=== PATIENT | female | born 1985 ===

== ENCOUNTER 2020-08-30 18:41 | Emergency (ER) | payer OTHER, SELFPAY ==
--- NOTE | 2020-08-30 | XR_ITS ---
EXAMINATION: XR SACRUM AND COCCYX CLINICAL INFORMATION: Pain COMPARISON: None TECHNIQUE: 2 views of the sacrum and 1views of the coccyx were obtained. FINDINGS: Large amount of gas and stool overlies the sacrum obscuring detail. Allowing for this, no bone, joint or soft tissue abnormality is demonstrated. The coccyx appears unremarkable. Phleboliths noted in the left hemipelvis. IMPRESSION: No gross abnormalities seen involving the sacrum or coccyx.
[2020-08-30 19:12] VITALS: BP 116/68; PULSE 110; RESP 18; TEMP 36.7; O2SAT 98; BMI 53.3
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
[2020-08-30] MEDS: Acetaminophen 325 MG TABLET 650 MG PO (19:55)
[2020-08-30] MEDS: Ibuprofen 800 MG TABLET PO (19:56)
== END 2020-08-30 21:05 | disposition home or self-care (01) ==
PROVIDERS: Emergency Provider Emergency Medicine
DX: S30.0XXA Contusion of lower back and pelvis, initial encounter (principal); V86.99XA Unspecified occupant of other special all-terrain or other off-road motor vehicle injured in nontraffic accident, initial encounter; Y93.89 Activity, other specified; Y92.414 Local residential or business street as the place of occurrence of the external cause; Y99.8 Other external cause status
CPT/HCPCS: 72220; 99283; 99284

== ENCOUNTER 2021-03-24 09:13 | Emergency (ER) | payer OTHER, SELFPAY ==
[2021-03-24 09:17] VITALS: BP 129/78; PULSE 82; RESP 16; TEMP 36.6; O2SAT 99; BMI 24.3
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
== END 2021-03-24 10:08 | disposition home or self-care (01) ==
PROVIDERS: Emergency Provider Emergency Medicine
DX: M54.5 Low back pain (principal)
CPT/HCPCS: 99283

== ENCOUNTER 2021-04-22 09:33 | Outpatient (REF) | payer OTHER, SELFPAY ==
[2021-04-22 13:26] LABS: CT PCR NOT DETECTED (Not Detect.); NG PCR NOT DETECTED (Not Detect.)
[2021-04-22 13:50] LABS: BV Int Neg Control Negative (Negative); BV Int Pos Control Positive (Positive)
== END 2021-04-22 09:34 | disposition home or self-care (01) ==
LOC: HO.LAB 09:33
PROVIDERS: Visit Provider Nurse Practitioner Family
DX: Z11.3 Encounter for screening for infections with a predominantly sexual mode of transmission (principal); R35.0 Frequency of micturition; N89.8 Other specified noninflammatory disorders of vagina; Z71.1 Person with feared health complaint in whom no diagnosis is made
CPT/HCPCS: 87086; 87088; 87186; 87480; 87491; 87510; 87591; 87660

== ENCOUNTER 2021-05-12 09:06 | Emergency (ER) | payer OTHER, SELFPAY ==
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
[2021-05-12 09:22] VITALS: BP 118/80; PULSE 78; RESP 16; TEMP 37; O2SAT 100; BMI 23.8
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
== END 2021-05-12 10:50 | disposition home or self-care (01) ==
PROVIDERS: Emergency Provider Emergency Medicine; PCP Internal Medicine
DX: S20.219A Contusion of unspecified front wall of thorax, initial encounter (principal); V90.8 Drowning and submersion due to other accident to watercraft; Y93.I9 Activity, other involving external motion; Y92.89 Other specified places as the place of occurrence of the external cause; Y99.9 Unspecified external cause status
CPT/HCPCS: 71046; 71100; 99283

== ENCOUNTER 2021-07-01 07:50 | Outpatient (REF) | payer OTHER, SELFPAY ==
[2021-07-01 08:54] LABS: MANUAL DIFF FLAG NO
[2021-07-01 09:09] LABS: Basophils Percent Auto 0.6 % (0-2); Eosinophils Absolute Auto 0.4 X10*3/uL (0.0-0.4); Eosinophils Percent Auto 8.1 % (0-4); Hematocrit 41.1 % (37-47); Hemoglobin 12.5 g/dl (12.0-16.0); Lymphocytes Absolute Auto 1.7 X10*3/uL (1.2-4.9); Lymphocytes Percent Auto 33.4 % (20-40); Mean Corpuscular HGB Conc 30.4 g/dl (31.0-35.0); Mean Corpuscular Hemoglobin 20.7 pg (27.0-33.0); Mean Corpuscular Volume 67.9 fL (80-98); Monocytes Absolute Auto 0.5 X10*3/uL (0.1-1.2); Monocytes Percent Auto 9.2 % (2-11); Neutrophils Absolute Auto 2.5 X10*3/uL (2.0-8.3); Neutrophils Percent Auto 48.7 % (45-73); Platelet Count 204 X10*3/uL (160-400); Red Blood Count 6.05 X10*6/uL (4.20-5.50); Red Cell Distribution Width 15.5 % (11.0-16.0); White Blood Count 5.2 X10*3/uL (4.8-10.8)
[2021-07-01 09:35] LABS: Alanine Aminotransferase 17 U/L (0-31); Albumin Level 4.3 g/dL (3.5-5.0); Alkaline Phosphatase 48 U/L (39-117); Anion Gap 11 (12-20); Aspartate Amino Transferase 21 U/L (5-31); Bilirubin Total 0.8 mg/dL (0.0-1.0); Blood Urea Nitrogen 17 mg/dL (9-16); Calcium 9.4 mg/dL (8.4-10.2); Carbon Dioxide 29 mmol/L (22-29); Chloride 104 mmol/L (96-108); Cholesterol 190 mg/dL; Estimated Glomerular Filt Rate > 60; Glucose Fasting 85 mg/dL (60-99); HDL Cholesterol 61 mg/dL; LDL Cholesterol Calculated 117 mg/dl; Potassium 4.6 mmol/L (3.3-5.1); Sodium 139 mmol/L (135-145); Total Protein 7.7 g/dL (6.5-8.0); Triglycerides 64 mg/dL
[2021-07-06 13:15] LABS: Vitamin D 25-OH, D2 <4 ng/mL; Vitamin D 25-OH, D3 31 ng/mL; Vitamin D 25-OH, Total 31 ng/mL (30-100)
== END 2021-07-01 07:51 | disposition home or self-care (01) ==
LOC: HO.LAB 07:50
PROVIDERS: PCP Internal Medicine; Visit Provider Internal Medicine
DX: D64.9 Anemia, unspecified (principal); D17.9 Benign lipomatous neoplasm, unspecified; E55.9 Vitamin D deficiency, unspecified; Z82.49 Family history of ischemic heart disease and other diseases of the circulatory system
CPT/HCPCS: 36415; 80053; 80061; 82306; 85025

== ENCOUNTER → 2021-07-29 10:21 | Outpatient (BNVA) | payer OTHER, SELFPAY | PROVIDERS: PCP Internal Medicine; Visit Provider Surgery | DX: R22.2 Localized swelling, mass and lump, trunk (principal) | CPT/HCPCS: 99202 ==

== ENCOUNTER 2021-08-11 09:57 | Outpatient (REF) | payer OTHER, SELFPAY ==
--- NOTE | ~2021-08-11 | US_ITS ---
EXAMINATION: ULTRASOUND EXTREMITY NONVASCULAR CLINICAL INFORMATION: Localized swelling, mass or lump, trunk COMPARISON: None TECHNIQUE: Grayscale and color imaging of the left buttock using a linear transducer FINDINGS: No solid or cystic mass is seen. No fluid collection is seen. US/US extremity nonvascular IMPRESSION: No abnormality seen by ultrasound.
== END 2021-08-11 09:58 | disposition home or self-care (01) ==
LOC: HO.HMGCX 09:57
PROVIDERS: PCP Internal Medicine; Visit Provider Surgery
DX: R22.2 Localized swelling, mass and lump, trunk (principal)
CPT/HCPCS: 76882

== ENCOUNTER → 2021-08-17 13:27 | Outpatient (BNVA) | payer OTHER, SELFPAY | PROVIDERS: PCP Internal Medicine; Visit Provider Surgery | DX: D17.79 Benign lipomatous neoplasm of other sites (principal) | CPT/HCPCS: 99212 ==

== ENCOUNTER 2021-11-30 07:47 | Emergency (ER) | payer OTHER, SELFPAY ==
--- NOTE | ~2021-11-30 | XR_ITS ---
EXAMINATION: XR LUMBOSACRAL SPINE CLINICAL INFORMATION: Low back pain COMPARISON: None TECHNIQUE: Three views of the lumbosacral spine. FINDINGS: The vertebral bodies and posterior elements are normal. The disc spaces are preserved and the vertebral alignment is normal. The paraspinal soft tissues are normal. XR/XR lumbar spine 2-3V IMPRESSION: Unremarkable lumbar spine examination.
[2021-11-30 08:11] VITALS: BP 134/98; PULSE 81; RESP 16; O2SAT 97; BMI 25.3
[2021-11-30 08:34] LABS: Appearance Urine HAZY; Color Urine YELLOW; Glucose Urine UA NEG (NEG); Leukocyte Esterase Urine 1+ (NEG); Nitrite Urine NEG (NEG); UACC Culture Trigger YES; Urine Blood TRACE (NEG); Urine Ketones NEG (NEG); Urine Protein NEG (NEG-TRACE)
[2021-11-30 08:36] LABS: UPreg QC Valid YES; Urine Pregnancy NEGATIVE (NEGATIVE)
[2021-11-30 08:45] LABS: Bacteria Urine TRACE /LPF; Squamous Epithelial Cell Urine 4+ /LPF
--- NOTE | 2021-11-30 09:03 | ED_ITS ---
HPI - Back Pain/Injury General Chief Complaint: Back Pain/Injury Stated Complaint: left sided pain Time Seen by Provider: 11/30/21 08:49 Source: patient Mode of arrival: ambulatory Limitations: no limitations History of Present Illness HPI Narrative: 35-year-old female came in for evaluation of low back pain. Low back pain started 2 weeks ago, with no history of injury however patient regularly go to gym and she lift weights but do not think she injured herself addition, pain is described as severe dull aching pain localized to the lower back and radiate up to the left side of the back but not the lower extremities, patient declined any stool or urinary incontinence. No weakness or numbness in her lower extremities. Patient declined any fever or chills, no history of IV drug abuse. Patient mainly started to notice frequency urination and bad odor urine. Related Data Home Medications Medication Instructions Recorded Confirmed cholecalciferol (vitamin D3) 50 50 mcg PO DAILY 06/30/21 07/29/21 mcg (2,000 unit) tablet (Vitamin D3) omeprazole 40 mg capsule,delayed 40 mg PO DAILY 06/30/21 07/29/21 release polyethylene glycol 3350 17 gram 17 g PO BID PRN 06/30/21 07/29/21 oral powder packet valacyclovir 500 mg tablet 500 mg PO DAILY 06/30/21 07/29/21 Previous Rx's Medication Instructions Recorded acetaminophen 500 mg tablet 500 mg PO Q6H PRN #14 tab 03/24/21 ibuprofen 600 mg tablet 600 mg PO Q8H PRN #10 tab 05/12/21 cyclobenzaprine 10 mg tablet 10 mg PO TID PRN #10 tab 11/30/21 nitrofurantoin 100 mg PO BID #14 cap 11/30/21 monohydrate/macrocrystals 100 mg capsule (Macrobid) oxycodone 5 mg tablet 5 mg PO Q8H PRN #10 tab 11/30/21 Allergies Allergy/AdvReac Type Severity Reaction Status Date / Time sertraline Allergy Severe tongue Verified 08/17/21 13:34 itchiness divalproex sodium Allergy Intermediate URTICARIA Verified 08/17/21 13:34 [From DEPAKOTE] topiramate [From TOPAMAX] Allergy Intermediate FACIAL AND Verified 08/17/21 13:34 LIP NUMBNESS hydromorphone [From DILAUDID] Allergy Mild URTICARIA Verified 08/17/21 13:34 Review of Systems Review of Systems: All other systems are reviewed and are negative Constitutional: Reports as per HPI and Reports no additional constitutional complaints Eyes: Reports as per HPI and Reports no additional eye complaints Reports system reviewed and no additional complaints, except as documented Cardiovascular: Reports as per HPI and Reports no additional cardiovascular complaints Respiratory: Reports as per HPI and Reports no additional respiratory complaints Gastrointestinal: Reports as per HPI and Reports no additional gastrointestinal complaints Genitourinary: Reports no additional female genitourinary complaints Musculoskeletal: Reports no additional musculoskeletal complaints Skin/Breast: Reports system reviewed and no additional complaints, except as docu Psychiatric: Reports no additional psychiatric complaints Endocrine: Reports no additional endocrine complaints Hematologic/Lymphatic: Reports no additional hematologic/lymphatic complaints Allergic/Immunologic: Reports no additional allergic/immunologic complaints Reports system reviewed and no additional complaints, except as documented and Reports Abnormal speech present FOR[facility] Past Medical History Medical History Abnormal bruising Asthma Buttocks nodule Constipation by delayed colonic transit Family history of hypertension GERD (gastroesophageal reflux disease) HSV (herpes simplex virus) infection Hypovitaminosis D Lip[place] Surgical History History of hysterectomy History of kidney stones History of umbilical hernia repair Family History Family History Mother Hypertension Social History Social History Housing: House Alcohol intake: current Alcohol intake frequency: holidays/special occasions only Alcohol type: hard liquor Patient Tobacco Use Status: Never used Tobacco e-Cigarette/Vaping Use: Never Used Second Hand Smoke Exposure: No Advance Directives: No Advance Directives Information Provided: No Patient : No service: No Current occupational status: unemployed Physical Exam Vital Signs: Vital Signs: Last Vital Signs Pulse 81 11/30/21 08:11 Resp 16 11/30/21 08:11 BP 134/98 H 11/30/21 08:11 Pulse Ox 97 11/30/21 08:11 BMI result Body Mass Index 25.3 Vital signs have been reviewed as appeared to be correct. Blood pressure normal. Heart rate normal. Respiration rate normal. Temperature normal. Oxygen saturation normal. Appearance: Alert. Oriented X3. No acute distress. Head: Normal external exam. Normocephalic. Atraumatic. No [place] signs noted. No raccoon eyes noted Eyes: PERRLA. EOMI. Conjunctiva and sclera normal. Eyelids normal. ENT: TM's Normal. Pharynx normal. Uvula midline. Moist mucous membranes. No trismus noted. No drooling noted. No muffled voice noted. Neck: Normal inspection. Neck supple. FROM. No adenopathy. Thyroid Normal. No meningeal signs. No neck mass noted. CVS: Normal heart rate and rhythm. Heart sound normal. No murmurs noted. Pulses normal throughout. Respiratory: No respiratory distress. Painless inspiration. Breath sounds normal. No wheezes/rales/rhonchi noted. Chest nontender. No accessory muscle usage noted or decreased air movement noted. Abdomen: Soft and nontender. Bowel sounds normal in all 4 quadrants. No distention noted. No organomegaly noted. No visible injury noted. Back: No CVA tenderness. Tenderness over the lower mid back but no step-off, no deformity. Skin: Skin warm and dry. Normal skin color. Normal skin turgor. No rashes/lesions/lacerations noted. Extremities: No lower extremity edema. Extremities exhibit normal range of motion. Extremities nontender. Neuro: Oriented X 3. Cranial nerve exam: II-XII are grossly intact, perianal sensation is intact, able to ambulate on both heels and toes. No motor deficit. No sensory deficit. Reflexes normal. Course Course Course Narrative: Assessment and plan. 35-year-old female came in for low back pain, patient has unremarkable x-ray, physical and clinical presentation is not consistent with spinal cord or neural canal occupying lesion causing symptoms. Patient also found to have a UTI will start the patient on Macrobid, and oxycodone seemed to control patient's pain in the ED, and few days of rest with heating pad with follow-up with her PCP. MDM - Back Pain/Injury Lab Data Attestation: I reviewed the patient's lab results. Labs: Lab Results 11/30/21 11/30/21 Range/Units 08:24 08:24 Urine Color YELLOW Urine Appearance HAZY Urine pH 6.0 (5.0-8.0) Ur Specific [place] 1.010 (1.005-1.025) Urine Protein NEG (NEG-TRACE) MG/DL Urine Glucose (UA) NEG (NEG) MG/DL Urine Ketones NEG (NEG) MG/DL Urine Blood TRACE (NEG) Urine Nitrite NEG (NEG) Ur Leukocyte Esterase 1+ H (NEG) Urine RBC 1-4 (0) /HPF Urine WBC 10-14 H (0-4) /HPF Ur Squamous Epith Cells 4+ /LPF Urine Bacteria TRACE /LPF Urine Test NEGATIVE (NEGATIVE) Imaging Data Lumbar spine x-ray: Attestation: I personally reviewed and interpreted this imaging study as follows: Radiologist's impression: Unremarkable lumbar spine examination. Discharge Plan Discharge Clinical Impression: Urinary tract infection, Back pain Patient Disposition: Home, Self-Care Instructions: Urinary Tract Infection in Women (ED), Acute Low Back Pain (ED) Prescriptions: New nitrofurantoin monohyd/m-cryst [Macrobid] 100 mg capsule 100 mg PO BID Qty: 14 RF: 0 oxycodone 5 mg tablet 5 mg PO Q8H PRN (Reason: pain) Qty: 10 RF: 0 cyclobenzaprine 10 mg tablet 10 mg PO TID PRN (Reason: muscle spasm) Qty: 10 RF: 0 No Action ibuprofen 600 mg tablet 600 mg PO Q8H PRN (Reason: pain) Qty: 10 RF: 0 acetaminophen 500 mg tablet 500 mg PO Q6H PRN (Reason: pain) Qty: 14 RF: 0 valacyclovir 500 mg tablet 500 mg PO DAILY RF: 0 omeprazole 40 mg capsule,delayed release(DR/EC) 40 mg PO DAILY RF: 0 polyethylene glycol 3350 17 gram powder in packet 17 g PO BID PRN (Reason: constipation) RF: 0 cholecalciferol (vitamin D3) [Vitamin D3] 50 mcg (2,000 unit) tablet 50 mcg PO DAILY RF: 0 Referrals: Mer Dunn MD [Primary Care Provider] - 2 days
[2021-11-30] MEDS: oxyCODONE HCl Immed Release 5 MG TABLET PO (09:09)
[2021-11-30] MEDS: Nitrofurantoin Monohyd/M-Cryst 100 MG CAPSULE PO (09:10)
[2021-11-30] MEDS: Ibuprofen 800 MG TABLET PO (09:10)
[2021-11-30] MEDS: Fluconazole 150 MG TABLET PO (10:05)
== END 2021-11-30 10:11 | disposition home or self-care (01) ==
PROVIDERS: Emergency Provider Emergency Medicine; PCP Internal Medicine
DX: N39.0 Urinary tract infection, site not specified (principal); M54.50 Low back pain, unspecified
CPT/HCPCS: 72100; 81001; 81025; 87086; 87088; 87186; 99283; 99284

== ENCOUNTER 2022-01-05 19:37 | Emergency (ER) | payer OTHER, SELFPAY ==
[2022-01-05 19:52] VITALS: BP 145/92; PULSE 88; RESP 20; TEMP 36.8; O2SAT 100; BMI 25.4
[2022-01-05] MEDS: methylPREDNISolone Sod Succ 125 MG/2 ML VIAL IVPUSH (20:07)
[2022-01-05] MEDS: diphenhydrAMINE HCL 50 MG/ML VIAL IVPUSH (20:09)
[2022-01-05] MEDS: Famotidine/PF 20 MG/2 ML VIAL IVPUSH (20:09)
[2022-01-05] MEDS: 0.9 % Sodium Chloride 1,000 ML 999 ML IV (20:09)
--- NOTE | 2022-01-05 20:28 | ED.ALLEREA ---
HPI - Allergic Reaction General Chief complaint: Allergic Reaction Stated complaint: allergic reaction Time Seen by Provider: 01/05/22 20:00 Source: patient History of Present Illness HPI narrative: Patient got her 2nd dose of Moderna COVID vaccine today. Shortly thereafter she developed an allergic reaction. Symptoms are hives diffusely. Tightness in her chest Swelling sensation in her throat. She has a history of allergic reactions 1 non is bad as this. She does have an EpiPen at home but has never used it. No other new changes to her health status. No new medications. No new food. Related Data Home Medications Medication Instructions Recorded Confirmed cholecalciferol (vitamin D3) 50 50 mcg PO DAILY 06/30/21 07/29/21 mcg (2,000 unit) tablet (Vitamin D3) omeprazole 40 mg capsule,delayed 40 mg PO DAILY 06/30/21 07/29/21 release polyethylene glycol 3350 17 gram 17 g PO BID PRN 06/30/21 07/29/21 oral powder packet valacyclovir 500 mg tablet 500 mg PO DAILY 06/30/21 07/29/21 Previous Rx's Medication Instructions Recorded acetaminophen 500 mg tablet 500 mg PO Q6H PRN #14 tab 03/24/21 ibuprofen 600 mg tablet 600 mg PO Q8H PRN #10 tab 05/12/21 cyclobenzaprine 10 mg tablet 10 mg PO TID PRN #10 tab 11/30/21 nitrofurantoin 100 mg PO BID #14 cap 11/30/21 monohydrate/macrocrystals 100 mg capsule (Macrobid) oxycodone 5 mg tablet 5 mg PO Q8H PRN #10 tab 11/30/21 diphenhydramine HCl 25 mg tablet 25 mg PO QID PRN #20 tab 01/05/22 (Allergy Relief (diphenhydramine)) prednisone 20 mg tablet 40 mg PO DAILY #10 tab 01/05/22 Allergies Allergy/AdvReac Type Severity Reaction Status Date / Time sertraline Allergy Severe tongue Verified 01/05/22 19:52 itchiness divalproex sodium Allergy Intermediate URTICARIA Verified 01/05/22 19:52 [From DEPAKOTE] topiramate [From TOPAMAX] Allergy Intermediate FACIAL AND Verified 01/05/22 19:52 LIP NUMBNESS hydromorphone [From DILAUDID] Allergy Mild URTICARIA Verified 01/05/22 19:52 Review of Systems Constitutional: Comments: No fevers chills ENT: Comments: Throat swelling sensation Cardiovascular: Comments: Chest tightness Respiratory: Comments: Dyspnea Gastrointestinal: Comments: No nausea vomiting or diarrhea Integumentary/Breasts: Comments: Diffuse hives Allergic/Immunologic: Comments: Diffuse hives PMFSH Past Medical History Medical History Abnormal bruising Asthma Buttocks nodule Constipation by delayed colonic transit Family history of hypertension GERD (gastroesophageal reflux disease) HSV (herpes simplex virus) infection Hypovitaminosis D Lipoma Surgical History History of hysterectomy History of kidney stones History of umbilical hernia repair Family History Family History Mother Hypertension Social History Social History Housing: House Alcohol intake: current Alcohol intake frequency: holidays/special occasions only Alcohol type: hard liquor Patient Tobacco Use Status: Never used Tobacco e-Cigarette/Vaping Use: Never Used Second Hand Smoke Exposure: No Advance Directives: No Advance Directives Information Provided: Yes Patient : No service: No Current occupational status: unemployed Physical Exam Vital Signs: Vital Signs: Last Vital Signs Temp 98.3 F 01/05/22 19:52 Pulse 83 01/05/22 20:36 Resp 20 01/05/22 20:36 BP 143/91 H 01/05/22 20:36 Pulse Ox 100 01/05/22 20:36 BMI result Body Mass Index 25.4 Const: Other: Awake alert. Appears anxious. HENMT: Other: Mild uvula edema. No other or pharyngeal edema. No stridor. No drooling. Resp: Other: Clear and equal bilaterally. No wheezes rales or rhonchi. Good air entry Cardio: Other: Regular rate and rhythm Course Course Course Narrative: Allergic reaction No evidence of anaphylaxis Treated with IV Solu-Medrol and IV diphenhydramine 21:18. Upon re-evaluation, hives have dissipated. Patient states she still feels itchy. No longer with swelling sensation in her throat and reexamine shows uvula swelling has improved. Will treat with another dose of IV Benadryl and monitor. Anticipate discharge home 21:53. Patient is feeling better after 2nd dose of diphenhydramine. Stable for discharge home Discharge Plan Discharge Clinical Impression: Adverse reaction to drug, Allergic reaction Patient Disposition: Home, Self-Care Instructions: General Allergic Reaction (ED) Additional Instructions: New had an allergic reaction to the Moderna vaccine. Consult your provider regarding other vaccine options in the future. Take prednisone for the next 5 days. Use Benadryl if the itching or hives return Prescriptions: New diphenhydramine HCl [Allergy Relief(diphenhydramin)] 25 mg tablet 25 mg PO QID PRN (Reason: allergic reaction) Qty: 20 0RF prednisone 20 mg tablet 40 mg PO DAILY Qty: 10 0RF No Action ibuprofen 600 mg tablet 600 mg PO Q8H PRN (Reason: pain) Qty: 10 0RF acetaminophen 500 mg tablet 500 mg PO Q6H PRN (Reason: pain) Qty: 14 0RF nitrofurantoin monohyd/m-cryst [Macrobid] 100 mg capsule 100 mg PO BID Qty: 14 0RF Rx Instructions: must administer with a meal/food oxycodone 5 mg tablet 5 mg PO Q8H PRN (Reason: pain) Qty: 10 0RF cyclobenzaprine 10 mg tablet 10 mg PO TID PRN (Reason: muscle spasm) Qty: 10 0RF valacyclovir 500 mg tablet 500 mg PO DAILY 0RF omeprazole 40 mg capsule,delayed release(DR/EC) 40 mg PO DAILY 0RF polyethylene glycol 3350 17 gram powder in packet 17 g PO BID PRN (Reason: constipation) 0RF cholecalciferol (vitamin D3) [Vitamin D3] 50 mcg (2,000 unit) tablet 50 mcg PO DAILY 0RF
--- NOTE | 2022-01-05 20:32 | PC.NURSE ---
PT received IV meds. PT currently satting at 100% on RA, breathing is less labored, and PT reports less itchyiness around the neck and throat area. PT stated that she still have some itchiness around the neck, chest, and abdomen. PT is in no apparent distress at this time.
[2022-01-05 20:36] VITALS: BP 143/91; PULSE 83; RESP 20; O2SAT 100
[2022-01-05] MEDS: diphenhydrAMINE HCL 50 MG/ML VIAL 25 MG IVPUSH (21:24)
== END 2022-01-05 22:28 | disposition home or self-care (01) ==
PROVIDERS: Emergency Provider Emergency Medicine; PCP Internal Medicine
DX: L50.9 Urticaria, unspecified (principal); T50.B95A Adverse effect of other viral vaccines, initial encounter; Y92.9 Unspecified place or not applicable; R07.89 Other chest pain; Z79.899 Other long term (current) drug therapy
CPT/HCPCS: 96361; 96374; 96375; 96376; 99284; J1200; J2930

== ENCOUNTER 2022-03-21 11:00 | Emergency (ER) | payer OTHER, SELFPAY ==
--- NOTE | ~2022-03-21 | CT_ITS ---
EXAMINATION: CT ABDOMEN AND PELVIS WITHOUT CONTRAST. CT FACIAL BONES WITHOUT CONTRAST. CLINICAL INFORMATION: Epigastric pain. Right sinus pain. COMPARISON: None TECHNIQUE: 5 mm thin axial and reformatted 3 mm thin sagittal and coronal images of abdomen and pelvis were obtained. Axial 3 mm thin and reformatted 1.5 mm thin sagittal and coronal images of facial bones were obtained. DLP [id number] FINDINGS: Abdomen and pelvis: The lung bases are clear. Heart size is normal. The liver is normal size, shape and density. No focal lesion or intrahepatic ductal dilatation seen. There is no radiopaque gallstones or wall thickening. Visualized spleen, pancreas and bilateral adrenal glands unremarkable. Both kidneys are normal size, shape and position. There are no enhancing right renal cyst. No radiopaque renal calculi or hydronephrosis seen. There are bilateral extrarenal kidney pelvises most on the right. The abdominal aorta is normal caliber. No retroperitoneal lymph nodes or mass seen. Abdominal wall appears unremarkable. There is scattered stool stool and gas seen in the colon without distention. The small bowel loops are normal caliber. Imaging to the pelvis reveals nonvisualization of uterus likely surgically removed or atrophic. There is a phleboliths in the left pelvis. There a few hypodense lesions in bilateral hilar adnexa likely ovarian cysts no free fluid seen. No abnormal pelvic or inguinal lymph nodes. Bone windows reveal no lytic or sclerotic process seen. Facial bones: There is mild mucoperiosteal thickening bilateral maxillary and right middle ethmoid sinuses. Rest of the paranasal sinuses are well-aerated. Bilateral ostiomeatal complex and frontoethmoidal recess are widely patent. The bony sinus morales are intact. Bilateral bony orbits, optic globe and optic nerve are symmetric and normal. There is no preseptal or post septal soft tissue thickening. There is no soft tissue swelling involving maxillofacial bones. Bilateral TM joints and visualized mandible appears unremarkable. The nasopharyngeal and laryngeal airway is widely patent. The prevertebral and paravertebral soft tissues are normal. Visualized intracranial brain parenchyma is unremarkable. CT/CT abdomen pelvis w con IMPRESSION: No acute intra-abdominal process seen. Multiple right renal cysts. Mild constipation without obstruction. Mild chronic inflammatory changes in bilateral maxillary and right minimal ethmoid sinus. Likely atrophic or surgically absent uterus. Bilateral ovarian cysts.
[2022-03-21 11:12] VITALS: BP 142/91; PULSE 100; RESP 19; TEMP 36.6; O2SAT 98; BMI 26.0
--- NOTE | 2022-03-21 11:34 | ED_ITS ---
HPI - Nausea/Vomiting/Diarrhea General Chief complaint: Nausea/Vomiting/Diarrhea Stated complaint: Vomiting/Nose bleed Time Seen by Provider: 03/21/22 11:32 Source: patient Mode of arrival: ambulatory Limitations: no limitations History of Present Illness HPI Narrative: 36-year-old female presents for feeling shaky, vomiting this morning, a nosebleed from her right nose, and right-sided facial pain that started this morning. Patient drank last night, she had more than 10 drinks last night. This morning she vomited 3 times, and after that had a nosebleed from her right nare. The nose bleed resolved, but now she has right-sided facial pain. Associated nausea: Yes Related Data Home Medications Medication Instructions Recorded Confirmed omeprazole 40 mg capsule,delayed 40 mg PO DAILY 06/30/21 02/08/22 release polyethylene glycol 3350 17 gram 17 g PO BID PRN 06/30/21 02/08/22 oral powder packet valacyclovir 500 mg tablet 500 mg PO DAILY 06/30/21 02/08/22 Previous Rx's Medication Instructions Recorded acetaminophen 500 mg tablet 500 mg PO Q6H PRN #14 tab 03/24/21 ibuprofen 600 mg tablet 600 mg PO Q8H PRN #10 tab 05/12/21 cyclobenzaprine 10 mg tablet 10 mg PO TID PRN #10 tab 11/30/21 diphenhydramine HCl 25 mg tablet 25 mg PO QID PRN #20 tab 01/05/22 (Allergy Relief (diphenhydramine)) cetirizine 10 mg tablet (Zyrtec) 10 mg PO DAILY #10 tab 01/27/22 fluconazole 150 mg tablet 150 mg PO Q3D #2 tab 01/27/22 (Diflucan) cholecalciferol (vitamin D3) 50 50 mcg PO DAILY 90 Days #90 tab 02/08/22 mcg (2,000 unit) tablet (Vitamin D3) fluticasone propionate 50 1 spray INTRANASAL DAILY 30 Days 02/08/22 mcg/actuation nasal #16 g spray,suspension (Flonase Allergy Relief) amoxicillin 875 mg-potassium 1 tab PO BID 10 Days #20 tab 03/21/22 clavulanate 125 mg tablet Allergies Allergy/AdvReac Type Severity Reaction Status Date / Time sertraline Allergy Severe tongue Verified 02/08/22 15:30 itchiness divalproex sodium Allergy Intermediate URTICARIA Verified 02/08/22 15:30 [From DEPAKOTE] topiramate [From TOPAMAX] Allergy Intermediate FACIAL AND Verified 02/08/22 15:30 LIP NUMBNESS hydromorphone [From DILAUDID] Allergy Mild URTICARIA Verified 02/08/22 15:30 moderna covid vaccine Allergy Intermediate hives,swell Uncoded 02/08/22 15:32 ing Review of Systems Constitutional: Constitutional: Denies body ache(s), Denies chills, Denies fatigue, Denies fever(s), Denies headache(s), Denies malaise and Denies weakness Eyes: Eyes: Denies diplopia ENT: Denies vertigo, Denies dizziness, Denies otalgia, Reports facial pain, Denies headache(s), Reports epistaxis, Denies mouth pain, Denies post nasal drip, Denies sinus pain, Reports sinus pressure, Denies sore throat and Denies throat swelling Cardiovascular: Cardiovascular: Denies chest pain, Denies syncope, Denies leg edema, Denies lightheadedness, Denies Loss of Consciousness, Denies palpitations and Denies dyspnea Respiratory: Respiratory: Denies chest congestion, Denies cough and Denies dyspnea Gastrointestinal: Gastrointestinal: Reports abdominal pain, Denies hematochezia, Denies constipation, Denies diarrhea, Reports nausea and Reports vomiting Musculoskeletal: Musculoskeletal: Reports no additional musculoskeletal complaints Neurologic: Denies confusion, Denies vertigo, Denies dizziness, Denies syncope, Denies headache(s) and Denies weakness Psychiatric: Psychiatric: Denies anxiety, Denies confusion and Denies depression Endocrine: Endocrine: Denies fatigue and Denies palpitations Allergic/Immunologic: Allergic/Immunologic: Denies throat swelling PMFSH Past Medical History Medical History Abnormal bruising Asthma Buttocks nodule Constipation by delayed colonic transit Family history of hypertension GERD (gastroesophageal reflux disease) HSV (herpes simplex virus) infection Hypovitaminosis D Lipoma Surgical History History of hysterectomy History of kidney stones History of umbilical hernia repair Family History Family History Mother Hypertension Social History Social History Housing: House Alcohol intake: current Alcohol intake frequency: does not drink Alcohol type: hard liquor Patient Tobacco Use Status: Never used Tobacco e-Cigarette/Vaping Use: Never Used Second Hand Smoke Exposure: No Use of substances other than those prescribed or required for medical reasons: No Advance Directives: No Advance Directives Information Provided: No Patient : No service: No Current occupational status: unemployed Physical Exam Vital Signs: Vital Signs: Last Vital Signs Temp 99.1 F 03/21/22 12:35 Pulse 83 03/21/22 12:35 Resp 18 03/21/22 12:35 BP 123/76 03/21/22 12:35 Pulse Ox 95 03/21/22 12:35 BMI result Body Mass Index 26.0 Const: General: No confusion Nutritional Appearance: well nourished Orientation/consciousness: No confusion Limitations: no limitations HEENT: Head: Yes normal to inspection, Yes normocephalic and Yes atraumatic Ears: hearing grossly normal bilaterally, external ears normal, TM's normal bilaterally and EAC's normal General nose exam: Normal external nose present, Normal nares present, Normal septum present, No nasal discharge present and no epistaxis Face and sinus: Yes sinus tenderness (right maxillary) Mouth: Normal oral and palatal mucosa present and moist mucous membranes Throat: Yes posterior oropharynx normal Eyes: Conjunctivae: conjunctivae normal Pupils: Equal, round and reactive pupils present EOM: EOMs intact bilaterally Neck: Neck: Yes full ROM, Yes no lymphadenopathy and Yes supple Resp: Effort & Inspection: normal respiratory effort and able to speak in co mplete sentences Auscultation: clear to auscultation bilaterally, no crac kles, no rales, no rhonchi and no wheezes Cardio: Rate: regular rate Rhythm: regular rhythm Heart sounds: S1 normal heart sound present and S2 normal heart sound present GI: Inspection: Yes normal to inspection Palpation (GI): Soft to palpation, Tenderness to palpation present (GI) (diffusely), Guarding due to palpation present (GI) (RUQ, LLQ, epigastrium) and not rigid Percussion: Yes normal to percussion Auscultation: normal bowel sounds : General: Yes no CVA tenderness Back/Spine/Pelvis: Back: no CVA tenderness Skin: General skin exam: no rashes or lesions noted Neuro: General: No confusion Cranial nerves: Yes Equal, round and reactive pupils present Extrem: General: Yes normal to inspection and Yes full ROM Psych: Appearance: grossly normal Affect: normal affect Attitude: cooperative Thought process: Normal thought process present Course Course Course Narrative: 36-year-old female presents for vomiting, nose bleed, and right facial pain and abdominal pain after drinking more than 10 drinks last night On exam, patient has stable vitals, is tender and guarding in her epigastrium, right upper quadrant, left lower quadrant is tremulous, afebrile, right Awan is patent with no septal hematoma no epistaxis, right maxillary sinuses tender to palpate and mildly erythematous. Will get alcohol level, labs, CT abdomen and face, gave fluids, Zofran, Ativan Reevaluation(s) Reevaluation #1: Labs are remarkable only for an ethanol level of 48, negative lipase, no elevated LFTs. Patient has not produced a urine yet. She is not . Vane iting CT scan results. On reexamination, patient is not tremulous anymore, states she is feeling much better, but still has right facial pain Reevaluation #2: CT shows right renal cysts, mild constipation, and chronic bilateral maxillary sinusitis with ethmoid sinusitis. Will treat as a sinusitis, Augmentin, follow up with primary care provider. CT/CT abdomen pelvis w con IMPRESSION: No acute intra-abdominal process seen. ? Multiple right renal cysts. ? Mild constipation without obstruction. ? Mild chronic inflammatory changes in bilateral maxillary and right minimal ethmoid sinus. ? Likely atrophic or surgically absent uterus. Bilateral ovarian cysts.? MDM - Nausea/Vomiting/Diarrhea Lab Data Result diagrams: 03/21/22 12:42 03/21/22 12:42 Labs: Lab Results 03/21/22 03/21/22 03/21/22 Range/Units 12:42 12:42 12:42 WBC 8.6 (4.8-10.8) X10*3/uL RBC 5.97 H (4.20-5.50) X10*6/uL Hgb 12.3 (12.0-16.0) g/dl Hct 40.3 (37.0-47.0) % MCV 67.5 L (80.0-98.0) fL MCH 20.6 L (27.0-33.0) pg MCHC 30.5 L (31.0-35.0) g/dl RDW 14.9 (11.0-16.0) % Plt Count 195 (160-400) X10*3/uL MPV Not Reportable Immature Gran % (Auto) 0.2 (0.0-0.4) % Neut % (Auto) 78.9 H (45-73) % Lymph % (Auto) 12.6 L (20-40) % [place] % (Auto) 5.8 (2-11) % Eos % (Auto) 2.0 (0-4) % Baso % (Auto) 0.5 (0-2) % Lymph # (Auto) 1.1 L (1.2-4.9) X10*3/uL [place] # (Auto) 0.5 (0.1-1.2) X10*3/uL Eos # (Auto) 0.2 (0.0-0.4) X10*3/uL Baso # (Auto) 0.0 (0.0-0.2) X10*3/uL Abs Immat Gran (auto) 0.02 (0.00-0.03) X10*3/uL Absolute Neuts (auto) 6.8 (2.0-8.3) x10*3/uL Absolute Nucleated RBC 0.000 (0.0-0.012) X10*3/uL Nucleated RBC % (auto) 0.0 (0.0-0.2) /100WBC Sodium 142 (135-145) mmol/L Potassium 4.1 (3.3-5.1) mmol/L Chloride 108 (96-108) mmol/L Carbon Dioxide 26 (22-29) mmol/L Anion Gap 12 (12-20) BUN 10 (9-16) mg/dL Creatinine 0.74 (0.5-1.4) mg/dL Estim Creat Clear Calc 89.9 Estimated GFR > 60 Random Glucose 92 (60-115) mg/dL Calcium 8.9 (8.4-10.2) mg/dL Total Bilirubin 0.5 (0.0-1.0) mg/dL AST 17 (5-31) U/L ALT 12 (0-31) U/L Alkaline Phosphatase 54 (39-117) U/L Total Protein 7.8 (6.5-8.0) g/dL Albumin 4.4 (3.5-5.0) g/dL Lipase 18 (8-78) U/L Beta HCG, Quant < 2 mIU/mL Ethyl Alcohol 46 mg/dL Discharge Plan Discharge Clinical Impression: Sinusitis, acute ethmoidal Patient Disposition: Home, Self-Care Instructions: Sinusitis (ED), Warm Compress or Soak (ED) Additional Instructions: I have sent an antibiotic to her pharmacy, please take it as prescribed. You can also alternate Tylenol and ibuprofen as I have detailed below. You may also apply warm moist washcloth to right side of your face for 10 minutes at a time 5 per 6 times a day. Please return to emergency room for any new or concerning symptoms.Please alternate Tylenol and ibuprofen for pain. Take 1 or the other every 4 hours. For example, at midnight take 1000 mg of Tylenol, then at 4:00 a .m. take 800 mg ibuprofen, at 8:00 a.m. take 1000 mg of Tylenol, at noon take 800 mg of ibuprofen, at 4:00 p.m. take 1000 mg of Tylenol, at 8:00 p.m. take 800 mg of ibuprofen. Do not exceed 3000 mg of Tylenol in 24 hours. This method is proven to be as effective as an opioid for pain control. Prescriptions: New amoxicillin-pot clavulanate 875-125 mg tablet 1 tab PO BID 10 Days Qty: 20 0RF No Action ibuprofen 600 mg tablet 600 mg PO Q8H PRN (Reason: pain) Qty: 10 0RF acetaminophen 500 mg tablet 500 mg PO Q6H PRN (Reason: pain) Qty: 14 0RF cyclobenzaprine 10 mg tablet 10 mg PO TID PRN (Reason: muscle spasm) Qty: 10 0RF diphenhydramine HCl [Allergy Relief(diphenhydramin)] 25 mg tablet 25 mg PO QID PRN (Reason: allergic reaction) Qty: 20 0RF valacyclovir 500 mg tablet 500 mg PO DAILY 0RF omeprazole 40 mg capsule,delayed release(DR/EC) 40 mg PO DAILY 0RF polyethylene glycol 3350 17 gram powder in packet 17 g PO BID PRN (Reason: constipation) 0RF fluticasone propionate [Flonase Allergy Relief] 50 mcg/actuation spray,suspension 1 spray intranasal DAILY 30 Days Qty: 16 2RF Rx Instructions: administer into each nostril cholecalciferol (vitamin D3) [Vitamin D3] 50 mcg (2,000 unit) tablet 50 mcg PO DAILY 90 Days Qty: 90 1RF fluconazole [Diflucan] 150 mg tablet 150 mg PO Q3D Qty: 2 0RF cetirizine [Zyrtec] 10 mg tablet 10 mg PO DAILY Qty: 10 0RF Stand Alone Forms: Work/School Release
[2022-03-21 12:35] VITALS: BP 123/76; PULSE 83; RESP 18; TEMP 37.3; O2SAT 95
[2022-03-21 12:45] LABS: MANUAL DIFF FLAG NO
[2022-03-21] MEDS: 0.9 % Sodium Chloride 1,000 ML 999 ML IV (12:48)
[2022-03-21] MEDS: ondansetron HCL 4 MG/2 ML VIAL IVPUSH (12:48)
[2022-03-21] MEDS: LORazepam 2 MG/ML VIAL 1 MG IVPUSH (12:48)
[2022-03-21 12:50] LABS: Basophils Percent Auto 0.5 % (0-2); Eosinophils Absolute Auto 0.2 X10*3/uL (0.0-0.4); Hematocrit 40.3 % (37.0-47.0); Hemoglobin 12.3 g/dl (12.0-16.0); Imm Gran Abs Auto 0.02 X10*3/uL (0.00-0.03); Imm Gran Pct Auto 0.2 % (0.0-0.4); Lymphocytes Absolute Auto 1.1 X10*3/uL (1.2-4.9); Lymphocytes Percent Auto 12.6 % (20-40); Mean Corpuscular HGB Conc 30.5 g/dl (31.0-35.0); Mean Corpuscular Hemoglobin 20.6 pg (27.0-33.0); Mean Corpuscular Volume 67.5 fL (80.0-98.0); Monocytes Absolute Auto 0.5 X10*3/uL (0.1-1.2); Monocytes Percent Auto 5.8 % (2-11); Neutrophils Absolute Auto 6.8 x10*3/uL (2.0-8.3); Neutrophils Percent Auto 78.9 % (45-73); Platelet Count 195 X10*3/uL (160-400); Red Blood Count 5.97 X10*6/uL (4.20-5.50); Red Cell Distribution Width 14.9 % (11.0-16.0); White Blood Count 8.6 X10*3/uL (4.8-10.8)
[2022-03-21 13:02] LABS: Ethanol 46 mg/dL
[2022-03-21 13:06] LABS: Alanine Aminotransferase 12 U/L (0-31); Albumin Level 4.4 g/dL (3.5-5.0); Alkaline Phosphatase 54 U/L (39-117); Anion Gap 12 (12-20); Aspartate Amino Transferase 17 U/L (5-31); Bilirubin Total 0.5 mg/dL (0.0-1.0); Blood Urea Nitrogen 10 mg/dL (9-16); Calcium 8.9 mg/dL (8.4-10.2); Carbon Dioxide 26 mmol/L (22-29); Chloride 108 mmol/L (96-108); Creatinine Clr Calc Pharmacy 89.9; Estimated Glomerular Filt Rate > 60; Glucose Random 92 mg/dL (60-115); Lipase 18 U/L (8-78); Potassium 4.1 mmol/L (3.3-5.1); Sodium 142 mmol/L (135-145); Total Protein 7.8 g/dL (6.5-8.0)
[2022-03-21 13:12] LABS: HCG Quantitative < 2 mIU/mL
[2022-03-21] MEDS: iohexoL 350 MG/ML 100 ML INFUS..BTL IV (13:38)
[2022-03-21 14:42] VITALS: BP 117/82; PULSE 91; RESP 16; O2SAT 100
== END 2022-03-21 14:43 | disposition home or self-care (01) ==
PROVIDERS: Physician Assistant; Emergency Provider Emergency Medicine; PCP Internal Medicine
DX: J01.20 Acute ethmoidal sinusitis, unspecified (principal); R11.2 Nausea with vomiting, unspecified; R10.13 Epigastric pain; Z79.899 Other long term (current) drug therapy
CPT/HCPCS: 36415; 70486; 74177; 80053; 82077; 83690; 84702; 85025; 96361; 96374; 96375; 99284; J2060; J2405; Q9967

== ENCOUNTER 2022-06-23 17:14 | Outpatient (REF) | payer OTHER, SELFPAY | END 2022-06-23 17:15 | disposition home or self-care (01) | LOC: HO.LNP 17:14 | PROVIDERS: Visit Provider Internal Medicine | DX: Z00.00 Encounter for general adult medical examination without abnormal findings (principal); E78.5 Hyperlipidemia, unspecified; N83.209 Unspecified ovarian cyst, unspecified side; R30.0 Dysuria; Z11.3 Encounter for screening for infections with a predominantly sexual mode of transmission; Z11.4 Encounter for screening for human immunodeficiency virus [HIV] | CPT/HCPCS: 87086 ==

== ENCOUNTER → 2022-06-24 13:02 | Outpatient (BNVA) | payer OTHER, SELFPAY | PROVIDERS: PCP Internal Medicine; Visit Provider Surgery | DX: R22.2 Localized swelling, mass and lump, trunk (principal) | CPT/HCPCS: 99212 ==

== ENCOUNTER 2022-08-05 12:27 | Outpatient (REF) | payer OTHER, SELFPAY ==
--- NOTE | ~2022-08-05 | XR_ITS ---
EXAMINATION: XR CHEST CLINICAL INFORMATION: Cough COMPARISON: Chest x-ray 05/12/2021 TECHNIQUE: 2 views of the chest were obtained. FINDINGS: Cardiac silhouette is normal in size. The lungs are well aerated. There is no lobar consolidation. No pleural effusion or pneumothorax. XR/XR chest 2V IMPRESSION: No acute pulmonary pathology.
== END 2022-08-05 12:28 | disposition home or self-care (01) ==
LOC: HO.HMGCX 12:27
PROVIDERS: PCP Internal Medicine
DX: R05.9 Cough, unspecified (principal)
CPT/HCPCS: 71046

== ENCOUNTER 2022-08-10 05:58 | Day surgery (SDC) | payer OTHER, SELFPAY ==
[2022-08-04 15:10] VITALS: BMI 26.6
--- NOTE | 2022-08-09 10:42 | P.CONAN_ITS ---
Documented by User: Shandra Spears NP 08/09/22 10:43 HPI - Anesthesia Eval Consult details Narrative: 36yo F for EUA, Left Excision Buttocks Mass PMFSH Active Problems Active Problems: All Active Problems (Updated 08/04/22 @ 15:07 by Diane Chase RN) Concern about STD in female without diagnosis (Acute) Vaginal discharge (Acute) Urinary frequency (Acute) Burning with urination (Acute) Allergies (Acute) URI (upper respiratory infection) (Acute) Ethmoid sinusitis (Acute) Physical exam (Acute) Screen for STD (sexually transmitted disease) (Acute) Ovarian cyst (Acute) Buttocks nodule (Acute) Buttocks nodule (Acute) HSV (herpes simplex virus) infection (Acute) Constipation by delayed colonic transit (Acute) Hypovitaminosis D (Acute) GERD (gastroesophageal reflux disease) (Acute) Family history of hypertension (Acute) Abnormal bruising (Acute) Lipoma (Acute) Past Medical History Medical History Abnormal bruising Asthma Buttocks nodule Buttocks nodule Constipation by delayed colonic transit Family history of hypertension GERD (gastroesophageal reflux disease) History of COVID-19 HSV (herpes simplex virus) infection Hypovitaminosis D Lipoma Family History Family History Mother Hypertension Father No problems noted. Surgical History Surgical History History of hysterectomy History of kidney stones History of umbilical hernia repair Social History Social History Housing: House Alcohol intake: current Alcohol intake frequency: holidays/special occasions only Alcohol type: hard liquor Patient Tobacco Use Status: Never used Tobacco e-Cigarette/Vaping Use: Never Used Second Hand Smoke Exposure: No Use of substances other than those prescribed or required for medical reasons: Yes Substance Use Frequency: Occasionally Are you DNR?: No Advance Directives: No Advance Directives Information Provided: Yes service: No Current occupational status: employed Current occupational exposures/hazards: No Cognitive needs: No Hearing needs: No Vision needs: Yes Meds Allergies Allergy/AdvReac Type Severity Reaction Status Date / Time sertraline Allergy Severe tongue Verified 08/10/22 06:14 itchiness divalproex sodium Allergy Intermediate URTICARIA Verified 08/10/22 06:14 [From DEPAKOTE] topiramate [From TOPAMAX] Allergy Intermediate FACIAL AND Verified 08/10/22 06:14 LIP NUMBNESS hydromorphone [From DILAUDID] Allergy Mild URTICARIA Verified 08/10/22 06:14 moderna covid vaccine Allergy Intermediate hives,swell Uncoded 08/05/22 11:42 ing Home Medications Medication Instructions Recorded Confirmed Last Taken Type valacyclovir 500 mg tablet 500 mg PO BID 06/23/22 08/10/22 Unknown History Exam Exam Date and Time: August 09, 2022 1042 Height,Weight and Vital Signs: Height 5 ft 1 in Weight 63.957 kg Pertinent Lab Results Pertinent Lab Results: Laboratory Tests 03/21/22 03/21/22 12:42 12:42 WBC 8.6 Hgb 12.3 Hct 40.3 Plt Count 195 Sodium 142 Potassium 4.1 Chloride 108 Carbon Dioxide 26 BUN 10 Creatinine 0.74 Assessment and Plan Assessment Anesthesia Assessment: Chart Reviewed Documented by User: Greta Santiago MD 08/10/22 07:28 [facility] Past Medical History Medical History Abnormal bruising Asthma Buttocks nodule Buttocks nodule Constipation by delayed colonic transit Family history of hypertension GERD (gastroesophageal reflux disease) History of COVID-19 HSV (herpes simplex virus) infection Hypovitaminosis D Lipoma Family History Family History Mother Hypertension Father No problems noted. Surgical History Surgical History History of hysterectomy History of kidney stones History of umbilical hernia repair History of Problems with Anesthesia: No Social History Social History Housing: House Alcohol intake: current Alcohol intake frequency: holidays/special occasions only Alcohol type: hard liquor Patient Tobacco Use Status: Never used Tobacco e-Cigarette/Vaping Use: Never Used Second Hand Smoke Exposure: No Use of substances other than those prescribed or required for medical reasons: Yes Substance Use Frequency: Occasionally Are you DNR?: No Advance Directives: No Advance Directives Information Provided: Yes service: No Current occupational status: employed Current occupational exposures/hazards: No Cognitive needs: No Hearing needs: No Vision needs: Yes Meds Allergies Allergy/AdvReac Type Severity Reaction Status Date / Time sertraline Allergy Severe tongue Verified 08/10/22 06:14 itchiness divalproex sodium Allergy Intermediate URTICARIA Verified 08/10/22 06:14 [From DEPAKOTE] topiramate [From TOPAMAX] Allergy Intermediate FACIAL AND Verified 08/10/22 06:14 LIP NUMBNESS hydromorphone [From DILAUDID] Allergy Mild URTICARIA Verified 08/10/22 06:14 moderna covid vaccine Allergy Intermediate hives,swell Uncoded 08/05/22 11:42 ing Home Medications Medication Instructions Recorded Confirmed Last Taken Type valacyclovir 500 mg tablet 500 mg PO BID 06/23/22 08/10/22 Unknown History Exam Airway Mallampati Class: I TM Dist: >3cm Neck ROM: Full Loose/Missing/Broken Teeth: No Heart: RRR Lungs: CTA Assessment and Plan Final Anesthetic Review History of Problems with Anesthesia: No NPO: Yes ASA Class: II Final Preanesthetic Review: Meds/Allgs Chart Reviewed, Consent Obtained/Reviewed and Anes Risks/Benef Reviewed Patient Risk: Low Procedure Risk: Intermediate Anesthetic Plan Anesthetic Plan: GA Disposition: Standard PACU
[2022-08-10] VITALS (8 sets, daily range): BP systolic 116–131; BP diastolic 75–83; PULSE 71–104; RESP 15–16; TEMP 36.4–36.9; O2SAT 95–100
[2022-08-10] MEDS: Lactated Ringers 1,000 ML 100 ML IVCONT (06:33)
--- NOTE | 2022-08-10 07:20 | MHC.SHP ---
Pre-Procedural Eval Section A Date of Service: 08/10/22 Section B Chief Complaint: mass of buttocks Details of Present Illness: has left buttock mass, increasing in size, uncomfortable Relevant Family History (Specify if Yes): No Relevant Social History: None Present Medications: see Short Stay Collaborative assessment Medical History: Significant History (GERD) Allergies: Allergies Allergy/AdvReac Type Severity Reaction Status Date / Time sertraline Allergy Severe tongue Verified 08/10/22 06:14 itchiness divalproex sodium Allergy Intermediate URTICARIA Verified 08/10/22 06:14 [From DEPAKOTE] topiramate [From TOPAMAX] Allergy Intermediate FACIAL AND Verified 08/10/22 06:14 LIP NUMBNESS hydromorphone [From DILAUDID] Allergy Mild URTICARIA Verified 08/10/22 06:14 moderna covid vaccine Allergy Intermediate hives,swell Uncoded 08/05/22 11:42 ing Review of Systems Sugical H&P ROS: Negative: Constitution, Cardiovascular, Respiratory, Neurological, Psychiatric, Hem-Onc, Allergic/Immunologic, Gastrointestinal, Genitourinary, Musculoskeletal, Integumentary, Endocrine and Eyes/Ears/Nose/Throat Exam Surgical H&P Exam: Normal: HEENT, Normal: Heart, Normal: Lungs, Normal: Extremities, Normal: Abdomen, Normal: Skin and Normal: Neurological Exam Comment: left buttock - vague mass,more prominent when she is upright Plan Diagnosis/Plan: Unchanged I have reviewed the history and physical and performed a pertinent physical examination on my patient. No changes have occurred unless specified.
--- NOTE | 2022-08-10 08:02 | HO.ANESPROP2 ---
[facility] Active Problems Active Problems: All Active Problems (Updated 08/04/22 @ 15:07 by Diane Chase RN) Concern about STD in female without diagnosis (Acute) Vaginal discharge (Acute) Urinary frequency (Acute) Burning with urination (Acute) Allergies (Acute) URI (upper respiratory infection) (Acute) Ethmoid sinusitis (Acute) Physical exam (Acute) Screen for STD (sexually transmitted disease) (Acute) Ovarian cyst (Acute) Buttocks nodule (Acute) Buttocks nodule (Acute) HSV (herpes simplex virus) infection (Acute) Constipation by delayed colonic transit (Acute) Hypovitaminosis D (Acute) GERD (gastroesophageal reflux disease) (Acute) Family history of hypertension (Acute) Abnormal bruising (Acute) Lipoma (Acute) Past Medical History Medical History Abnormal bruising Asthma Buttocks nodule Buttocks nodule Constipation by delayed colonic transit Family history of hypertension GERD (gastroesophageal reflux disease) History of COVID-19 HSV (herpes simplex virus) infection Hypovitaminosis D Lipoma Family History Family History Mother Hypertension Father No problems noted. Surgical History Surgical History History of hysterectomy History of kidney stones History of umbilical hernia repair History of Problems with Anesthesia: No Social History Social History Housing: House Alcohol intake: current Alcohol intake frequency: holidays/special occasions only Alcohol type: hard liquor Patient Tobacco Use Status: Never used Tobacco e-Cigarette/Vaping Use: Never Used Second Hand Smoke Exposure: No Use of substances other than those prescribed or required for medical reasons: Yes Substance Use Frequency: Occasionally Are you DNR?: No Advance Directives: No Advance Directives Information Provided: Yes service: No Current occupational status: employed Current occupational exposures/hazards: No Cognitive needs: No Hearing needs: No Vision needs: Yes Meds Allergies Allergy/AdvReac Type Severity Reaction Status Date / Time sertraline Allergy Severe tongue Verified 08/10/22 06:14 itchiness divalproex sodium Allergy Intermediate URTICARIA Verified 08/10/22 06:14 [From DEPAKOTE] topiramate [From TOPAMAX] Allergy Intermediate FACIAL AND Verified 08/10/22 06:14 LIP NUMBNESS hydromorphone [From DILAUDID] Allergy Mild URTICARIA Verified 08/10/22 06:14 moderna covid vaccine Allergy Intermediate hives,swell Uncoded 08/05/22 11:42 ing Active Medications: Current Medications Acetaminophen (Acetaminophen 325 Mg Tablet) 650 mg PO ONCE PRN PRN Reason: Pain, Mild (Pain Scale 1-3) Albuterol Sulfate (Albuterol Sulfate (0.083%) 2.5 Mg/3 Ml Vial.Neb) 2.5 mg INHALE ONCE PRN PRN Reason: Shortness of Breath/Wheezing Albuterol Sulfate (Albuterol Sulfate (0.083%) 2.5 Mg/3 Ml Vial.Neb) 2.5 mg INHALE ONCE PRN PRN Reason: Wheezing Fentanyl (Fentanyl Citrate/Pf 100 Mcg/2 Ml Vial) 25 mcg IVPUSH Q5M PRN; Protocol PRN Reason: Pain, Moderate (Pain Scale 4-6 Lactated Ringer's (Lr) 1,000 mls @ 100 mls/hr IVCONT .Q10H BLANCA Last Admin: 08/10/22 06:33 Dose: 100 mls/hr Ondansetron HCl (Ondansetron Hcl 4 Mg/2 Ml Vial) 4 mg IVPUSH ONCE PRN PRN Reason: Nausea and Vomiting Oxycodone HCl (Oxycodone Hcl Immed Release 5 Mg Tablet) 5 mg PO ONCE PRN PRN Reason: Pain, Severe (Pain Scale 7-10) Home Medications Medication Instructions Recorded Confirmed Last Taken Type valacyclovir 500 mg tablet 500 mg PO BID 06/23/22 08/10/22 Unknown History Exam Exam Date and Time: August 10, 2022801 Height,Weight and Vital Signs: Height 5 ft 1 in Weight 63.957 kg Last Vital Signs Temp 98.4 F 08/10/22 06:23 Pulse 71 08/10/22 06:23 Resp 15 08/10/22 06:23 BP 127/83 08/10/22 06:23 Pulse Ox 98 08/10/22 06:23 O2 Del Method 08/10/22 06:23 Airway Mallampati Class: II TM Dist: >3cm Neck ROM: Full Loose/Missing/Broken Teeth: No Heart: RRR Lungs: CTA Assessment and Plan Assessment Anesthesia Assessment: Anesthesia Plan Discussed and Chart Reviewed Final Anesthetic Review History of Problems with Anesthesia: No NPO: Yes ASA Class: II Final Preanesthetic Review: Meds/Allgs Chart Reviewed, Consent Obtained/Reviewed and Anes Risks/Benef Reviewed Patient Risk: Low
--- NOTE | 2022-08-10 08:18 | P.OP_ITS ---
Operative Note Operative Note Date of Service: 08/10/22 Narrative: Preop diagnosis: Left buttock subcutaneous mass Postop diagnosis: Left buttock lipoma Procedure: Excision of left buttock lipoma under anesthesia Surgeon: Koko Yan MD respiratory care assistant: ELGIN Barros The patient is a 36-year-old female with left buttock mass consistent with lipoma. She wanted to proceed with excision. She understood technique of excision under anesthesia. She was aware of the risks, benefits, and alternatives. Was brought to the operating room placed in prone position under general anesthesia via endotracheal tube. The left buttock was prepped and draped in the usual sterile fashion. A surgical time-out was done. The patient received cefazolin 2 g IV preoperatively. I infiltrated the planned line of incision on left buttock using lidocaine 1%. I made the incision using a blade 15. This was carried down through the full- thickness of the skin subcutaneous fat with electrocautery until a lipomatous mass was visualized. I sharply dissected the lipoma off the rest of the subcutaneous layer using Metzenbaum scissors as well as electrocautery. The lipoma itself was not very well defined with him note of very fine adhesions to the surrounding subcutaneous fat so there were really no good planes. However, with careful dissection bluntly as well as with electrocautery as able to carefully separate the lipoma off of the rest of the subcutaneous fat as well as just above the gluteus. This was eventually delivered. The lipoma was about 4 cm by 3 cm. I irrigated. I observed for hemostasis. I cauterized oozing areas. Once hemostasis was ensured, I proceeded to copiously irrigate. I reapposed the thick subcutaneous layer with Dexon 3-0 interrupted sutures. Skin closure was achieved with Dexon 4-0 subcuticular running stitch. The area was infiltrated with Marcaine 0.5% for postop analgesia. Dressings were applied. The procedure was completed. The patient tolerated procedure well. There were no complications noted. Initial fine counts of sponges and instruments were correct. Estimated blood loss about 20 cc. The patient was extubated without difficulty and transferred to the recovery room with stable vital signs.
[2022-08-10] MEDS: oxyCODONE HCl Immed Release 5 MG TABLET PO (09:25)
[2022-08-10] MEDS: Acetaminophen 325 MG TABLET 650 MG PO (09:25)
== END 2022-08-10 10:21 | disposition home or self-care (01) ==
PROVIDERS: PCP Internal Medicine; Visit Provider Surgery
PROC: (CPT 27043; principal; 2022-08-10 07:30)
DX: D17.1 Benign lipomatous neoplasm of skin and subcutaneous tissue of trunk (principal); J45.909 Unspecified asthma, uncomplicated; K21.9 Gastro-esophageal reflux disease without esophagitis; E55.9 Vitamin D deficiency, unspecified; B00.9 Herpesviral infection, unspecified; Z79.51 Long term (current) use of inhaled steroids; Z79.899 Other long term (current) drug therapy; Z88.8 Allergy status to other drugs, medicaments and biological substances; Z88.7 Allergy status to serum and vaccine; Z86.16 Personal history of COVID-19
CPT/HCPCS: 27043; 88304; J0690; J1100; J1885; J2250; J2405; J2795; J3010

== ENCOUNTER 2022-08-13 09:53 | Emergency (ER) | payer OTHER, SELFPAY ==
[2022-08-13 10:04] VITALS: BP 137/98; PULSE 100; RESP 19; TEMP 36.6; O2SAT 98; BMI 25.9
--- NOTE | 2022-08-13 11:45 | ED.RECABL ---
HPI - Recheck/Abnormal Lab/Rx General Chief Complaint: General Medical Stated Complaint: wound bleeding after surgery Time Seen by Provider: 08/13/22 11:32 Source: patient Mode of arrival: ambulatory Limitations: no limitations History of Present Illness HPI narrative: 36-year-old female presenting to the ER with complaints of a wound check due to wound was bleeding and she is having worsening pain from the wound/surgical site. She reports that she was seen by Dr. Amador is on 08/10/2022 and had a left buttock subcutaneous lymphoma removed. She reports that she was having some minimal pain after the surgery and she has been applying ice although within the last 2-3 days it is worse the pain. She reports the pain is radiating up to her lower back. She reports she did have some bloody discharge yesterday. She denies any fevers, chills, nausea/vomiting, purulent drainage, surrounding erythema or any other symptoms complaints or concerns at this time. MD complaint: wound re-check Initial visit (ago): day(s) (3) Initial visit for: other (See above) Returns today for: wound recheck Symptoms since prior visit: worsening pain Associated symptoms: none Treatments prior to arrival: cold therapy Related Data Home Medications Medication Instructions Recorded Confirmed valacyclovir 500 mg tablet 500 mg PO BID 06/23/22 08/10/22 Previous Rx's Medication Instructions Recorded cholecalciferol (vitamin D3) 50 50 mcg PO DAILY 90 days #90 tabs 02/08/22 mcg (2,000 unit) tablet (Vitamin D3) cetirizine 10 mg tablet (Zyrtec) 10 mg PO DAILY allergy symptoms 03/30/22 #30 tabs fluticasone propionate 50 1 spray intranasal DAILY 30 days 03/30/22 mcg/actuation nasal #16 grams spray,suspension (Flonase Allergy Relief) omeprazole 40 mg capsule,delayed 40 mg PO DAILY 90 days #90 caps 07/27/22 release albuterol sulfate 90 mcg/actuation 2 puff inhalation Q6H PRN 07/28/22 aerosol inhaler shortness of breath or wheezing 30 days #6.7 grams ibuprofen 600 mg tablet 600 mg PO Q6H PRN pain #30 tabs 08/10/22 tramadol 50 mg tablet 50 mg PO Q6H PRN pain #30 tabs 08/10/22 acetaminophen 500 mg tablet 1,000 mg PO QID PRN fever or pain 08/13/22 (Tylenol Extra Strength) #14 tabs cyclobenzaprine 10 mg tablet 10 mg PO Q8H #14 tabs 08/13/22 oxycodone 5 mg tablet 5 mg PO Q6H PRN pain #14 tabs 08/13/22 Allergies Allergy/AdvReac Type Severity Reaction Status Date / Time sertraline Allergy Severe tongue Verified 08/10/22 06:14 itchiness divalproex sodium Allergy Intermediate URTICARIA Verified 08/10/22 06:14 [From DEPAKOTE] topiramate [From TOPAMAX] Allergy Intermediate FACIAL AND Verified 08/10/22 06:14 LIP NUMBNESS hydromorphone [From DILAUDID] Allergy Mild URTICARIA Verified 08/10/22 06:14 moderna covid vaccine Allergy Intermediate hives,swell Uncoded 08/05/22 11:42 ing Review of Systems Review of Systems: Constitutional : Denies history of same, Denies any other sites involved, Denies IV drug use, Denies history of MRSA, Denies swollen glands, Denies injury, Denies Fever, Denies Chills, No Sig Pain, Denies Systemic symptoms Cardiovascular : No Chest Pain, No SOB Respiratory : No Dyspnea Gastrointestinal : No abdominal pain Musculoskeletal : No Joint Swelling Skin : + wound, No abscess with surrounding erythema, No skin laceration, No Foreign bodies, No spreading rash, Denies bites, Denies discharge, Neuro : No Weakness, No Numbness/tingling Psych : No SI/HI/thoughts of self injury Yes all other systems are reviewed and are negative [facility] Past Medical History Attestation statement: The following information was validated with the patient. Source: old records reviewed and nursing notes reviewed Medical History Abnormal bruising Asthma Buttocks nodule Buttocks nodule Constipation by delayed colonic transit Family history of hypertension GERD (gastroesophageal reflux disease) History of COVID-19 HSV (herpes simplex virus) infection Hypovitaminosis D Lipoma Surgical History History of hysterectomy History of kidney stones History of umbilical hernia repair Family History Family History Mother Hypertension Father No problems noted. Social History Social History Housing: House Alcohol intake: current Alcohol intake frequency: holidays/special occasions only Alcohol type: hard liquor Patient Tobacco Use Status: Never used Tobacco e-Cigarette/Vaping Use: Never Used Second Hand Smoke Exposure: No Advance Directives: No Advance Directives Information Provided: No service: No Current occupational status: employed Current occupational exposures/hazards: No Cognitive needs: No Hearing needs: No Vision needs: Yes Physical Exam Vital Signs: Vital Signs: Last Vital Signs Temp 98 F 08/13/22 10:04 Pulse 100 08/13/22 10:04 Resp 19 08/13/22 10:04 BP 137/98 H 08/13/22 10:04 Pulse Ox 98 08/13/22 10:04 O2 Del Method 08/13/22 10:04 BMI result Body Mass Index 25.9 vital signs have been reviewed as normal and appeared to be correct. Blood pressure 137/98 Heart rate normal. Respiration rate normal. Temperature normal. Oxygen saturation normal. Appearance: Alert. Oriented X3. No acute distress. Head: Normal external exam. Normocephalic. Atraumatic. Eyes: PERRLA. EOMI. Conjunctiva and sclera normal. Eyelids normal. ENT: Pharynx normal. Uvula midline. Moist mucous membranes. Neck: Normal inspection. Neck supple. FROM. CVS: Normal heart rate and rhythm. Respiratory: No respiratory distress. Painless inspiration. Skin: Skin warm and dry. Normal skin color. Normal skin turgor. To the left buttocks patient has Steri-Strips in place with mild tenderness all patient ecchymosis noted. Although no surrounding erythema/purulent drainage or warm to touch does not appear infected at this time. No addition rashes/lesions/lacerations noted. Extremities: No lower extremity edema. Extremities exhibit normal range of motion. Extremities nontender. Neuro: Oriented X 3. No motor deficit. No sensory deficit. Reflexes normal. Normal steady gait. No focal neuro deficits noted. Vascular: + radial pulses/+ 2 distal pedal pulses/+2 dorsalis pedis b/l. Normal cap refill. No cyanosis noted to upper extremity nails and lower extremity toes nails. Course Course Course Narrative: 36-year-old female presenting to the ER with complaints of a wound check due to wound was bleeding and she is having worsening pain from the wound/surgical site. She reports that she was seen by Dr. Amador is on 08/10/2022 and had a left buttock subcutaneous lymphoma removed. She reports that she was having some minimal pain after the surgery and she has been applying ice although within the last 2-3 days it is worse the pain. She reports the pain is radiating up to her lower back. She reports she did have some bloody discharge yesterday. She denies any fevers, chills, nausea/vomiting, purulent drainage, surrounding erythema or any other symptoms complaints or concerns at this time. On exam there are no signs of infection. I discussed this case with Dr. Yan and sent him the picture that I placed in the chart he is agreeable patient can be discharged with symptomatic treatment instructions to follow-up in a week. Patient understands agrees with this plan. MDM - Recheck/Abnormal Lab/Rx Medical Records Attestation: I reviewed the patient's medical records. Discharge Plan Discharge Clinical Impression: Contusion of buttock, Visit for wound check Patient Disposition: Home, Self-Care Instructions: Contusion in Adults (ED) Prescriptions: New acetaminophen [Tylenol Extra Strength] 500 mg tablet 1,000 mg PO QID PRN (Reason: fever or pain) Qty: 14 0RF cyclobenzaprine 10 mg tablet 10 mg PO Q8H Qty: 14 0RF oxycodone 5 mg tablet 5 mg PO Q6H PRN (Reason: pain) Qty: 14 0RF Rx Instructions: Partial Fill upon patient request. No Action omeprazole 40 mg capsule,delayed release(DR/EC) 40 mg PO DAILY 90 Days Qty: 90 1RF albuterol sulfate 90 mcg/actuation HFA aerosol inhaler 2 puff inhalation Q6H PRN (Reason: shortness of breath or wheezing) 30 Days Qty: 6.7 1RF tramadol 50 mg tablet 50 mg PO Q6H PRN (Reason: pain) Qty: 30 0RF ibuprofen 600 mg tablet 600 mg PO Q6H PRN (Reason: pain) Qty: 30 0RF valacyclovir 500 mg tablet 500 mg PO BID cholecalciferol (vitamin D3) [Vitamin D3] 50 mcg (2,000 unit) tablet 50 mcg PO DAILY 90 Days Qty: 90 1RF cetirizine [Zyrtec] 10 mg tablet 10 mg PO DAILY Qty: 30 2RF fluticasone propionate [Flonase Allergy Relief] 50 mcg/actuation spray,suspension 1 spray intranasal DAILY 30 Days Qty: 16 2RF Rx Instructions: administer into each nostril Referrals: Koko Yan MD [Physician] - (Call to make a follow-up appointment within a week) Mer Dunn MD [Primary Care Provider] - 2 days
[2022-08-13] MEDS: oxyCODONE HCl Immed Release 5 MG TABLET PO (11:46)
== END 2022-08-13 11:53 | disposition home or self-care (01) ==
PROVIDERS: Emergency Provider Emergency Medicine Emergency Medical Services; PCP Internal Medicine
DX: Z48.01 Encounter for change or removal of surgical wound dressing (principal); S30.0XXD Contusion of lower back and pelvis, subsequent encounter; X58.XXXD Exposure to other specified factors, subsequent encounter; G89.18 Other acute postprocedural pain
CPT/HCPCS: 99283

== ENCOUNTER 2022-10-13 12:28 | Outpatient (REF) | payer OTHER, SELFPAY ==
--- NOTE | ~2022-10-13 | XR_ITS ---
EXAMINATION: XR CHEST CLINICAL INFORMATION: Preprocedural examination. COMPARISON: 08/05/2022 chest radiographs. TECHNIQUE: 2 views of the chest were obtained. FINDINGS: No significant abnormality is noted involving the heart, lungs, mediastinum, bony thorax or soft tissues. XR/XR chest 2V IMPRESSION: No acute cardiopulmonary process.
--- NOTE | 2022-10-13 12:33 | ECG_ITS ---
Test Reason : preop Blood Pressure : / mmHG Vent. Rate : 067 BPM Atrial Rate : 067 BPM P-R Int : 142 ms QRS Dur : 078 ms QT Int : 392 ms P-R-T Axes : 060 053 029 degrees QTc Int : 414 ms Normal sinus rhythm with sinus arrhythmia Normal ECG No significant changes seen Referred By: Jaye Valdez Electronically Signed By:EMMANUEL ELIZABETH MD
[2022-10-13 12:49] LABS: MANUAL DIFF FLAG NO
[2022-10-13 14:20] LABS: INTERNATIONAL NORM RATIO 1.1 (0.9-1.1); Prothrombin Time 13.2 SEC (10.0-13.1)
[2022-10-13 14:27] LABS: Basophils Percent Auto 0.5 % (0-2); Eosinophils Absolute Auto 0.3 X10*3/uL (0.0-0.4); Eosinophils Percent Auto 4.7 % (0-4); Hematocrit 40.5 % (37.0-47.0); Hemoglobin 12.1 g/dl (12.0-16.0); Imm Gran Abs Auto 0.02 X10*3/uL (0.00-0.03); Imm Gran Pct Auto 0.3 % (0.0-0.4); Lymphocytes Absolute Auto 1.7 X10*3/uL (1.2-4.9); Lymphocytes Percent Auto 27.3 % (20-40); Mean Corpuscular HGB Conc 29.9 g/dl (31.0-35.0); Mean Corpuscular Hemoglobin 20.3 pg (27.0-33.0); Monocytes Absolute Auto 0.6 X10*3/uL (0.1-1.2); Monocytes Percent Auto 9.2 % (2-11); Neutrophils Absolute Auto 3.6 x10*3/uL (2.0-8.3); Platelet Count 199 X10*3/uL (160-400); Red Blood Count 5.96 X10*6/uL (4.20-5.50); Red Cell Distribution Width 15.3 % (11.0-16.0); White Blood Count 6.2 X10*3/uL (4.8-10.8)
[2022-10-13 14:35] LABS: HCG Quantitative < 2 mIU/mL
[2022-10-13 14:55] LABS: Alanine Aminotransferase 12 U/L (0-31); Albumin Level 4.5 g/dL (3.5-5.0); Alkaline Phosphatase 64 U/L (39-117); Anion Gap 13 (12-20); Aspartate Amino Transferase 18 U/L (5-31); Bilirubin Total 0.4 mg/dL (0.0-1.0); Blood Urea Nitrogen 14 mg/dL (9-16); Calcium 9.5 mg/dL (8.4-10.2); Carbon Dioxide 28 mmol/L (22-29); Chloride 102 mmol/L (96-108); Estimated Glomerular Filt Rate > 60; Glucose Random 82 mg/dL (60-115); Potassium 4.5 mmol/L (3.3-5.1); Sodium 138 mmol/L (135-145); Total Protein 7.8 g/dL (6.5-8.0)
== END 2022-10-13 12:29 | disposition home or self-care (01) ==
LOC: HO.LAB 12:28
PROVIDERS: PCP Internal Medicine; Visit Provider Nurse Practitioner Family
DX: Z01.818 Encounter for other preprocedural examination (principal)
CPT/HCPCS: 36415; 71046; 80053; 84702; 85025; 85610; 93005

== ENCOUNTER 2022-12-19 21:02 | Emergency (ER) | payer OTHER, SELFPAY ==
--- NOTE | 2022-12-19 | ECG_ITS ---
Test Reason : NUMBNESS Blood Pressure : / mmHG Vent. Rate : 090 BPM Atrial Rate : 090 BPM P-R Int : 142 ms QRS Dur : 078 ms QT Int : 366 ms P-R-T Axes : 069 034 028 degrees QTc Int : 447 ms Normal sinus rhythm Normal ECG When compared with ECG of 13-OCT-2022 12:37, No significant change was found Referred By: Generic ED Physician Electronically Signed By:SUZE AMEZCUA
--- NOTE | ~2022-12-19 | CT_ITS ---
EXAMINATION: CT HEAD WITHOUT CONTRAST CLINICAL INFORMATION: Left-sided paresthesia. Question etiology. COMPARISON: 09/25/2017 TECHNIQUE: Contiguous axial imaging was performed from the skull base to vertex without intravenous contrast. This CT examination was performed using dose optimization techniques as appropriate, variously including the following: * Automated exposure control * Adjustment of mA and/or kV according to patient size (this includes techniques or standardized protocols for targeted exams where dose is matched to indication/reason for exam; i.e. extremities or head) Use of iterative reconstruction technique DLP: 696 mGy-cm. FINDINGS: There is no evidence of acute intracranial hemorrhage or territorial infarction. No abnormal mass effect or midline shift is seen. Iraheta to white matter differentiation is well preserved. No extra-axial fluid collections are identified. No hydrocephalus. No significant volume loss. There is no abnormal attenuation within the brain parenchyma. The osseous structures and soft tissues are normal. The mastoid air cells and visualized portions of the paranasal sinuses are well aerated. CT/CT head/brain wo IV con IMPRESSION: No acute intracranial pathology.
[2022-12-19 21:32] VITALS: BP 159/87; PULSE 110; RESP 16; TEMP 36.2; O2SAT 97; BMI 25.3
--- NOTE | 2022-12-19 21:48 | PC.NURSE ---
MD Fox notified of stroke like symptoms.
--- NOTE | 2022-12-19 21:49 | ED.GENADULT ---
HPI - General Adult General Chief complaint: General Medical Stated complaint: numbness in tongue, neck and left hand Time Seen by Provider: 12/19/22 21:49 Source: patient Mode of arrival: ambulatory Limitations: no limitations History of Present Illness HPI narrative: Patient otherwise healthy , noticed sudden onset of left face and left arm tingling sensation started at 20:30 feels vague no headache no weakness no history of migraines Patient denies any anxiety Related Data Previous Rx's Medication Instructions Recorded cholecalciferol (vitamin D3) 50 50 mcg PO DAILY 90 days #90 tabs 02/08/22 mcg (2,000 unit) tablet (Vitamin D3) fluticasone propionate 50 1 spray intranasal DAILY 30 days 03/30/22 mcg/actuation nasal #16 grams spray,suspension (Flonase Allergy Relief) omeprazole 40 mg capsule,delayed 40 mg PO DAILY 90 days #90 caps 07/27/22 release albuterol sulfate 90 mcg/actuation 2 puff inhalation Q6H PRN 07/28/22 aerosol inhaler shortness of breath or wheezing 30 days #6.7 grams ibuprofen 600 mg tablet 600 mg PO Q6H PRN pain #30 tabs 08/10/22 acetaminophen 500 mg tablet 1,000 mg PO QID PRN fever or pain 08/13/22 (Tylenol Extra Strength) #14 tabs cyclobenzaprine 10 mg tablet 10 mg PO Q8H #14 tabs 08/13/22 valacyclovir 500 mg tablet 500 mg PO BID 7 days #14 tabs 09/23/22 Allergies Allergy/AdvReac Type Severity Reaction Status Date / Time sertraline Allergy Severe tongue Verified 10/13/22 12:05 itchiness divalproex sodium Allergy Intermediate URTICARIA Verified 10/13/22 12:05 [From DEPAKOTE] topiramate [From TOPAMAX] Allergy Intermediate FACIAL AND Verified 10/13/22 12:05 LIP NUMBNESS hydromorphone [From DILAUDID] Allergy Mild URTICARIA Verified 10/13/22 12:05 moderna covid vaccine Allergy Intermediate hives,swell Uncoded 10/13/22 12:05 ing Review of Systems Review of Systems: Yes all other systems are reviewed and are negative PMFSH Past Medical History Medical History Abnormal bruising Asthma Buttocks nodule Buttocks nodule Constipation by delayed colonic transit Ethmoid sinusitis Family history of hypertension GERD (gastroesophageal reflux disease) History of COVID-19 HSV (herpes simplex virus) infection Hypovitaminosis D Lipoma URI (upper respiratory infection) Surgical History History of hysterectomy History of kidney stones History of umbilical hernia repair Status post excision of lipoma (~08/10/22) Family History Family History Mother Hypertension Father No problems noted. Social History Social History Housing: House Alcohol intake: current Alcohol intake frequency: holidays/special occasions only Alcohol type: hard liquor Patient Tobacco Use Status: Never used Tobacco e-Cigarette/Vaping Use: Never Used Second Hand Smoke Exposure: No Advance Directives: No Advance Directives Information Provided: No service: No Current occupational status: employed Current occupational exposures/hazards: No Cognitive needs: No Hearing needs: No Vision needs: Yes Physical Exam ED Vital Signs: Vital Signs - 24 hr 12/19/22 21:32 Temperature 97.2 F Pulse Rate 110 H Respiratory Rate 16 Blood Pressure 159/87 H Pulse Oximetry 97 Oxygen Delivery Method Room Air BMI result Body Mass Index 25.3 Appearance: Alert. Oriented X3. No acute distress. Eyes: PERRLA, No Nystagmus ENT: Pharynx normal. Oral Mucosa moist Neck: Normal inspection. Neck supple. CVS: Normal heart rate and rhythm. Pulses normal. Respiratory: No respiratory distress. Equal air entry bilateral, no wheezing/rales/rhonchi Abdomen: Soft and nontender. Bowel sounds are present, no mass palpable, no CVA tenderness Skin: Skin warm and dry. Normal skin color. Normal skin turgor. Extremities: No lower extremity edema. No calf tenderness Neuro: Oriented X 3. No motor deficit. No sensory deficit.No cerebellar signs , cranial nerves II-XII intact NIH Stroke Scale Internal: Initial- Upon Arrival Level of Consciousness: Alert Level of Consciousness Questions: Answers both questions correctly Level of Consciousness Commands: Performs both tasks correctly Best Gaze: Normal Visual: No visual loss Facial Palsy: Normal Motor Arm (Right): No drift Motor Arm (Left): No drift Motor Leg (Right): No drift Motor Leg (Left): No drift Limb Ataxia: Absent Sensory: Normal Best Language: No aphasia Dysarthia: Normal Extinction and Inattention: No abnormality Score: 0 Medical Decision Making Medical Decision Making [facility] Narrative: Patient with nonspecific paresthesia tingling sensation to the left face and left hand no motor weakness CT scan is negative patient seems slightly anxious no history of migraine possible she has migraine NO objective findings of cva noticed Lab Data 12/19/22 21:50 12/19/22 21:50 Labs: Lab Results 12/19/22 12/19/22 12/19/22 Range/Units 21:50 21:50 21:50 WBC 7.6 (4.8-10.8) X10*3/uL RBC 5.83 H (4.20-5.50) X10*6/uL Hgb 11.9 L (12.0-16.0) g/dl Hct 38.2 (37.0-47.0) % MCV 65.5 L (80.0-98.0) fL MCH 20.4 L (27.0-33.0) pg MCHC 31.2 (31.0-35.0) g/dl RDW 14.8 (11.0-16.0) % Plt Count 198 (160-400) X10*3/uL MPV Not Reportable Immature Gran % (Auto) 0.3 (0.0-0.4) % Neut % (Auto) 57.6 (45-73) % Lymph % (Auto) 31.1 (20-40) % [place] % (Auto) 8.5 (2-11) % Eos % (Auto) 2.0 (0-4) % Baso % (Auto) 0.5 (0-2) % Lymph # (Auto) 2.4 (1.2-4.9) X10*3/uL [place] # (Auto) 0.7 (0.1-1.2) X10*3/uL Eos # (Auto) 0.2 (0.0-0.4) X10*3/uL Baso # (Auto) 0.0 (0.0-0.2) X10*3/uL Abs Immat Gran (auto) 0.02 (0.00-0.03) X10*3/uL Absolute Neuts (auto) 4.4 (2.0-8.3) x10*3/uL Absolute Nucleated RBC 0.000 (0.0-0.012) X10*3/uL Nucleated RBC % (auto) 0.0 (0.0-0.2) /100WBC Sodium 137 (135-145) mmol/L Potassium 3.5 D (3.3-5.1) mmol/L Chloride 105 (96-108) mmol/L Carbon Dioxide 25 (22-29) mmol/L Anion Gap 11 L (12-20) BUN 14 (9-16) mg/dL Creatinine 0.78 (0.5-1.4) mg/dL Estim Creat Clear Calc 84.2 Estimated GFR > 60 Random Glucose 115 (60-115) mg/dL Calcium 9.5 (8.4-10.2) mg/dL Total Bilirubin 0.6 (0.0-1.0) mg/dL AST 16 (5-31) U/L ALT 11 (0-31) U/L Alkaline Phosphatase 69 (39-117) U/L Troponin I High Sens < 3.5 (<3.5-17.0) ng/L Total Protein 7.5 (6.5-8.0) g/dL Albumin 4.3 (3.5-5.0) g/dL Discharge Plan Discharge Clinical Impression: Paresthesia of arm Patient Disposition: Home, Self-Care Instructions: Paresthesia (ED) Additional Instructions: There is no finding of any stroke Follow up with PCP if any concerns Prescriptions: No Action omeprazole 40 mg capsule,delayed release(DR/EC) 40 mg PO DAILY 90 Days Qty: 90 1RF albuterol sulfate 90 mcg/actuation HFA aerosol inhaler 2 puff inhalation Q6H PRN (Reason: shortness of breath or wheezing) 30 Days Qty: 6.7 1RF valacyclovir 500 mg tablet 500 mg PO BID 7 Days Qty: 14 2RF acetaminophen [Tylenol Extra Strength] 500 mg tablet 1,000 mg PO QID PRN (Reason: fever or pain) Qty: 14 0RF cyclobenzaprine 10 mg tablet 10 mg PO Q8H Qty: 14 0RF ibuprofen 600 mg tablet 600 mg PO Q6H PRN (Reason: pain) Qty: 30 0RF cholecalciferol (vitamin D3) [Vitamin D3] 50 mcg (2,000 unit) tablet 50 mcg PO DAILY 90 Days Qty: 90 1RF fluticasone propionate [Flonase Allergy Relief] 50 mcg/actuation spray,suspension 1 spray intranasal DAILY 30 Days Qty: 16 2RF Rx Instructions: administer into each nostril Interventions: ED Discharge Assessment Last Done: 12/19/22 23:26 Discharge Date/Time: 12/19/22 23:40
[2022-12-19 21:54] LABS: MANUAL DIFF FLAG NO
[2022-12-19 22:10] LABS: Alanine Aminotransferase 11 U/L (0-31); Albumin Level 4.3 g/dL (3.5-5.0); Alkaline Phosphatase 69 U/L (39-117); Anion Gap 11 (12-20); Aspartate Amino Transferase 16 U/L (5-31); Bilirubin Total 0.6 mg/dL (0.0-1.0); Blood Urea Nitrogen 14 mg/dL (9-16); Calcium 9.5 mg/dL (8.4-10.2); Carbon Dioxide 25 mmol/L (22-29); Chloride 105 mmol/L (96-108); Creatinine Clr Calc Pharmacy 84.2; Estimated Glomerular Filt Rate > 60; Glucose Random 115 mg/dL (60-115); Potassium 3.5 mmol/L (3.3-5.1); Sodium 137 mmol/L (135-145); Total Protein 7.5 g/dL (6.5-8.0)
[2022-12-19 22:17] LABS: Basophils Percent Auto 0.5 % (0-2); Eosinophils Absolute Auto 0.2 X10*3/uL (0.0-0.4); Hematocrit 38.2 % (37.0-47.0); Hemoglobin 11.9 g/dl (12.0-16.0); Imm Gran Abs Auto 0.02 X10*3/uL (0.00-0.03); Imm Gran Pct Auto 0.3 % (0.0-0.4); Lymphocytes Absolute Auto 2.4 X10*3/uL (1.2-4.9); Lymphocytes Percent Auto 31.1 % (20-40); Mean Corpuscular HGB Conc 31.2 g/dl (31.0-35.0); Mean Corpuscular Hemoglobin 20.4 pg (27.0-33.0); Mean Corpuscular Volume 65.5 fL (80.0-98.0); Monocytes Absolute Auto 0.7 X10*3/uL (0.1-1.2); Monocytes Percent Auto 8.5 % (2-11); Neutrophils Absolute Auto 4.4 x10*3/uL (2.0-8.3); Neutrophils Percent Auto 57.6 % (45-73); Platelet Count 198 X10*3/uL (160-400); Red Blood Count 5.83 X10*6/uL (4.20-5.50); Red Cell Distribution Width 14.8 % (11.0-16.0); White Blood Count 7.6 X10*3/uL (4.8-10.8)
[2022-12-19 22:19] LABS: Troponin-I High Sensitivity < 3.5 ng/L (<3.5-17.0)
--- NOTE | 2022-12-19 23:27 | PC.NURSE ---
Pt. resting in room, pending results of CT scan. Pt. reports no pain at this time. No distress noted. Will continue to monitor.
== END 2022-12-19 23:40 | disposition home or self-care (01) ==
PROVIDERS: Emergency Provider Internal Medicine; PCP Internal Medicine
DX: R20.2 Paresthesia of skin (principal); Z79.899 Other long term (current) drug therapy
CPT/HCPCS: 36415; 70450; 80053; 84484; 85025; 93005; 99284

== ENCOUNTER 2023-01-01 02:43 | Emergency (ER) | payer OTHER, SELFPAY ==
--- NOTE | ~2023-01-01 | CT_ITS ---
EXAMINATION: NONCONTRAST HEAD CT NONCONTRAST CERVICAL SPINE CT INDICATION INFORMATION: Fall, intoxicated COMPARISON: 12/19/2022 TECHNIQUE: Separate noncontrast CT examinations of the head and cervical spine were performed. Coronal head CT images and coronal and sagittal cervical spine images were created at the technologist workstation. DLP: 1009 mGy-cm DOSE LOWERING TECHNIQUES: This CT examination was performed using dose optimization techniques as appropriate, variously including the following: - Automated exposure control - Adjustment of mA and/or kV according to patient size (this includes techniques or standardized protocols for targeted exams were dose is matched to indication/reason for exam; i.e. extremities or head) - Use of iterative reconstruction technique FINDINGS: Head: Significantly limited evaluation towards the skull base due to motion artifact. There is no no appreciable acute intracranial hemorrhage or territorial infarction. No abnormal mass-effect or midline shift is seen. [place] to white matter differentiation is well preserved. No extra-axial fluid collections are identified. The ventricles are normal in size. There is no abnormal attenuation within the brain parenchyma. The osseous structures and soft tissues are normal. The mastoid air cells and visualized portions of the paranasal sinuses are well-aerated. Cervical spine: There is anatomic alignment of the vertebral bodies and posterior elements. Vertebral body heights are maintained. There is disc space narrowing at C7-T1 with endplate osteophytosis. No evidence of acute fracture. No prevertebral soft tissue swelling. Visualized portions of the lung apices are unremarkable. The thyroid gland is unremarkable. CT/CT cervical spine wo IV con IMPRESSION: HEAD: Significantly limited evaluation towards the skull base due to motion artifact. No acute findings identified. CERVICAL SPINE: No acute findings identified.
[2023-01-01 02:47] VITALS: BP 125/87; PULSE 114; RESP 24; BMI 22.6
--- NOTE | 2023-01-01 02:52 | ED.ALCOHOL ---
HPI - Alcohol General Chief Complaint: ETOH/Substance Use Stated Complaint: Etoh/Fall Time Seen by Provider: 01/01/23 02:51 Source: patient and family (Son) Mode of arrival: ambulatory History of Present Illness HPI narrative: 37-year-old female brought in by her son for significant alcohol intoxication and sustaining a fall while at home. Patient arrives very agitated in not a great historian due to her level of intoxication. Related Data Previous Rx's Medication Instructions Recorded cholecalciferol (vitamin D3) 50 50 mcg PO DAILY 90 days #90 tabs 02/08/22 mcg (2,000 unit) tablet (Vitamin D3) fluticasone propionate 50 1 spray intranasal DAILY 30 days 03/30/22 mcg/actuation nasal #16 grams spray,suspension (Flonase Allergy Relief) omeprazole 40 mg capsule,delayed 40 mg PO DAILY 90 days #90 caps 07/27/22 release albuterol sulfate 90 mcg/actuation 2 puff inhalation Q6H PRN 07/28/22 aerosol inhaler shortness of breath or wheezing 30 days #6.7 grams ibuprofen 600 mg tablet 600 mg PO Q6H PRN pain #30 tabs 08/10/22 acetaminophen 500 mg tablet 1,000 mg PO QID PRN fever or pain 08/13/22 (Tylenol Extra Strength) #14 tabs cyclobenzaprine 10 mg tablet 10 mg PO Q8H #14 tabs 08/13/22 valacyclovir 500 mg tablet 500 mg PO BID 7 days #14 tabs 09/23/22 Allergies Allergy/AdvReac Type Severity Reaction Status Date / Time sertraline Allergy Severe tongue Verified 10/13/22 12:05 itchiness divalproex sodium Allergy Intermediate URTICARIA Verified 10/13/22 12:05 [From DEPAKOTE] topiramate [From TOPAMAX] Allergy Intermediate FACIAL AND Verified 10/13/22 12:05 LIP NUMBNESS hydromorphone [From DILAUDID] Allergy Mild URTICARIA Verified 10/13/22 12:05 moderna covid vaccine Allergy Intermediate hives,swell Uncoded 10/13/22 12:05 ing Review of Systems Review of Systems: Pertinent positives and negatives as stated in HPI PMFSH Past Medical History Source: nursing notes reviewed Medical History Abnormal bruising Asthma Buttocks nodule Buttocks nodule Constipation by delayed colonic transit Ethmoid sinusitis Family history of hypertension GERD (gastroesophageal reflux disease) History of COVID-19 HSV (herpes simplex virus) infection Hypovitaminosis D Lipoma URI (upper respiratory infection) Surgical History History of hysterectomy History of kidney stones History of umbilical hernia repair Status post excision of lipoma (~08/10/22) Family History Family History Mother Hypertension Father No problems noted. Social History Social History Housing: House Alcohol intake: current Alcohol intake frequency: holidays/special occasions only Alcohol type: hard liquor Patient Tobacco Use Status: Never used Tobacco e-Cigarette/Vaping Use: Never Used Second Hand Smoke Exposure: No Advance Directives: No Advance Directives Information Provided: Yes Patient : No service: No Current occupational status: employed Current occupational exposures/hazards: No Cognitive needs: No Hearing needs: No Vision needs: Yes Physical Exam ED Vital Signs: Vital Signs - 24 hr 01/01/23 02:47 01/01/23 06:00 Temperature 98.0 F Pulse Rate 114 H 82 Respiratory Rate 24 H 13 Blood Pressure 125/87 101/62 Pulse Oximetry 99 Oxygen Delivery Method Room Air BMI result Body Mass Index 22.6 VITAL SIGNS: Reviewed. GENERAL: Well developed, well nourished, agitated/intoxicated. HEAD: Normocephalic/subcentimeter laceration to the left frontal hairline, hemostatic overlying a contusion EYES: PERRLA, EOMI LUNGS: Normal breath sounds. CARDIOVASCULAR: Regular rate and rhythm without noted murmurs ABDOMEN: Soft, non-tender, non-distended with bowel sounds. NEUROLOGIC: Alert and oriented x 3. Medical Decision Making Medical Decision Making MDM Narrative: 37-year-old female presents with significant intoxication and agitation after a follow-up home. Her son remains at bedside. Laceration does not require sutures. Patient offered Zofran and subsequently 50 mg Benadryl, after she became calm we proceeded with the CT scan of head and neck. U tox/ obtained prior to this and negative. Patient placed in physician observation because the patient needed more time for metabolizing the alcohol. At the time observation was started the patient's vital signs were stable, patient is alert and oriented but slightly agitated, neuro: Nonfocal, CV RRR, lungs clear Differential Diagnosis Differential Diagnoses: The differential diagnosis associated with the presentation includes Please see the discussion above Lab Data Labs: Lab Results 01/01/23 01/01/23 Range/Units 03:46 03:46 Urine Test NEGATIVE (NEGATIVE) Urine Opiates Screen Not Detected (Not Detect) Urine Fentanyl Screen Not Detected (Not Detect) Ur Barbiturates Screen Not Detected (Not Detect) Ur Phencyclidine Scrn Not Detected (Not Detect) Ur Amphetamines Screen Not Detected (Not Detect) U Benzodiazepines Scrn Not Detected (Not Detect) Urine Cocaine Screen Not Detected (Not Detect) U Marijuana (THC) Screen Not Detected (Not Detect) Radiology Impression Radiologist Impression: My interpretation is in agreement with radiology's impression of the imaging studies External Record Review External record reviewed: Outpatient record and Prior outpatient labs Medications Administered Discontinued Medications Generic Name Dose Route Start Last Admin Trade Name Freq PRN Reason Stop Dose Admin Diphenhydramine HCl 50 mg 01/01/23 02:58 01/01/23 03:07 Diphenhydramine Hcl 25 Mg Capsule PO 01/01/23 02:59 50 mg ONCE ONE Administration Ondansetron HCl 4 mg 01/01/23 02:58 01/01/23 03:06 Ondansetron Odt 4 Mg Tab.Rapdis TRANSLINGU 01/01/23 02:59 4 mg ONCE ONE Administration Discharge Plan Discharge Clinical Impression: Contusion of scalp, Alcohol intoxication, Fall, Laceration of scalp Patient Disposition: Still a Patient Prescriptions: No Action omeprazole 40 mg capsule,delayed release(DR/EC) 40 mg PO DAILY 90 Days Qty: 90 1RF albuterol sulfate 90 mcg/actuation HFA aerosol inhaler 2 puff inhalation Q6H PRN (Reason: shortness of breath or wheezing) 30 Days Qty: 6.7 1RF valacyclovir 500 mg tablet 500 mg PO BID 7 Days Qty: 14 2RF acetaminophen [Tylenol Extra Strength] 500 mg tablet 1,000 mg PO QID PRN (Reason: fever or pain) Qty: 14 0RF cyclobenzaprine 10 mg tablet 10 mg PO Q8H Qty: 14 0RF ibuprofen 600 mg tablet 600 mg PO Q6H PRN (Reason: pain) Qty: 30 0RF cholecalciferol (vitamin D3) [Vitamin D3] 50 mcg (2,000 unit) tablet 50 mcg PO DAILY 90 Days Qty: 90 1RF fluticasone propionate [Flonase Allergy Relief] 50 mcg/actuation spray,suspension 1 spray intranasal DAILY 30 Days Qty: 16 2RF Rx Instructions: administer into each nostril Interventions: [place]-Suicide Risk Severity Scale Last Done: 01/01/23 02:51
[2023-01-01] MEDS: Ondansetron ODT 4 MG TAB.RAPDIS TRANSLINGU (03:06)
[2023-01-01] MEDS: diphenhydrAMINE HCL 25 MG CAPSULE 50 MG PO (03:07)
[2023-01-01 03:54] LABS: UPreg QC Valid YES; Urine Pregnancy NEGATIVE (NEGATIVE)
[2023-01-01 04:04] LABS: Amphetamine Screen Urine Not Detected (Not Detect); Barbiturates, Urine Not Detected (Not Detect); Benzodiazepines Screen Urine Not Detected (Not Detect); Cannabinoid Screen Urine Not Detected (Not Detect); Cocaine Screen Urine Not Detected (Not Detect); Fentanyl, urine Not Detected (Not Detect); Opiate Screen Urine Not Detected (Not Detect); Phencyclidine Screen Urine Not Detected (Not Detect)
[2023-01-01 06:00] VITALS: BP 101/62; PULSE 82; RESP 13; TEMP 36.7; O2SAT 99
[2023-01-01 06:55] LABS: Ethanol 266 mg/dL
[2023-01-01 08:00] VITALS: BP 101/64; PULSE 77; RESP 16; TEMP 36.6; O2SAT 97
[2023-01-01] MEDS: chlordiazePOXIDE HCl 25 MG CAPSULE 100 MG PO (08:02)
--- NOTE | 2023-01-01 08:08 | PC.NURSE ---
ON ASSESSMENT THIS MORNING, NOTED ABRASION TO LEFT TEMPORAL AREA, PT STATED SHE FELL LAST NIGHT. NOTIFIED PROVIDER
== END 2023-01-01 08:54 | disposition home or self-care (01) ==
PROVIDERS: Student in an Organized Health Care Education/Training Program; Emergency Provider Student in an Organized Health Care Education/Training Program; PCP Physician Assistant
DX: F10.920 Alcohol use, unspecified with intoxication, uncomplicated (principal); Y90.8 Blood alcohol level of 240 mg/100 ml or more; S00.03XA Contusion of scalp, initial encounter; S01.01XA Laceration without foreign body of scalp, initial encounter; W19.XXXA Unspecified fall, initial encounter; R45.1 Restlessness and agitation; Y93.9 Activity, unspecified; Y92.019 Unspecified place in single-family (private) house as the place of occurrence of the external cause; Y99.9 Unspecified external cause status; Z79.899 Other long term (current) drug therapy
CPT/HCPCS: 36415; 70450; 72125; 80307; 81025; 82077; 99284; 99285

== ENCOUNTER 2023-01-11 12:48 | Outpatient (REF) | payer OTHER, SELFPAY ==
[2023-01-11 15:43] LABS: Monotest Negative (Negative)
[2023-01-12 05:58] LABS: CT PCR NOT DETECTED (Not Detect.); NG PCR NOT DETECTED (Not Detect.)
[2023-01-12 09:07] LABS: BV Int Neg Control Negative (Negative); BV Int Pos Control Positive (Positive)
== END 2023-01-11 12:49 | disposition home or self-care (01) ==
LOC: HO.HMGCLDS 12:48
PROVIDERS: PCP Internal Medicine; Visit Provider Internal Medicine
DX: Z11.3 Encounter for screening for infections with a predominantly sexual mode of transmission (principal); N89.8 Other specified noninflammatory disorders of vagina
CPT/HCPCS: 0353U; 36415; 86308; 87480; 87510; 87660

== ENCOUNTER 2023-07-20 13:32 | Outpatient (AMB) | payer OTHER, SELFPAY ==
--- NOTE | 2023-07-20 13:34 | A.OFFPC_ITS ---
Vital Signs 07/20/23 13:38 Height 5 ft 1 in Weight 149 lb BMI 28.2 BP 126/80 Blood Pressure Location Lt brachial Position Sitting Intake Visit Reasons: Annual Exam Intake Note: Patient here for an annual physical exam, right toe pain and discoloration, ? 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: No Accompanied by: Self / Same As Patient Allergies sertraline Allergy (Severe, Verified 07/20/23 13:51) tongue itchiness divalproex sodium [From DEPAKOTE] Allergy (Intermediate, Verified 07/20/23 13:51) URTICARIA topiramate [From TOPAMAX] Allergy (Intermediate, Verified 07/20/23 13:51) FACIAL AND LIP NUMBNESS hydromorphone [From DILAUDID] Allergy (Mild, Verified 07/20/23 13:51) URTICARIA moderna covid vaccine Allergy (Intermediate, Uncoded 07/20/23 13:51) hives,swelling Medication List - Last Reconciled 07/20/23 by Mer Santos MD acetaminophen (Tylenol Extra Strength) 1,000 mg (2 x 500 mg) PO QID PRN albuterol sulfate 90 mcg/actuation 2 puffs inhalation Q6H PRN 30 days cholecalciferol (vitamin D3) (Vitamin D3) 50 mcg PO DAILY 90 days cyclobenzaprine 10 mg PO Q8H fluconazole (Diflucan) 150 mg PO Q3D 2 doses fluticasone propionate 50 mcg/actuation (Flonase Allergy Relief) 1 spray intranasal DAILY 30 days ibuprofen 600 mg PO Q6H PRN omeprazole 40 mg PO DAILY 90 days phenazopyridine (Pyridium) 200 mg PO TID 3 days polyethylene glycol 3350 (Miralax) 17 grams PO DAILY sulfamethoxazole-trimethoprim 800-160 mg (Bactrim DS) 1 tab PO BID 5 days valacyclovir 500 mg PO BID 7 days Tobacco use date assessed: 04/26/23 Dental Screening Dental Screen Date: 07/20/23 Did you have a dental visit in the last 12 months?: Yes Did you have a dental problem in the last 6 months where you did not have access to dental care?: No Was dental information given to patient?: Patient has dentist HPI HPI Comments History of Present Illness Details This is a 37-year-old female that comes for her physical exam. She has had about 4 urinary tract infections this year and will be refer to urology. She also has an ingrown toenail. No need for Pap smear due to hysterectomy for benign reasons. [facility] Medical History Abnormal bruising Asthma Buttocks nodule Buttocks nodule Constipation by delayed colonic transit Ethmoid sinusitis Family history of hypertension GERD (gastroesophageal reflux disease) History of COVID-19 HSV (herpes simplex virus) infection Hypovitaminosis D Lipoma URI (upper respiratory infection) Surgical History History of hysterectomy History of kidney stones History of umbilical hernia repair Status post excision of lipoma (~08/10/22) Family History Mother Hypertension Father No problems noted. Social History Housing: House Alcohol intake: current Alcohol intake frequency: holidays/special occasions only Alcohol type: hard liquor Patient Tobacco Use Status: Never used Tobacco e-Cigarette/Vaping Use: Never Used Second Hand Smoke Exposure: No service: No Current occupational status: employed Current occupational exposures/hazards: No Cognitive needs: No Hearing needs: No Vision needs: Yes Questionnaire PHQ-9 Over the last 2 weeks, how often have you been bothered by any of the following problems? 1. Little interest or pleasure in doing things: not at all 2. Feeling down, depressed, or hopeless: not at all 3. Trouble falling or staying asleep, or sleeping too much: not at all 4. Feeling tired or having little energy: not at all 5. Poor appetite or overeating: not at all 6. Feeling bad about yourself - or that you are a failure or have let yourself or your family down: not at all 7. Trouble concentrating on things, such as reading the newspaper or watching television: not at all 8. Moving or speaking so slowly that other people could have noticed. Or the opposite - being so fidgety or restless that you have been moving around a lot more than usual: not at all 9. Thoughts that you would be better off or of hurting yourself in some way: not at all Total score: 0 Depression Screening Interpretation: Negative 03849 - PHQ-9 Billing: Yes Source: Developed by Drs. Tang Horowitz, Vernon Hernández and colleagues, with an educational donald from [employer]. Thrive Questionnaire Date Thrive assessed: 04/26/23 MARCO-7 AMB Questionnaire MARCO-7 Date MARCO - 7 assessed: 07/20/23 Feeling nervous, anxious, or on edge: 0 = Not at all Not being able to stop or control worryin = Not at all Worrying too much about different things: 0 = Not at all Trouble relaxin = Not at all Being so restless that it is hard to sit still: 0 = Not at all Becoming easily annoyed or irritable: 0 = Not at all Feeling afraid as if something awful might happen: 0 = Not at all Total MARCO-7 score (0-4 normal; 5-9 mild; 10-14 moderate; 15-21 severe): 0 Source: Developed by Drs. Tang Horowitz, Vernon Hernández and colleagues, with an educational donald from [employer]. MARCO-7 Assessment Billing MARCO-7 Assessment Tool: MARCO-7 Assessment 05101 Review of Systems Const All systems reviewed & are unremarkable except as noted in HPI and below Eyes Reports no additional complaints, Denies change in vision and Denies other visual disturbances Card Denies chest pain at rest, Denies chest pain with activity, Denies edema, Denies irregular heart rhythm, Denies claudication, Denies dyspnea, Denies dyspnea on exertion, Denies orthopnea, Denies paroxysmal nocturnal dyspnea and Denies slow heart rate Resp Denies cough, Denies dyspnea and Denies dyspnea on exertion GI Denies abdominal pain, Denies change in bowel habits, Denies excessive flatus, Denies nausea and Denies vomiting Denies urinary incontinence, Denies urinary hesitancy and Denies urinary urgency Musc Denies abnormal gait, Denies atrophy, Denies deformity and Denies limited range of motion Skin/Breast Denies bleeding lesions, Denies changing lesions and Denies rash Neuro Denies abnormal gait, Denies confusion and Denies lack of coordination Psych Denies confusion Physical exam (Primary Care) Vital Signs: Last Vital Signs BP 126/80 07/20/23 13:38 BMI result Body Mass Index 28.2 Tobacco/Smoking Status: Tobacco use Status Tobacco use date assessed 04/26/23 07/20/23 13:34 Patient Tobacco Use Status Never used Tobacco 07/20/23 13:34 e-Cigarette/Vaping Use Never Used 07/20/23 13:34 PHQ-9: PHQ-9 Score PHQ-9: Total score 0 07/20/23 13:45 Depression Screening Interpretation: Negative Thrive Assessment: Date of Thrive Assessment Date Thrive assessed 04/26/23 07/20/23 13:34 Const General: No confusion Orientation/consciousness: patient oriented x3 and No confusion HENMT Head: Yes normal to inspection, Yes normocephalic and Yes atraumatic Ears: external ears normal Eyes General: appearance normal, both eyes and all related structures Eyelids: Yes eyelids normal Conjunctivae: conjunctivae normal Neck Neck: Yes normal visual inspection and Yes supple Resp Effort & Inspection: normal respiratory effort Auscultation: clear to auscultation bilaterally Cardio Jugular venous distension: no JVD Rate: regular rate Rhythm: regular rhythm Heart sounds: S1 normal heart sound present and S2 normal heart sound present GI Inspection: Yes normal to inspection Palpation (GI): Soft to palpation and nontender Auscultation: normal bowel sounds Skin General skin exam: no rashes or lesions noted Neuro General: patient oriented x3, no focal motor deficits and No confusion Extrem General: Yes full ROM Psych Appearance: grossly normal Results AMB Urinalysis, Automated UA Leukoctes 1 Karen/uL Last Edit by CAPO Ramon on 07/20/23 13:50 UA Nitrite Negative Last Edit by CAPO Ramon on 07/20/23 13:50 UA Urobilinogen 0.2 mg/dL Last Edit by Devante Wood [facility] on 07/20/23 13: 50 UA Protein 0 mg/dL Last Edit by CAPO Ramon on 07/20/23 13:50 UA pH 6.0 Last Edit by CAPO Ramon on 07/20/23 13:50 UA Blood 0 Peter/uL Last Edit by ACPO Ramon on 07/20/23 13:50 UA Specific [place] 1.020 Last Edit by CAPO Ramon on 07/20/23 13 :50 UA Ketone Negative Last Edit by Devante Wood, RMA on 07/20/23 13:50 UA Bilirubin 0 mg/dL Last Edit by Devante Wood, RMA on 07/20/23 13:50 UA Glucose 0 mg/dL Last Edit by Devante Wood, RMA on 07/20/23 13:50 Results Reviewed Results Reviewed: Laboratory Last Values Urine pH (Auto) 6.0 07/20/23 13:46 Specific [place] (Auto) 1.020 07/20/23 13:46 Urine Protein (Auto) 0 mg/dL 07/20/23 13:46 Glucose (UA)(Auto) 0 mg/dL 07/20/23 13:46 Urine Ketones (Auto) Negative 07/20/23 13:46 Urine Blood (Auto) 0 Peter/uL 07/20/23 13:46 Urine Nitrite (Auto) Negative 07/20/23 13:46 Urine Bilirubin (Auto) 0 mg/dL 07/20/23 13:46 Urine Urobilinogen (Auto) 0.2 mg/dL 07/20/23 13:46 Leukocyte Esterase (Auto) 1 Karen/uL 07/20/23 13:46 Assessment and Plan Assessment & Plan (1) Physical exam: Code(s): Z00.00 - Encounter for general adult medical examination without abnormal findings Plan: Repeat in a year Orders: Orders Lipid Panel Today Z00.00 - Encounter for general adult medical examination with out abnormal findings Comprehensive [place]. Panel Fast Today Z00.00 - Encounter for general adult medical examination without abnormal findings Syphilis Screen Today Z11.3 - Encounter for screening for infections with a predominantly sexual mode of transmission Vitamin D 25-OH Total Today E55.9 - Vitamin D deficiency, unspecified AMB Urinalysis Automated Today R30.0 - Dysuria CT NG by PCR Today Z11.3 - Encounter for screening for infections with a predominantly sexual mode of transmission Referrals Podiatry Referral L60.0 - Ingrowing nail Urology Referral N39.0 - Urinary tract infection, site not specified Medications: Refilled fluconazole (Diflucan) 150 mg PO Q3D 2 tabs 0RF B37.9 - Candidiasis, unspecified sulfamethoxazole-trimethoprim 800-160 mg (Bactrim DS) 1 tab PO BID 5 days 10 tabs 0RF Coding Level of Care Code Est Pt Prev Care 18-39y(55454) Diagnoses Physical exam Z00.00 Additional Codes MARCO-7 Assessment Billing - MARCO-7 Assessment Tool: MARCO-7 Assessment 30981 ([id number]) Time Spent (min) 32
[2023-07-20 13:38] VITALS: BP 126/80; BMI 28.2
== END 2023-07-20 14:30 | disposition home or self-care (01) ==
PROVIDERS: PCP Internal Medicine; Visit Provider Internal Medicine
DX: R30.0 Dysuria (principal); Z00.00 Encounter for general adult medical examination without abnormal findings
CPT/HCPCS: 81003; 99395

== ENCOUNTER 2023-08-11 07:59 | Outpatient (REF) | payer OTHER, SELFPAY ==
[2023-08-11 09:51] LABS: Alanine Aminotransferase 27 U/L (0-31); Albumin Level 4.3 g/dL (3.5-5.0); Alkaline Phosphatase 53 U/L (39-117); Anion Gap 11 (12-20); Aspartate Amino Transferase 63 U/L (5-31); Bilirubin Total 0.6 mg/dL (0.0-1.0); Blood Urea Nitrogen 8 mg/dL (9-16); Calcium 9.2 mg/dL (8.4-10.2); Carbon Dioxide 24 mmol/L (22-29); Chloride 107 mmol/L (96-108); Cholesterol 190 mg/dL (<200); Estimated Glomerular Filt Rate > 60; Glucose Fasting 89 mg/dL (60-99); HDL Cholesterol 68 mg/dL (>40); LDL Cholesterol Calculated 112 mg/dL (<100); Potassium 4.9 mmol/L (3.3-5.1); Sodium 137 mmol/L (135-145); Total Protein 7.9 g/dL (6.5-8.0); Triglycerides 53 mg/dL (<150)
[2023-08-11 10:13] LABS: Syphilis Screen Nonreactive (Nonreactive)
[2023-08-11 10:20] LABS: Vitamin D 25-OH Total 31.2 ng/mL (>30)
[2023-08-11 10:35] LABS: CT PCR NOT DETECTED (Not Detect.); NG PCR NOT DETECTED (Not Detect.)
== END 2023-08-11 08:00 | disposition home or self-care (01) ==
LOC: HO.LAB 07:59
PROVIDERS: PCP Internal Medicine; Visit Provider Internal Medicine
DX: Z00.00 Encounter for general adult medical examination without abnormal findings (principal); Z11.3 Encounter for screening for infections with a predominantly sexual mode of transmission; E55.9 Vitamin D deficiency, unspecified
CPT/HCPCS: 0353U; 80053; 80061; 82306; 86780

== ENCOUNTER 2023-08-17 08:11 | Outpatient (AMB) | payer OTHER, SELFPAY ==
--- NOTE | 2023-08-17 08:17 | AM.OFFWIN_ITS ---
Intake Vital Signs 08/17/23 08:21 Weight 148 lb BP 122/80 Blood Pressure Location Rt brachial Position Sitting Pulse 78 Pulse Source Pulse Oximeter Pulse Oximetry (%) 98 Oxygen Delivery Method Room Air Intake Visit Reasons: EST/UTI Intake Note: Patient here for pelvic pain, very bad odor in urine and lower back pain. She states she has been getting them very often for the past few months and was referred to urology but appt isnt until mid august. Patient Tobacco Use Status: Never used Tobacco Allergies sertraline Allergy (Severe, Verified 08/17/23 08:23) tongue itchiness divalproex sodium [From DEPAKOTE] Allergy (Intermediate, Verified 08/17/23 08:23) URTICARIA topiramate [From TOPAMAX] Allergy (Intermediate, Verified 08/17/23 08:23) FACIAL AND LIP NUMBNESS hydromorphone [From DILAUDID] Allergy (Mild, Verified 08/17/23 08:23) URTICARIA Sulfa (Sulfonamide Antibiotics) Adverse Reaction (Severe, Verified 08/17/23 08:23) Anaphylaxis moderna covid vaccine Allergy (Intermediate, Uncoded 08/17/23 08:23) hives,swelling HPI EST/UTI HPI Details Patient presents with several days of worsening fishy vaginal odor and discharge. She has some burning with urination and she is starting to have pain in her bladder area. Denies fever or chills. Recent STI testing from last week was negative. She has a history of frequent UTIs and antibiotic use. Has urology appointment coming 09/20. [facility] Medical History History of COVID-19 Buttocks nodule Ethmoid sinusitis URI (upper respiratory infection) Buttocks nodule HSV (herpes simplex virus) infection Constipation by delayed colonic transit Hypovitaminosis D GERD (gastroesophageal reflux disease) Family history of hypertension Abnormal bruising Lipoma Asthma Surgical History Status post excision of lipoma (~08/10/22) History of kidney stones History of hysterectomy History of umbilical hernia repair Family History Mother Hypertension Father No problems noted. Social History Housing: House Alcohol intake: current Alcohol intake frequency: holidays/special occasions only Alcohol type: hard liquor Patient Tobacco Use Status: Never used Tobacco e-Cigarette/Vaping Use: Never Used Second Hand Smoke Exposure: No service: No Current occupational status: employed Current occupational exposures/hazards: No Cognitive needs: No Hearing needs: No Vision needs: Yes Review of Systems Const All systems reviewed & are unremarkable except as noted in HPI and below Physical Exam Vital Signs: Last Vital Signs Pulse 78 08/17/23 08:21 BP 122/80 08/17/23 08:21 Pulse Ox 98 08/17/23 08:21 Oxygen Delivery Method Room Air 08/17/23 08:21 Const General: cooperative, healthy appearing and comfortable Neck Neck: Yes no lymphadenopathy Resp Effort & Inspection: normal respiratory effort GI Inspection: Yes normal to inspection Palpation (GI): Soft to palpation and No hepatosplenomegaly present General: Yes bladder normal to palpation and Yes no CVA tenderness Bimanual exam- vagina & uterus: bladder normal to palpation Back/Spine/Pelvis Back: no CVA tenderness Skin General skin exam: no rashes or lesions noted Extrem General: Yes capillary refill normal Psych Appearance: grossly normal Mental Status: mental status grossly normal Speech and movement: Normal speech and movement present Results AMB Urinalysis, Automated UA Leukoctes 0 Karen/uL Last Edit by ROSENDO Figueroa on 08/17/23 08:31 UA Nitrite Negative Last Edit by ROSENDO Figueroa on 08/17/23 08:31 UA Urobilinogen 0.2 mg/dL Last Edit by ROSENDO Figueroa on 08/17/23 08:31 UA Protein 0 mg/dL Last Edit by ROSENDO Figueroa on 08/17/23 08:31 UA pH 6.0 Last Edit by ROSENDO Figueroa on 08/17/23 08:31 UA Blood 0 Peter/uL Last Edit by ROSENDO Figueroa on 08/17/23 08:31 UA Specific [place] 1.015 Last Edit by ROSENDO Figueroa on 08/17/23 08:31 UA Ketone Negative Last Edit by ROSENDO Figueroa on 08/17/23 08:31 UA Bilirubin 0 mg/dL Last Edit by ROSENDO Figueroa on 08/17/23 08:31 UA Glucose 0 mg/dL Last Edit by ROSENDO Figueroa on 08/17/23 08:31 Results Reviewed Results Reviewed: Laboratory Last Values Urine pH (Auto) 6.0 08/17/23 08:29 Specific [place] (Auto) 1.015 08/17/23 08:29 Urine Protein (Auto) 0 mg/dL 08/17/23 08:29 Glucose (UA)(Auto) 0 mg/dL 08/17/23 08:29 Urine Ketones (Auto) Negative 08/17/23 08:29 Urine Blood (Auto) 0 Peter/uL 08/17/23 08:29 Urine Nitrite (Auto) Negative 08/17/23 08:29 Urine Bilirubin (Auto) 0 mg/dL 08/17/23 08:29 Urine Urobilinogen (Auto) 0.2 mg/dL 08/17/23 08:29 Leukocyte Esterase (Auto) 0 Karen/uL 08/17/23 08:29 Assessment & Plan Assessment & Plan (1) Vaginal discharge: Code(s): N89.8 - Other specified noninflammatory disorders of vagina Plan: Likely BV given symptoms and recent abx use for frequent UTIs. Urine dip in the office today was normal/negative. She has upcoming appt with urology 09/20. STI testing negative. BV swab obtained today and I will start her on Flagyl BID 7 days. Reviewed vaginal health habits and advised probiotic use. Will f/u with PCP or return to clinic as needed. She agrees to plan. Orders: Orders AMB Urinalysis Automated Today Z13.9 - Encounter for screening, unspecified Terrance Antoine MD Bacterial Vaginosis Panel Today N89.8 - Other specified noninflammatory disorders of vagina SOLA Lyle Medications: New metronidazole 500 mg PO BID 14 tabs 0RF 7 days N89.8 - Other specified noninflammatory disorders of vagina SOLA Lyle Coding Level of Care Code Est Pt Level 3 (98089) Diagnoses Vaginal discharge N89.8
[2023-08-17 08:21] VITALS: BP 122/80; PULSE 78; O2SAT 98
== END 2023-08-17 09:02 | disposition home or self-care (01) ==
PROVIDERS: PCP Internal Medicine; Visit Provider Nurse Practitioner Family
DX: N89.8 Other specified noninflammatory disorders of vagina (principal)
CPT/HCPCS: 81003; 99213

== ENCOUNTER 2023-08-17 11:27 | Outpatient (REF) | payer OTHER, SELFPAY ==
[2023-08-18 14:28] LABS: BV Int Neg Control Negative (Negative); BV Int Pos Control Positive (Positive)
== END 2023-08-17 11:28 | disposition home or self-care (01) ==
LOC: HO.LNP 11:27
PROVIDERS: Visit Provider Nurse Practitioner Family
DX: N89.8 Other specified noninflammatory disorders of vagina (principal)
CPT/HCPCS: 87480; 87510; 87660

== ENCOUNTER 2023-08-24 08:53 | Outpatient (REF) | payer OTHER, SELFPAY ==
--- NOTE | ~2023-08-24 | MR_ITS ---
EXAMINATION: MR BILATERAL BREAST WITHOUT CONTRAST CLINICAL INFORMATION: 3 weeks status post placement of silicone implant. Right breast pain. COMPARISON: None. TECHNIQUE: Utilizing a high-field scanner and dedicated breast coil noncontrast axial STIR and STIR with water saturation sequences were obtained. Additionally, sagittal nonfat suppressed T1 and T2-weighted sequences were obtained bilaterally. Bilateral T2 fat-suppressed with silicone suppression sequences were obtained in the sagittal plane FINDINGS: There are intact appearing bilateral retropectoral silicone implants present. The overlying fibroglandular tissue is extremely dense in composition. Contrast was not administered for evaluation of breast masses. The axillary lymph nodes are morphologically normal. No suspicious internal mammary lymph nodes are seen. The imaged portions of the chest and upper abdomen are grossly unremarkable. MR/MR breast BI wo con IMPRESSION: Intact appearing bilateral retropectoral silicone implants. Contrast was not administered, therefore evaluation of the extremely dense breast parenchyma is limited. RECOMMENDATIONS: Clinical follow-up for silicone breast implants. Bilateral mammogram at age 41 years.
== END 2023-08-24 08:54 | disposition home or self-care (01) ==
LOC: HO.MRI 08:53
PROVIDERS: PCP Internal Medicine; Visit Provider Internal Medicine
DX: N64.4 Mastodynia (principal)
CPT/HCPCS: 77047

== ENCOUNTER 2023-09-12 08:38 | Outpatient (REF) | payer OTHER, SELFPAY | END 2023-09-12 08:39 | disposition home or self-care (01) | LOC: HO.LAB 08:38 | PROVIDERS: Visit Provider Nurse Practitioner Family | DX: Z13.89 Encounter for screening for other disorder (principal) ==

== ENCOUNTER 2023-09-20 08:17 | Outpatient (AMB) | payer OTHER, SELFPAY ==
--- NOTE | 2023-09-20 08:20 | A.OFFVIS_ITS ---
Intake Intake Visit Reasons: Recurrent- Urinary tract infection Intake Note: New Patient presents for initial visit for recurrent uti Urology Medications: none Blood Thinner: none PVR: Sausage Wrapper Required: No Accompanied by: Self / Same As Patient Allergies sertraline Allergy (Severe, Verified 09/20/23 09:41) tongue itchiness divalproex sodium [From DEPAKOTE] Allergy (Intermediate, Verified 09/20/23 09:41) URTICARIA topiramate [From TOPAMAX] Allergy (Intermediate, Verified 09/20/23 09:41) FACIAL AND LIP NUMBNESS hydromorphone [From DILAUDID] Allergy (Mild, Verified 09/20/23 09:41) URTICARIA Sulfa (Sulfonamide Antibiotics) Adverse Reaction (Severe, Verified 09/20/23 09:41) Anaphylaxis moderna covid vaccine Allergy (Intermediate, Uncoded 09/20/23 09:41) hives,swelling Medication List - Last Reconciled 09/20/23 by SOLA Triplett-LUIS M albuterol sulfate 90 mcg/actuation 2 puffs inhalation Q6H PRN 30 days cholecalciferol (vitamin D3) (Vitamin D3) 50 mcg PO DAILY 90 days fluticasone propionate 50 mcg/actuation (Flonase Allergy Relief) 1 spray intranasal DAILY 30 days omeprazole 40 mg PO DAILY 90 days polyethylene glycol 3350 (Miralax) 17 grams PO DAILY valacyclovir 500 mg PO BID 7 days HPI HPI Comments History of Present Illness Details Genevieve is a very pleasant 37-year-old female patient of Dr. Brewer. She has a past medical history of upper respiratory infections, herpes simplex virus, constipation, GERD, and asthma. She presents to the office today as a new patient for recurrent urinary tract infections. In discussion with the patient today she reports to be doing and feeling well. She reports having approximately 5 urinary tract infections since the beginning of this year. When asked she does report longstanding history of constipation. She reports to be extremely active in the gym and participates in herbal Life drinks. She c urrently denies any UTI like symptoms. She reports typically after urinary tract infection treatment she then experiences yeast infections. In office urinalysis results reviewed with the patient today. Discussed at length potential causes for recurrent urinary tract infections. Discussed obtaining retroperitoneal ultrasound for further assessment evaluation. Will refer to gastroenterology for further assessment, evaluation, and management of chronic constipation. She currently denies urinary urgency, urinary frequency, incontinence, nocturia, hematuria, dysuria, foul smelling urine, changes to urinary stream, flank pain, fever, and or chills. She is happy with her current voiding parameters. PVR 26 mLs [facility] Medical History History of COVID-19 Buttocks nodule Ethmoid sinusitis URI (upper respiratory infection) Buttocks nodule HSV (herpes simplex virus) infection Constipation by delayed colonic transit Hypovitaminosis D GERD (gastroesophageal reflux disease) Family history of hypertension Abnormal bruising Lipoma Asthma Surgical History Status post excision of lipoma (~08/10/22) History of kidney stones History of hysterectomy History of umbilical hernia repair Family History Mother Hypertension Father No problems noted. Social History Housing: House Alcohol intake: current Alcohol intake frequency: holidays/special occasions only Alcohol type: hard liquor Patient Tobacco Use Status: Never used Tobacco e-Cigarette/Vaping Use: Never Used Second Hand Smoke Exposure: No service: No Current occupational status: employed Current occupational exposures/hazards: No Cognitive needs: No Hearing needs: No Vision needs: Yes Review of Systems Const Reports as per HPI Eyes Reports no additional complaints ENT Reports no additional complaints Card Reports no additional complaints Resp Reports no additional complaints GI Reports as per HPI Reports as per HPI Musc Reports no additional complaints Neuro Reports no additional complaints Psych Reports no additional complaints Endo Reports no additional complaints Oliver/Lymph Reports no additional complaints Aller/Immun Reports no additional complaints Physical Exam Const General: cooperative, healthy appearing, comfortable, no acute distress, well developed, alert and awake Orientation/consciousness: patient oriented x3 Limitations: no limitations HEENT Head: Yes normal to inspection, Yes normocephalic and Yes atraumatic Ears: hearing grossly normal bilaterally Eyes General: appearance normal, both eyes and all related structures Neck Neck: Yes normal visual inspection and Yes trachea midline Chest Chest palpation & inspection: normal inspection of the chest Resp Effort & Inspection: normal respiratory effort and able to speak in complete sentences Cardio Rate: regular rate GI Inspection: Yes normal to inspection General: Yes no CVA tenderness Back/Spine/Pelvis Back: no CVA tenderness Skin General skin exam: no rashes or lesions noted Neuro General: patient oriented x3 Extrem General: Yes normal to inspection Psych Appearance: grossly normal and well kempt Mental Status: mental status grossly normal Speech and movement: Normal speech and movement present and Clear speech present Affect: normal affect Attitude: cooperative Thought process: Normal thought process present Thought content: Normal thought content present Insight: Good insight present (Psych) Judgement: Good judgement present (Psych) Office Procedures Post Void Residual Post Residual Void Post Void Residual (PVR): 26 [id number] Void Residual by ultrasound Results AMB Urinalysis, Automated UA Leukoctes 0 Karen/uL Last Edit by ParentingInformer on 09/20/23 08:51 UA Nitrite Negative Last Edit by ParentingInformer on 09/20/23 08:51 UA Urobilinogen 0.2 mg/dL Last Edit by ParentingInformer on 09/20/23 08:51 UA Protein 0 mg/dL Last Edit by ParentingInformer on 09/20/23 08:51 UA pH 6.0 Last Edit by Reamaze on 09/20/23 08:51 UA Blood 0 Peter/uL Last Edit by ParentingInformer on 09/20/23 08:51 UA Specific [place] 1.010 Last Edit by Reamaze on 09/20/23 08:51 UA Ketone Negative Last Edit by Reamaze on 09/20/23 08:51 UA Bilirubin 0 mg/dL Last Edit by Reamaze on 09/20/23 08:51 UA Glucose 0 mg/dL Last Edit by Reamaze on 09/20/23 08:51 Results Reviewed Results Reviewed: Laboratory Last Values Urine pH (Auto) 6.0 09/20/23 08:48 Specific [place] (Auto) 1.010 09/20/23 08:48 Urine Protein (Auto) 0 mg/dL 09/20/23 08:48 Glucose (UA)(Auto) 0 mg/dL 09/20/23 08:48 Urine Ketones (Auto) Negative 09/20/23 08:48 Urine Blood (Auto) 0 Peter/uL 09/20/23 08:48 Urine Nitrite (Auto) Negative 09/20/23 08:48 Urine Bilirubin (Auto) 0 mg/dL 09/20/23 08:48 Urine Urobilinogen (Auto) 0.2 mg/dL 09/20/23 08:48 Leukocyte Esterase (Auto) 0 Karen/uL 09/20/23 08:48 Assessment & Plan Assessment & Plan (1) Frequent UTI: Code(s): N39.0 - Urinary tract infection, site not specified (2) Constipation: Code(s): K59.00 - Constipation, unspecified Plan In office urinalysis results reviewed with the patient today; as noted above. Discussed at length potential causes of recurrent urinary tract infections. Will obtain retroperitoneal ultrasound for further assessment evaluation. Will refer to gastroenterology for further assessment, evaluation, management of chronic constipation Discussed UTI prevention with D mannose supplement, vitamin-C, increasing fluid intake, behavioral therapy with timed voiding, perineal hygiene and postcoital voiding, and management of constipation with stool softeners and increased fiber intake. Follow-up in 1-2 months with imaging to be completed prior; or sooner with any issues, concerns, and or questions. Orders: Orders US retroperitoneal comp Today N39.0 - Urinary tract infection, site not specified AMB Urinalysis Automated Today Z13.9 - Encounter for screening, unspecified AMB Post Void Residual by ultrasound Today R35.0 - Frequency of micturition Referrals Gastroenterology Referral K59.00 - Constipation, unspecified Patient Instructions: The patient had an opportunity to ask questions regarding the treatment plan. All questions were answered. Physical exam, labs, and imaging were discussed and reviewed in detail. As well as risks, benefits, and discussion of treatment choices. No major barriers to understanding were identified. The patient expressed understanding and agreement with the above treatment plan. The patient was made aware they should contact our office by phone for worsening of their current condition, the appearance of new symptoms, or with any quest ions or concerns. Compliance is encouraged with any medications and follow up testing that is ordered. It is a privilege to be allowed the opportunity to participate in? your urological care.? Again, if you have any questions or concerns If you have any questions or concerns please do not hesitate to contact me. The office is [phone]. This note is constructed using voice recognition software. While every effort has been made to ensure accuracy security flex officer errors may have been included. Yours sincerely, SOLA Triplett-LUIS M Coding Level of Care Code New Pt Level 3 (39771) Diagnoses Frequent UTI N39.0 Constipation K59.00 CPT Codes Post Residual Void - PVR CPT Code: 06694-[id number] Void Residual by ultrasound ([id number])
== END 2023-09-20 09:32 | disposition home or self-care (01) ==
PROVIDERS: PCP Internal Medicine; Referring Provider Internal Medicine; Visit Provider Nurse Practitioner Family
DX: N39.0 Urinary tract infection, site not specified (principal); K59.00 Constipation, unspecified; Z13.9 Encounter for screening, unspecified
CPT/HCPCS: 99203

== ENCOUNTER → 2023-09-20 08:17 | Outpatient (BNVA) | payer OTHER, SELFPAY | PROVIDERS: PCP Internal Medicine; Referring Provider Internal Medicine; Visit Provider Nurse Practitioner Family | DX: N39.0 Urinary tract infection, site not specified (principal); K59.00 Constipation, unspecified | CPT/HCPCS: 51798; 81003 ==

== ENCOUNTER 2023-09-27 09:47 | Outpatient (REF) | payer OTHER, SELFPAY ==
--- NOTE | ~2023-09-27 | XR_ITS ---
EXAMINATION: XR KNEE, RIGHT CLINICAL INFORMATION: Pain in right knee COMPARISON: None available. TECHNIQUE: Three views of the right knee. FINDINGS: No significant joint effusion. Joint spaces are preserved. Alignment maintained. XR/XR knee RT 3V IMPRESSION: Unremarkable right knee.
== END 2023-09-27 09:48 | disposition home or self-care (01) ==
LOC: HO.XRAY 09:47
PROVIDERS: PCP Internal Medicine; Visit Provider Physician Assistant
DX: M25.561 Pain in right knee (principal)
CPT/HCPCS: 73562

== ENCOUNTER 2023-10-19 09:44 | Outpatient (REF) | payer OTHER, SELFPAY ==
--- NOTE | ~2023-10-19 | US_ITS ---
EXAMINATION: US RETROPERITONEAL COMPLETE (RENAL) CLINICAL INFORMATION: Urinary tract infection, site not specified. COMPARISON: CT abdomen and pelvis 03/21/2022. Renal ultrasound 06/27/2019. Ultrasound abdomen complete 01/05/2018. X-ray KUB 09/14/2017. TECHNIQUE: Real-time imaging of the kidneys and bladder. FINDINGS: RIGHT KIDNEY: 12.4 x 3.7 x 5.6 cm (SAG x AP x TRV). The kidney is normal in size, contour, and echogenicity. Renal cortical thickness is normal. No hydronephrosis. In the lower pole of the right kidney there is a small cystic area measuring 8 x 10 x 10 mm in size with an echogenic abutting focus measuring 5 mm. In the mid kidney there is another smaller cystic area with an abutting echogenic focus measuring 4 mm. On the prior CT scan cysts were present in these areas but no stones were seen. LEFT KIDNEY: 11.8 x 6.6 x 5.4 cm (SAG x AP x TRV). The kidney is normal in size, contour, and echogenicity. Renal cortical thickness is normal. No calculi or focal parenchymal lesions. No hydronephrosis. There is an extrarenal pelvis. BLADDER: Well distended and normal. Bilateral ureteral jets are demonstrated. Prevoid bladder volume is 763 mL. Postvoid bladder volume is 22 mL. US/US retroperitoneal comp IMPRESSION: Small right-sided renal cysts with abutting echogenic foci. These were not seen on the prior CT scan. As these are not fully characterized and cannot be said to be simple cysts, follow up is recommended and a CT urogram may be helpful.
== END 2023-10-19 09:45 | disposition home or self-care (01) ==
LOC: HO.US 09:44
PROVIDERS: PCP Internal Medicine; Visit Provider Nurse Practitioner Family
DX: N39.0 Urinary tract infection, site not specified (principal)
CPT/HCPCS: 76770

== ENCOUNTER 2023-11-04 08:15 | Outpatient (AMB) | payer OTHER, SELFPAY ==
--- NOTE | 2023-11-04 08:22 | MHC.OFFVIS ---
Intake Intake Visit Reasons: follow up/PVR/US(set) Intake Note: Patient presents for follow up visit for recurrent uti Urology Medications: currently treating with macrobid for current uti Blood Thinner: none PVR: 0ml's Master Sonar Technician Required: No Accompanied by: Self / Same As Patient Allergies mushroom Allergy (Severe, Verified 11/05/23 12:53) Anaphylaxis peanut Allergy (Severe, Verified 11/05/23 12:53) Anaphylaxis sertraline Allergy (Severe, Verified 11/05/23 12:53) tongue itchiness divalproex sodium [From DEPAKOTE] Allergy (Intermediate, Verified 11/05/23 12:53) URTICARIA topiramate [From TOPAMAX] Allergy (Intermediate, Verified 11/05/23 12:53) FACIAL AND LIP NUMBNESS hydromorphone [From DILAUDID] Allergy (Mild, Verified 11/05/23 12:53) URTICARIA Sulfa (Sulfonamide Antibiotics) Adverse Reaction (Severe, Verified 11/05/23 12:53) Anaphylaxis nuts Allergy (Severe, Uncoded 11/05/23 12:53) Anaphylaxis moderna covid vaccine Allergy (Intermediate, Uncoded 11/05/23 12:53) hives,swelling Medication List - Last Reconciled 11/04/23 by ERIC Triplett albuterol sulfate 90 mcg/actuation 2 puffs inhalation Q6H PRN 30 days cholecalciferol (vitamin D3) 50 mcg PO DAILY fluticasone propionate 50 mcg/actuation (Flonase Allergy Relief) 1 spray intranasal DAILY 30 days nitrofurantoin monohyd/m-cryst 100 mg 1 cap PO BID omeprazole 40 mg PO DAILY 90 days polyethylene glycol 3350 (Miralax) 17 grams PO DAILY valacyclovir 500 mg PO BID 7 days HPI HPI Comments History of Present Illness Details Genevieve is a very pleasant 37-year-old female patient of Dr. Brewer. She has a past medical history of upper respiratory infections, herpes simplex virus, constipation, GERD, and asthma. She presents to the office today for a follow up. Of note, patient was seen approximately 6 weeks ago as a new patient for recurrent urinary tract infections at which time a retroperitoneal ultrasound was ordered and a referral for GI was made. In discussion with the patient today she reports to be doing and feeling well. She reports having follow-up with her chili pepper grinder yesterday for her annual visit at which time she was noted to have leukocytes and microscopic hematuria. She reports currently on Macrobid for urinary tract infection with chili pepper grinder. Recent retroperitoneal ultrasound results reviewed with the patient today. Right kidney is normal in size contour and echogenicity. No hydronephrosis. In the lower pole of the right kidney there is a small cystic area measuring 8 x 10 x 10mm in size with an echogenic abutting focus measuring 5 mm. In the mid kidney there is another smaller cystic area with an abutting echogenic focus measuring 4mm. A prior CT scan cysts were present in these areas but no stones were seen. Left kidney with no calculi, lesions, and or hydronephrosis. There is an extrarenal pelvis. The bladder is well distended and normal. Bilateral ureteral jets are demonstrated. Pre void bladder volume is approximately 460 mL. Postvoid bladder volume is approximately 20 mL. She reports to be having upcoming gastroenterology appointment today for further assessment evaluation of longstanding history of constipation. She reports to be extremely active in the gym and participates in herbal Life drinks. She reports having approximately 6 urinary tract infections since the beginning of this year. Discussed obtaining CT urogram for further assessment evaluation. She otherwise currently denies urinary urgency, urinary frequency, incontinence, nocturia, hematuria, dysuria, foul smelling urine, changes to urinary stream, flank pain, fever, and or chills. She is happy with her current voiding parameters. In office urinalysis results reviewed with the patient today. PVR 0 mLs. Discussed at length potential causes of recurrent urinary tract infections. Discussed near future in office cystoscopy for further assessment evaluation. Also discussed obtaining microgen for further assessment evaluation once patient has completed antibiotic therapy that has been prescribed by her RAILROAD INSPECTOR. [facility] Medical History Constipation History of COVID-19 Buttocks nodule Ethmoid sinusitis URI (upper respiratory infection) Buttocks nodule HSV (herpes simplex virus) infection Hypovitaminosis D GERD (gastroesophageal reflux disease) Family history of hypertension Abnormal bruising Lipoma Asthma Surgical History Status post excision of lipoma (~08/10/22) History of kidney stones History of hysterectomy History of umbilical hernia repair Family History Mother Hypertension Cervical cancer Father No problems noted. Maternal Aunt Colon cancer Maternal Aunt Lung cancer Social History Housing: House Alcohol intake: current Alcohol intake frequency: holidays/special occasions only Alcohol type: hard liquor Patient Tobacco Use Status: Never used Tobacco e-Cigarette/Vaping Use: Never Used Second Hand Smoke Exposure: No service: No Current occupational status: employed Current occupational exposures/hazards: No Cognitive needs: No Hearing needs: No Vision needs: Yes Review of Systems Const Reports as per HPI Eyes Reports no additional complaints ENT Reports no additional complaints Card Reports no additional complaints Resp Reports no additional complaints GI Reports as per HPI Reports as per HPI Musc Reports no additional complaints Neuro Reports no additional complaints Psych Reports no additional complaints Endo Reports no additional complaints Oliver/Lymph Reports no additional complaints Aller/Immun Reports no additional complaints Physical Exam Const General: cooperative, healthy appearing, comfortable, no acute distress, well developed, alert and awake Orientation/consciousness: patient oriented x3 Limitations: no limitations HEENT Head: Yes normal to inspection, Yes normocephalic and Yes atraumatic Ears: hearing grossly normal bilaterally Eyes General: appearance normal, both eyes and all related structures Neck Neck: Yes normal visual inspection and Yes trachea midline Chest Chest palpation & inspection: normal inspection of the chest Resp Effort & Inspection: normal respiratory effort and able to speak in complete sentences Cardio Rate: regular rate GI Inspection: Yes normal to inspection General: Yes no CVA tenderness Back/Spine/Pelvis Back: no CVA tenderness Skin General skin exam: no rashes or lesions noted Neuro General: patient oriented x3 Extrem General: Yes normal to inspection Psych Appearance: grossly normal and well kempt Mental Status: mental status grossly normal Speech and movement: Normal speech and movement present and Clear speech present Affect: normal affect Attitude: cooperative Thought process: Normal thought process present Thought content: Normal thought content present Insight: Good insight present (Psych) Judgement: Good judgement present (Psych) Office Procedures Post Void Residual Post Residual Void Post Void Residual (PVR): 0 [id number] Void Residual by ultrasound Results AMB Urinalysis, Automated UA Leukoctes 0 Karen/uL Last Edit by Mayra Marcum on 11/04/23 08:51 UA Nitrite Negative Last Edit by Mayra Marcum on 11/04/23 08:51 UA Urobilinogen 0.2 mg/dL Last Edit by Mayra Marcum on 11/04/23 08:51 UA Protein 15 mg/dL Last Edit by Mayra Marcum on 11/04/23 08:51 UA pH 7.0 Last Edit by Mayra Marcum on 11/04/23 08:51 UA Blood 0 Peter/uL Last Edit by Mayra Marcum on 11/04/23 08:51 UA Specific [place] 1.015 Last Edit by Mayra Marcum on 11/04/23 08:51 UA Ketone Negative Last Edit by Mayra Marcum on 11/04/23 08:51 UA Bilirubin 0 mg/dL Last Edit by Mayra Marcum on 11/04/23 08:51 UA Glucose 0 mg/dL Last Edit by Mayra Marcum on 11/04/23 08:51 Results Reviewed Results Reviewed: Laboratory Last Values Urine pH (Auto) 7.0 11/04/23 08:39 Specific [place] (Auto) 1.015 11/04/23 08:39 Urine Protein (Auto) 15 mg/dL 11/04/23 08:39 Glucose (UA)(Auto) 0 mg/dL 11/04/23 08:39 Urine Ketones (Auto) Negative 11/04/23 08:39 Urine Blood (Auto) 0 Peter/uL 11/04/23 08:39 Urine Nitrite (Auto) Negative 11/04/23 08:39 Urine Bilirubin (Auto) 0 mg/dL 11/04/23 08:39 Urine Urobilinogen (Auto) 0.2 mg/dL 11/04/23 08:39 Leukocyte Esterase (Auto) 0 Karen/uL 11/04/23 08:39 Date of Service: 10/19/23 EXAMINATION: US RETROPERITONEAL COMPLETE (RENAL) FINDINGS: RIGHT KIDNEY: 12.4 x 3.7 x 5.6 cm (SAG x AP x TRV). The kidney is normal in size, contour, and echogenicity. Renal cortical thickness is normal. No hydronephrosis. In the lower pole of the right kidney there is a small cystic area measuring 8 x 10 x 10 mm in size with an echogenic abutting focus measuring 5 mm. In the mid kidney there is another smaller cystic area with an abutting echogenic focus measuring 4 mm. On the prior CT scan cysts were present in these areas but no stones were seen. LEFT KIDNEY: 11.8 x 6.6 x 5.4 cm (SAG x AP x TRV). The kidney is normal in size, contour, and echogenicity. Renal cortical thickness is normal. No calculi or focal parenchymal lesions. No hydronephrosis. There is an extrarenal pelvis. BLADDER: Well distended and normal. Bilateral ureteral jets are demonstrated. Prevoid bladder volume is 763 mL. Postvoid bladder volume is 22 mL. US/US retroperitoneal comp IMPRESSION: Small right-sided renal cysts with abutting echogenic foci. These were not seen on the prior CT scan. As these are not fully characterized and cannot be said to be simple cysts, follow up is recommended and a CT urogram may be helpful. Assessment & Plan Assessment & Plan (1) Renal cyst: Code(s): N28.1 - Cyst of kidney, acquired (2) Frequent UTI: Code(s): N39.0 - Urinary tract infection, site not specified Plan In office urinalysis results reviewed with the patient today; as noted above. PVR 0 mL. Recent retroperitoneal ultrasound results reviewed with the patient today; as noted above. Will obtain CT urogram for further assessment evaluation. BUN and creatinine ordered for imaging. Discussed at length potential causes of recurrent urinary tract infections. Keep scheduled follow-up with Gastroenterology for further assessment evaluation of longstanding history of constipation. Discussed near future in office cystoscopy Discussed further assessment with tiara Discussed UTI prevention with D mannose supplement, vitamin-C, increasing fluid intake, behavioral therapy with timed voiding, perineal hygiene and postcoital voiding, and management of constipation with stool softeners and increased fiber intake. Follow-up in 1 month with imaging to be completed prior; or sooner with any issues, concerns, and or questions. Orders: Orders AMB Post Void Residual by ultrasound 11/04/23 N39.0 - Urinary tract infection, site not specified AMB Urinalysis Automated 11/04/23 Z13.9 - Encounter for screening, unspecified CT urogram 11/04/23 N28.1 - Cyst of kidney, acquired, R31.0 - Gross hematuria Blood Urea Nitrogen 11/04/23 R39.15 - Urgency of urination Creatinine 11/04/23 R39.15 - Urgency of urination Patient Instructions: The patient had an opportunity to ask questions regarding the treatment plan. All questions were answered. Physical exam, labs, and imaging were discussed and reviewed in detail. As well as risks, benefits, and discussion of treatment choices. No major barriers to understanding were identified. The patient expressed understanding and agreement with the above treatment plan. The patient was made aware they should contact our office by phone for worsening of their current condition, the appearance of new symptoms, or with any questions or concerns. Compliance is encouraged with any medications and follow up testing that is ordered. It is a privilege to be allowed the opportunity to participate in? your urological care.? Again, if you have any questions or concerns If you have any questions or concerns please do not hesitate to contact me. The office is [phone]. This note is constructed using voice recognition software. While every effort has been made to ensure accuracy soft work cigar machine operator errors may have been included. Yours sincerely, SOLA Triplett-LUIS M Coding Level of Care Code Est Pt Level 3 (70446) Diagnoses Renal cyst N28.1 Frequent UTI N39.0 CPT Codes Post Residual Void - PVR CPT Code: 00028-[id number] Void Residual by ultrasound ([id number])
== END 2023-11-04 09:09 | disposition home or self-care (01) ==
PROVIDERS: PCP Internal Medicine; Visit Provider Nurse Practitioner Family
DX: N28.1 Cyst of kidney, acquired (principal); N39.0 Urinary tract infection, site not specified
CPT/HCPCS: 99213

== ENCOUNTER → 2023-11-04 08:15 | Outpatient (BNVA) | payer OTHER, SELFPAY | PROVIDERS: PCP Internal Medicine; Visit Provider Nurse Practitioner Family | DX: N28.1 Cyst of kidney, acquired (principal); N39.0 Urinary tract infection, site not specified | CPT/HCPCS: 51798; 81003; 99212 ==

== ENCOUNTER 2023-11-04 09:12 | Outpatient (REF) | payer OTHER, SELFPAY ==
[2023-11-04 11:00] LABS: Blood Urea Nitrogen 16 mg/dL (9-16); Estimated Glomerular Filt Rate > 60
== END 2023-11-04 09:13 | disposition home or self-care (01) ==
LOC: HO.10HDL 09:12
PROVIDERS: Visit Provider Nurse Practitioner Family
DX: R39.15 Urgency of urination (principal); K59.04 Chronic idiopathic constipation; K21.9 Gastro-esophageal reflux disease without esophagitis
CPT/HCPCS: 36415; 82565; 84520; 99202

== ENCOUNTER 2023-11-04 11:00 | Outpatient (AMB) | payer OTHER, SELFPAY ==
--- NOTE | 2023-11-04 11:20 | A.OFFVIS_ITS ---
Intake Vital Signs 3 11/04/23 11:21 Height 5 ft 1 in Weight 151 lb 10.848 oz BMI 28.7 BP 112/68 Blood Pressure Location Rt brachial Position Sitting Pulse 72 Intake Visit Reasons: Constipation Intake Note: Patient presents to in office visit today asa new patient for colonosocpy. CC: Patient reports she was referred here by urologist because she is getting a lot of yeast infections and UTIs. Since Pt suffers form constipation urologist wanted to know if there is any correlation with recurrent issues. She also states she gets hemorrhoids a lot and that she has GERD and takes Omeprazole for it but she feels is not helping with GERD. Allergies mushroom Allergy (Severe, Verified 11/04/23 11:26) Anaphylaxis peanut Allergy (Severe, Verified 11/04/23 11:26) Anaphylaxis sertraline Allergy (Severe, Verified 11/04/23 11:26) tongue itchiness divalproex sodium [From DEPAKOTE] Allergy (Intermediate, Verified 11/04/23 11:26) URTICARIA topiramate [From TOPAMAX] Allergy (Intermediate, Verified 11/04/23 11:26) FACIAL AND LIP NUMBNESS hydromorphone [From DILAUDID] Allergy (Mild, Verified 11/04/23 11:26) URTICARIA Sulfa (Sulfonamide Antibiotics) Adverse Reaction (Severe, Verified 11/04/23 11:26) Anaphylaxis nuts Allergy (Severe, Uncoded 11/04/23 11:26) Anaphylaxis moderna covid vaccine Allergy (Intermediate, Uncoded 11/04/23 08:57) hives,swelling HPI Constipation 2 HPI0 Details 37-year-old female here for initial eval uation of constipation. She is referred by Mer Dunn of [facility] primary care. PMX Asthma HSV History of COVID-19 infection Lipoma GERD Constipation Frequent UTI Right knee pain renal stones * SURGICAL HISTORY Lipoma excision Hysterectomy Umbilical hernia repair ? Lithotripsy * ALLERGIES Sertraline Depakote Topamax Dilaudid Sulfa Moderna COVID vaccine * [employer] LABS: Laboratory Tests 08/11/23 11/04/23 08:19 09:15 Estimated GFR > 60 Total Bilirubin 0.6 AST 63 H ALT 27 Alkaline Phosphata se 53 TODAY'S VISIT She says she has been seeing many specialists, she was seeing urology for frequent UTI's, mostly yeast, and she said she suffers CIC. She is starting to have abx resistant UTI's and she was told they are usually from the stooling happen with CIC, and sent her here. She also suffers GERD. She works out and drinks a lot of water. She will move her bowels once a week with very hard stools. She also has frequent incomplete evacuation. The stools are dark, and she gets a lot of hemorrhoids and uses OTC suppositories and wipes. All of her family suffers from CIC. Her maternal aunt of CRC in her older years. she only uses Miralax and has in the past used MOM, and she once ate a bunch of ex lax and ended up in the ER. She eat healthy and she takes an herbalife fiber supplement. Start Linzess 145 and titrate, her GERD is been stable on her current PPI. ROV 4-6 weeks. [facility] Medical History (Updated 11/04/23 @ 11:58 by OSCAR Oshea) Constipation History of COVID-19 Buttocks nodule Ethmoid sinusitis URI (upper respiratory infection) Buttocks nodule HSV (herpes simplex virus) infection Hypovitaminosis D GERD (gastroesophageal reflux disease) Family history of hypertension Abnormal bruising Lipoma Asthma Surgical History Status post excision of lipoma (~08/10/22) History of kidney stones History of hysterectomy History of umbilical hernia repair Family History Mother Hypertension Cervical cancer Father No problems noted. Maternal Aunt Colon cancer Maternal Aunt Lung cancer Social History Housing: House Alcohol intake: current Alcohol intake frequency: holidays/special occasions only Alcohol type: hard liquor Patient Tobacco Use Status: Never used Tobacco e-Cigarette/Vaping Use: Never Used Second Hand Smoke Exposure: No service: No Current occupational status: employed Current occupational exposures/hazards: No Cognitive needs: No Hearing needs: No Vision needs: Yes Review of Systems Const Denies fatigue, Denies fever(s), Denies night sweats, Denies poor appetite and Denies weight loss ENT Reports Normal hearing present, Denies dental pain, Denies dysphagia, Denies hearing loss, Denies mouth pain, Denies odynophagia, Denies throat swelling, Denies tongue swelling and Reports other (Dentition adequate) Card Reports no additional complaints Resp Reports no additional complaints GI Denies abdominal pain, Denies melena, Denies bloating, Denies hematochezia, Reports constipation, Denies GI cramping, Denies dysphagia, Denies excessive flatus, Denies early satiety, Reports heartburn, Denies diarrhea, Denies nausea, Denies odynophagia, Denies vomiting and Denies hematemesis Details: Frequent recurrent UTI Skin/Breast Denies pruritus, Denies lesions, Denies rash and Denies jaundice Neuro Reports Normal hearing present and Denies Abnormal speech present Psych Reports anxiety Endo Denies fatigue Aller/Immun Denies throat swelling and Denies tongue swelling Physical Exam Vital Signs: Last Vital Signs Pulse 72 11/04/23 11:21 BP 112/68 11/04/23 11:21 BMI result Body Mass Index 28.7 Const General: cooperative, no acute distress, well developed and well groomed Nutritional Appearance: average body habitus and well nourished Orientation/consciousness: oriented to person, oriented to place and oriented to time Limitations: No language barrier HEENT Head: Yes normocephalic and Yes atraumatic Eyes General: appearance normal, both eyes and all related structures Pupils: Equal, round and reactive pupils present Neck Neck: Yes normal visual inspection and Yes no lymphadenopathy Thyroid: Thyroid normal Resp Effort & Inspection: normal respiratory effort and able to speak in complete sentences Auscultation: clear to auscultation bilaterally Cardio Rate: regular rate Rhythm: regular rhythm Heart sounds: Normal, physiologic split S2 sound present Peripheral pulses: radial pulses present and posterior tibial pulses present GI Inspection: No distended and No Abdominal panniculus present Palpation (GI): Soft to palpation, nontender, no guarding, not rigid and No hepatosplenomegaly present Percussion: Yes normal to percussion Auscultation: normal bowel sounds Rectal Exam - Female: deferred Abdomen image: 2 1. surgical scar Skin General skin exam: no rashes or lesions noted, turgor normal, skin not dry, no jaundice, No spider nevi and no striae Rashes: no rashes Nails: normal Neuro General: oriented to person, oriented to place and oriented to time Cranial nerves: Yes Equal, round and reactive pupils present and Yes Normal hearing present Speech: No Abnormal speech present Extrem General: Yes normal to inspection, No clubbing, No cyanosis and No edema Psych Appearance: grossly normal and well kempt Mental Status: mental status grossly normal Speech and movement: Normal speech and movement present Affect: normal affect Attitude: cooperative Thought process: Normal thought process present and not confabulating Thought content: Normal thought content present Insight: Fair insight present (Psych) Judgement: Fair judgement present (Psych) Results AMB Urinalysis, Automated 2 UA Leukoctes 0 Karen/uL Last Edit by [employer] on 11/04/23 08:51 UA Nitrite Negative Last Edit by [employer] on 11/04/23 08:51 UA Urobilinogen 0.2 mg/dL Last Edit by [employer] on 11/04/23 08:51 UA Protein 15 mg/dL Last Edit by [employer] on 11/04/23 08:51 UA pH 7.0 Last Edit by [employer] on 11/04/23 08:51 UA Blood 0 Peter/uL Last Edit by [employer] on 11/04/23 08:51 UA Specific [place] 1.015 Last Edit by [employer] on 11/04/23 08:51 UA Ketone Negative Last Edit by [employer] on 11/04/23 08:51 UA Bilirubin 0 mg/dL Last Edit by [employer] on 11/04/23 08:51 UA Glucose 0 mg/dL Last Edit by [employer] on 11/04/23 08:51 Assessment & Plan Assessment & Plan (1) Chronic idiopathic constipation: Code(s): K59.04 - Chronic idiopathic constipation (2) GERD (gastroesophageal reflux disease): Code(s): K21.9 - Gastro-esophageal reflux disease without esophagitis Qualifiers: Esophagitis presence: esophagitis presence not specified Qualified Code(s): K21.9 - Gastro-esophageal reflux disease without esophagitis Plan She says she has been seeing many specialists, she was seeing urology for frequent UTI's, mostly yeast, and she said she suffers CIC. She is starting to have abx resistant UTI's and she was told they are usually from the stooling happen with CIC, and sent her here. She also suffers GERD. She works out and drinks a lot of water. She will move her bowels once a week with very hard stools. She also has frequent incomplete evacuation. The stools are dark, and she gets a lot of hemorrhoids and uses OTC suppositories and wipes. All of her family suffers from CIC. Her maternal aunt of CRC in her older years. she only uses Miralax and has in the past used MOM, and she once ate a bunch of ex lax and ended up in the ER. She eat healthy and she takes an herbalife fiber supplement. Start Linzess 145 and titrate, her GERD is been stable on her current PPI. ROV 4-6 weeks. Orders: Orders 2 TSH reflex Free T4 Today K21.9 - Gastro-esophageal reflux disease without esophagitis, K59.01 - Slow transit constipation Medications: New 2 linaclotide (Linzess) 145 mcg PO QAM 30 caps 6RF K59.04 - Chronic idiopathic constipation Coding Level of Care Code New Pt Level 3 (87301) Diagnoses Chronic idiopathic constipation K59.04 Gastroesophageal reflux disease, unspecified whether esophagitis present K21.9 Esophagitis presence: esophagitis presence not specified
[2023-11-04 11:21] VITALS: BP 112/68; PULSE 72; BMI 28.7
== END 2023-11-04 14:38 | disposition home or self-care (01) ==
PROVIDERS: PCP Internal Medicine; Visit Provider Nurse Practitioner
DX: K59.04 Chronic idiopathic constipation (principal); K21.9 Gastro-esophageal reflux disease without esophagitis
CPT/HCPCS: 99203

== ENCOUNTER 2024-01-24 08:05 | Outpatient (AMB) | payer OTHER, SELFPAY ==
[2024-01-24 08:17] VITALS: BP 128/72; PULSE 88; TEMP 36.8; O2SAT 98
--- NOTE | 2024-01-24 08:17 | MHC.OFFWIV ---
Intake Vital Signs 01/24/24 08:17 Height 5 ft 1 in Weight 15 lb BMI 2.8 BP 128/72 Blood Pressure Location Lt brachial Position Sitting Pulse 88 Pulse Source Pulse Oximeter Temp 98.3 F Temp Source Oral Pulse Oximetry (%) 98 Intake Visit Reasons: EP Swollen Tonsil, Ear, chest pain due to cough Intake Note: pt is here for c.o swollen tonsls, ear pain, upper back pain Patient Tobacco Use Status: Never used Tobacco Allergies mushroom Allergy (Severe, Verified 01/24/24 08:18) Anaphylaxis peanut Allergy (Severe, Verified 01/24/24 08:18) Anaphylaxis sertraline Allergy (Severe, Verified 01/24/24 08:18) tongue itchiness divalproex sodium [From DEPAKOTE] Allergy (Intermediate, Verified 01/24/24 08:18) URTICARIA topiramate [From TOPAMAX] Allergy (Intermediate, Verified 01/24/24 08:18) FACIAL AND LIP NUMBNESS hydromorphone [From DILAUDID] Allergy (Mild, Verified 01/24/24 08:18) URTICARIA Sulfa (Sulfonamide Antibiotics) Adverse Reaction (Severe, Verified 01/24/24 08:18) Anaphylaxis nuts Allergy (Severe, Uncoded 11/05/23 12:53) Anaphylaxis moderna covid vaccine Allergy (Intermediate, Uncoded 11/05/23 12:53) hives,swelling Medication List - Last Reconciled 01/24/24 by SOLA Sparks cholecalciferol (vitamin D3) 50 mcg PO DAILY fluticasone propionate 50 mcg/actuation (Flonase Allergy Relief) 1 spray intranasal DAILY 30 days linaclotide (Linzess) 145 mcg PO QAM omeprazole 40 mg PO DAILY 90 days polyethylene glycol 3350 (Miralax) 17 grams PO DAILY valacyclovir 500 mg PO BID 7 days Ventolin HFA 90 mcg/actuation (albuterol sulfate) 2 puffs inhalation Q6H PRN 30 days NS Do you need a note to return to daycare/school/sports/work: Yes HPI HPI Comments History of Present Illness Details Patient is a 38-year-old female here for sick visit. Has a history of ethmoid sinusitis. Patient states that for the past several days she has developed symptoms of fever, cough, sore throat, ear pain, chest tightness. Has use [id number] medicine with little relief. Denies shortness of breath, chest pain, numbness, dizziness, nausea, vomiting, diarrhea. [facility] Medical History Constipation History of COVID-19 Buttocks nodule Ethmoid sinusitis URI (upper respiratory infection) Buttocks nodule HSV (herpes simplex virus) infection Hypovitaminosis D GERD (gastroesophageal reflux disease) Family history of hypertension Abnormal bruising Lipoma Asthma Surgical History Status post excision of lipoma (~08/10/22) History of kidney stones History of hysterectomy History of umbilical hernia repair Family History Mother Hypertension Cervical cancer Father No problems noted. Maternal Aunt Colon cancer Maternal Aunt Lung cancer Social History Housing: House Alcohol intake: current Alcohol intake frequency: holidays/special occasions only Alcohol type: hard liquor Patient Tobacco Use Status: Never used Tobacco e-Cigarette/Vaping Use: Never Used Second Hand Smoke Exposure: No service: No Current occupational status: employed Current occupational exposures/hazards: No Cognitive needs: No Hearing needs: No Vision needs: Yes Review of Systems Const Details: Constitutional : No Weight loss, No Fever, No Chills, No Fatigue, No Malaise ENT/Mouth : Admits sore throat. Admits bilateral ear pain. Eyes: No Eye Pain, No Swelling, No Redness Cardiovascular : No Chest Pain, No SOB, No Dyspnea on Exertion, No Orthopnea, No Edema, No Palpitations Respiratory : Admits Cough, No Sputum, No Wheezing Gastrointestinal : No Nausea, No Vomiting, No Diarrhea, No Constipation, No abdominal Pain, No Hematochezia, No Melena Skin : No Skin Lesions, No rash Neuro : No Weakness, No Numbness, No Dizziness, No Headache Psych : No Anxiety/Panic, No Depression Heme/Lymph: No Bruising, No Bleeding,No Lymphadenopathy Endocrine : No Polyuria, No Polydipsia All other systems reviewed and are negative Physical Exam Const Other: Appearance: Alert.? Oriented X3.? No acute distress.? Head: Normocephalic, atraumatic. Eyes: Pupils equal, round and reactive to light.? ENT: Pharynx erythema. TM intact, effusion and erythema bilaterally. Neck: Normal inspection.? Neck supple.? CVS: Normal heart rate and rhythm.? Pulses normal.? Respiratory: No respiratory distress.? Slight wheeze upper lobes. Neuro: Oriented X 3.? No motor deficit.? No sensory deficit. CN 2-12 intact Results AMB Rapid Strep AMB Rapid Strep Negative Last Edit by Dipesh Paredes CMA on 01/24/24 08:39 Assessment & Plan Assessment & Plan (1) Bilateral otitis media: Comment: Patient has bilateral otitis media. Will give Augmentin to be taken as directed. Patient has been educated the side effects. Will also refill the patient's albuterol inhaler, prescribed prednisone, and give patient of fluconazole due to frequent recurring yeast infections after antibiotic use. Code(s): H66.93 - Otitis media, unspecified, bilateral Qualifiers: Otitis media type: unspecified Qualified Code(s): H66.93 - Otitis media, unspecified, bilateral Plan: Take your medications as prescribed. If you were prescribed antibiotics today, it is important that you take your medication to their entirety, do not skip any doses, do not finish them early. Follow-up with your primary care provider this week. Return to the emergency department with new or worsening symptoms. Such as fevers, chills, chest pain, shortness of breath, nausea, vomiting, dizziness, headache, vision changes, lethargy In case of emergency call 911 Plan Follow-up with PCP. Orders: Orders Complete Blood Count Auto Diff Today D72.829 - Elevated white blood cell count, unspecified AMB Rapid Strep Screen Today Z13.9 - Encounter for screening, unspecified SARS-CoV2/FLU/RSV Today J06.9 - Acute upper respiratory infection, unspecified Comprehensive Met. Panel Today Z91.89 - Other specified personal risk factors, not elsewhere classified Medications: New amoxicillin-pot clavulanate 875-125 mg 1 tab PO Q12H 20 tabs 0RF fluconazole 200 mg PO DAILY 2 tabs 0RF prednisone 20 mg PO BID 10 tabs 0RF Refilled Ventolin HFA 90 mcg/actuation (albuterol sulfate) 2 puffs inhalation Q6H 30 days PRN 8 grams 1RF for wheezing NS Coding Level of Care Code Est Pt Level 3 (42204) Diagnoses Bilateral otitis media, unspecified otitis media type H66.93 Otitis media type: unspecified Time Spent (min) 16
== END 2024-01-24 09:12 | disposition home or self-care (01) ==
PROVIDERS: PCP Internal Medicine; Visit Provider Nurse Practitioner Primary Care
DX: H66.93 Otitis media, unspecified, bilateral (principal)
CPT/HCPCS: 87880; 99213

== ENCOUNTER 2024-01-24 08:31 | Outpatient (REF) | payer OTHER, SELFPAY ==
[2024-01-24 10:17] LABS: MANUAL DIFF FLAG NO
[2024-01-24 10:40] LABS: Basophils Percent Auto 0.4 % (0-2); Eosinophils Absolute Auto 0.3 X10*3/uL (0.0-0.4); Eosinophils Percent Auto 3.7 % (0-4); Hematocrit 39.5 % (37.0-47.0); Hemoglobin 12.3 g/dl (12.0-16.0); Imm Gran Abs Auto 0.03 X10*3/uL (0.00-0.03); Imm Gran Pct Auto 0.4 % (0.0-0.4); Lymphocytes Absolute Auto 2.1 X10*3/uL (1.2-4.9); Lymphocytes Percent Auto 24.8 % (20-40); Mean Corpuscular HGB Conc 31.1 g/dl (31.0-35.0); Mean Corpuscular Hemoglobin 20.5 pg (27.0-33.0); Mean Corpuscular Volume 65.8 fL (80.0-98.0); Monocytes Absolute Auto 0.6 X10*3/uL (0.1-1.2); Monocytes Percent Auto 7.7 % (2-11); Neutrophils Absolute Auto 5.2 x10*3/uL (2.0-8.3); Platelet Count 193 X10*3/uL (160-400); White Blood Count 8.3 X10*3/uL (4.8-10.8)
[2024-01-24 10:45] LABS: Alanine Aminotransferase 9 U/L (0-31); Albumin Level 4.5 g/dL (3.5-5.0); Alkaline Phosphatase 56 U/L (39-117); Anion Gap 12 (12-20); Aspartate Amino Transferase 17 U/L (5-31); Bilirubin Total 0.6 mg/dL (0.0-1.0); Blood Urea Nitrogen 8 mg/dL (9-16); Calcium 9.6 mg/dL (8.4-10.2); Carbon Dioxide 27 mmol/L (22-29); Chloride 103 mmol/L (96-108); Estimated Glomerular Filt Rate > 60; Glucose Random 87 mg/dL (60-115); Potassium 3.7 mmol/L (3.3-5.1); Sodium 138 mmol/L (135-145); Total Protein 8.1 g/dL (6.5-8.0)
[2024-01-24 12:50] LABS: Influenza A PCR NEGATIVE (Negative); Influenza B PCR NEGATIVE (Negative); Resp Syncy Virus RNA Qual PCR NEGATIVE (Negative); SARS COV2 PCR INHOUSE NEGATIVE (Negative)
== END 2024-01-24 08:32 | disposition home or self-care (01) ==
LOC: HO.HMGCLDS 08:31
PROVIDERS: PCP Internal Medicine; Visit Provider Nurse Practitioner Primary Care
DX: J06.9 Acute upper respiratory infection, unspecified (principal); D72.829 Elevated white blood cell count, unspecified; Z91.89 Other specified personal risk factors, not elsewhere classified
CPT/HCPCS: 0241U; 36415; 80053; 85025

== ENCOUNTER 2024-01-30 08:18 | Outpatient (REF) | payer OTHER, SELFPAY ==
--- NOTE | ~2024-01-30 | CT_ITS ---
EXAMINATION: CT ABDOMEN AND PELVIS WITHOUT AND WITH CONTRAST CLINICAL INFORMATION: Gross hematuria. COMPARISON: CT scans dating between March 21, 2022 and April 27, 2012. TECHNIQUE: Noncontrast CT of the abdomen and pelvis is performed followed by split bolus contrast-enhanced images using 85 mL Omnipaque 350 contrast.? Postcontrast imaging is performed during the combined nephrogram and excretion phase. Sagittal and coronal reformatted images were obtained on the technologist's workstation for both the precontrast and postcontrast phases. This CT examination was performed using dose optimization techniques as appropriate, variously including the following: *Automated exposure control *Adjustment of mA and/or kV according to patient size (this includes techniques or standardized protocols for targeted exams where dose is matched to indication/reason for exam; i.e. extremities or head) *Use of iterative reconstruction technique DLP: 717 mGy-cm FINDINGS: LUNG BASES: The lung bases appear clear, with no evidence of inflammation or nodules. LIVER, GALLBLADDER, AND BILIARY TREE: The liver appears unremarkable in size, shape, and attenuation. No focal hepatic lesion or biliary ductal dilatation is appreciated. Unremarkable appearance of the gallbladder. PANCREAS: Unremarkable SPLEEN: Unremarkable ADRENAL GLANDS: Unremarkable KIDNEYS AND URETERS: Similar appearance of benign subcentimeter right simple renal cysts for which no further dedicated follow up imaging is indicated. The kidneys otherwise appear unremarkable in size, shape, and attenuation. 1-2 mm as well as 2 additional, punctate, nonobstructing right lower pole renal collecting system stone. No stone identified in left. No evidence of hydronephrosis or hydroureter on either side. BLADDER: Unremarkable GASTROINTESTINAL TRACT: The small and large bowel appear unremarkable. PERITONEAL CAVITY: Trace fluid in the cul-de-sac, nonspecific. ABDOMINAL WALL: No significant hernia is appreciated. LYMPH NODES: No evidence of adenopathy by size criteria. VASCULAR: Unremarkable PELVIC VISCERA: Uterus not visualized, suggesting prior surgical removal. OSSEOUS STRUCTURES: Unremarkable CT/CT urogram IMPRESSION: Punctate right renal collecting system stones. No stone identified in left. No evidence of hydronephrosis or hydroureter on either side. Otherwise essentially unremarkable study.
[2024-01-30] MEDS: iohexoL 350 MG/ML 100 ML INFUS..BTL 85 ML IV (08:52)
== END 2024-01-30 08:19 | disposition home or self-care (01) ==
LOC: HO.CT 08:18
PROVIDERS: PCP Internal Medicine; Visit Provider Nurse Practitioner Family
DX: R31.0 Gross hematuria (principal); N28.1 Cyst of kidney, acquired
CPT/HCPCS: 74178; Q9967

== ENCOUNTER 2024-02-06 08:09 | Emergency (ER) | payer OTHER, SELFPAY ==
--- NOTE | ~2024-02-06 | XR_ITS ---
EXAMINATION: XR CHEST CLINICAL INFORMATION: Cough. COMPARISON: 10/13/2022 TECHNIQUE: 2 views of the chest were obtained. FINDINGS: The lungs are well expanded. No focal consolidation. No pleural effusion. Cardiac silhouette is unchanged. XR/XR chest 2V IMPRESSION: No acute abnormality.
--- NOTE | 2024-02-06 08:11 | ECG_ITS ---
Test Reason : chest pain Blood Pressure : / mmHG Vent. Rate : 100 BPM Atrial Rate : 100 BPM P-R Int : 144 ms QRS Dur : 078 ms QT Int : 354 ms P-R-T Axes : 056 025 020 degrees QTc Int : 456 ms Normal sinus rhythm Normal ECG When compared with ECG of 19-DEC-2022 21:44, No significant change was found Referred By: Generic ED Physician Electronically Signed By:CHERIE SMITH MD
[2024-02-06 08:49] VITALS: BP 115/75; PULSE 97; RESP 16; TEMP 37.1; O2SAT 100; BMI 27.0
[2024-02-06 09:08] LABS: Influenza A PCR NEGATIVE (Negative); Influenza B PCR NEGATIVE (Negative); Resp Syncy Virus RNA Qual PCR NEGATIVE (Negative); SARS COV2 PCR INHOUSE NEGATIVE (Negative)
--- NOTE | 2024-02-06 09:12 | ED_ITS ---
HPI - General Adult General Chief complaint: Upper Respiratory Symptoms Stated complaint: chest pain cough Time Seen by Provider: 02/06/24 09:09 Source: patient Mode of arrival: ambulatory Limitations: no limitations History of Present Illness HPI narrative: Patient is a 38 year old assigned female at with a history of GERD and recent bronchitis infection presenting to the emergency department today with a persistent cough. Patient states that over 2 weeks ago she was diagnosed with a bilateral ear infection and bronchitis. Patient states that her cough is persisting and bothering her. Patient denies any dizziness, lightheadedness, abdominal pain, nausea, vomiting, fever, chills, blurry vision, double vision, loss of vision, chest pain, difficulty breathing, shortness of breath, back pain, night sweats, pain with urination, increased urinary frequency, increased urinary urgency, blood in her urine or stool, syncope or a near syncopal episode, recent trauma or falls, bowel incontinence, bladder incontinence, bowel retention, bladder retention, or any other complaints at this time. Onset (ago): week(s) (2) Severity: mild Severity scale (1-10): 3 Relieving factors: none Exacerbating factors: none Associated symptoms: cough Treatments prior to arrival: other (antibiotics, inhaler) Related Data Home Medications Medication Instructions Recorded Confirmed cholecalciferol (vitamin D3) 50 50 mcg PO DAILY 11/04/23 01/24/24 mcg (2,000 unit) capsule Previous Rx's Medication Instructions Recorded valacyclovir 500 mg tablet 500 mg PO BID 7 days #14 tabs 01/27/23 omeprazole 40 mg capsule,delayed 40 mg PO DAILY 90 days #90 caps 07/08/23 release fluticasone propionate 50 1 spray intranasal DAILY 30 days 08/12/23 mcg/actuation nasal #16 grams spray,suspension (Flonase Allergy Relief) polyethylene glycol 3350 17 17 g PO DAILY #119 grams 08/12/23 gram/dose oral powder (Miralax) linaclotide 145 mcg capsule 145 mcg PO QAM #30 caps 11/04/23 (Linzess) Ventolin HFA 90 mcg/actuation 2 puff inhalation Q6H PRN for 01/24/24 aerosol inhaler (albuterol sulfate) wheezing 30 days #8 grams amoxicillin 875 mg-potassium 1 tab PO Q12H #20 tabs 02/27/24 clavulanate 125 mg tablet fluconazole 200 mg tablet 200 mg PO DAILY #2 tabs 01/24/24 prednisone 20 mg tablet 20 mg PO BID #10 tabs 01/24/24 benzonatate 100 mg capsule 100 mg PO BID PRN cough 7 days #14 02/06/24 caps prednisone 20 mg tablet 20 mg PO DAILY 7 days #7 tabs 02/06/24 Allergies Allergy/AdvReac Type Severity Reaction Status Date / Time mushroom Allergy Severe Anaphylaxis Verified 01/24/24 08:18 peanut Allergy Severe Anaphylaxis Verified 01/24/24 08:18 sertraline Allergy Severe tongue Verified 01/24/24 08:18 itchiness divalproex sodium Allergy Intermediate URTICARIA Verified 01/24/24 08:18 [From DEPAKOTE] topiramate [From TOPAMAX] Allergy Intermediate FACIAL AND Verified 01/24/24 08:18 LIP NUMBNESS hydromorphone [From DILAUDID] Allergy Mild URTICARIA Verified 01/24/24 08:18 Sulfa (Sulfonamide AdvReac Severe Anaphylaxis Verified 01/24/24 08:18 Antibiotics) nuts Allergy Severe Anaphylaxis Uncoded 11/05/23 12:53 moderna covid vaccine Allergy Intermediate hives,swell Uncoded 11/05/23 12:53 ing Review of Systems Constitutional: Constitutional: Reports no additional constitutional complaints, Denies chills, Denies fever(s) and Denies night sweats Eyes: Eyes: Reports no additional eye complaints, Denies blurry vision, Denies change in vision, Denies diplopia, Denies eye discharge, Denies loss of vision and Denies eye pain ENT: Denies dizziness Cardiovascular: Cardiovascular: Reports no additional cardiovascular complaints, Denies chest pain, Denies lightheadedness, Denies Loss of Consciousness and Denies dyspnea Respiratory: Respiratory: Reports no additional respiratory complaints, Reports cough and Denies dyspnea Gastrointestinal: Gastrointestinal: Reports no additional gastrointestinal complaints, Denies abdominal pain, Denies melena, Denies hematochezia, Denies change in bowel habits and Denies change in stool character Genitourinary: Genitourinary: Denies hematuria, Denies urinary frequency, Denies dysuria, Denies urinary incontinence, Denies urinary hesitancy and Denies urinary urgency Musculoskeletal: Musculoskeletal: Reports no additional musculoskeletal complaints, Denies numbness and Denies tingling Neurologic: Denies dizziness, Denies loss of vision, Denies numbness and Denies tingling Psychiatric: Psychiatric: Reports no additional psychiatric complaints Endocrine: Endocrine: Reports no additional endocrine complaints Hematologic/Lymphatic: Hematologic/Lymphatic: Reports no additional hematologic/lymphatic complaints Allergic/Immunologic: Allergic/Immunologic: Reports no additional allergic/imm unologic complaints [facility] Past Medical History Attestation statement: The following information was validated with the patient. Source: old records reviewed and nursing notes reviewed Medical History Bilateral otitis media Right knee pain Frequent UTI Ingrown toenail Breast pain, right Yeast infection Skin tag Acute tonsillitis Encounter for breast augmentation Overweight (BMI 25.0-29.9) Preoperative clearance Buttocks nodule Screen for STD (sexually transmitted disease) Physical exam Burning with urination Buttocks nodule Abnormal bruising Lipoma Urinary frequency Vaginal discharge Concern about STD in female without diagnosis Constipation History of COVID-19 Ethmoid sinusitis URI (upper respiratory infection) HSV (herpes simplex virus) infection Hypovitaminosis D GERD (gastroesophageal reflux disease) Family history of hypertension Asthma Surgical History Status post excision of lipoma (~08/10/22) History of kidney stones History of hysterectomy History of umbilical hernia repair Family History Family History Mother Hypertension Cervical cancer Father No problems noted. Maternal Aunt Colon cancer Maternal Aunt Lung cancer Social History Social History Housing: House Alcohol intake: current Alcohol intake frequency: holidays/special occasions only Alcohol type: hard liquor Patient Tobacco Use Status: Never used Tobacco Smoked in Last 30 Days: No e-Cigarette/Vaping Use: Never Used Second Hand Smoke Exposure: No Use of substances other than those prescribed or required for medical reasons: No Advance Directives: No Advance Directives Information Provided: No Patient : No service: No Current occupational status: employed Current occupational exposures/hazards: No Cognitive needs: No Hearing needs: No Vision needs: Yes Physical Exam ED Vital Signs: Vital Signs - 24 hr 02/06/24 08:49 Temperature 98.7 F Pulse Rate 97 Respiratory Rate 16 Blood Pressure 115/75 Pulse Oximetry 100 Oxygen Delivery Method Room Air BMI result Body Mass Index 27.0 Const General: cooperative, no acute distress, alert and awake Nutritional Appearance: well nourished Orientation/consciousness: patient oriented x3 Limitations: no limitations HENMT Head: Yes normal to inspection and Yes atraumatic Ears: hearing grossly normal bilaterally and external ears normal General nose exam: Normal external nose present, no nasal discharge noted and no epistaxis Face and sinus: Yes normal facial exam, No abrasion and No laceration Mouth: Normal oral and palatal mucosa present, no drooling and no muffled voice Eyes General: appearance normal, both eyes and all related structures Periorbital: periorbital findings normal Eyelids: Yes eyelids normal Conjunctivae: conjunctivae normal Pupils: Equal, round and reactive pupils present EOM: EOMs intact bilaterally Neck Neck: Yes normal visual inspection, Yes full ROM and Yes no lymphadenopathy Chest Chest palpation & inspection: normal inspection of the chest Resp Effort & Inspection: normal respiratory effort and able to speak in complete sentences GI Inspection: Yes normal to inspection Neuro General: patient oriented x3 and moves all extremities Cranial nerves: Yes Equal, round and reactive pupils present Cognition (Neuro): normal cognition Motor exam (neuro): 5/5 motor strength present throughout Sensory Exam: Normal double simultaneous stimulation for sensation Coordination: [id number] test normal Extrem General: Yes normal to inspection, Yes full ROM and Yes capillary refill normal Psych Appearance: grossly normal Mental Status: mental status grossly normal Affect: normal affect Attitude: cooperative Thought process: Normal thought process present Thought content: Normal thought content present Insight: Good insight present (Psych) Medical Decision Making Medical Decision Making MDM Narrative: Patient is a 38 year old assigned female at with a history of GERD and recent bronchitis diagnosis presenting to the emergency department today with a persistent cough. Patient's physical exam was unremarkable. Patient's EKG was unremarkable. Patient's chest x-ray showed no acute process. Patient's COVID-19, influenza, RSV test was negative. Patient's clinical presentation is most consistent with a URI / post viral infection cough. I explained my physical exam findings as well as all test results to the patient. I answered all questions asked by the patient. I stressed the importance of the patient taking her medication as prescribed. I stressed the importance of the patient following up with her primary care provider. I stressed the importance of the patient returning to the emergency department immediately if her symptoms were to worsen or if she were to develop any dizziness, shortness of breath, difficulty breathing, chest pain, blurry vision, loss of vision, nausea, vomiting, abdominal pain, fever, chills, back pain, or any other complaints. Patient verbalized agreement and understanding with this treatment plan and discharge. Differential Diagnosis Differential Diagnoses: The differential diagnosis associated with the presentation includes Persistent cough Bronchitis URI Admission/Observation Consideration of admission/observation: Escalation of care including admission/observation considered Patient would have been admitted to the hospital had her work up had any findings where hospital admission was appropriate and her clinical presentation warranted hospital admission. Lab Data MDM Lab Attestation statement: I reviewed the patient's lab results. My interpretation of these studies and their corresponding values is that they are grossly normal. Labs: Lab Results 02/06/24 Range/Units 08:27 Influenza Type A (PCR) NEGATIVE (Negative) Influenza Type B (PCR) NEGATIVE (Negative) RSV RNA Qual (PCR) NEGATIVE (Negative) SARS-CoV-2 RNA (RT-PCR) NEGATIVE (Negative) Independent Interpretation I performed an independent interpretation of an: EKG and Plain X-Ray Interpretation: My interpretation is in agreement with the radiologist's impression of this imaging study. EXAMINATION: XR CHEST CLINICAL INFORMATION: Cough. COMPARISON: 10/13/2022 TECHNIQUE: 2 views of the chest were obtained. FINDINGS: The lungs are well expanded. No focal consolidation. No pleural effusion. Cardiac silhouette is unchanged. XR/XR chest 2V IMPRESSION: No acute abnormality. Dictated By: Jasiel Dickson MD Signed By: Electronically signed by Jasiel Dickson MD 02/06/24 0953 Vent. Rate: 100 BPM Atrial Rate: 100 BPM P-R Int: 144 ms QRS Dur: 078 ms QT Int: 354 ms P-R-T Axes: 056 025 020 degrees QTc Int: 456 ms Normal sinus rhythm Normal ECG When compared with ECG of 19-DEC-2022 21:44, No significant change was found Electronically Signed By:FRED SMITH MD Dictated By: Fred Smith MD Signed By: Electronically signed by Fred Smith MD 02/06/24 1959 Radiology Impression Discussion of test interpretation with radiology: I have reviewed the radiologist's reading. Prescription Management I considered prescription management with: Other (patient prescribed prednisone and cough suppressant) Discharge Plan Discharge Clinical Impression: Cough Patient Disposition: Home, Self-Care Instructions: Upper Respiratory Infection (DC) Additional Instructions: Benzonatate (Tesslon Pearls) can be VERY toxic to small children. Please be sure to keep these OUT OF REACH of any small child. Follow up with your primary care provider. Return to the emergency department im mediately if your symptoms worsen or if you develop any dizziness, shortness of breath, difficulty breathing, chest pain, blurry vision, loss of vision, nausea, vomiting, abdominal pain, fever, chills, back pain, or any other complaints. Prescriptions: New benzonatate 100 mg capsule 100 mg PO BID PRN (Reason: cough) 7 Days Qty: 14 0RF prednisone 20 mg tablet 20 mg PO DAILY 7 Days Qty: 7 0RF No Action valacyclovir 500 mg tablet 500 mg PO BID 7 Days Qty: 14 2RF omeprazole 40 mg capsule,delayed release(DR/EC) 40 mg PO DAILY 90 Days Qty: 90 1RF polyethylene glycol 3350 [Miralax] 17 gram/dose powder 17 g PO DAILY Qty: 119 0RF fluticasone propionate [Flonase Allergy Relief] 50 mcg/actuation spray,suspension 1 spray intranasal DAILY 30 Days Qty: 16 2RF Rx Instructions: administer into each nostril albuterol sulfate [Ventolin HFA] 90 mcg/actuation HFA aerosol inhaler 2 puff inhalation Q6H PRN (Reason: for wheezing) 30 Days Qty: 8 1RF amoxicillin-pot clavulanate 875-125 mg tablet 1 tab PO Q12H Qty: 20 0RF fluconazole 200 mg tablet 200 mg PO DAILY Qty: 2 0RF prednisone 20 mg tablet 20 mg PO BID Qty: 10 0RF cholecalciferol (vitamin D3) 50 mcg (2,000 unit) capsule 50 mcg PO DAILY Linzess 145 mcg capsule 145 mcg PO QAM Qty: 30 6RF Referrals: Mer Dunn MD [Primary Care Provider] - Stand Alone Forms: Work/School Release Interventions: ED Discharge Assessment Last Done: 02/06/24 09:48 Discharge Date/Time: 02/06/24 09:48 Print Language: Malagasy
== END 2024-02-06 09:48 | disposition home or self-care (01) ==
PROVIDERS: Emergency Provider Emergency Medicine; PCP Internal Medicine
DX: R05.9 Cough, unspecified (principal); Z11.52 Encounter for screening for COVID-19; Z20.828 Contact with and (suspected) exposure to other viral communicable diseases
CPT/HCPCS: 0241U; 71046; 93005; 99283; 99284

== ENCOUNTER → 2024-02-06 08:11 | Outpatient (BNV) | payer OTHER, SELFPAY | PROVIDERS: PCP Internal Medicine; Visit Provider Internal Medicine Cardiovascular Disease | DX: R07.9 Chest pain, unspecified (principal) | CPT/HCPCS: 93010 ==

== ENCOUNTER 2024-04-16 08:02 | Outpatient (AMB) | payer OTHER, SELFPAY ==
[2024-04-16 08:04] VITALS: BP 110/84; PULSE 66; TEMP 36.8; O2SAT 100; BMI 27.8
--- NOTE | 2024-04-16 08:04 | AM.OFFWIN_ITS ---
Intake Vital Signs 04/16/24 08:04 Height 5 ft 1 in Weight 147 lb BMI 27.8 BP 110/84 Blood Pressure Location Rt brachial Position Sitting Pulse 66 Pulse Source Pulse Oximeter Temp 98.3 F Temp Source Oral Pulse Oximetry (%) 100 Oxygen Delivery Method Room Air Intake Visit Reasons: EP ?sinus infection Intake Note: Pt is here today c/o ? sinus infection Patient Tobacco Use Status: Never used Tobacco Allergies mushroom Allergy (Severe, Verified 04/16/24 08:07) Anaphylaxis peanut Allergy (Severe, Verified 04/16/24 08:07) Anaphylaxis sertraline Allergy (Severe, Verified 04/16/24 08:07) tongue itchiness divalproex sodium [From DEPAKOTE] Allergy (Intermediate, Verified 04/16/24 08:07) URTICARIA topiramate [From TOPAMAX] Allergy (Intermediate, Verified 04/16/24 08:07) FACIAL AND LIP NUMBNESS hydromorphone [From DILAUDID] Allergy (Mild, Verified 04/16/24 08:07) URTICARIA Sulfa (Sulfonamide Antibiotics) Adverse Reaction (Severe, Verified 04/16/24 08:07) Anaphylaxis nuts Allergy (Severe, Uncoded 04/16/24 08:07) Anaphylaxis moderna covid vaccine Allergy (Intermediate, Uncoded 04/16/24 08:07) hives,swelling HPI HPI Comments History of Present Illness Details Patient presents to the walk in for 2 days of sinus congestion, itchy throat and sneezing Denies fever, cough, chest pain, shortness of breath, palpitations, syncope, weakness Suffered with seasonal allergies in the past, not taking any medications currently 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 [facility] Medical History Bilateral otitis media Right knee pain Frequent UTI Ingrown toenail Breast pain, right Yeast infection Skin tag Acute tonsillitis Encounter for breast augmentation Overweight (BMI 25.0-29.9) Preoperative clearance Buttocks nodule Screen for STD (sexually transmitted disease) Physical exam Burning with urination Buttocks nodule Abnormal bruising Lipoma Urinary frequency Vaginal discharge Concern about STD in female without diagnosis Constipation History of COVID-19 Ethmoid sinusitis URI (upper respiratory infection) HSV (herpes simplex virus) infection Hypovitaminosis D GERD (gastroesophageal reflux disease) Family history of hypertension Asthma Surgical History Status post excision of lipoma (~08/10/22) History of kidney stones History of hysterectomy History of umbilical hernia repair Family History Mother Hypertension Cervical cancer Father No problems noted. Maternal Aunt Colon cancer Maternal Aunt Lung cancer Social History Housing: House Alcohol intake: current Alcohol intake frequency: holidays/special occasions only Alcohol type: hard liquor Patient Tobacco Use Status: Never used Tobacco e-Cigarette/Vaping Use: Never Used Second Hand Smoke Exposure: No service: No Current occupational status: employed Current occupational exposures/hazards: No Cognitive needs: No Hearing needs: No Vision needs: Yes Review of Systems Const All systems reviewed & are unremarkable except as noted in HPI and below Physical Exam Vital Signs: Last Vital Signs Temp 98.3 F 04/16/24 08:04 Pulse 66 04/16/24 08:04 BP 110/84 04/16/24 08:04 Pulse Ox 100 04/16/24 08:04 Oxygen Delivery Method Room Air 04/16/24 08:04 BMI result Body Mass Index 27.8 General: awake, alert, oriented. Answers questions appropriately. Fully engaged in examination. Skin: warm, dry, intact HEENT: TMs intact bilaterally, without redness. Posterior pharynx without erythema or exudate. Sclera without icterus or injection. Cardiac: External chest normal in appearance. Respiratory: LSCTAB. Abdomen: without gross distension. Neurological: Oriented to person, place, time and situation. Thought process intact. Psychiatric: Appropriate mood and affect. Good judgment and insight. Assessment & Plan Assessment & Plan (1) Allergic rhinitis: Code(s): J30.9 - Allergic rhinitis, unspecified Plan no abx warranted. fexofenadine 180 mg PO DAILY Recommend taking OTC nasal decongestants Follow up with pcp or in clinic for any new or worsening symptoms. Medications: New fexofenadine 180 mg PO DAILY 30 tabs 1RF 30 days Coding Level of Care Code Est Pt Level 3 (16181) Diagnoses Allergic rhinitis J30.9
== END 2024-04-16 09:03 | disposition home or self-care (01) ==
PROVIDERS: PCP Internal Medicine; Visit Provider Registered Nurse Emergency
DX: J30.9 Allergic rhinitis, unspecified (principal)
CPT/HCPCS: 99213

== ENCOUNTER 2024-04-28 08:36 | Emergency (ER) | payer OTHER, SELFPAY ==
--- NOTE | ~2024-04-28 | CT_ITS ---
EXAMINATION: CT FACIAL BONES WITHOUT CONTRAST CLINICAL INFORMATION: Injury COMPARISON: Previous CT of the facial bones February 2022. TECHNIQUE: Axial images through the facial bones without contrast. Sagittal and coronal reconstructions on the technologist's workstation were performed. This CT examination was performed using dose optimization techniques as appropriate, variously including the following: *Automated exposure control *Adjustment of mA and/or kV according to patient size (this includes techniques or standardized protocols for targeted exams where dose is matched to indication/reason for exam; i.e. extremities or head) *Use of iterative reconstruction technique DLP: 249 mGy-cm FINDINGS: Bone alignment is normal. No fracture or dislocation. Membranous soft tissue thickening and small polyp or cyst in the right maxillary sinus. Paranasal sinuses are otherwise clear. Ostiomeatal complexes are patent bilaterally. Nasal septum is midline. Temporomandibular joints, mastoid air cells and middle ears are clear. The orbits are normal. CT/CT facial bones wo IV con IMPRESSION: No fracture or dislocation. Inflammatory changes in the right maxillary sinus.
--- NOTE | ~2024-04-28 | CT_ITS ---
EXAMINATION: CT HEAD WITHOUT CONTRAST CLINICAL INFORMATION: Injury. Rule out bleed. COMPARISON: Previous head CT most recent December 2022 TECHNIQUE: Contiguous axial imaging was performed from the skull base to vertex without intravenous administration of contrast. This CT examination was performed using dose optimization techniques as appropriate, variously including the following: *Automated exposure control *Adjustment of mA and/or kV according to patient size (this includes techniques or standardized protocols for targeted exams where dose is matched to indication/reason for exam; i.e. extremities or head) *Use of iterative reconstruction technique DLP: 648 mGy-cm FINDINGS: There is no evidence for an extra-axial collection. There is no evidence for intra-or extra-axial hemorrhage. The ventricles and extra-axial CSF spaces are appropriate. Iraheta-white matter differentiation is normal. No mass, mass effect or infarct is seen. Review of bone windows is normal. No skull fracture. Inflammatory changes in the right maxillary sinus. CT/CT head/brain wo IV con IMPRESSION: No acute intracranial findings.
[2024-04-28 08:48] VITALS: BP 131/92; PULSE 96; RESP 18; TEMP 36.6; O2SAT 98; BMI 27.0
--- NOTE | 2024-04-28 09:25 | PC.NURSE ---
pt currently sleeping, call [facility]lock within reach, awaiting provider, will continue to monitor
--- NOTE | 2024-04-28 09:57 | PC.NURSE ---
pt to ct scan
[2024-04-28] MEDS: Metoclopramide HCl 10 MG/2 ML VIAL IVPUSH (12:20)
[2024-04-28] MEDS: Ketorolac Tromethamine 30 MG/ML VIAL IVPUSH (12:20)
[2024-04-28] MEDS: 0.9 % Sodium Chloride 1,000 ML 999 ML IVCONT (12:21)
--- NOTE | 2024-04-28 12:22 | PC.NURSE ---
iv inserted pt medicated for nausea/pain, ivf started per order
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
[2024-04-28 13:56] VITALS: BP 128/88; PULSE 89; RESP 18; TEMP 36.7; O2SAT 98
== END 2024-04-28 13:58 | disposition home or self-care (01) ==
PROVIDERS: Emergency Provider Emergency Medicine; PCP Internal Medicine
DX: S06.0XAA Concussion with loss of consciousness status unknown, initial encounter (principal); S09.21XA Traumatic rupture of right ear drum, initial encounter; Y04.2XXA Assault by strike against or bumped into by another person, initial encounter; Y93.9 Activity, unspecified; Y92.9 Unspecified place or not applicable; Y99.9 Unspecified external cause status
CPT/HCPCS: 70450; 70486; 96374; 96375; 99283; 99284; J1885; J2765

== ENCOUNTER 2024-05-01 08:08 | Outpatient (AMB) | payer OTHER, SELFPAY ==
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
[2024-05-01 08:40] VITALS: BP 128/82; PULSE 97; TEMP 36.9; O2SAT 98; BMI 27.0
== END 2024-05-01 09:03 | disposition home or self-care (01) ==
PROVIDERS: PCP Internal Medicine; Visit Provider Physician Assistant
DX: H72.91 Unspecified perforation of tympanic membrane, right ear (principal); H60.91 Unspecified otitis externa, right ear
CPT/HCPCS: 99213

== ENCOUNTER 2024-05-04 10:00 | Outpatient (AMB) | payer OTHER, SELFPAY ==
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
[2024-05-04 10:07] VITALS: BP 130/82; PULSE 100; O2SAT 96; BMI 26.6
== END 2024-05-04 14:27 | disposition home or self-care (01) ==
PROVIDERS: PCP Internal Medicine; Visit Provider Nurse Practitioner Family
DX: S06.0XAA Concussion with loss of consciousness status unknown, initial encounter (principal); H72.91 Unspecified perforation of tympanic membrane, right ear; Y04.8XXA Assault by other bodily force, initial encounter
CPT/HCPCS: 99213

== ENCOUNTER 2024-05-18 08:05 | Outpatient (AMB) | payer OTHER, SELFPAY ==
[2024-05-18 08:05] VITALS: BP 122/76; PULSE 77; TEMP 36.6; O2SAT 98
--- NOTE | 2024-05-18 08:05 | MHC.OFFWIV ---
Intake Vital Signs 05/18/24 08:05 Height 5 ft 1 in BP 122/76 Blood Pressure Location Rt brachial Position Sitting Pulse 77 Pulse Source Pulse Oximeter Temp 97.9 F Temp Source Oral Pulse Oximetry (%) 98 Oxygen Delivery Method Room Air Intake Visit Reasons: EP RT ear pain Intake Note: pt is here for right ear pain Patient Tobacco Use Status: Never used Tobacco Allergies mushroom Allergy (Severe, Verified 05/18/24 08:06) Anaphylaxis peanut Allergy (Severe, Verified 05/18/24 08:06) Anaphylaxis sertraline Allergy (Severe, Verified 05/18/24 08:06) tongue itchiness divalproex sodium [From DEPAKOTE] Allergy (Intermediate, Verified 05/18/24 08:06) URTICARIA topiramate [From TOPAMAX] Allergy (Intermediate, Verified 05/18/24 08:06) FACIAL AND LIP NUMBNESS hydromorphone [From DILAUDID] Allergy (Mild, Verified 05/18/24 08:06) URTICARIA Sulfa (Sulfonamide Antibiotics) Adverse Reaction (Severe, Verified 05/18/24 08:06) Anaphylaxis nuts Allergy (Severe, Uncoded 04/28/24 08:50) Anaphylaxis moderna covid vaccine Allergy (Intermediate, Uncoded 04/28/24 08:50) hives,swelling Do you need a note to return to daycare/school/sports/work: No HPI HPI Comments History of Present Illness Details This is a 38-year-old female presenting for follow up of a right TM perforation that occurred at the beginning of April. Patient was initially evaluated in the emergency department and then followed up at urgent care and was prescribed antibiotics for an acute ear infection. Patient was prescribed oral antibiotics which she has completed. Patient states she continues to have some discomfort in her right ear and wanted to be certain that the infection had resolved. Patient reports somewhat decreased hearing in the right ear as compared to the left. [facility] Medical History Bilateral otitis media Right knee pain Frequent UTI Ingrown toenail Breast pain, right Yeast infection Skin tag Acute tonsillitis Encounter for breast augmentation Overweight (BMI 25.0-29.9) Preoperative clearance Buttocks nodule Screen for STD (sexually transmitted disease) Physical exam Burning with urination Buttocks nodule Abnormal bruising Lipoma Urinary frequency Vaginal discharge Concern about STD in female without diagnosis Constipation History of COVID-19 Ethmoid sinusitis URI (upper respiratory infection) HSV (herpes simplex virus) infection Hypovitaminosis D GERD (gastroesophageal reflux disease) Family history of hypertension Asthma Surgical History Status post excision of lipoma (~08/10/22) History of kidney stones History of hysterectomy History of umbilical hernia repair Family History Mother Hypertension Cervical cancer Father No problems noted. Maternal Aunt Colon cancer Maternal Aunt Lung cancer Social History Housing: House Alcohol intake: current Alcohol intake frequency: holidays/special occasions only Alcohol type: hard liquor Patient Tobacco Use Status: Never used Tobacco e-Cigarette/Vaping Use: Never Used Second Hand Smoke Exposure: No service: No Current occupational status: employed Current occupational exposures/hazards: No Cognitive needs: No Hearing needs: No Vision needs: Yes Review of Systems Const All systems reviewed & are unremarkable except as noted in HPI and below Reports as per HPI ENT Reports no additional complaints and Reports otalgia (right ear with minimally decreased hearing R. ear) Card Reports no additional complaints Resp Reports no additional complaints GI Reports no additional complaints Musc Reports no additional complaints Neuro Reports no additional complaints Psych Reports no additional complaints Physical Exam Vital Signs: Last Vital Signs Temp 97.9 F 05/18/24 08:05 Pulse 77 05/18/24 08:05 BP 122/76 05/18/24 08:05 Pulse Ox 98 05/18/24 08:05 Oxygen Delivery Method Room Air 05/18/24 08:05 Const General: cooperative, healthy appearing, comfortable, no acute distress and well developed; No ill appearing Nutritional Appearance: average body habitus Orientation/consciousness: patient oriented x3 Limitations: no limitations HEENT Other: R. TM is intact; perforation has resolved and there is no evidence of an otitis media or otitis externa bilaterally. 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 Plan Perforation has resolved. No further intervention is warranted at this time. Patient will use Tylenol or ibuprofen as needed for any discomfort that persists. Patient Instructions: Tylenol and ibuprofen as needed for discomfort. 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
== END 2024-05-18 08:55 | disposition home or self-care (01) ==
PROVIDERS: PCP Internal Medicine; Visit Provider Physician Assistant
DX: H72.91 Unspecified perforation of tympanic membrane, right ear (principal)
CPT/HCPCS: 99213

== ENCOUNTER 2024-06-25 09:28 | Outpatient (AMB) | payer OTHER, SELFPAY ==
--- NOTE | 2024-06-25 10:08 | AM.OFFWIN_ITS ---
Intake Vital Signs 06/25/24 10:09 Height 5 ft 1 in Weight 145 lb BMI 27.4 BP 114/78 Blood Pressure Location Lt brachial Position Sitting Pulse 67 Pulse Source Pulse Oximeter Temp 97.8 F Temp Source Oral Pulse Oximetry (%) 98 Oxygen Delivery Method Room Air Intake Visit Reasons: left eye red and painful Intake Note: pt here c/o LT eye redness and pain, blurred vision. Started Tuesday. Patient Tobacco Use Status: Never used Tobacco Allergies mushroom Allergy (Severe, Verified 06/25/24 10:08) Anaphylaxis peanut Allergy (Severe, Verified 06/25/24 10:08) Anaphylaxis sertraline Allergy (Severe, Verified 06/25/24 10:08) tongue itchiness divalproex sodium [From DEPAKOTE] Allergy (Intermediate, Verified 06/25/24 10:08) URTICARIA topiramate [From TOPAMAX] Allergy (Intermediate, Verified 06/25/24 10:08) FACIAL AND LIP NUMBNESS hydromorphone [From DILAUDID] Allergy (Mild, Verified 06/25/24 10:08) URTICARIA Sulfa (Sulfonamide Antibiotics) Adverse Reaction (Severe, Verified 06/25/24 10:08) Anaphylaxis nuts Allergy (Severe, Uncoded 06/25/24 10:08) Anaphylaxis moderna covid vaccine Allergy (Intermediate, Uncoded 06/25/24 10:08) hives,swelling Do you need a note to return to daycare/school/sports/work: No HPI HPI Comments History of Present Illness Details Patient presents to the walk-in today for sick visit Complaining of left eye irritation for last 3 days Uses contacts but has not been since the pain started Denies drainage from the eye Denies vision changes [facility] Medical History Bilateral otitis media Right knee pain Frequent UTI Ingrown toenail Breast pain, right Yeast infection Skin tag Acute tonsillitis Encounter for breast augmentation Overweight (BMI 25.0-29.9) Preoperative clearance Buttocks nodule Screen for STD (sexually transmitted disease) Physical exam Burning with urination Buttocks nodule Abnormal bruising Lipoma Urinary frequency Vaginal discharge Concern about STD in female without diagnosis Constipation History of COVID-19 Ethmoid sinusitis URI (upper respiratory infection) HSV (herpes simplex virus) infection Hypovitaminosis D GERD (gastroesophageal reflux disease) Family history of hypertension Asthma Surgical History Status post excision of lipoma (~08/10/22) History of kidney stones History of hysterectomy History of umbilical hernia repair Family History Mother Hypertension Cervical cancer Father No problems noted. Maternal Aunt Colon cancer Maternal Aunt Lung cancer Social History Housing: House Alcohol intake: current Alcohol intake frequency: holidays/special occasions only Alcohol type: hard liquor Patient Tobacco Use Status: Never used Tobacco e-Cigarette/Vaping Use: Never Used Second Hand Smoke Exposure: No service: No Current occupational status: employed Current occupational exposures/hazards: No Cognitive needs: No Hearing needs: No Vision needs: Yes Review of Systems Const All systems reviewed & are unremarkable except as noted in HPI and below Physical Exam Vital Signs: Last Vital Signs Temp 97.8 F 06/25/24 10:09 Pulse 67 06/25/24 10:09 BP 114/78 06/25/24 10:09 Pulse Ox 98 06/25/24 10:09 Oxygen Delivery Method Room Air 06/25/24 10:09 BMI result Body Mass Index 27.4 General: awake, alert, oriented. Answers questions appropriately. Fully engaged in examination. Skin: warm, dry, intact HEENT: Normocephalic. Hearing intact. left eye: conjunctival injection. Cardiac: External chest normal in appearance. Respiratory: No cough, audible wheezing or stridor. Abdomen: without gross distension. MS: No obvious swelling or deformities. Neurological: Oriented to person, place, time and situation. Thought process intact. Psychiatric: Appropriate mood and affect. Good judgment and insight. 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
[2024-06-25 10:09] VITALS: BP 114/78; PULSE 67; TEMP 36.6; O2SAT 98; BMI 27.4
== END 2024-06-25 11:06 | disposition home or self-care (01) ==
PROVIDERS: PCP Internal Medicine; Visit Provider Registered Nurse Emergency
DX: S05.02XA Injury of conjunctiva and corneal abrasion without foreign body, left eye, initial encounter (principal)
CPT/HCPCS: 99213

== ENCOUNTER 2024-07-23 13:33 | Outpatient (AMB) | payer OTHER, SELFPAY ==
--- NOTE | 2024-07-23 13:41 | MHC.PC.OV ---
Vital Signs 07/23/24 13:42 Height 5 ft 1 in Weight 150 lb BMI 28.3 BP 120/86 Blood Pressure Location Lt brachial Position Sitting Intake Visit Reasons: pe Intake Note: Patient here for an annual physical exam Front Maker Lockstitch Required: No Accompanied by: Self / Same As Patient Allergies mushroom Allergy (Severe, Verified 07/23/24 13:54) Anaphylaxis peanut Allergy (Severe, Verified 07/23/24 13:54) Anaphylaxis sertraline Allergy (Severe, Verified 07/23/24 13:54) tongue itchiness divalproex sodium [From DEPAKOTE] Allergy (Intermediate, Verified 07/23/24 13:54) URTICARIA topiramate [From TOPAMAX] Allergy (Intermediate, Verified 07/23/24 13:54) FACIAL AND LIP NUMBNESS hydromorphone [From DILAUDID] Allergy (Mild, Verified 07/23/24 13:54) URTICARIA Sulfa (Sulfonamide Antibiotics) Adverse Reaction (Severe, Verified 07/23/24 13:54) Anaphylaxis nuts Allergy (Severe, Uncoded 07/23/24 13:54) Anaphylaxis moderna covid vaccine Allergy (Intermediate, Uncoded 07/23/24 13:54) hives,swelling Medication List - Last Reconciled 07/23/24 by Mer Santos MD acetaminophen 1,000 mg (2 x 500 mg) PO QID PRN cholecalciferol (vitamin D3) 50 mcg PO DAILY fexofenadine 180 mg PO DAILY 30 days ibuprofen 600 mg PO Q6H PRN valacyclovir 1,000 mg PO Q8H 7 days Ventolin HFA 90 mcg/actuation (albuterol sulfate) 2 puffs inhalation Q6H PRN 30 days NS Tobacco use date assessed: 07/23/24 Dental Screening Dental Screen Date: 07/23/24 Did you have a dental visit in the last 12 months?: No Did you have a dental problem in the last 6 months where you did not have access to dental care?: No Was dental information given to patient?: Patient has dentist HPI HPI Comments History of Present Illness Details This is a 38-year-old female that comes for her physical exam. No need for Pap smears due to hysterectomy for benign reasons. No chest pain or shortness on breath. Complains of right knee pain that has been present for over 6 months aggravated by activity. Also has diffuse joint pain. No fever or rash. [facility] Medical History (Updated 07/23/24 @ 15:13 by Mer Santos MD) Physical exam Right knee pain Bilateral otitis media Frequent UTI Ingrown toenail Breast pain, right Yeast infection Skin tag Acute tonsillitis Encounter for breast augmentation Overweight (BMI 25.0-29.9) Preoperative clearance Buttocks nodule Screen for STD (sexually transmitted disease) Burning with urination Buttocks nodule Abnormal bruising Lipoma Urinary frequency Vaginal discharge Concern about STD in female without diagnosis Constipation History of COVID-19 Ethmoid sinusitis URI (upper respiratory infection) HSV (herpes simplex virus) infection Hypovitaminosis D GERD (gastroesophageal reflux disease) Family history of hypertension Asthma Surgical History Status post excision of lipoma (~08/10/22) History of kidney stones History of hysterectomy History of umbilical hernia repair Family History Mother Hypertension Cervical cancer Father No problems noted. Maternal Aunt Colon cancer Maternal Aunt Lung cancer Social History Housing: House Alcohol intake: current Alcohol intake frequency: holidays/special occasions only Alcohol type: hard liquor Patient Tobacco Use Status: Never used Tobacco e-Cigarette/Vaping Use: Never Used Second Hand Smoke Exposure: No service: No Current occupational status: employed Current occupational exposures/hazards: No Cognitive needs: No Hearing needs: No Vision needs: Yes Questionnaire PHQ-9 Over the last 2 weeks, how often have you been bothered by any of the following problems? 1. Little interest or pleasure in doing things: not at all 2. Feeling down, depressed, or hopeless: not at all 3. Trouble falling or staying asleep, or sleeping too much: not at all 4. Feeling tired or having little energy: not at all 5. Poor appetite or overeating: not at all 6. Feeling bad about yourself - or that you are a failure or have let yourself or your family down: not at all 7. Trouble concentrating on things, such as reading the newspaper or watching television: not at all 8. Moving or speaking so slowly that other people could have noticed. Or the opposite - being so fidgety or restless that you have been moving around a lot more than usual: not at all 9. Thoughts that you would be better off or of hurting yourself in some way: not at all Total score: 0 Depression Screening Interpretation: Negative Depression Screening Done: Yes 48770 - PHQ-9 Billing: Yes Source: Developed by Drs. Tang Horowitz, Dahiana Nieto, Vernon Javier and colleagues, with an educational donald from [employer]. Thrive Questionnaire Date Thrive assessed: 07/23/24 I am a: Patient What is your living situation today?: I have a steady place to live Within the past 12 months, did the food you bought not last and you didn't have the money to get more?: Never true Within the past 12 months, did you worry whether your food would run out before you got money to buy more?: Never true Do you have trouble paying for medicines?: No Do you have trouble getting transportation to medical appointments?: No Do you have trouble paying your heating and electricity bill?: No Do you have trouble taking care of your child, family member or friend?: No Do you have trouble with day-to-day activities such as bathing, preparing meals, shopping, managing finances, etc.?: No Are you currently unemployed and looking for a job?: No Are you interested in more education?: No Please select the resources that you would like help with: None Currently or been in a relationship where the following occur: No concerns reported THRIVE Score: 0 AUDIT C Alcohol Use Questionnaire (AUDIT-C) 1. How often do you have a drink containing alcohol?: Monthly or less 2. How many drinks containing alcohol do you have on a typical day when you are drinking?: 1 or 2 3. How often do you have six or more drinks on one occasion?: Never Total Score: 1 Score Reviewed/Action Taken: No MARCO-7 AMB Questionnaire MARCO-7 Date MARCO - 7 assessed: 07/23/24 Feeling nervous, anxious, or on edge: 1 = Several days Not being able to stop or control worryin = Not at all Worrying too much about different things: 0 = Not at all Trouble relaxin = Not at all Being so restless that it is hard to sit still: 0 = Not at all Becoming easily annoyed or irritable: 0 = Not at all Feeling afraid as if something awful might happen: 0 = Not at all Total MARCO-7 score (0-4 normal; 5-9 mild; 10-14 moderate; 15-21 severe): 1 Source: Developed by Drs. Tang Horowitz, Dahiana Nieto, Vernon Javier and colleagues, with an educational donald from [employer]. MARCO-7 Assessment Billing MARCO-7 Assessment Tool: MARCO-7 Assessment 41413 Review of Systems Const All systems reviewed & are unremarkable except as noted in HPI and below Card Denies chest pain at rest, Denies chest pain with activity, Denies edema, Denies irregular heart rhythm, Denies claudication, Denies dyspnea, Denies dyspnea on exertion, Denies orthopnea, Denies paroxysmal nocturnal dyspnea and Denies slow heart rate Resp Denies cough, Denies dyspnea and Denies dyspnea on exertion GI Denies abdominal pain, Denies change in bowel habits, Denies excessive flatus, Denies nausea and Denies vomiting Denies urinary incontinence, Denies urinary hesitancy and Denies urinary urgency Musc Denies abnormal gait, Denies atrophy, Denies deformity, Reports arthralgias and Denies limited range of motion Skin/Breast Denies bleeding lesions, Denies changing lesions and Denies rash Neuro Denies abnormal gait, Denies behavioral changes and Denies lack of coordination Psych Denies behavioral changes Physical exam (Primary Care) Vital Signs: Last Vital Signs BP 120/86 07/23/24 13:42 BMI result Body Mass Index 28.3 Tobacco/Smoking Status: Tobacco use Status Tobacco use date assessed 07/23/24 07/23/24 13:47 Patient Tobacco Use Status Never used Tobacco 07/23/24 13:47 e-Cigarette/Vaping Use Never Used 07/23/24 13:47 PHQ-9: PHQ-9 Score PHQ-9: Total score 0 07/23/24 13:59 Depression Screening Interpretation: Negative Thrive Assessment: Date of Thrive Assessment Date Thrive assessed 07/23/24 07/23/24 13:47 Currently or been in a relationship where the following occur: No concerns reported HENMT Head: Yes normal to inspection, Yes normocephalic and Yes atraumatic Ears: external ears normal Eyes General: appearance normal, both eyes and all related structures Eyelids: Yes eyelids normal Conjunctivae: conjunctivae normal Neck Neck: Yes normal visual inspection and Yes supple Resp Effort & Inspection: normal respiratory effort Auscultation: clear to auscultation bilaterally Cardio Jugular venous distension: no JVD Rate: regular rate Rhythm: regular rhythm Heart sounds: S1 normal heart sound present and S2 normal heart sound present GI Inspection: Yes normal to inspection Palpation (GI): Soft to palpation and nontender Auscultation: normal bowel sounds Skin General skin exam: no rashes or lesions noted Neuro General: no focal motor deficits Extrem General: Yes full ROM Psych Appearance: grossly normal Assessment and Plan Assessment & Plan (1) Physical exam: Code(s): Z00.00 - Encounter for general adult medical examination without abnormal findings Plan: Repeat in a year. (2) Right knee pain: Code(s): M25.561 - Pain in right knee Qualifiers: Chronicity: chronic Qualified Code(s): M25.561 - Pain in right knee; G89.29 - Other chronic pain Plan: The x-ray order. Orders: Orders XR knee RT 2V Today M25.561 - Pain in right knee Comprehensive [place]. Panel Fast Today Z00.00 - Encounter for general adult medical examination without abnormal findings Lipid Panel Today Z00.00 - Encounter for general adult medical examination without abnormal findings Cyclic Citrullinated Peptide Today M25.50 - Pain in unspecified joint Rheumatoid Factor Today M25.50 - Pain in unspecified joint Vitamin D 25-OH Total Today E55.9 - Vitamin D deficiency, unspecified Erythrocyte Sedimentation Rate Today M25.50 - Pain in unspecified joint MER Reflex Titer and Pattern Today M25.50 - Pain in unspecified joint Anti DNA DS Antibody Today M25.50 - Pain in unspecified joint Coding Level of Care Code Est Pt Level 3 (18707) Est Pt Prev Care 18-39y(93507) Diagnoses Physical exam Z00.00 Chronic pain of right knee M25.561; G89.29 Chronicity: chronic Additional Codes MARCO-7 Assessment Billing - MARCO-7 Assessment Tool: MARCO-7 Assessment 05781 ([id number]) Time Spent (min) 31
[2024-07-23 13:42] VITALS: BP 120/86; BMI 28.3
== END 2024-07-23 14:08 | disposition home or self-care (01) ==
PROVIDERS: PCP Internal Medicine; Visit Provider Internal Medicine
DX: Z00.00 Encounter for general adult medical examination without abnormal findings (principal); M25.561 Pain in right knee; G89.29 Other chronic pain
CPT/HCPCS: 99213; 99395

== ENCOUNTER 2024-07-24 08:41 | Outpatient (REF) | payer OTHER, SELFPAY ==
--- NOTE | ~2024-07-24 | XR_ITS ---
EXAMINATION: XR KNEE, RIGHT CLINICAL INFORMATION: Pain. COMPARISON: Radiographs dated 09/27/2023. TECHNIQUE: AP and lateral views of the right knee. FINDINGS: Bones and soft tissues are normal. No fracture or joint effusion. Alignment is anatomic. Joint spaces are well maintained. No abnormal soft tissue calcification. XR/XR knee RT 2V IMPRESSION: Normal knee. Electronically signed by: William Davison MD 08/10/2024 04:57 PM EDT
[2024-07-24 09:57] LABS: Erythrocyte Sedimentation Rate 3 MM/HR (0-20)
[2024-07-24 10:02] LABS: Alanine Aminotransferase 13 U/L (0-31); Albumin Level 4.2 g/dL (3.5-5.0); Alkaline Phosphatase 60 U/L (39-117); Anion Gap 11 (12-20); Aspartate Amino Transferase 23 U/L (5-31); Bilirubin Total 0.6 mg/dL (0.0-1.0); Blood Urea Nitrogen 11 mg/dL (9-16); Calcium 9.1 mg/dL (8.4-10.2); Carbon Dioxide 26 mmol/L (22-29); Chloride 106 mmol/L (96-108); Cholesterol 199 mg/dL (<200); Estimated Glomerular Filt Rate > 60; Glucose Fasting 89 mg/dL (60-99); HDL Cholesterol 70 mg/dL (>40); LDL Cholesterol Calculated 113 mg/dL (<100); Potassium 4.3 mmol/L (3.3-5.1); Sodium 139 mmol/L (135-145); Total Protein 7.5 g/dL (6.5-8.0); Triglycerides 83 mg/dL (<150)
[2024-07-24 10:26] LABS: Vitamin D 25-OH Total 38.3 ng/mL (>30)
[2024-07-24 10:47] LABS: Rheumatoid Factor < 13.0 IU/mL (<15.0)
[2024-07-25 22:33] LABS: Anti DNA DS Antibody <1 IU/mL
[2024-07-27 14:43] LABS: Cyclic Citrullinated Peptide <16 UNITS
[2024-07-31 10:14] LABS: Anti Nuclear Antibody Screen POSITIVE (NEGATIVE)
== END 2024-07-24 08:42 | disposition home or self-care (01) ==
LOC: HO.LAB 08:41
PROVIDERS: PCP Internal Medicine; Visit Provider Internal Medicine
DX: Z00.00 Encounter for general adult medical examination without abnormal findings (principal); M25.561 Pain in right knee; M25.50 Pain in unspecified joint; E55.9 Vitamin D deficiency, unspecified
CPT/HCPCS: 36415; 73560; 80053; 80061; 82306; 85652; 86038; 86039; 86200; 86225; 86431

== ENCOUNTER 2024-08-31 07:56 | Outpatient (AMB) | payer OTHER, SELFPAY ==
[2024-08-31 08:00] VITALS: BP 108/64; PULSE 87; O2SAT 98; BMI 28.3
--- NOTE | 2024-08-31 08:00 | MHC.OFFVIS ---
Vital Signs 08/31/24 08:00 Height 5 ft 1 in Weight 150 lb BMI 28.3 BP 108/64 Blood Pressure Location Rt brachial Position Sitting Pulse 87 Pulse Source Pulse Oximeter Pulse Oximetry (%) 98 Oxygen Delivery Method Room Air Intake Visit Reasons: Joint Pain Intake Note: Patient is here for follow up on joint pain all over her body, and high levels in her blood work. Allergies mushroom Allergy (Severe, Verified 07/23/24 13:54) Anaphylaxis peanut Allergy (Severe, Verified 07/23/24 13:54) Anaphylaxis sertraline Allergy (Severe, Verified 07/23/24 13:54) tongue itchiness divalproex sodium [From DEPAKOTE] Allergy (Intermediate, Verified 07/23/24 13:54) URTICARIA topiramate [From TOPAMAX] Allergy (Intermediate, Verified 07/23/24 13:54) FACIAL AND LIP NUMBNESS hydromorphone [From DILAUDID] Allergy (Mild, Verified 07/23/24 13:54) URTICARIA Sulfa (Sulfonamide Antibiotics) Adverse Reaction (Severe, Verified 07/23/24 13:54) Anaphylaxis nuts Allergy (Severe, Uncoded 07/23/24 13:54) Anaphylaxis moderna covid vaccine Allergy (Intermediate, Uncoded 07/23/24 13:54) hives,swelling Medication List - Last Reconciled 08/31/24 by Brenda Youngblood MD acetaminophen 1,000 mg (2 x 500 mg) PO QID PRN cholecalciferol (vitamin D3) 50 mcg PO DAILY fexofenadine 180 mg PO DAILY 30 days ibuprofen 600 mg PO Q6H PRN valacyclovir 1,000 mg PO Q8H 7 days Ventolin HFA 90 mcg/actuation (albuterol sulfate) 2 puffs inhalation Q6H PRN 30 days NS HPI Comments Details: Patient is a 38-year-old female with no prior chronic illnesses who presents for evaluation of joint pain and a positive JEREMY. Patient states that she has been noticing for the past 2 years she has been having right knee pain. The pain is worse at the end of the day. No associated swelling, redness, warmth. She does note that she has been very active in the gym for the past 5 years and lifts weights and does squats. She has been noticing that her right knee has become increasingly painful. Worse when walking up stairs as well. She has also noticed that in the past few months, about since May, she has been having pain involving her ankles her wrists and her elbows. The pain is not consistent and will resolve on its own or with Tylenol/ibuprofen. She denies Raynaud's, morning stiffness, hand pain involvement, dry mouth, alopecia (although she has been noticing hair thinning), oral/nasal ulcers, history of eye inflammation, fevers, rash or photosensitivity. She does report dry eyes but notes that she wears contacts and uses the contact eyedrops which improves her dry eyes. She has 4 children. Has never had a miscarriage. No history of DVTs or PEs. No family history of autoimmune disease. Denies smoking. However recently stopped smoking marijuana about 3 months ago. Drinks socially. 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 Provider notes reviewed: 07/23/2024. Primary care visit. Patient complained of joint pain and patient referred 06/26/2024. ED visit at [facility] for lymphadenopathy. Diagnosed with infectious mononucleosis. Had positive Monospot test 04/25/2024. ED visit at [facility] after head injury and loss of consciousness. CT scan done at that time reviewed and was normal [facility] Medical History (Updated 08/31/24 @ 08:45 by Brenda Youngblood MD) De Quervain's tenosynovitis, bilateral Patellofemoral arthralgia of right knee Physical exam Right knee pain Bilateral otitis media Frequent UTI Ingrown toenail Breast pain, right Yeast infection Skin tag Acute tonsillitis Encounter for breast augmentation Overweight (BMI 25.0-29.9) Preoperative clearance Buttocks nodule Screen for STD (sexually transmitted disease) Burning with urination Buttocks nodule Abnormal bruising Lipoma Urinary frequency Vaginal discharge Concern about STD in female without diagnosis Constipation History of COVID-19 Ethmoid sinusitis URI (upper respiratory infection) HSV (herpes simplex virus) infection Hypovitaminosis D GERD (gastroesophageal reflux disease) Family history of hypertension Asthma Surgical History Status post excision of lipoma (~08/10/22) History of kidney stones History of hysterectomy History of umbilical hernia repair Family History Mother Hypertension Cervical cancer Father No problems noted. Maternal Aunt Colon cancer Maternal Aunt Lung cancer Social History Housing: House Alcohol intake: current Alcohol intake frequency: holidays/special occasions only Alcohol type: hard liquor Patient Tobacco Use Status: Never used Tobacco e-Cigarette/Vaping Use: Never Used Second Hand Smoke Exposure: No service: No Current occupational status: employed Current occupational exposures/hazards: No Cognitive needs: No Hearing needs: No Vision needs: Yes Review of Systems Const Details: Review of Systems Constitutional: Denies fever, chills, weight loss ENT: Denies vision changes, eye pain or eye redness, dental caries, dry mouth GI: Denies nausea, vomiting, diarrhea, abdominal pain, change in BM Pulm: Denies SOB, SWEET, hemoptysis, wheezing Cards: Denies chest pain, palpitations Skin: Denies Raynaud's, rash, nail changes, photosensitivity, LAB INTERN: Denies headaches, weakness, paresthesias, recurrent falls MSK: Complains of joint pain.. Denies joint swelling, muscle weakness, bone pain All other systems reviewed and are unremarkable except noted above Physical Exam Vital Signs: Last Vital Signs Pulse 87 08/31/24 08:00 BP 108/64 08/31/24 08:00 Pulse Ox 98 08/31/24 08:00 Oxygen Delivery Method Room Air 08/31/24 08:00 BMI result Body Mass Index 28.3 Const Other: Physical Examination Patient well appearing and in no apparent painful distress Able to rise from chair without support. ?Gait normal. Constitutional: ?Mucous membranes pink and moist patient alert and cooperative HEENT: ?Conjunctiva and sclera clear. ?Pupils equal round and reactive to light. ?No lymphadenopathy. ?Normal dentition. Resp: ?Normal respiratory effort and able to speak in complete sentences. ?Clear to auscultation bilaterally. ?No crackles, rales, rhonchi, wheezes heard. Cards: ?Regular rate and rhythm. ?S1 and S2 heard no murmurs. ?Radial pulses intact bilaterally MSK: ?No deformity, swelling, abnormalities noted to bilateral hands. ?No evidence of synovitis. ?Able to move all joints with full range of motion, without limitation. Nga's test positive bilaterally. No evidence of lateral or medial epicondylitis. Full range of motion of shoulders. Results Reviewed Results Reviewed: I personally reviewed knee x-ray done 07/24/2024. Ordered by primary. No evidence of effusion. Joint space maintained. Bone cortices are thick and appropriate for age. No chondrocalcinosis (my read) Laboratory Tests 01/24/24 07/24/24 08:36 08:55 ESR 3 Sodium 138 139 Potassium 3.7 4.3 Chloride 103 106 Carbon Dioxide 27 26 Anion Gap 12 BUN 11 Creatinine 0.78 0.76 Calcium 9.6 9.1 Total Bilirubin 0.6 0.6 AST 17 23 ALT 9 13 Alkaline Phosphatase 56 60 Total Protein 8.1 H 7.5 Rheumatoid Factor < 13.0 Cycl Citrul Peptide IgG <16 JEREMY Screen POSITIVE A JEREMY Titer 1:80 H JEREMY Pattern A Double Strand DNA Ab <1 Assessment & Plan Assessment & Plan (1) JEREMY positive: Code(s): R76.8 - Other specified abnormal immunological findings in serum Category: Medical Plan: #Positive JEREMY The presence of antinuclear antibodies (JEREMY) is mainly associated with connective tissue diseases (CTD). ?However, their presence is found in healthy people especially in women and patients >65. ?In healthy individuals, the frequency of JEREMY has been shown to be 31.7% of individuals at 1:40 serum dilution, 13.3% at 1:80, 5.0% at 1:160, and 3.3% at 1:320 (2). Some drugs and xenobiotics are also important for the development of JEREMY (hydralazine, hydrochlorothiazide, minocycline, terbinafine, ciprofloxacin, furosemide, omeprazole). Moreover, the deficiency of vitamin D in the body of patients correlates with occurrence of these antibodies (1). At this time there is low suspicion for a connective tissue disease. ? 1. Susana?susy Funez, Speedy Andrade, Javan Rooney. Antinuclear antibodies in healthy people and non-rheumatic diseases - diagnostic and clinical implications. Reumatologia. 2018;56(4):243-248. doi: 10.5114/reum.2018.40699. Epub 2017Jul 28. PMID: 80440393; PMCID: [id number]. 2. Best EM, Terrie TE, Katelin JS, Silvia B, Ofelia R, Gilma MJ, Robi T, Jacob JA, Bill JR, Alexandra RG, Hiro RN, Tony JS, Candace NF, Paola RJ, Leeanna Y, Cristina A, Chucho MR, Michael MORTENSEN. Range of antinuclear antibodies in healthy individuals. Arthritis Rheum. 1996;40(9):1601-11. doi: 10.1002/art.[id number]. PMID: 8566321. (2) Patellofemoral arthralgia of right knee: Code(s): M25.561 - Pain in right knee Category: Medical Plan: #Right Patellofemoral Knee Pain Patient with right knee pain without evidence of active inflammation or synovitis today. Full range of motion. Her pain does seem to be related to patellofemoral syndrome. However we will check MRI since she does lift heavy weights she could potentially have a meniscal tear. (3) De Quervain's tenosynovitis, bilateral: Code(s): M65.4 - Radial styloid tenosynovitis [de Quervain] Category: Medical Plan: #Bilateral DeQuervain's Tenosynovitis Patient with bilateral de Quervain tenosynovitis. Recommended splinting. Thumb splint pictures printed and given to patient. Also recommended p.r.n. NSAIDs such as ibuprofen, Aleve or naproxen. Ensure to eat with food. If pain is worse and failed conservative management she can return for steroid injection. Plan I spent 45 minutes reviewing the record and labs, seeing the patient, discussing the treatment plan and documenting in the medical record Orders: Orders MR knee RT wo con Today G89.29 - Other chronic pain, M25.561 - Pain in right knee, M65.4 - Radial styloid tenosynovitis [de Quervain], R76.8 - Other specified abnormal immunological findings in serum Coding Level of Care Code New Pt Level 4 (18938) Diagnoses JEREMY positive R76.8 Patellofemoral arthralgia of right knee M25.561 De Quervain's tenosynovitis, bilateral M65.4
== END 2024-08-31 08:59 | disposition home or self-care (01) ==
PROVIDERS: PCP Internal Medicine; Visit Provider Student in an Organized Health Care Education/Training Program
DX: R76.8 Other specified abnormal immunological findings in serum (principal); M25.561 Pain in right knee; M65.4 Radial styloid tenosynovitis [de Quervain]
CPT/HCPCS: 99204

== ENCOUNTER → 2024-08-31 07:56 | Outpatient (BNVA) | payer OTHER, SELFPAY | PROVIDERS: PCP Internal Medicine; Visit Provider Student in an Organized Health Care Education/Training Program | DX: R76.8 Other specified abnormal immunological findings in serum (principal); M25.561 Pain in right knee; M65.4 Radial styloid tenosynovitis [de Quervain]; G89.29 Other chronic pain | CPT/HCPCS: 99202 ==

== ENCOUNTER 2024-09-23 14:50 | Outpatient (REF) | payer OTHER, SELFPAY ==
--- NOTE | ~2024-09-23 | MR_ITS ---
EXAMINATION: MR KNEE WITHOUT CONTRAST, RIGHT CLINICAL INFORMATION: Right knee pain COMPARISON: Radiographs 07/24/2024 TECHNIQUE: MRI of the knee without contrast was performed using routine sequences on a high-field scanner. FINDINGS: MENISCI: Medial Meniscus: Intact Lateral Meniscus: Intact LIGAMENTS: Cruciate: Intact Collateral: Intact EXTENSOR MECHANISM: Intact ARTICULAR CARTILAGE/BONE: Patellofemoral Compartment: Focal cartilage signal heterogeneity of the medial trochlea. Medial Compartment: Minimal cartilage surface irregularity along the lateral aspect of the weightbearing femoral condyle. Lateral Compartment: Normal JOINT FLUID AND BURSAE: No joint effusion. MR/MR knee RT wo con IMPRESSION: 1. No meniscal tear. 2. Minimal patellofemoral/medial compartment osteoarthritis. Electronically signed by: Aquiles Perez MD 10/10/2024 12:51 PM LAYNE BERGMAN
== END 2024-09-23 14:51 | disposition home or self-care (01) ==
LOC: HO.MRI 14:50
PROVIDERS: PCP Internal Medicine; Visit Provider Student in an Organized Health Care Education/Training Program
DX: M25.561 Pain in right knee (principal); G89.29 Other chronic pain; R76.8 Other specified abnormal immunological findings in serum; M65.4 Radial styloid tenosynovitis [de Quervain]
CPT/HCPCS: 73721

== ENCOUNTER 2025-02-08 08:31 | Outpatient (AMB) | payer OTHER, SELFPAY ==
--- NOTE | 2025-02-08 08:39 | AM.OFFWIN_ITS ---
Intake Vital Signs 02/08/25 08:40 Weight 159 lb BP 108/70 Blood Pressure Location Rt brachial Position Sitting Temp 98.5 F Temp Source Oral Intake Visit Reasons: EP Headache, Sinus pain Intake Note: Patient here for sinus pressure, feverish, congestion and headaches that started tuesday. Patient Tobacco Use Status: Never used Tobacco Allergies mushroom Allergy (Severe, Verified 02/08/25 08:41) Anaphylaxis peanut Allergy (Severe, Verified 02/08/25 08:41) Anaphylaxis sertraline Allergy (Severe, Verified 02/08/25 08:41) tongue itchiness divalproex sodium [From DEPAKOTE] Allergy (Intermediate, Verified 02/08/25 08:41) URTICARIA topiramate [From TOPAMAX] Allergy (Intermediate, Verified 02/08/25 08:41) FACIAL AND LIP NUMBNESS hydromorphone [From DILAUDID] Allergy (Mild, Verified 02/08/25 08:41) URTICARIA Sulfa (Sulfonamide Antibiotics) Adverse Reaction (Severe, Verified 02/08/25 08:41) Anaphylaxis nuts Allergy (Severe, Uncoded 02/08/25 08:41) Anaphylaxis moderna covid vaccine Allergy (Intermediate, Uncoded 02/08/25 08:41) hives,swelling Do you need a note to return to daycare/school/sports/work: Yes HPI HPI Comments History of Present Illness Details This is a 39-year-old female who presented to the walk-in clinic co mplaining of sinus pain/pressure, headaches, and fever/chills x5 days. Patient states she started to develop sinus congestion and sinus pressure about 5 days ago. She states she started to develop subjective fever/chills last night. She also reports bilateral otalgia (right greater than left) and sore throat. She does have some mild rhinorrhea with green-yellow nasal discharge. She reports a history of mild intermittent asthma and states that she has been coughing a bit, as well, but she denies any shortness of breath, chest tightness, or wheezing. [facility] Medical History (Updated 08/31/24 @ 08:45 by Brenda Youngblood MD) De Quervain's tenosynovitis, bilateral Patellofemoral arthralgia of right knee Physical exam Right knee pain Bilateral otitis media Frequent UTI Ingrown toenail Breast pain, right Yeast infection Skin tag Acute tonsillitis Encounter for breast augmentation Overweight (BMI 25.0-29.9) Preoperative clearance Buttocks nodule Screen for STD (sexually transmitted disease) Burning with urination Buttocks nodule Abnormal bruising Lipoma Urinary frequency Vaginal discharge Concern about STD in female without diagnosis Constipation History of COVID-19 Ethmoid sinusitis URI (upper respiratory infection) HSV (herpes simplex virus) infection Hypovitaminosis D GERD (gastroesophageal reflux disease) Family history of hypertension Asthma Surgical History Status post excision of lipoma (~08/10/22) History of kidney stones History of hysterectomy History of umbilical hernia repair Family History Mother Hypertension Cervical cancer Father No problems noted. Maternal Aunt Colon cancer Maternal Aunt Lung cancer Social History Housing: House Alcohol intake: current Alcohol intake frequency: holidays/special occasions only Alcohol type: hard liquor Patient Tobacco Use Status: Never used Tobacco e-Cigarette/Vaping Use: Never Used Second Hand Smoke Exposure: No service: No Current occupational status: employed Current occupational exposures/hazards: No Cognitive needs: No Hearing needs: No Vision needs: Yes Review of Systems Const All systems reviewed & are unremarkable except as noted in HPI and below Reports no additional complaints Eyes Reports no additional complaints ENT Reports no additional complaints Card Reports no additional complaints Resp Reports no additional complaints GI Reports no additional complaints Reports no additional complaints Musc Reports no additional complaints Skin/Breast Reports system reviewed and no additional complaints, except as documented Neuro Reports no additional complaints Psych Reports no additional complaints Endo Reports no additional complaints Oliver/Lymph Reports no additional complaints Aller/Immun Reports no additional complaints Physical Exam Const Other: Vital signs reviewed. Constitutional: Non-toxic appearing. No acute distress. Well-developed and well-nourished. HEENT: Normocephalic and atraumatic. The right tympanic membrane is erythematous and bulging with loss of landmarks and fluid behind the tympanic membrane. There is fluid behind the left tympanic membrane but the left tympanic membrane is not erythematous. External auditory canals without erythema or edema bilaterally. Moist mucous membranes. There is posterior pharyngeal erythema without exudates or edema/hypertrophy. She has maxillary and frontal sinus tenderness to palpation. Skin: Warm and dry. No rashes or lesions noted. Neck: Full and painless range of motion. No cervical lymphadenopathy. Cardio: Regular rate and rhythm. No murmurs, gallops, or rubs. No lower extremi ty edema. No JVD. Pulmonary: No respiratory distress. No accessory muscle usage. Clear to auscultation bilaterally without wheezing, crackles, or rhonchi. Gastrointestinal: Soft, nontender, and nondistended in all 4 quadrants. Musculoskeletal: Normal range of motion in joints throughout the body. No deformity or other signs of injury. Neuro: Alert and oriented x4. Cranial nerves 2-12 grossly intact. No focal deficits appreciated. Psych: Normal mood and affect. Assessment & Plan Assessment & Plan (1) Acute otitis media: Code(s): H66.90 - Otitis media, unspecified, unspecified ear Qualifiers: Otitis media type: serous Laterality: right (2) Acute bacterial rhinosinusitis: Code(s): J01.90 - Acute sinusitis, unspecified; B96.89 - Other specified bacterial agents as the cause of diseases classified elsewhere Plan This is a 39-year-old female who presented to the walk-in clinic complaining of sinus pain/pressure, headaches, and fever/chills x5 days. On physical examination, the patient's right tympanic membrane is erythematous and bulging with loss of landmarks and there is fluid behind the right tympanic membrane and she has maxillary and frontal sinus tenderness to palpation. There is concern for acute otitis media and acute bacterial rhinosinusitis. Patient was given a prescription for PO amoxicillin/clavulanate 875/125 mg twice daily x7 days as we ll as a prescription for PO fluconazole as she is prone to yeast infections with antibiotic use. Recommended symptomatic management including rest, increased fluids, advil/tylenol for pain/fever, and over the counter throat lozenges/decongestants. COVID/RSV/flu testing was sent and patient will be given a work letter through the portal if negative. Patient advised to follow up here or go to the emergency room for worsening/persistent symptoms. Orders: Orders SARS-CoV2/FLU/RSV Today J06.9 - Acute upper respiratory infection, unspecified Medications: New amoxicillin-pot clavulanate 875-125 mg 1 tab PO BID 14 tabs 0RF fluconazole may repeat second dose 72 hrs after first dose if symptoms persist 150 mg PO Q3D 2 tabs 0RF Coding Level of Care Code Est Pt Level 3 (83352) Diagnoses Acute otitis media H66.90 Otitis media type: serous Laterality: right Acute bacterial rhinosinusitis J01.90; B96.89
[2025-02-08 08:40] VITALS: BP 108/70; TEMP 36.9
--- OUTSIDE RECORDS SUMMARY | 2025-02-08 08:43 | XMS_ITS | Encounter Summary ---
Author Organization [facility] Address [address] [place] [address] Care Team Providers Care Chief Growth Officer Name Role Phone Kika Lucas MD Primary Care Provider [phone] Reason for Visit * Reason Comments Vaginitis/Bacterial Vaginosis Encounter Details Date Type Department Care Team ([facility] st Contact Info) Description 02/01/2025 1:45 PM EST Office Visit Obstetrics & Gynecology - [address] [phone] Ernestina Landon, [employer] [address] [place] [id number] Pelvic pain (Primary Dx); Hematuria, unspecified type; Acute vaginitis Social History Tobacco Use Types Packs/Day Years Used Date Smoking Tobacco: Never Smokeless Tobacco: Never Alcohol Use Standard Drinks/Week Comments Yes 0 (1 standard drink = 0.6 oz pur e alcohol) Housing Instability Answer Date Recorde d Are you worried that in the next 2 months you may not have stable housing? No 02/01/2025 Food Access & Nutrition Answer Date Rec orded Do you have access to a vari ety of food including fruits and vegetables? Yes 02/01/2025 Access to Healthcare Answer Date Record ed Within the last 3 months, codie persaud many times did you visit the emergency department for your medical care? 0 02/01/2025 Health Literacy Answer Date Recorded How often do you need to hav e someone help you when you read instructions, pamphlets, or other written material from your doctor or pharmacy? Never 02/01/2025 Caregiver: How often do you need to have someone help you when you read instructions, pamphlets, or other written material from your doctor or pharmacy? Not on file 02/01/2025 Financial Risk Answer Date Recorded How hard is it for you to pa y for the very basics like food, housing, medical care, and air conditioning / heating? Patient declined 02/01/2025 Transportation Answer Date Recorded Has the lack of transportati on kept you from meetings, work, or from getting things needed for daily living? No Has the lack of transportati on kept you from medical appointments or from getting medications? No 02/01/2025 Social Isolation Answer Date Recorded How often do you feel lonely or isolated from th ose around you? Never 02/01/2025 Food Risk Answer Date Recorded Within the past 12 months we worried whether our food would run out before we got money to buy more. Never true 02/01/2025 Within the past 12 months th e food we bought just didn't last and we didn't have money to get more. Never true 02/01/2025 Dependent Care Answer Date Recorded Do you need help finding or paying for care for your loved ones. For example, early childhood coordinator or elderly care for an older adult? No 02/01/2025 Education Answer Date Recorded Do you think completing more education or training, like finishing a GED, going to college, or learning a trade, would be helpful for you? N/A 02/01/2025 Employment and Income Answer Date Recor ded During the last four weeks, have you been actively looking for work? No 02/01/2025 Living Situation Answer Date Recorded What is your living situation? 0 02/01/2025 Comments No Sex and Gender Information Value Date Recorded Sex Assigned at Not on file Legal Sex Female 4:57 PM EST Gender Identity Not on file Sexual Orientation Not on file documented as of this encounter Last Filed Vital Signs Vital Sign Reading Time Taken Comments Blood Pressure 128/82 02/01/2025 1:46 PM EST Pulse 86 02/01/2025 1:46 PM EST Temperature - - Respiratory Rate - - Oxygen Saturation - - Inhaled Oxygen Concentration - - Weight 72 kg (158 lb 12.8 oz) 02/01/2025 1:46 PM EST Height 154.9 cm (5' 1 ) 02/01/2025 1:46 PM EST Body Mass Index 30 02/01/2025 1:46 PM EST documented in this encounter Ordered Prescriptions Prescription Sig Dispense Quantity Refills Last Filled Start Date End Date metroNIDAZOLE (FLAGYL) 500 mg tablet Take 1 tablet (500 mg total) by mouth 2 (two) times a day for 7 days. Do not use mouth wash or consume alcohol until 48 hours after last dose 14 tablet 02/02/2025 5 valACYclovir (VALTREX) 500 mg tablet Take 1 tablet (500 mg total) by mouth 1 (one) time each day. 30 each 5 02/01/2025 5 documented in this encounter Progress Notes * Doug De Souza MA - 02/01/2025 1:45 PM EST Pt here c/o white discharge and pelvic pain mainly on left side. KAMLA: trace NIT: neg URO: 0.2 PRO: neg PH: 5.0 BLO: mod S.010 KET: neg VIOLETTA: neg GLU: neg * Ernestina Landon CNM - 02/01/2025 1:45 PM EST Chief Complaint Patient presents with Vaginitis/Bacterial Vaginosis Genevieve OCAMPO 1985 39 y.o. Pt presents with concerns for the past several weeks. She describes vulvo-vaginal irritation: YES Discharge color Yellow/white, odor Yes Any recent antibiotics None Any new detergents /soaps None She is with same partner off/ on x 5 yrs and would like std as well Contraception : hysterectomy Has tried OTC relief measures: Monistat, how long ago: one week ago She also reports intermittent LLQ pelvic pain for several weeks, takes Tylenol with good effect. She has no pain on today She is also requesting refill for Valtrex. ROS GENERAL: No malaise, significant weight loss or fever RESPIRATORY: No cough, wheezing or shortness of breath CARDIOVASCULAR: No chest pain, leg swelling or palpitations GI: No abdominal discomfort, blood in stools or black stools/ negative for change in bowel habits. : No dysuria, frequency or incontinence DISABILITY INSURANCE CLAIM EXAMINER: See HPI MUSCULOSKELETAL: No joint pain or swelling, back pain, or muscle pain. SKIN: No lesions, rash or itching PSYCH: No sleep disturbance, mood disorder or recent psychosocial stressors. HEMATOLOGY/LYMPHOLOGY No prolonged bleeding, easy bruisability or swollen nodes Past Medical History: Diagnosis Date Allergic rhinitis 03/10/2018 DX:Allergic rhinitis Anemia DX:Anemia; COMMENT: Alpha-thalessemia trait Asthma DX:Asthma Bacterial vaginosis 04/16/2016 DX:Bacterial vaginosis; COMMENT: 07/19/14 Blood type, Rh negative 08/18/2011 DX:Blood type, Rh negative; COMMENT: B negative Depression 11/24/2017 DX:Depression Dyslipidemia DX:Dyslipidemia Dysplasia of cervix, low grade (KIM 1) 09/28/2012 DX:Dysplasia of cervix, low grade (KIM 1); COMMENT: 08/18/11 Enlarged uterus 07/22/2016 DX:Enlarged uterus; COMMENT: 11.4cm X 4.2cm X 5.8cm Functional abdominal pain syndrome 11/10/2018 DX:Functional abdominal pain syndrome History of blood transfusion 2001 DX:History of blood transfusion; COMMENT: after delivery History of colposcopy 11/16/2012 DX:History of colposcopy; COMMENT: chronic cervicitis with squamous metaplasia History of migraine DX:History of migraine History of UTI DX:History of UTI HSV-2 (herpes simplex virus 2) infection 07/19/2014 DX:HSV-2 (herpes simplex virus 2) infection Menorrhagia 04/14/2015 DX:Menorrhagia Neck pain 09/03/2019 DX:Neck pain Nephrolithiasis DX:Nephrolithiasis; COMMENT: US 06/2016 [facility] Recurrent HSV (herpes simplex virus) DX:Recurrent HSV (herpes simplex virus) Rosacea 11/24/2017 DX:Rosacea Thrombosed external hemorrhoid 11/10/2018 DX:Thrombosed external hemorrhoid Thrombosed external hemorrhoid 11/10/2018 DX:Thrombosed external hemorrhoid Vitamin D insufficiency 07/02/2016 DX:Vitamin D insufficiency; COMMENT: Vitamin D = 24 Vulval hematoma 2001 DX:Vulval hematoma; COMMENT: evacuation of right vulvar hematoma after delivery Yeast infection 04/16/2016 DX:Yeast infection; COMMENT: 12/25/15, 11/03/15 Past Surgical History: Procedure Laterality Date ESOPHAGOGASTRODUODENOSCOPY 09/29/2018 PROCEDURE: DC ESOPHAGOGASTRODUODENOSCOPY TRANSORAL DIAGNOSTIC; COMMENT: normal HYSTERECTOMY 03/2017 PROCEDURE: HISTORICAL HYSTERECTOMY LITHOTRIPSY PROCEDURE: HISTORICAL LITHOTRIPSY OTHER SURGICAL HISTORY 10/25/2016 PROCEDURE: HISTORICAL D&C; COMMENT: hysteroscopy OTHER SURGICAL HISTORY 2013 PROCEDURE: HISTORICAL ESSURE (BILATERAL OCCLUSION FALLOPIAN TUBES-PERMA) OB History Para Term AB Living 4 4 4 4 SAB IAB Ectopic Multiple Live Births 4 # Outcome Date GA Lbr Guy/2nd Weight Sex Type Anes PTL Lv 4 Term 04/18/12 39w0d 3289 g (116 oz) M Vag-Spont EPI N ROXANN 3 Term 03/2008 40w0d 3175 g (112 oz) F Vag-Spont None N ROXANN 2 Term 02/2005 38w0d 3600 g (127 oz) F Vag-Spont None N ROXANN 1 Term 02/2002 40w0d 3345 g (118 oz) M Vag-Spont None N ROXANN OBJECTIVE Visit Vitals BP 128/82 Pulse 86 Ht 1.549 m (61 ) Wt 72 kg (158 lb 12.8 oz) BMI 30.00 kg/m?? OB Status Hysterectomy Smoking Status Never BSA 1.71 m?? APPEARANCE: Alert and in no acute distress, healthy, cooperative LUNG: Assessment: No increased work of breathing or signs of respiratory distress ABDOMEN: soft, non-tender, without organomegaly or palpable masses LYMPHATICS: no inguinal adenopathy DISABILITY INSURANCE CLAIM EXAMINER: Normal external genitalia and urethra Vagina without abnormality ; + creamy yellow discharge Uterus/Cervix surgically absent. Normal adnexa without tenderness NEURO: Awake, alert and oriented x 3 SKIN: Skin color, texture, turgor normal. No rashes or lesions. This is to document that Genevieve Herrera was given the opportunity to have a supervisor belt and link assembly present during a sensitive examination at today's visit. She declines this offer of a supervisor belt and link assembly. Genevieve was seen today for vaginitis/bacterial vaginosis. Diagnoses and all orders for this visit: 1. Pelvic pain - POC Urine Auto W/O Micro - Culture urine - Chlamydia trachomatis and Neisseria gonorrhoeae molecular study - Wet prep, genital - Trichomonas vaginalis antigen 2. Hematuria, unspecified type - Culture urine 3. Acute vaginitis - Chlamydia trachomatis and Neisseria gonorrhoeae molecular study - Wet prep, genital - Trichomonas vaginalis antigen Other orders - valACYclovir; Take 1 tablet (500 mg total) by mouth 1 (one) time each day. - metroNIDAZOLE; Take 1 tablet (500 mg total) by mouth 2 (two) times a day for 7 days. Do not use mouth wash or consume alcohol until 48 hours after last dose Discussed vaginal hygiene, loose cotton undergarments, avoidance of deodorants and sprays, colored or scented tissue, harsh soaps, etc. Discussed use of Probiotics such as AZOs, Acidophilous, Yogurt with lactobacilli, RepHresh, Replens, Re-Balance by Caro have been shown to promote vaginal health. Pending results will adjust treatment as needed. Ernestina Landon CNM Note about provider documentation: If you are the patient named in this chart and are reviewing your medical notes, please note that medical documentation is often written with abbreviations and medical terminology, and directed for other providers who may be involved in your care as well. Documentation is critical to record what has happened, what test were ordered, and how they are interpreted w ith the resulting diagnoses. These notes have been made available for patient review but not specifically written for the patient. Important health information is always given to my patients and clinical instructions. Please review your after visit summary and/or contact our clinical staff if you have any questions. documented in this encounter Plan of Treatment Upcoming Encounters Date Type Department Care Team (Late st Contact Info) Description 06/10/2025 1:30 PM EDT Office Visit Obstetrics & Gynecology - [facility] [address] [place] [address] Carito Kumar CNM [address] [place] [address] documented as of this encounter Procedures Procedure Name Priority Date/Time Associated Diagnosis Comments TRICHOMONAS VAGINALIS ANTIGEN Routine 02/01/2025 2:18 PM EST Pelvic pain Acute vaginitis CHLAMYDIA TRACHOMATIS AND NEISSERIA GONORRHOEAE PCR Routine 02/01/2025 2:18 PM EST Pelvic pain Acute vaginitis WET PREP, GENITAL Routine 02/01/2025 2:1 8 PM EST Pelvic pain Acute vaginitis CULTURE URINE Routine 02/01/2025 2:12 PM EST Pelvic pain Hematuria, unspecified type POC URINE AUTO W/O MICRO Routine 02/01/2025 1:55 PM EST Pelvic pain documented in this encounter Results * Trichomonas vaginalis antigen (02/01/2025 2:18 PM EST) Trichomonas vaginalis Negative Negative 02/01/2025 9:01 PM EST [facility] Swab Vaginal structure / Unknown Non-blood Collection / Unknown 02/01/2025 2:18 PM EST 02/01/2025 4:13 PM EST [facility] - GENERAL OR DERABLES Final Result Performing Organization Address [facility] Co de Phone Number [facility] [address] [place] [address], * (ABNORMAL) Wet prep, genital (02/01/2025 2:18 PM EST) Clue Cells, Wet Prep Positive(A) Negative 02/01/2025 9:01 PM EST [facility] Yeast, Wet Prep Negative Negative 02/01/2025 9:01 PM EST [facility] Trichomonas, Wet Prep Indeterminate Negative 02/01/2025 9:01 PM EST [facility] Comment:Refer to Trichomonas antigen. Swab Vaginal structure / Unknown Non-blood Collection / Unknown 02/01/2025 2:18 PM EST 02/01/2025 4:13 PM EST [facility] MICROBIOLOGY - GENERAL OR DERABLES Final Result Performing Organization Address City/[facility]/ZIP Co de Phone Number [facility] [address] [place] [address], [place] [phone] * Chlamydia trachomatis and Neisseria gonorrhoeae molecular study (02/01/2025 2:18 PM EST) Pathologist [facility] Neisseria gonorrhoeae PCR Negative Negative LAB MOLECULAR DIAGNOSTICS METHOD 02/02/2025 9:01 AM EST [facility] Chlamydia trachomatis PCR Negative Negative LAB MOLECULAR DIAGNOSTICS METHOD 02/02/2025 9:01 AM EST [facility] Swab Cervix uteri structure / Unknown Non-blood Collection / Unknown 02/01/2025 2:18 PM EST 02/01/2025 4:13 PM EST [facility] MICROBIOLOGY - GENERAL OR DERABLES Final Result Performing Organization Address [facility]/ZIP Co de Phone Number [facility] [address] [place] [address], [place] [phone] * Culture urine (02/01/2025 2:12 PM EST) [facility] Culture, Urine No growth 02/02/2025 9:12 AM [facility] Urine Urine specimen obtained by clean catch procedure / Unknown Non-blood Collection / Unknown 02/01/2025 2:12 PM EST 02/01/2025 4:13 PM EST [facility] MICROBIOLOGY - GENERAL OR DERABLES Final Result [facility] [address] [place] [address], [place] [phone] * (ABNORMAL) POC Urine Auto W/O Micro (02/01/2025 1:55 PM EST) [facility] Leukocytes UA POC Positive(A) Negative Nitrite UA POC Negative Negative Urobilinogen UA POC Negative Negative Protein UA POC Negative Negative PH UA POC 5.0 5.0 - 9.0 Blood UA POC Positive(A) Negative, Trace Specific [place] UA POC 1.010 1.001 - 1.035 Ketones UA POC Negative Negative Bilirubin UA POC Negative Negative Glucose UA POC Normal Normal, Trace Urine Urine specimen obtained by clean catch procedure / Unknown 02/01/2025 1:55 PM EST Ernestina Landon CN POINT OF CARE TEST ENTER/EDIT ORDERABLES Final Result documented in this encounter Visit Diagnoses Diagnosis Pelvic pain- Primary Hematuria, unspecified type Acute vaginitis Unspecified vaginitis and vulvovaginitis documented in this encounter Additional Health Concerns Assessment Noted Time PHQ-9 Depression Total Score: 0 02/02/20 25 10:13 AM EST documented as of this encounter Care Teams Chief Growth Officer Relationship Specialty Start Date End Date Kika Lucas MD [address] [place] [address] PCP - General Internal Medicine 06/12/21 documented as of this encounter
--- OUTSIDE RECORDS SUMMARY | 2025-02-08 08:43 | XMS_ITS | Clinical Summary ---
Author Organization [facility] Address [address] [place] [address] Phone Care Team Providers Care Marketing Copywriter Name Role Phone Kika Lucas MD Primary Care Provider [phone] Allergies Active Allergy Reactions Criticality Noted Date Comments [place] Anaphylaxis,Hives High 02/09/2019 Divalproex Nausea And Vomiting 11/24/2017 Peanut Anaphylaxis,Hives High 02/09/2019 Sulfa (Sulfonamide Antibiotics) 04/25/2024 Sulfamethoxazole-Trime thoprim Anaphylaxis High 11/02/2023 Throat closing, hives Sumatriptan Diarrhea 11/24/2017 w/ abdominal pain Topiramate Itching,Swelling 11/11/2017 Facial numbness Medications fluconazole (DIFLUCAN) 150 mg tablet Take one tab today, if no improvement in 3 dys then take 2nd dose 3 Active cholecalciferol (VITAMIN D-3) 50 mcg (2,000 unit) capsule Take 1 Tablet by mouth daily. 3 Active clotrimazole-be tamethasone (LOTRISONE) 1-0.05 % cream Apply topically to affected area twice daily for no more than 10 days 3 Active valACYclovir (VALTREX) 500 mg tablet Take 1 Tablet by mouth daily. 3 Active triamcinolone (NASACORT) 55 mcg nasal inhaler SPRAY 2 SPRAYS INTO EACH NOSTRIL EVERY DAY 3 Active loratadine (CLARITIN) 10 mg tablet TAKE 1 TABLET BY MOUTH EVERY DAY FOR ALLERGIES 3 Active ibuprofen (ADVIL,MOTRIN) 400 mg tablet TAKE 1 TAB BY MOUTH EVERY 4 HOURS NEEDED FEVER DONT TAKE WITH NAPROXEN BUT ALTERNATE WITH TYLENOL 3 Active omeprazole (PriLOSEC) [address] capsule TAKE 1 CAPSULE BY MOUTH EVERY DAY 1 Active albuterol HFA (PROAIR HFA ; PROVENTIL HFA ; VENTOLIN HFA) 90 mcg/actuation inhaler Inhale 2 Puffs into the lungs every 4 hours as needed for Cough, Wheezing or Shortness of Breath. 1 Active fluticasone propionate (FLONASE) 50 mcg/actuation nasal spray Use 1 spray per nostril twice daily. 1 Active EPINEPHrine (EpiPen 2-Edin) 0.3 mg/0.3 mL injection Inject 0.3 mg into the muscle as needed for Other (anaphylactic reaction). 2-pack. Fill with whichever brand is covered by insurance. 9 Active valACYclovir (VALTREX) 500 mg tablet Take 1 tablet (500 mg total) by mouth 1 (one) time each day. 30 each 5 5 07/31/20 25 Active metroNIDAZOLE (FLAGYL) 500 mg tablet Take 1 tablet (500 mg total) by mouth 2 (two) times a day for 7 days. 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 Generalized anxiety disorder 09/03/2019 Other dysphagia 09/03/2019 Functional abdominal pain syndrome 11/10/2018 Allergic rhinitis 03/10/2018 Depression 11/24/2017 Rosacea 11/24/2017 Encounters Date Type Department Care Team Description 02/01/2025 1:45 PM EST Office Visit Obstetrics & Gynecology - [address] [address] Ernestina Landon CNM Pelvic pain (Primary Dx); Hematuria, unspecified type; Acute vaginitis from Last 3 Months Immunizations Name Administration Dates Next Due Hepatitis B ([id number]-Y-Tuuoq , Recombivax HB-Adult) 19yo and older 11/22/2014,05/17/2014,04/19/2014 Influenza Quadravalent, MDCK , 0.5ml, preservative free (Flucelvax) 6mo and older 08/13/2020 Influenza Quadrivalent, 0.5m l, preservative free (Fluarix; FluLaval; Fluzone) ages 6mo and older (Afluria) 3yo and older 09/29/2023,10/08/2022,09/21/2021 Influenza Quadrivalent, with preservative (Fluzone; Afluria) 6mo and older 08/08/2019,08/09/2018 Influenza trivalent, 0.5mL, preservative free (Fluarix; FluLaval; Fluzone) ages 6mo and older (Afluria) 3 years and older 09/04/2024 MMR, measles mumps and rubel la Live (Priorix; M-M-R II) 12mo and older 04/11/2023,02/21/2023 Moderna SARS-CoV-2 COVID-19, mRNA, LNP-S, preservative free 10/08/2022 Pneumococcal conjugate 13 va lent (Prevnar 13, PCV13) 2mo and older 03/10/2018 Tdap Tetanus diptheria acell ular pertussis (Boostrix; Adacel) 7yo and older 05/21/2020,03/10/2018 Surgical History Surgery Date Site/Laterality Comments HYSTERECTOMY 03/2017 PROCEDURE: HISTORICAL HYSTERECTOMY LITHOTRIPSY PROCEDURE: HISTORICAL LITHOTRIPSY OTHER SURGICAL HISTORY 10/25/2016 PROCEDURE: HISTORICAL D&C; COMMENT: hysteroscopy OTHER SURGICAL HISTORY 2013 PROCEDURE: HISTORICAL ESSURE (BILATERAL OCCLUSION FALLOPIAN TUBES-PERMA) ESOPHAGOGASTRODUODENOSCOPY 09/29/2018 PROCEDURE: DC ESOPHAGOGASTRODUODENOSCOPY TRANSORAL DIAGNOSTIC; COMMENT: normal Medical History Medical History Date Comments History of migraine DX:History o f migraine Asthma DX:Asthma Anemia DX:Anemia; COMME NT: Alpha-thalessemia trait Recurrent HSV (herpes simplex virus) DX:Recurrent HSV (herpes simplex virus) Rosacea 11/24/2017 DX:Rosacea Depression 11/24/2017 DX:Depression Nephrolithiasis DX:Nephrolithias is; COMMENT: [place] 06/2016 [facility] Allergic rhinitis 03/10/2018 DX:Allergic rh initis Bacterial vaginosis 04/16/2016 DX:Bacterial vaginosis; COMMENT: 07/19/14 Yeast infection 04/16/2016 DX:Yeast infecti on; COMMENT: 12/25/15, 11/03/15 Enlarged uterus 07/22/2016 DX:Enlarged uter us; COMMENT: 11.4cm X 4.2cm X 5.8cm Vitamin D insufficiency 07/02/2016 DX:Vitam in D insufficiency; COMMENT: Vitamin D = 24 HSV-2 (herpes simplex virus 2) infection 014 DX:HSV-2 (herpes simplex virus 2) infection History of colposcopy 11/16/2012 DX:History of colposcopy; COMMENT: chronic cervicitis with squamous metaplasia Dysplasia of cervix, low grade (KIM 1) 2 DX:Dysplasia of cervix, low grade (KIM 1); COMMENT: 08/18/11 Menorrhagia 04/14/2015 DX:Menorrhagia History of UTI DX:History of UT I Vulval hematoma 2001 DX:Vulval hemato ma; COMMENT: evacuation of right vulvar hematoma after delivery History of blood transfusion 2001 DX: History of blood transfusion; COMMENT: after delivery Blood type, Rh negative 08/18/2011 DX:Blood type, Rh negative; COMMENT: B negative Thrombosed external hemorrhoid 11/10/2018 D X:Thrombosed external hemorrhoid Functional abdominal pain syndrome 11/10/2018 DX:Functional abdominal pain syndrome Dyslipidemia DX:Dyslipidemia Neck pain 09/03/2019 DX:Neck pain Thrombosed external hemorrhoid 11/10/2018 D X:Thrombosed external hemorrhoid Family History Medical History Relation Name Comments Lung cancer Aunt Hypertension Father Diabetes Maternal Grandfather Diabetes Maternal Grandmother Hypertension Maternal Grandmother Anemia Mother Arthritis Mother Hypertension Mother Other: Pillai syndrome Mother Uterine cancer Mother Breast cancer Neg Hx Colon cancer Neg Hx Ovarian cancer Neg Hx Prostate cancer Neg Hx Relation Name Status Comments Aunt Father Maternal Grandfather Maternal Grandmother Mother Social History Tobacco Use Types Packs/Day Years [...] Record ed Within the last 3 months, ho w many times did you visit the emergency [...] care for your loved ones. For example, child care attendant or elderly care for an older adult? [...] on file Sexual Orientation Not on file Obstetrics History Para Term AB IAB SAB Ectopic Multiple Livin g Live Births 4 4 4 4 4 Date Outcome GA Total Labor Labor/2nd/3rd Weight Sex Type Anes PTL Joselin A1 A5 Name Clin 02/2002 Term 40w 0d 3345 g (118 oz) M Vag-S pont None N Livin g Delivery Location:[facility] 02/2005 Term 38w 0d 3600 g (127 oz) F Vag-S pont None N Livin g Complications:None Delivery Location:[facility] 03/2008 Term 40w 0d 3175 g (112 oz) F Vag-S pont None N Livin g Complications:None Delivery Location:[place] 012 Term 39w 0d 3289 g (116 oz) M Vag-S pont Epidur al N Livin g Complications:None Delivery Location:[facility] Last Filed Vital Signs Vital Sign Reading [...] Mass Index 30 02/01/2025 1:46 PM EST Plan of Treatment Upcoming Encounters Date Type Department Care Team (Late st Contact Info) Description 06/10/2025 1:30 PM EDT Office Visit Obstetrics & [facility]necology - [facility] [address] [place] [address] Carito Kumar CNM [address] [place] [address] Health Maintenance Due Date Last Done Comments Pneumococcal Vaccine: Pediatrics (0 to 5 Years) and At-Risk Patients (6 to 64 Years) (2 of 2 - PPSV23) 05/05/2018 03/10/2018 COVID-19 Vaccine ( season) 2024 12/01/2022, 10/08/2022, 01/05/2022, Additional history exists Depression Screening 02/01/2026 02/01/2025 Social Influencers of Health Screening 02/01/2026 02/01/2025 DTaP,Tdap,and Td Vaccines (3 - Td or Tdap) 05/21/2030 05/21/2020, 03/10/2018 Hepatitis B Vaccines Completed 11/22/2014, 05/17/2014, 04/19/2014 HIV Screening Completed 02/25/2023 Hepatitis C Screening Completed 02/25/2023 MMR Vaccines Aged Out 04/11/2023, 02/21/2023 No lo nger eligible based on patient's age to complete this topic Influenza Vaccine Completed 09/04/2024, , 10/08/2022, Additional history exists HIB Vaccines Aged Out No longer eligi ble based on patient's age to complete this topic HPV Vaccines Aged Out No longer eligi ble based on patient's age to complete this topic Hepatitis A Vaccines Aged Out No long er eligible based on patient's age to complete this topic IPV Vaccines Aged Out No longer eligi ble based on patient's age to complete this topic Meningococcal ACWY Vaccine Aged Out N o longer eligible based on patient's age to complete this topic Meningococcal B Vacine Aged Out No lo nger eligible based on patient's age to complete this topic RSV Immunization Patients Under 20 months Aged Out No longer eligible based on patient's age to complete this topic Varicella Vaccines Aged Out No longer eligible based on patient's age to complete this topic Procedures Procedure Name Priority Date/Time Associated Diagnosis Comments TRICHOMONAS VAGINALIS ANTIGEN Routine 02/01/2025 2:18 PM EST Pelvic pain Acute vaginitis WET PREP, GENITAL Routine 02/01/2025 2:1 8 PM EST Pelvic pain Acute vaginitis CHLAMYDIA TRACHOMATIS AND NEISSERIA GONORRHOEAE PCR Routine 02/01/2025 2:18 PM EST Pelvic pain Acute vaginitis CULTURE URINE Routine 02/01/2025 2:12 PM EST Pelvic pain Hematuria, unspecified type POC URINE AUTO W/O MICRO Routine 02/01/2025 1:55 PM EST Pelvic pain HEPATITIS C SCREENING Routine 02/25/2023 HIV SCREENING Routine 02/25/2023 from Last 3 Months or Most Recently Relevant to Health Maintenance Results * Trichomonas vaginalis antigen (02/01/2025 2:18 PM EST) Trichomonas vaginalis Negative Negative 02/01/2025 9:01 PM EST [facility] Swab Vaginal structure / Unknown Non-blood Collection / Unknown 02/01/2025 2:18 PM EST 02/01/2025 4:13 PM EST Ernestina Landon CNM LAB MICROBIOLOGY - GENERAL OR DERABLES Final Result [facility] [address] [place] [address], * Chlamydia trachomatis and Neisseria gonorrhoeae molecular study (02/01/2025 2:18 PM EST) Neisseria gonorrhoeae PCR Negative Negative LAB MOLECULAR DIAGNOSTICS METHOD 02/02/2025 9:01 AM EST [facility] Chlamydia trachomatis PCR Negative Negative LAB MOLECULAR DIAGNOSTICS METHOD 02/02/2025 9:01 AM EST [facility] Swab Cervix uteri structure / Unknown Non-blood Collection / Unknown 02/01/2025 2:18 PM EST 02/01/2025 4:13 PM EST Ernestina [facility] LAB MICROBIOLOGY - GENERAL OR DERABLES Final Result [facility] [address] [place] [address], [place] [phone] * (ABNORMAL) Wet prep, genital (02/01/2025 2:18 PM EST) Clue Cells, Wet Prep Positive(A) Negative 02/01/2025 9:01 PM EST [facility] Yeast, Wet Prep Negative Negative 02/01/2025 9:01 PM EST [facility] Trichomonas, Wet Prep Indeterminate Negative 02/01/2025 9:01 PM EST [facility] Comment:Refer to Trichomonas antigen. Swab Vaginal structure / Unknown Non-blood Collection / Unknown 02/01/2025 2:18 PM EST 02/01/2025 4:13 PM EST [facility] LAB MICROBIOLOGY - GENERAL OR DERABLES Final Result Performing Organization Address [facility]/ZIP Co de Phone Number [facility] [address] [place] [address], [place] [phone] * Culture urine (02/01/2025 2:12 PM EST) Culture, Urine No growth 02/02/2025 9:12 AM EST [facility] Urine Urine specimen obtained by clean catch procedure / Unknown Non-blood Collection / Unknown 02/01/2025 2:12 PM EST 02/01/2025 4:13 PM EST [facility] LAB MICROBIOLOGY - GENERAL OR DERABLES Final Result [facility] [address] [place] [address], [place] [phone] * (ABNORMAL) POC Urine Auto W/O Micro (02/01/2025 1:55 PM EST) Leukocytes UA POC Positive(A) Negative Nitrite UA POC Negative Negative Urobilinogen UA POC Negative Negative Protein UA POC Negative Negative PH UA POC 5.0 5.0 - 9.0 Blood UA POC Positive(A) Negative, Trace Specific [place] UA POC 1.010 1.001 - 1.035 Ketones UA POC Negative Negative Bilirubin UA POC Negative Negative Glucose UA POC Normal Normal, Trace Urine Urine specimen obtained by clean catch procedure / Unknown 02/01/2025 1:55 PM EST Ernestina Landon CNM POINT OF CARE TEST ENTER/EDIT ORDERABLES Final Result * HIV Screening (02/25/2023) Pathologist [facility] HIV Screening abstracted Historical Provider HEALTH MAINTENANCE Final Result * Hepatitis C Screening (02/25/2023) Pathologist [facility] Hepatitis C Screening abstracted Historical Provider HEALTH MAINTENANCE Final Result from Last 3 Months or Most Recently Relevant to Health Maintenance Insurance [facility] [place] [address] Care Teams Marketing Copywriter Relationship Specialty Start Date End Date Kika Lucas MD [address], [place] [phone] PCP - General Internal Medicine 06/12/21
== END 2025-02-08 09:16 | disposition home or self-care (01) ==
PROVIDERS: PCP Internal Medicine; Visit Provider Physician Assistant Medical
DX: H66.90 Otitis media, unspecified, unspecified ear (principal); J01.90 Acute sinusitis, unspecified; B96.89 Other specified bacterial agents as the cause of diseases classified elsewhere

== ENCOUNTER 2025-02-08 08:31 | Outpatient (REF) | payer OTHER, SELFPAY ==
[2025-02-08 12:43] LABS: Influenza A PCR NEGATIVE (Negative); Influenza B PCR NEGATIVE (Negative); Resp Syncy Virus RNA Qual PCR NEGATIVE (Negative); SARS COV2 PCR INHOUSE NEGATIVE (Negative)
--- OUTSIDE RECORDS SUMMARY | 2025-02-08 12:50 | XMS_ITS | Clinical Summary ---
Author Organization [facility] Address [address] [place] [address] Phone Care Team Providers Care Lining Vamper Name Role Phone Kika Lucas MD Primary Care Provider [phone] Allergies Active Allergy Reactions Criticality Noted Date Comments [place] Anaphylaxis,Hives High 02/09/2019 Divalproex Nausea And Vomiting [...] 11/30/2024 Nephrolithiasis 11/30/2024 Overview (11/30/2024): [place] 06/2016 [facility] Recurrent HSV (herpes simplex virus) 11/30/2024 [...] EST Office Visit Obstetrics & Gynecology - [address] [address] Ernestina Landon CNM Pelvic pain (Primary Dx); Hematuria, unspecified type; Acute vaginitis from Last 3 Months Immunizations Name Administration Dates Next Due Hepatitis B (Tsiyuvf-F-Jzoug , Recombivax HB-Adult) 19yo and older 11/22/2014,05/17/2014,04/19/2014 [...] (BILATERAL OCCLUSION FALLOPIAN TUBES-PERMA) ESOPHAGOGASTRODUODENOSCOPY 09/29/2018 PROCEDURE: ME ESOPHAGOGASTRODUODENOSCOPY TRANSORAL DIAGNOSTIC; COMMENT: normal Medical History Medical History Date Comments History of migraine DX:History o f migraine Asthma DX:Asthma Anemia DX:Anemia; COMME NT: Alpha-thalessemia trait Recurrent HSV (herpes simplex virus) DX:Recurrent HSV (herpes simplex virus) Rosacea 11/24/2017 DX:Rosacea Depression 11/24/2017 DX:Depression Nephrolithiasis DX:Nephrolithias is; COMMENT: [place] 06/2016 [facility] Allergic rhinitis 03/10/2018 DX:Allergic rh initis [...] care for your loved ones. For example, children's choir director or elderly care for an older adult? [...] Vag-S pont None N Livin g Delivery Location:[facility] 02/2005 Term 38w 0d 3600 g (127 oz) F Vag-S pont None N Livin g Complications:None Delivery Location:[facility] 03/2008 Term 40w 0d 3175 g (112 oz) F Vag-S pont None N Livin g Complications:None Delivery Location:[place] 012 Term 39w 0d 3289 g (116 oz) M Vag-S pont Epidur al N Livin g Complications:None Delivery Location:[facility] Last Filed Vital Signs Vital Sign Reading [...] EDT Office Visit Obstetrics & Gynecology - [facility] [address] [place] [address] Carito Kumar CNM [address] [place] [address] Health Maintenance Due Date Last [...] vaginalis Negative Negative 02/01/2025 9:01 PM EST [facility] Swab Vaginal structure / Unknown Non-blood Collection / Unknown 02/01/2025 2:18 PM EST 02/01/2025 4:13 PM EST Ernestina Landon CNM LAB MICROBIOLOGY - GENERAL OR DERABLES Final Result [facility] [address] [place] [address], * Chlamydia trachomatis and Neisseria gonorrhoeae molecular study (02/01/2025 2:18 PM EST) Neisseria gonorrhoeae PCR Negative Negative LAB MOLECULAR DIAGNOSTICS METHOD 02/02/2025 9:01 AM EST [facility] Chlamydia trachomatis PCR Negative Negative LAB MOLECULAR DIAGNOSTICS METHOD 02/02/2025 9:01 AM EST [facility] Swab Cervix uteri structure / Unknown Non-blood Collection / Unknown 02/01/2025 2:18 PM EST 02/01/2025 4:13 PM EST Ernestina [facility] LAB MICROBIOLOGY - GENERAL OR DERABLES Final Result [facility] [address] [place] [address], [place] [phone] * (ABNORMAL) Wet prep, genital (02/01/2025 2:18 PM EST) Clue Cells, Wet Prep Positive(A) Negative 02/01/2025 9:01 PM EST [facility] Yeast, Wet Prep Negative Negative 02/01/2025 9:01 PM EST [facility] Trichomonas, Wet Prep Indeterminate Negative 02/01/2025 9:01 PM EST [facility] Comment:Refer to Trichomonas antigen. Swab Vaginal structure / Unknown Non-blood Collection / Unknown 02/01/2025 2:18 PM EST 02/01/2025 4:13 PM EST [facility] LAB MICROBIOLOGY - GENERAL OR DERABLES Final Result Performing Organization Address [facility]/ZIP Co de Phone Number [facility] [address] [place] [address], [place] [phone] * Culture urine (02/01/2025 2:12 PM EST) Culture, Urine No growth 02/02/2025 9:12 AM EST [facility] Urine Urine specimen obtained by clean catch procedure / Unknown Non-blood Collection / Unknown 02/01/2025 2:12 PM EST 02/01/2025 4:13 PM EST [facility] LAB MICROBIOLOGY - GENERAL OR DERABLES Final Result [facility] [address] [place] [address], [place] [phone] * (ABNORMAL) POC Urine Auto W/O Micro (02/01/2025 1:55 PM EST) Leukocytes UA POC Positive(A) Negative Nitrite UA POC Negative Negative Urobilinogen UA POC Negative Negative Protein UA POC Negative Negative PH UA POC 5.0 5.0 - 9.0 Blood UA POC Positive(A) Negative, Trace Specific [place] UA POC 1.010 1.001 - 1.035 Ketones UA POC Negative Negative Bilirubin UA POC Negative Negative Glucose UA POC Normal Normal, Trace Urine Urine specimen obtained by clean catch procedure / Unknown 02/01/2025 1:55 PM EST Ernestina Landon CNM POINT OF CARE TEST ENTER/EDIT ORDERABLES Final Result * HIV Screening (02/25/2023) Pathologist [facility] HIV Screening abstracted Historical Provider HEALTH MAINTENANCE Final Result * Hepatitis C Screening (02/25/2023) Pathologist [facility] Hepatitis C Screening abstracted Historical Provider HEALTH MAINTENANCE Final Result from Last 3 Months or Most Recently Relevant to Health Maintenance Insurance [facility] [facility] Care Teams Lining Vamper Relationship Specialty Start Date End Date Kika Lucas MD [address] [place], [place] [phone] PCP - General Internal Medicine 06/12/21
--- OUTSIDE RECORDS SUMMARY | 2025-02-08 12:50 | XMS_ITS | Encounter Summary ---
Author Organization [employer] Address [address] [place] [address] Care Team Providers Care Geriatrics Physician Name Role Phone Kika Lucas MD Primary Care Provider [phone] Reason for Visit * Reason Comments Vaginitis/Bacterial Vaginosis Encounter Details Date Type Department Care Team ([facility] st Contact Info) Description 02/01/2025 1:45 PM EST Office Visit Obstetrics & Gynecology - [address] [phone] Ernestina Landon, [facility] [address] [place] [id number] Pelvic pain (Primary Dx); Hematuria, unspecified type; [...] for your loved ones. For example, child & adolescent psychiatrist or elderly care for an older adult? [...] habits. : No dysuria, frequency or incontinence OLERICULTURE PROFESSOR: See HPI MUSCULOSKELETAL: No joint pain or [...] DX:Neck pain Nephrolithiasis DX:Nephrolithiasis; COMMENT: [place] 06/2016 [facility] Recurrent HSV (herpes simplex virus) DX:Recurrent HSV [...] History: Procedure Laterality Date ESOPHAGOGASTRODUODENOSCOPY 09/29/2018 PROCEDURE: [place] ESOPHAGOGASTRODUODENOSCOPY TRANSORAL DIAGNOSTIC; COMMENT: normal HYSTERECTOMY 03/2017 [...] or palpable masses LYMPHATICS: no inguinal adenopathy OLERICULTURE PROFESSOR: Normal external genitalia and urethra Vagina without abnormality ; + creamy yellow discharge Uterus/Cervix surgically absent. Normal adnexa without tenderness NEURO: Awake, alert and oriented x 3 SKIN: Skin color, texture, turgor normal. No rashes or lesions. This is to document that Genevieve Herrera was given the opportunity to have a master planner present during a sensitive examination at today's visit. She declines this offer of a master planner. Genevieve was seen today for vaginitis/bacterial vaginosis. [...] EDT Office Visit Obstetrics & Gynecology - [facility] [address] [place] [address] Carito Kumar CNM [address] [place] [address] documented as of this encounter [...] vaginalis Negative Negative 02/01/2025 9:01 PM EST [facility] Swab Vaginal structure / Unknown Non-blood Collection / Unknown 02/01/2025 2:18 PM EST 02/01/2025 4:13 PM [facility] - GENERAL OR DERABLES Final Result Performing Organization Address [facility] Co de Phone Number [facility] [address] [place] [address], * (ABNORMAL) Wet prep, genital (02/01/2025 2:18 PM EST) Clue Cells, Wet Prep Positive(A) Negative 02/01/2025 9:01 PM EST [facility] Yeast, Wet Prep Negative Negative 02/01/2025 9:01 PM EST [facility] Trichomonas, Wet Prep Indeterminate Negative 02/01/2025 9:01 PM EST [facility] Comment:Refer to Trichomonas antigen. Swab Vaginal structure / Unknown Non-blood Collection / Unknown 02/01/2025 2:18 PM EST 02/01/2025 4:13 PM EST [facility] LAB MICROBIOLOGY - GENERAL OR DERABLES Final Result Performing Organization Address City/[facility]/ZIP Co de Phone Number [facility] [address] [place] [address], [place] [phone] * Chlamydia trachomatis and Neisseria gonorrhoeae molecular study (02/01/2025 2:18 PM EST) Pathologist [facility] Neisseria gonorrhoeae PCR Negative Negative LAB MOLECULAR DIAGNOSTICS METHOD 02/02/2025 9:01 AM EST [facility] Chlamydia trachomatis PCR Negative Negative LAB MOLECULAR DIAGNOSTICS METHOD 02/02/2025 9:01 AM EST [facility] Swab Cervix uteri structure / Unknown Non-blood Collection / Unknown 02/01/2025 2:18 PM EST 02/01/2025 4:13 PM EST Ernestina [facility] LAB MICROBIOLOGY - GENERAL OR DERABLES Final Result Performing Organization Address [facility]/ZIP Co de Phone Number [facility] [address] [place] [address], [place] [phone] * Culture urine (02/01/2025 2:12 PM EST) [facility] Culture, Urine No growth 02/02/2025 9:12 AM [facility] Urine Urine specimen obtained by clean catch procedure / Unknown Non-blood Collection / Unknown 02/01/2025 2:12 PM EST 02/01/2025 4:13 PM EST [facility] MICROBIOLOGY - GENERAL OR DERABLES Final Result [facility] [address] [place] [address], [place] [phone] * (ABNORMAL) POC Urine Auto W/O Micro (02/01/2025 1:55 PM EST) [facility] Leukocytes UA POC Positive(A) Negative Nitrite UA POC Negative Negative Urobilinogen UA POC Negative Negative Protein UA POC Negative Negative PH UA POC 5.0 5.0 - 9.0 Blood UA POC Positive(A) Negative, Trace Specific [place] UA POC 1.010 1.001 - 1.035 Ketones [...] documented as of this encounter Care Teams Geriatrics Physician Relationship Specialty Start Date End Date Kika Lucas MD [address] [place] [address] PCP - General Internal Medicine 06/12/21 documented as of this encounter
== END 2025-02-08 08:32 | disposition home or self-care (01) ==
LOC: HO.CHCLNP 08:31
PROVIDERS: PCP Internal Medicine; Visit Provider Physician Assistant Medical
DX: J06.9 Acute upper respiratory infection, unspecified (principal); H66.90 Otitis media, unspecified, unspecified ear; J01.90 Acute sinusitis, unspecified; B96.89 Other specified bacterial agents as the cause of diseases classified elsewhere
CPT/HCPCS: 0241U; 99212

== ENCOUNTER 2025-04-16 15:02 | Outpatient (AMB) | payer OTHER, SELFPAY ==
--- NOTE | 2025-04-16 15:05 | A.OFFPC_ITS ---
Vital Signs 04/16/25 15:07 Height 5 ft 1 in Weight 152 lb BMI 28.7 BP 122/86 Blood Pressure Location Lt brachial Position Sitting Intake Visit Reasons: Pre-op clearance Donor Processor Required: No Accompanied by: Self / Same As Patient Allergies mushroom Allergy (Severe, Verified 04/16/25 15:19) Anaphylaxis peanut Allergy (Severe, Verified 04/16/25 15:19) Anaphylaxis sertraline Allergy (Severe, Verified 04/16/25 15:19) tongue itchiness divalproex sodium [From DEPAKOTE] Allergy (Intermediate, Verified 04/16/25 15:19) URTICARIA topiramate [From TOPAMAX] Allergy (Intermediate, Verified 04/16/25 15:19) FACIAL AND LIP NUMBNESS hydromorphone [From DILAUDID] Allergy (Mild, Verified 04/16/25 15:19) URTICARIA Sulfa (Sulfonamide Antibiotics) Adverse Reaction (Severe, Verified 04/16/25 15:19) Anaphylaxis nuts Allergy (Severe, Uncoded 04/16/25 15:19) Anaphylaxis moderna covid vaccine Allergy (Intermediate, Uncoded 04/16/25 15:19) hives,swelling Medication List - Last Reconciled 04/16/25 by Mer Santos MD acetaminophen 1,000 mg (2 x 500 mg) PO QID PRN cholecalciferol (vitamin D3) 50 mcg PO DAILY ibuprofen 600 mg PO Q6H PRN valacyclovir 1,000 mg PO Q8H 7 days Ventolin HFA 90 mcg/actuation (albuterol sulfate) 2 puffs inhalation Q6H PRN 30 days NS Tobacco use date assessed: 04/16/25 Dental Screening Dental Screen Date: 04/16/25 Did you have a dental visit in the last 12 months?: No Did you have a dental problem in the last 6 months where you did not have access to dental care?: No Was dental information given to patient?: Patient has dentist HPI HPI Comments History of Present Illness Details The patient is a 39-year-old female presenting with a ruptured breast implant. She had an initial breast augmentation in October 2022, followed by repair in March 2023 for a displaced implant on the right side. The issue has recurred with partial rupture of the right implant. She suspects her body may be rejecting the implant. The scheduled surgery will replace both implants to addre ss this issue. Blood pressure is stable, and no other current conditions impede her daily functions. Has 5 to 7 METs of ADLS. Denies any chest pain or shortness on breath. EKG and labs pending for medical clearance. [facility] Medical History De Quervain's tenosynovitis, bilateral Patellofemoral arthralgia of right knee Physical exam Right knee pain Bilateral otitis media Frequent UTI Ingrown toenail Breast pain, right Yeast infection Skin tag Acute tonsillitis Encounter for breast augmentation Overweight (BMI 25.0-29.9) Preoperative clearance Buttocks nodule Screen for STD (sexually transmitted disease) Burning with urination Buttocks nodule Abnormal bruising Lipoma Urinary frequency Vaginal discharge Concern about STD in female without diagnosis Constipation History of COVID-19 Ethmoid sinusitis URI (upper respiratory infection) HSV (herpes simplex virus) infection Hypovitaminosis D GERD (gastroesophageal reflux disease) Family history of hypertension Asthma Surgical History (Updated 04/16/25 @ 15:24 by Mer Santos MD) H/O breast augmentation Status post excision of lipoma (~08/10/22) History of kidney stones History of hysterectomy History of umbilical hernia repair Family History Mother Hypertension Cervical cancer Father No problems noted. Maternal Aunt Colon cancer Maternal Aunt Lung cancer Social History Housing: House Alcohol intake: current Alcohol intake frequency: holidays/special occasions only Alcohol type: hard liquor Patient Tobacco Use Status: Never used Tobacco e-Cigarette/Vaping Use: Never Used Second Hand Smoke Exposure: No service: No Current occupational status: employed Current occupational exposures/hazards: No Cognitive needs: No Hearing needs: No Vision needs: Yes Questionnaire PHQ-9 Over the last 2 weeks, how often have you been bothered by any of the following problems? 1. Little interest or pleasure in doing things: not at all 2. Feeling down, depressed, or hopeless: not at all 3. Trouble falling or staying asleep, or sleeping too much: not at all 4. Feeling tired or having little energy: not at all 5. Poor appetite or overeating: not at all 6. Feeling bad about yourself - or that you are a failure or have let yourself or your family down: not at all 7. Trouble concentrating on things, such as reading the newspaper or watching television: not at all 8. Moving or speaking so slowly that other people could have noticed. Or the opposite - being so fidgety or restless that you have been moving around a lot more than usual: not at all 9. Thoughts that you would be better off or of hurting yourself in some way: not at all Total score: 0 Depression Screening Interpretation: Negative Depression Screening Done: Yes 52988 - PHQ-9 Billing: Yes Source: Developed by Drs. Tang Horowitz, Dahiana Nieto, Vernon Javier and colleagues, with an educational donald from [employer]. Thrive Questionnaire Date Thrive assessed: 04/16/25 I am a: Patient What is your living situation today?: I have a steady place to live Within the past 12 months, did the food you bought not last and you didn't have the money to get more?: Never true Within the past 12 months, did you worry whether your food would run out before you got money to buy more?: Never true Do you have trouble paying for medicines?: No Do you have trouble getting transportation to medical appointments?: No Do you have trouble paying your heating and electricity bill?: No Do you have trouble taking care of your child, family member or friend?: No Do you have trouble with day-to-day activities such as bathing, preparing meals, shopping, managing finances, etc.?: No Are you currently unemployed and looking for a job?: No Are you interested in more education?: No Please select the resources that you would like help with: None Currently or been in a relationship where the following occur: No concerns reported THRIVE Score: 0 AUDIT C Alcohol Use Questionnaire (AUDIT-C) 1. How often do you have a drink containing alcohol?: Never Total Score: 0 Score Reviewed/Action Taken: No MARCO-7 AMB Questionnaire MARCO-7 Date MARCO - 7 assessed: 04/16/25 Feeling nervous, anxious, or on edge: 0 = Not at all Not being able to stop or control worryin = Not at all Worrying too much about different things: 0 = Not at all Trouble relaxin = Not at all Being so restless that it is hard to sit still: 0 = Not at all Becoming easily annoyed or irritable: 0 = Not at all Feeling afraid as if something awful might happen: 0 = Not at all Total MARCO-7 score (0-4 normal; 5-9 mild; 10-14 moderate; 15-21 severe): 0 Source: Developed by Drs. Tang Horowitz, Dahiana Nieto, Vernon Javier and colleagues, with an educational donald from [employer]. MARCO-7 Assessment Billing MARCO-7 Assessment Tool: MARCO-7 Assessment 68934 Review of Systems Const All systems reviewed & are unremarkable except as noted in HPI and below Card Denies chest pain at rest, Denies chest pain with activity, Denies edema, Denies irregular heart rhythm, Denies claudication, Denies dyspnea, Denies dyspnea on exertion, Denies orthopnea, Denies paroxysmal nocturnal dyspnea and Denies slow heart rate Resp Denies cough, Denies dyspnea and Denies dyspnea on exertion Physical exam (Primary Care) Vital Signs: Last Vital Signs BP 122/86 04/16/25 15:07 BMI result Body Mass Index 28.7 Tobacco/Smoking Status: Tobacco use Status Tobacco use date assessed 04/16/25 04/16/25 15:16 Patient Tobacco Use Status Never used Tobacco 04/16/25 15:11 e-Cigarette/Vaping Use Never Used 04/16/25 15:11 PHQ-9: PHQ-9 Score PHQ-9: Total score 0 04/16/25 15:11 Depression Screening Interpretation: Negative Thrive Assessment: Date of Thrive Assessment Date Thrive assessed 04/16/25 04/16/25 15:11 Currently or been in a relationship where the following occur: No concerns reported Resp Effort & Inspection: normal respiratory effort Auscultation: clear to auscultation bilaterally Cardio Jugular venous distension: no JVD Rate: regular rate Rhythm: regular rhythm Heart sounds: S1 normal heart sound present and S2 normal heart sound present GI Inspection: Yes normal to inspection Palpation (GI): Soft to palpation and nontender Auscultation: normal bowel sounds Skin General skin exam: no rashes or lesions noted Neuro General: no focal motor deficits Extrem General: Yes full ROM Psych Appearance: grossly normal Coding Level of Care Code Est Pt Level 3 (83816) Complex EM visit Add On G2211 Diagnoses Pre-op evaluation Z01.818 Additional Codes PHQ-9 - 04919 - PHQ-9 Billing: Yes ([id number]) MARCO-7 Assessment Billing - MARCO-7 Assessment Tool: MARCO-7 Assessment 36689 ([id number]) Time Spent (min) 19 Assessment & Plan Assessment & Plan (1) Pre-op evaluation: Code(s): Z01.818 - Encounter for other preprocedural examination Category: Medical Plan The treatment plan involves replacing both breast implants due to the partially ruptured right implant and the potential for rejection of the current implants. The patient will complete required fasting blood work promptly for surgical clearance. The replacement aims to prevent further complications. The discussion highlighted the necessity of the operation and pre-operative evaluation. The plan includes ensuring test results are available for final clearance to proceed with surgery. Patient was informed and verbally consented to the use of an ambient scribe for clinic note documentation during this visit. I discussed with the patient the plan for surgical intervention to address the ruptured implant, recommending the replacement of both implants to prevent further issues. We talked about the possibility of implant rejection and the benefits of selecting new implants. Preparations for surgery, including specific pre-operative lab tests, were outlined clearly with a necessity for fasting, to ensure patient is fit for surgery. We agreed on a timeline for completing these labs and emphasized the importance of adhering to these recommendations for a successful outcome. Patient Instructions: - Complete blood work by tomorrow morning, follow fasting requirements. - Be available for surgery preparation as scheduled. - Ensure to send laboratory results to the doctor as instructed. - Contact medical office promptly if experiencing any new symptoms or concerns. - Follow guidance regarding travel and surgical clearance timelines.
[2025-04-16 15:07] VITALS: BP 122/86; BMI 28.7
--- OUTSIDE RECORDS SUMMARY | 2025-04-16 16:09 | XMS_ITS | Clinical Summary ---
Author Organization [facility] Address [address] [place] [address] Phone Care Team Providers Care Clinical Assessment Manager Name Role Phone Kika Lucas MD Primary Care Provider [phone] Allergies Active Allergy Reactions Criticality Noted Date Comments [place] Anaphylaxis,Hives High 02/09/2019 Divalproex Nausea And Vomiting [...] 30 each 5 5 07/31/20 25 Active Active Problems Problem Noted Date Diagnosed Date Asthma 11/30/2024 Nephrolithiasis 11/30/2024 Overview (11/30/2024): [place] 06/2016 [facility] Recurrent HSV (herpes simplex virus) 11/30/2024 [...] EST Office Visit Obstetrics & Gynecology - [address] [address] Ernestina Landon CNM Pelvic pain (Primary Dx); Hematuria, unspecified type; Acute vaginitis from Last 3 Months Immunizations Name Administration Dates Next Due Hepatitis B (Dzecjez-F-Idujo , Recombivax HB-Adult) 19yo and older 11/22/2014,05/17/2014,04/19/2014 [...] (BILATERAL OCCLUSION FALLOPIAN TUBES-PERMA) ESOPHAGOGASTRODUODENOSCOPY 09/29/2018 PROCEDURE: [place] ESOPHAGOGASTRODUODENOSCOPY TRANSORAL DIAGNOSTIC; COMMENT: normal Medical History Medical History Date Comments History of migraine DX:History o f migraine Asthma DX:Asthma Anemia DX:Anemia; COMME NT: Alpha-thalessemia trait Recurrent HSV (herpes simplex virus) DX:Recurrent HSV (herpes simplex virus) Rosacea 11/24/2017 DX:Rosacea Depression 11/24/2017 DX:Depression Nephrolithiasis DX:Nephrolithias is; COMMENT: [place] 06/2016 [facility] Allergic rhinitis 03/10/2018 DX:Allergic rh initis [...] loved ones. For example, child care attendant school or elderly care for an older adult? [...] Vag-S pont None N Livin g Delivery Location:[facility] 02/2005 Term 38w 0d 3600 g (127 oz) F Vag-S pont None N Livin g Complications:None Delivery Location:[facility] 03/2008 Term 40w 0d 3175 g (112 oz) F Vag-S pont None N Livin g Complications:None Delivery Location:[place] 012 Term 39w 0d 3289 g (116 oz) M Vag-S pont Epidur al N Livin g Complications:None Delivery Location:[facility] Filed Vital Signs Vital Sign Reading Time [...] Care Team (Late st Contact Info) Description 05/06/2025 10:00 AM EDT Consult Plastic & Reconstructive Surgery - [place] [address] [phone] Josh Frye DO [address] [address] 06/10/2025 1:30 PM EDT Office Visit Obstetrics & Gynecology - [address] [place] [address] Carito Kumar, CNM [address] [place] [address] Health Maintenance Due Date Last Done Comments Pneumococcal Vaccine: Pediatrics (0 to 5 Years) and At-Risk Patients (6 to 64 Years) (2 of 2 - PPSV23) 05/05/2018 03/10/2018 COVID-19 Vaccine ( - season) 2024 12/01/2022, 10/08/2022, 01/05/2022, Additional history [...] age to complete this topic Meningococcal B Vaccine Aged Out No l onger eligible based on patient's age to complete [...] vaginalis Negative Negative 02/01/2025 9:01 PM EST [facility] Swab Vaginal structure / Unknown Non-blood Collection / Unknown 02/01/2025 2:18 PM EST 02/01/2025 4:13 PM EST Ernestina Landon CNM LAB MICROBIOLOGY - GENERAL OR DERABLES Final Result [facility] [address] [place] [address], * Chlamydia trachomatis and Neisseria gonorrhoeae molecular study (02/01/2025 2:18 PM EST) Neisseria gonorrhoeae PCR Negative Negative LAB MOLECULAR DIAGNOSTICS METHOD 02/02/2025 9:01 AM EST [facility] Chlamydia trachomatis PCR Negative Negative LAB MOLECULAR DIAGNOSTICS METHOD 02/02/2025 9:01 AM EST [facility] Swab Cervix uteri structure / Unknown Non-blood Collection / Unknown 02/01/2025 2:18 PM EST 02/01/2025 4:13 PM EST Ernestina Landon [facility] MICROBIOLOGY - GENERAL OR DERABLES Final Result [facility] [address] [place] [address], * (ABNORMAL) Wet prep, genital (02/01/2025 2:18 PM EST) Clue Cells, Wet Prep Positive(A) Negative 02/01/2025 9:01 PM EST [facility] Yeast, Wet Prep Negative Negative 02/01/2025 9:01 PM EST [facility] Trichomonas, Wet Prep Indeterminate Negative 02/01/2025 9:01 PM EST [facility] Comment:Refer to Trichomonas antigen. Swab Vaginal structure / Unknown Non-blood Collection / Unknown 02/01/2025 2:18 PM EST 02/01/2025 4:13 PM EST Ernestina Landon [facility] MICROBIOLOGY - GENERAL OR DERABLES Final Result Performing Organization Address [facility]/ZIP Co de Phone Number [facility] [address] [place] [address], * Culture urine (02/01/2025 2:12 PM EST) Culture, Urine No growth 02/02/2025 9:12 AM EST [facility] Urine Urine specimen obtained by clean catch procedure / Unknown Non-blood Collection / Unknown 02/01/2025 2:12 PM EST 02/01/2025 4:13 PM EST Ernestina Landon [facility] MICROBIOLOGY - GENERAL OR DERABLES Final Result [facility] [address] [place] [address], * (ABNORMAL) POC Urine Auto W/O Micro (02/01/2025 1:55 PM EST) Pathologist [facility] Leukocytes UA POC Positive(A) Negative Nitrite UA POC Negative Negative Urobilinogen UA POC Negative Negative Protein UA POC Negative Negative PH UA POC 5.0 5.0 - 9.0 Blood UA POC Positive(A) Negative, Trace Specific [place] UA POC 1.010 1.001 - 1.035 Ketones UA POC Negative Negative Bilirubin UA POC Negative Negative Glucose UA POC Normal Normal, Trace Urine Urine specimen obtained by clean catch procedure / Unknown 02/01/2025 1:55 PM EST Ernestina Landon CNM POINT OF CARE TEST ENTER/EDIT ORDERABLES Final Result * HIV Screening (02/25/2023) [facility] HIV Screening abstracted Historical Provider HEALTH MAINTENANCE Final Result * Hepatitis C Screening (02/25/2023) [facility] Hepatitis C Screening abstracted Historical Provider HEALTH MAINTENANCE Final Result from Last 3 Months or Most Recently Relevant to Health Maintenance Insurance [facility] [employer] Care Teams Clinical Assessment Manager Relationship Specialty Start Date End Date Kika Lucas MD [address] [place] [address] PCP - General Internal Medicine 06/12/21
== END 2025-04-16 15:31 | disposition home or self-care (01) ==
LOC: HO.HMCH 15:02
PROVIDERS: PCP Internal Medicine; Visit Provider Internal Medicine
DX: Z01.818 Encounter for other preprocedural examination (principal)

== ENCOUNTER → 2025-04-16 15:02 | Outpatient (REF) | payer OTHER, SELFPAY ==
--- NOTE | 2025-04-16 15:53 | ECG_ITS ---
Test Reason : PRE OP Blood Pressure : */* mmHG Vent. Rate : 72 BPM Atrial Rate : 72 BPM P-R Int : 144 ms QRS Dur : 78 ms QT Int : 396 ms P-R-T Axes : 69 41 52 degrees QTcB Int : 433 ms Normal sinus rhythm Normal ECG When compared with ECG of 06-Feb-2024 08:11, No significant change was found Referred By: Mer Santos Electronically Signed By: Victorino Mcintyre
--- OUTSIDE RECORDS SUMMARY | 2025-04-16 16:41 | XMS_ITS | Clinical Summary ---
Author Organization [facility] Address [address] [place] [address] Phone Care Team Providers Care Size Roller Operator Name Role Phone Kika Lucas MD Primary Care Provider [phone] Allergies Active Allergy Reactions Criticality Noted Date Comments [place] Anaphylaxis,Hives High 02/09/2019 Divalproex Nausea And Vomiting [...] 11/30/2024 Nephrolithiasis 11/30/2024 Overview (11/30/2024): [place] 06/2016 [facility] Recurrent HSV (herpes simplex virus) 11/30/2024 [...] EST Office Visit Obstetrics & Gynecology - [address] [address] Ernestina Landon CNM Pelvic pain (Primary Dx); Hematuria, unspecified type; Acute vaginitis from Last 3 Months Immunizations Name Administration Dates Next Due Hepatitis B (Nnswjuc-M-Oqbfb , Recombivax HB-Adult) 19yo and older 11/22/2014,05/17/2014,04/19/2014 [...] (BILATERAL OCCLUSION FALLOPIAN TUBES-PERMA) ESOPHAGOGASTRODUODENOSCOPY 09/29/2018 PROCEDURE: [place] ESOPHAGOGASTRODUODENOSCOPY TRANSORAL DIAGNOSTIC; COMMENT: normal Medical History Medical History Date Comments History of migraine DX:History o f migraine Asthma DX:Asthma Anemia DX:Anemia; COMME NT: Alpha-thalessemia trait Recurrent HSV (herpes simplex virus) DX:Recurrent HSV (herpes simplex virus) Rosacea 11/24/2017 DX:Rosacea Depression 11/24/2017 DX:Depression Nephrolithiasis DX:Nephrolithias is; COMMENT: [place] 06/2016 [facility] Allergic rhinitis 03/10/2018 DX:Allergic rh initis [...] for your loved ones. For example, child welfare director or elderly care for an older [...] Vag-S pont None N Livin g Delivery Location:[facility] 02/2005 Term 38w 0d 3600 g (127 oz) F Vag-S pont None N Livin g Complications:None Delivery Location:[facility] 03/2008 Term 40w 0d 3175 g (112 oz) F Vag-S pont None N Livin g Complications:None Delivery Location:[place] 012 Term 39w 0d 3289 g (116 oz) M Vag-S pont Epidur al N Livin g Complications:None Delivery Location:[facility] Filed Vital Signs Vital Sign Reading [...] EDT Consult Plastic & Reconstructive Surgery - [place] [address] [phone] Josh Frye DO [address] [address] 06/10/2025 1:30 PM EDT Office Visit Obstetrics & Gynecology - [address] [place] [address] Carito Kumar, CNM [address] [place] [address] Health Maintenance Due Date Last [...] DERABLES Final Result [facility] [address] [place] [address], * Chlamydia trachomatis and Neisseria gonorrhoeae molecular [...] EST 02/01/2025 4:13 PM EST Ernestina Landon [facility] MICROBIOLOGY - GENERAL OR DERABLES Final Result [facility] [address] [place] [address], * (ABNORMAL) Wet prep, genital (02/01/2025 2:18 [...] EST 02/01/2025 4:13 PM EST Ernestina Landon [facility] MICROBIOLOGY - GENERAL OR DERABLES Final Result Performing Organization Address [facility]/ZIP Co de Phone Number [facility] [address] [place] [address], * Culture urine (02/01/2025 2:12 PM EST) Culture, Urine No growth 02/02/2025 9:12 AM EST [facility] Urine Urine specimen obtained by clean catch procedure / Unknown Non-blood Collection / Unknown 02/01/2025 2:12 PM EST 02/01/2025 4:13 PM EST Ernestina Landon [facility] MICROBIOLOGY - GENERAL OR DERABLES Final Result [facility] [address] [place] [address], * (ABNORMAL) POC Urine Auto W/O Micro (02/01/2025 1:55 PM EST) Pathologist [facility] Leukocytes UA POC Positive(A) Negative Nitrite UA POC Negative Negative Urobilinogen UA POC Negative Negative Protein UA POC Negative Negative PH UA POC 5.0 5.0 - 9.0 Blood UA POC Positive(A) Negative, Trace Specific [place] UA POC 1.010 1.001 - 1.035 Ketones UA POC Negative Negative Bilirubin UA POC Negative Negative Glucose UA POC Normal Normal, Trace Urine Urine specimen obtained by clean catch procedure / Unknown 02/01/2025 1:55 PM EST Ernestina Landon CNM POINT OF CARE TEST ENTER/EDIT ORDERABLES Final Result * HIV Screening (02/25/2023) [facility] HIV Screening abstracted Historical Provider HEALTH MAINTENANCE Final Result * Hepatitis C Screening (02/25/2023) [facility] Hepatitis C Screening abstracted Historical Provider HEALTH MAINTENANCE Final Result from Last 3 Months or Most Recently Relevant to Health Maintenance Insurance [facility] Care Teams Size Roller Operator Relationship Specialty Start Date [place] [address] PCP - General Internal Medicine 06/12/21
== END ==
LOC: HO.CARD 15:02
PROVIDERS: PCP Internal Medicine; Visit Provider Internal Medicine
DX: Z01.818 Encounter for other preprocedural examination (principal)
CPT/HCPCS: 93005; 96127; 99212

== ENCOUNTER → 2025-04-16 15:53 | Outpatient (BNV) | payer OTHER, SELFPAY | PROVIDERS: PCP Internal Medicine; Visit Provider Internal Medicine Cardiovascular Disease | DX: Z01.810 Encounter for preprocedural cardiovascular examination (principal) | CPT/HCPCS: 93010 ==

== ENCOUNTER 2025-04-17 06:04 | Outpatient (REF) | payer OTHER, SELFPAY ==
--- OUTSIDE RECORDS SUMMARY | 2025-04-17 06:06 | XMS_ITS | Clinical Summary ---
Author Organization [facility] Address [address] [place] [address] Phone Care Team Providers Care Heel Scourer Name Role Phone Kika Lucas MD Primary Care Provider [phone] Allergies Active Allergy Reactions Criticality Noted Date Comments [place] Anaphylaxis,Hives High 02/09/2019 Divalproex Nausea And Vomiting [...] 11/30/2024 Nephrolithiasis 11/30/2024 Overview (11/30/2024): [place] 06/[facility] Recurrent HSV (herpes simplex virus) 11/30/2024 [...] EST Office Visit Obstetrics & Gynecology - [address] [phone] Ernestina Landon CNM Pelvic pain (Primary Dx); Hematuria, unspecified type; Acute vaginitis from Last 3 Months Immunizations Name Administration Dates Next Due Hepatitis B (Frimfnv-G-Qrzwx , Recombivax HB-Adult) 19yo and older 11/22/2014,05/17/2014,04/19/2014 [...] (BILATERAL OCCLUSION FALLOPIAN TUBES-PERMA) ESOPHAGOGASTRODUODENOSCOPY 09/29/2018 PROCEDURE: [place] ESOPHAGOGASTRODUODENOSCOPY TRANSORAL DIAGNOSTIC; COMMENT: normal Medical History Medical History Date Comments History of migraine DX:History o f migraine Asthma DX:Asthma Anemia DX:Anemia; COMME NT: Alpha-thalessemia trait Recurrent HSV (herpes simplex virus) DX:Recurrent HSV (herpes simplex virus) Rosacea 11/24/2017 DX:Rosacea Depression 11/24/2017 DX:Depression Nephrolithiasis DX:Nephrolithias is; COMMENT: [place] 06/2016 [facility] Allergic rhinitis 03/10/2018 DX:Allergic rh initis [...] for your loved ones. For example, child development specialist or elderly care for an older adult? [...] Vag-S pont None N Livin g Delivery Location:[facility] 02/2005 Term 38w 0d 3600 g (127 oz) F Vag-S pont None N Livin g Complications:None Delivery Location:[facility] 03/2008 Term 40w 0d 3175 g (112 oz) F Vag-S pont None N Livin g Complications:None Delivery Location:[place] 012 Term 39w 0d 3289 g (116 oz) M Vag-S pont Epidur al N Livin g Complications:None Delivery Location:[facility] Filed Vital Signs Vital Sign Reading Time [...] EDT Consult Plastic & Reconstructive Surgery - [place] [address] [phone] Josh Frye DO [address] [address] 06/10/2025 1:30 PM EDT Office Visit Obstetrics & Gynecology - [address] [place] [address] Carito Kumar, CNM [address] [place] [address] Health Maintenance Due Date Last [...] DERABLES Final Result [facility] [address] [place] [address], * Chlamydia trachomatis and Neisseria gonorrhoeae molecular [...] EST 02/01/2025 4:13 PM EST Ernestina Landon [facility] MICROBIOLOGY - GENERAL OR DERABLES Final Result [facility] [address] [place] [address], * (ABNORMAL) Wet prep, genital (02/01/2025 2:18 [...] EST 02/01/2025 4:13 PM EST Ernestina Landon [facility] MICROBIOLOGY - GENERAL OR DERABLES Final Result Performing Organization Address [facility]/ZIP Co de Phone Number [facility] [address] [place] [address], * Culture urine (02/01/2025 2:12 PM EST) Culture, Urine No growth 02/02/2025 9:12 AM EST [facility] Urine Urine specimen obtained by clean catch procedure / Unknown Non-blood Collection / Unknown 02/01/2025 2:12 PM EST 02/01/2025 4:13 PM EST Ernestina Landon [facility] MICROBIOLOGY - GENERAL OR DERABLES Final Result [facility] [address] [place] [address], * (ABNORMAL) POC Urine Auto W/O Micro (02/01/2025 1:55 PM EST) Pathologist [facility] Leukocytes UA POC Positive(A) Negative Nitrite UA POC Negative Negative Urobilinogen UA POC Negative Negative Protein UA POC Negative Negative PH UA POC 5.0 5.0 - 9.0 Blood UA POC Positive(A) Negative, Trace Specific [place] UA POC 1.010 1.001 - 1.035 Ketones UA POC Negative Negative Bilirubin UA POC Negative Negative Glucose UA POC Normal Normal, Trace Urine Urine specimen obtained by clean catch procedure / Unknown 02/01/2025 1:55 PM EST Ernestina Landon CNM POINT OF CARE TEST ENTER/EDIT ORDERABLES Final Result * HIV Screening (02/25/2023) [facility] HIV Screening abstracted Historical Provider HEALTH MAINTENANCE Final Result * Hepatitis C Screening (02/25/2023) [facility] Hepatitis C Screening abstracted Historical Provider HEALTH MAINTENANCE Final Result from Last 3 Months or Most Recently Relevant to Health Maintenance Insurance [facility] Care Teams Heel Scourer Relationship Specialty Start Date End Date Kika Lucas MD [address] [place] [address] PCP - General Internal Medicine 06/12/21
[2025-04-17 06:13] LABS: MANUAL DIFF FLAG NO
[2025-04-17 07:35] LABS: Prothrombin Time 11.5 SEC (10.9-12.4)
[2025-04-17 07:37] LABS: Partial Thromboplastin Time 32.1 SEC (26.0-36.8)
[2025-04-17 07:39] LABS: Basophils Percent Auto 0.4 % (0-2); Eosinophils Absolute Auto 0.2 X10*3/uL (0.0-0.4); Eosinophils Percent Auto 2.9 % (0-4); Hematocrit 40.8 % (37.0-47.0); Hemoglobin 12.7 g/dl (12.0-16.0); Imm Gran Abs Auto 0.06 X10*3/uL (0.00-0.03); Imm Gran Pct Auto 0.8 % (0.0-0.4); Lymphocytes Absolute Auto 2.6 X10*3/uL (1.2-4.9); Lymphocytes Percent Auto 34.4 % (20-40); Mean Corpuscular HGB Conc 31.1 g/dl (31.0-35.0); Mean Corpuscular Hemoglobin 20.5 pg (27.0-33.0); Mean Corpuscular Volume 65.7 fL (80.0-98.0); Monocytes Absolute Auto 0.6 X10*3/uL (0.1-1.2); Monocytes Percent Auto 7.8 % (2-11); Neutrophils Percent Auto 53.7 % (45-73); Platelet Count 219 X10*3/uL (160-400); Red Blood Count 6.21 X10*6/uL (4.20-5.50); Red Cell Distribution Width 15.8 % (11.0-16.0); White Blood Count 7.5 X10*3/uL (4.8-10.8)
[2025-04-17 08:08] LABS: Alanine Aminotransferase 10 U/L (0-31); Albumin Level 4.4 g/dL (3.5-5.0); Alkaline Phosphatase 56 U/L (39-117); Anion Gap 12 (12-20); Aspartate Amino Transferase 22 U/L (5-31); Bilirubin Total 0.5 mg/dL (0.0-1.0); Blood Urea Nitrogen 12 mg/dL (9-16); Carbon Dioxide 23 mmol/L (22-29); Chloride 108 mmol/L (96-108); Estimated Glomerular Filt Rate > 60; Glucose Fasting 89 mg/dL (60-99); Potassium 4.3 mmol/L (3.3-5.1); Sodium 139 mmol/L (135-145); Total Protein 7.9 g/dL (6.5-8.0)
[2025-04-17 08:19] LABS: HCG Quantitative < 2 mIU/mL
== END 2025-04-17 06:05 | disposition home or self-care (01) ==
LOC: HO.LAB 06:04
PROVIDERS: PCP Internal Medicine; Visit Provider Internal Medicine
DX: Z01.818 Encounter for other preprocedural examination (principal); D64.9 Anemia, unspecified; Z79.01 Long term (current) use of anticoagulants
CPT/HCPCS: 36415; 80053; 84702; 85025; 85610; 85730

== ENCOUNTER 2025-05-01 13:43 | Outpatient (AMB) | payer OTHER, SELFPAY ==
--- NOTE | 2025-05-01 13:54 | A.OFFPC_ITS ---
Vital Signs 05/01/25 13:55 Height 5 ft 1 in Weight 150 lb BMI 28.3 BP 120/78 Blood Pressure Location Lt brachial Position Sitting Intake Visit Reasons: f/u breast implant done in [place] Door Patcher Required: No Accompanied by: Self / Same As Patient Allergies mushroom Allergy (Severe, Verified 05/01/25 14:06) Anaphylaxis peanut Allergy (Severe, Verified 05/01/25 14:06) Anaphylaxis sertraline Allergy (Severe, Verified 05/01/25 14:06) tongue itchiness divalproex sodium [From DEPAKOTE] Allergy (Intermediate, Verified 05/01/25 14:06) URTICARIA topiramate [From TOPAMAX] Allergy (Intermediate, Verified 05/01/25 14:06) FACIAL AND LIP NUMBNESS hydromorphone [From DILAUDID] Allergy (Mild, Verified 05/01/25 14:06) URTICARIA Sulfa (Sulfonamide Antibiotics) Adverse Reaction (Severe, Verified 05/01/25 14:06) Anaphylaxis nuts Allergy (Severe, Uncoded 05/01/25 14:06) Anaphylaxis moderna covid vaccine Allergy (Intermediate, Uncoded 05/01/25 14:06) hives,swelling Medication List - Last Reconciled 05/01/25 by Mer Santos MD acetaminophen 1,000 mg (2 x 500 mg) PO QID PRN cholecalciferol (vitamin D3) 50 mcg PO DAILY ibuprofen 600 mg PO Q6H PRN montelukast 10 mg PO BEDTIME 30 days valacyclovir 1,000 mg PO Q8H 7 days Ventolin HFA 90 mcg/actuation (albuterol sulfate) 2 puffs inhalation Q6H PRN 30 days NS Tobacco use date assessed: 04/16/25 Dental Screening Dental Screen Date: 04/16/25 HPI HPI Comments History of Present Illness Details The patient is a 39-year-old female with GERD and low vitamin-D presenting with postoperative checkup following implant exchange surgery. She reports persistent, albeit improving, pain since the surgery on April 23. Attempts are being made to manage this pain without over-reliance on medications. The surgical site shows some redness but does not appear to be significantly swollen or infected. Previously significant pain is now described as moderate with some discomfort still present. The patient noted her recovery in terms of normal functions, particularly being able to attend to bathroom n eeds. She expressed satisfaction with the lack of implant dislocation post- surgery. Any surgical interventions or adjustments are deferred to her surgeon. GERD stable with PPIs and on vitamin-D supplements for her low vitamin-D. [facility] Medical History De Quervain's tenosynovitis, bilateral Patellofemoral arthralgia of right knee Physical exam Right knee pain Bilateral otitis media Frequent UTI Ingrown toenail Breast pain, right Yeast infection Skin tag Acute tonsillitis Encounter for breast augmentation Overweight (BMI 25.0-29.9) Preoperative clearance Buttocks nodule Screen for STD (sexually transmitted disease) Burning with urination Buttocks nodule Abnormal bruising Lipoma Urinary frequency Vaginal discharge Concern about STD in female without diagnosis Constipation History of COVID-19 Ethmoid sinusitis URI (upper respiratory infection) HSV (herpes simplex virus) infection Hypovitaminosis D GERD (gastroesophageal reflux disease) Family history of hypertension Asthma Surgical History (Updated 05/01/25 @ 14:16 by Mer Santos MD) H/O breast augmentation Status post excision of lipoma (~08/10/22) History of kidney stones History of hysterectomy History of umbilical hernia repair Family History Mother Hypertension Cervical cancer Father No problems noted. Maternal Aunt Colon cancer Maternal Aunt Lung cancer Social History Housing: House Alcohol intake: current Alcohol intake frequency: holidays/special occasions only Alcohol type: hard liquor Patient Tobacco Use Status: Never used Tobacco e-Cigarette/Vaping Use: Never Used Second Hand Smoke Exposure: No service: No Current occupational status: employed Current occupational exposures/hazards: No Cognitive needs: No Hearing needs: No Vision needs: Yes Questionnaire PHQ-9 Over the last 2 weeks, how often have you been bothered by any of the following problems? 1. Little interest or pleasure in doing things: not at all 2. Feeling down, depressed, or hopeless: not at all 3. Trouble falling or staying asleep, or sleeping too much: not at all 4. Feeling tired or having little energy: not at all 5. Poor appetite or overeating: not at all 6. Feeling bad about yourself - or that you are a failure or have let yourself or your family down: not at all 7. Trouble concentrating on things, such as reading the newspaper or watching television: not at all 8. Moving or speaking so slowly that other people could have noticed. Or the opposite - being so fidgety or restless that you have been moving around a lot more than usual: not at all 9. Thoughts that you would be better off or of hurting yourself in some way: not at all Total score: 0 Depression Screening Interpretation: Negative Depression Screening Done: Yes 48608 - PHQ-9 Billing: Yes Source: Developed by Drs. Tang Horowitz, Dahiana Nieto, Vernon Javier and colleagues, with an educational donald from [email or web address]. Thrive Questionnaire Date Thrive assessed: 05/01/25 I am a: Patient What is your living situation today?: I have a steady place to live Within the past 12 months, did the food you bought not last and you didn't have the money to get more?: Never true Within the past 12 months, did you worry whether your food would run out before you got money to buy more?: Never true Do you have trouble paying for medicines?: No Do you have trouble getting transportation to medical appointments?: No Do you have trouble paying your heating and electricity bill?: No Do you have trouble taking care of your child, family member or friend?: No Do you have trouble with day-to-day activities such as bathing, preparing meals, shopping, managing finances, etc.?: No Are you currently unemployed and looking for a job?: No Are you interested in more education?: No Please select the resources that you would like help with: None Currently or been in a relationship where the following occur: No concerns reported THRIVE Score: 0 AUDIT C Alcohol Use Questionnaire (AUDIT-C) 1. How often do you have a drink containing alcohol?: Never Total Score: 0 MARCO-7 AMB Questionnaire MARCO-7 Date MARCO - 7 assessed: 04/16/25 Feeling nervous, anxious, or on edge: 0 = Not at all Not being able to stop or control worryin = Not at all Worrying too much about different things: 0 = Not at all Trouble relaxin = Not at all Being so restless that it is hard to sit still: 0 = Not at all Becoming easily annoyed or irritable: 0 = Not at all Feeling afraid as if something awful might happen: 0 = Not at all Total MARCO-7 score (0-4 normal; 5-9 mild; 10-14 moderate; 15-21 severe): 0 Source: Developed by Drs. Tang Horowitz, Dahiana Nieto, Vernon Javier and colleagues, with an educational donald from [email or web address]. MARCO-7 Assessment Billing MARCO-7 Assessment Tool: MARCO-7 Assessment 13291 Review of Systems Const All systems reviewed & are unremarkable except as noted in HPI and below Card Denies chest pain at rest, Denies chest pain with activity, Denies edema, Denies irregular heart rhythm, Denies claudication, Denies dyspnea, Denies dyspnea on exertion, Denies orthopnea, Denies paroxysmal nocturnal dyspnea and Denies slow heart rate Resp Denies cough, Denies dyspnea and Denies dyspnea on exertion GI Denies abdominal pain, Denies change in bowel habits, Denies excessive flatus, Denies nausea and Denies vomiting Neuro Denies lack of coordination Physical exam (Primary Care) Vital Signs: Last Vital Signs BP 120/78 05/01/25 13:55 BMI result Body Mass Index 28.3 Tobacco/Smoking Status: Tobacco use Status Tobacco use date assessed 04/16/25 05/01/25 14:00 Patient Tobacco Use Status Never used Tobacco 05/01/25 14:00 e-Cigarette/Vaping Use Never Used 05/01/25 14:00 PHQ-9: PHQ-9 Score PHQ-9: Total score 0 05/01/25 14:13 Depression Screening Interpretation: Negative Thrive Assessment: Date of Thrive Assessment Date Thrive assessed 05/01/25 05/01/25 14:00 Currently or been in a relationship where the following occur: No concerns reported Resp Effort & Inspection: normal respiratory effort Auscultation: clear to auscultation bilaterally Cardio Jugular venous distension: no JVD Rate: regular rate Rhythm: regular rhythm Heart sounds: S1 normal heart sound present and S2 normal heart sound present Extrem General: Yes full ROM Coding Level of Care Code Est Pt Level 3 (73583) Complex EM visit Add On G2211 Diagnoses Status post surgery Z98.890 Gastroesophageal reflux disease, unspecified whether esophagitis present K21.9 Esophagitis presence: esophagitis presence not specified Hypovitaminosis D E55.9 Additional Codes MARCO-7 Assessment Billing - MARCO-7 Assessment Tool: MARCO-7 Assessment 69634 ([id number]) PHQ-9 - 43960 - PHQ-9 Billing: Yes ([id number]) Time Spent (min) 19 Assessment & Plan Assessment & Plan (1) Status post surgery: Code(s): Z98.890 - Other specified postprocedural states Category: Surgical (2) GERD (gastroesophageal reflux disease): Code(s): K21.9 - Gastro-esophageal reflux disease without esophagitis Category: Medical Qualifiers: Esophagitis presence: esophagitis presence not specified Qualified Code(s): K21.9 - Gastro-esophageal reflux disease without esophagitis (3) Hypovitaminosis D: Code(s): E55.9 - Vitamin D deficiency, unspecified Category: Medical Plan I have evaluated the patient's postoperative condition following her breast implant exchange surgery. She is experiencing manageable pain that has been steadily improving. Given the absence of alarming signs at the surgical site, continued monitoring of her state is advised. The patient has found measures such as avoiding excessive alcohol intake beneficial, and her recovery in ba throom activity is a promising sign of progress. I advised her to remain vigilant for any changes and to report immediately to her surgical care team if any concerns arise. Future surgery-related interventions should be coordinated directly with her surgeon. Patient was informed and verbally consented to the use of an ambient scribe for clinic note documentation during this visit. Orders: Referrals General Surgery Referral Z98.890 - Other specified postprocedural states
[2025-05-01 13:55] VITALS: BP 120/78; BMI 28.3
--- OUTSIDE RECORDS SUMMARY | 2025-05-01 13:55 | XMS_ITS | Clinical Summary ---
Author Organization [facility] Address [address] [place] [address] Phone Care Team Providers Care Alteration Hand Name Role Phone Kika Lucas MD Primary Care Provider [phone] Allergies Active Allergy Reactions Criticality Noted Date Comments Delta Anaphylaxis,Hives High 02/09/2019 Divalproex Nausea And Vomiting [...] 11/30/2024 Nephrolithiasis 11/30/2024 Overview (11/30/2024): [place] 06/2016 [facility] Recurrent HSV (herpes simplex virus) 11/30/2024 [...] EST Office Visit Obstetrics & Gynecology - [address] [address] Ernestina Landon CNM Pelvic pain (Primary Dx); Hematuria, unspecified type; Acute vaginitis from Last 3 Months Immunizations Name Administration Dates Next Due Hepatitis B (Fpdomap-X-Mpwsj , Recombivax HB-Adult) 19yo and older 11/22/2014,05/17/2014,04/19/2014 [...] (BILATERAL OCCLUSION FALLOPIAN TUBES-PERMA) ESOPHAGOGASTRODUODENOSCOPY 09/29/2018 PROCEDURE: NE ESOPHAGOGASTRODUODENOSCOPY TRANSORAL DIAGNOSTIC; COMMENT: normal Medical History Medical History Date Comments History of migraine DX:History o f migraine Asthma DX:Asthma Anemia DX:Anemia; COMME NT: Alpha-thalessemia trait Recurrent HSV (herpes simplex virus) DX:Recurrent HSV (herpes simplex virus) Rosacea 11/24/2017 DX:Rosacea Depression 11/24/2017 DX:Depression Nephrolithiasis DX:Nephrolithias is; COMMENT: [place] 06/2016 [facility] Allergic rhinitis 03/10/2018 DX:Allergic rh initis [...] for your loved ones. For example, child protective services specialist or elderly care for an older [...] Vag-S pont None N Livin g Delivery Location:[facility] 02/2005 Term 38w 0d 3600 g (127 oz) F Vag-S pont None N Livin g Complications:None Delivery Location:[facility] 03/2008 Term 40w 0d 3175 g (112 oz) F Vag-S pont None N Livin g Complications:None Delivery Location:[facility] 012 Term 39w 0d 3289 g (116 oz) M Vag-S pont Epidur al N Livin g Complications:None Delivery Location:[facility] Filed Vital Signs Vital Sign Reading [...] EDT Consult Plastic & Reconstructive Surgery - [place] [address] [phone] Josh Frye DO [address] [address] 06/10/2025 1:30 PM EDT Office Visit Obstetrics & Gynecology - [address] [place] [address] Carito Kumar, CNM [address] [place] [address] Health Maintenance Due Date Last [...] vaginalis Negative Negative 02/01/2025 9:01 PM EST [facility] Swab Vaginal structure / Unknown Non-blood Collection / Unknown 02/01/2025 2:18 PM EST 02/01/2025 4:13 PM EST Ernestina Landon CNM LAB MICROBIOLOGY - GENERAL OR DERABLES Final Result [facility] [address] [place] [address], * Chlamydia trachomatis and Neisseria gonorrhoeae molecular study (02/01/2025 2:18 PM EST) Neisseria gonorrhoeae PCR Negative Negative LAB MOLECULAR DIAGNOSTICS METHOD 02/02/2025 9:01 AM EST [facility] Chlamydia trachomatis PCR Negative Negative LAB MOLECULAR DIAGNOSTICS METHOD 02/02/2025 9:01 AM EST [facility] Swab Cervix uteri structure / Unknown Non-blood Collection / Unknown 02/01/2025 2:18 PM EST 02/01/2025 4:13 PM EST Ernestina Landon [facility] MICROBIOLOGY - GENERAL OR DERABLES Final Result [facility] [address] [place] [address], * (ABNORMAL) Wet prep, genital (02/01/2025 2:18 PM EST) Clue Cells, Wet Prep Positive(A) Negative 02/01/2025 9:01 PM EST [facility] Yeast, Wet Prep Negative Negative 02/01/2025 9:01 PM EST [facility] Trichomonas, Wet Prep Indeterminate Negative 02/01/2025 9:01 PM EST [facility] Comment:Refer to Trichomonas antigen. Swab Vaginal structure / Unknown Non-blood Collection / Unknown 02/01/2025 2:18 PM EST 02/01/2025 4:13 PM EST Ernestina Landon [facility] MICROBIOLOGY - GENERAL OR DERABLES Final Result Performing Organization Address [facility]/ZIP Co de Phone Number [facility] [address] [place] [address], * Culture urine (02/01/2025 2:12 PM EST) Culture, Urine No growth 02/02/2025 9:12 AM EST [facility] Urine Urine specimen obtained by clean catch procedure / Unknown Non-blood Collection / Unknown 02/01/2025 2:12 PM EST 02/01/2025 4:13 PM EST Ernestina Landon [facility] MICROBIOLOGY - GENERAL OR DERABLES Final Result [facility] [address] [place] [address], * (ABNORMAL) POC Urine Auto W/O Micro (02/01/2025 1:55 PM EST) Pathologist [facility] Leukocytes UA POC Positive(A) Negative Nitrite UA POC Negative Negative Urobilinogen UA POC Negative Negative Protein UA POC Negative Negative PH UA POC 5.0 5.0 - 9.0 Blood UA POC Positive(A) Negative, Trace Specific [place] UA POC 1.010 1.001 - 1.035 Ketones UA POC Negative Negative Bilirubin UA POC Negative Negative Glucose UA POC Normal Normal, Trace Urine Urine specimen obtained by clean catch procedure / Unknown 02/01/2025 1:55 PM EST Ernestina Landon CNM POINT OF CARE TEST ENTER/EDIT ORDERABLES Final Result * HIV Screening (02/25/2023) [facility] HIV Screening abstracted Historical Provider HEALTH MAINTENANCE Final Result * Hepatitis C Screening (02/25/2023) [facility] Hepatitis C Screening abstracted Historical Provider HEALTH MAINTENANCE Final Result from Last 3 Months or Most Recently Relevant to Health Maintenance Insurance [facility] [employer] Care Teams Alteration Hand Relationship Specialty Start Date End Date Kika Lucas MD [address] [place] [address] PCP - General Internal Medicine 06/12/21
== END 2025-05-01 14:14 | disposition home or self-care (01) ==
LOC: HO.HMCH 13:44
PROVIDERS: PCP Internal Medicine; Visit Provider Internal Medicine
DX: Z98.890 Other specified postprocedural states (principal); K21.9 Gastro-esophageal reflux disease without esophagitis; E55.9 Vitamin D deficiency, unspecified

== ENCOUNTER → 2025-05-01 13:43 | Outpatient (BNVA) | payer OTHER, SELFPAY | PROVIDERS: PCP Internal Medicine; Visit Provider Internal Medicine | DX: K21.9 Gastro-esophageal reflux disease without esophagitis (principal); E55.9 Vitamin D deficiency, unspecified; Z98.890 Other specified postprocedural states | CPT/HCPCS: 96127; 99212 ==

== ENCOUNTER 2025-05-14 06:31 | Outpatient (REF) | payer OTHER, SELFPAY ==
--- OUTSIDE RECORDS SUMMARY | 2025-05-14 06:34 | XMS_ITS | Clinical Summary ---
Author Organization [facility] Address [address] [place] [address] Phone Care Team Providers Care Wastewater Analyst Name Role Phone Kika Lucas MD Primary Care Provider [phone] Allergies Active Allergy Reactions Criticality Noted Date Comments [place] Anaphylaxis,Hives High 02/09/2019 Divalproex Nausea And Vomiting 11/24/2017 Peanut Anaphylaxis,Hives High 02/09/2019 Sulfa (Sulfonamide Antibiotics) 04/25/2024 Sulfamethoxazole-Trime thoprim Anaphylaxis High 11/02/2023 Throat closing, hives Sumatriptan Diarrhea 11/24/2017 w/ abdominal pain Topiramate Itching,Swelling 11/11/2017 Facial numbness Medications fluconazole (DIFLUCAN) 150 mg tablet Take one tab today, if no improvement in 3 dys then take 2nd dose 11/03/20 23 Active cholecalcifero l (VITAMIN D-3) 50 mcg (2,000 unit) capsule Take 1 Tablet by mouth daily. 11/02/20 23 Active valACYclovir (VALTREX) 500 mg tablet Take 1 Tablet by mouth daily. 02/26/20 23 Active loratadine (CLARITIN) 10 mg tablet TAKE 1 TABLET BY MOUTH EVERY DAY FOR ALLERGIES 01/28/20 23 Active ibuprofen (ADVIL,MOTRIN) 400 mg tablet TAKE 1 TAB BY MOUTH EVERY 4 HOURS NEEDED FEVER DONT TAKE WITH NAPROXEN BUT ALTERNATE WITH TYLENOL 01/28/20 23 Active albuterol HFA (PROAIR HFA ; PROVENTIL HFA ; VENTOLIN HFA) 90 mcg/actuation inhaler Inhale 2 Puffs into the lungs every 4 hours as needed for Cough, Wheezing or Shortness of Breath. 03/08/20 21 Active fluticasone propionate (FLONASE) 50 mcg/actuation nasal spray Use 1 spray per nostril twice daily. 02/19/20 21 Active EPINEPHrine (EpiPen 2-Edin) 0.3 mg/0.3 mL injection Inject 0.3 mg into the muscle as needed for Other (anaphylactic reaction). 2-pack. Fill with whichever brand is covered by insurance. 02/10/20 19 Active valACYclovir (VALTREX) 500 mg tablet Take 1 tablet (500 mg total) by mouth 1 (one) time each day. 30 each 5 02/02/20 25 025 Active cyclobenzaprin e (FLEXERIL) 5 mg tablet TAKE 1 TABLET (5 MG TOTAL) BY MOUTH NIGHTLY AT BEDTIME FOR 5 DOSES. 03/15/20 25 Active cetirizine (ZyrTEC) 10 mg tablet Take 1 tablet (10 mg total) by mouth 1 (one) time each day in the evening. 03/11/20 25 Active clotrimazole-b etamethasone (LOTRISONE) 1-0.05 % cream Apply topically to affected area twice daily for no more than 10 days 03/01/20 23 025 Discontinued triamcinolone (NASACORT) 55 mcg nasal inhaler SPRAY 2 SPRAYS INTO EACH NOSTRIL EVERY DAY 01/28/20 23 025 Discontinued omeprazole (PriLOSEC) [address] capsule TAKE 1 CAPSULE BY MOUTH EVERY DAY 05/15/20 21 025 Discontinued Active Problems Problem Noted Date Diagnosed Date Breast implant rupture 05/09/2025 Asthma 11/30/2024 Nephrolithiasis 11/30/2024 Overview (11/30/2024): [place] 06/2016 [facility] Recurrent HSV (herpes simplex virus) 11/30/2024 Alpha thalassemia trait 10/17/2024 Overview (10/17/2024): Alpha-thalessemia trait Migraine 10/17/2024 Gastroesophageal reflux disease without esophagi tis 12/05/2020 Adverse food reaction 09/03/2019 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 Generalized anxiety disorder 09/03/2019 Other dysphagia 09/03/2019 Functional abdominal pain syndrome 11/10/2018 Allergic rhinitis 03/10/2018 Depression 11/24/2017 Rosacea 11/24/2017 Encounters Date Type Department Care Team Description 05/06/2025 10:00 AM EDT Consult Plastic & Reconstructive Surgery [facility] [address] [place] [address] Josh Frye DO Breast implant rupture, initial encounter (Primary Dx) from Last 3 Months Immunizations Name Administration Dates Next Due Hepatitis B (Bvwqmqz-T-Mozjr , Recombivax HB-Adult) 19yo and older 11/22/2014,05/17/2014,04/19/2014 [...] (BILATERAL OCCLUSION FALLOPIAN TUBES-PERMA) ESOPHAGOGASTRODUODENOSCOPY 09/29/2018 PROCEDURE: [place] ESOPHAGOGASTRODUODENOSCOPY TRANSORAL DIAGNOSTIC; COMMENT: normal Medical History Medical History Date Comments History of migraine DX:History o f migraine Asthma DX:Asthma Anemia DX:Anemia; COMME NT: Alpha-thalessemia trait Recurrent HSV (herpes simplex virus) DX:Recurrent HSV (herpes simplex virus) Rosacea 11/24/2017 DX:Rosacea Depression 11/24/2017 DX:Depression Nephrolithiasis DX:Nephrolithias is; COMMENT: [place] 06/2016 [facility] Allergic rhinitis 03/10/2018 DX:Allergic rh initis [...] Tobacco: Never Alcohol Use Standard Drinks/Week Comments Not Currently 0 (1 standard drink = 0.6 oz [...] care for your loved ones. For example, children librarian or elderly care for an older adult? [...] 4 4 Date Outcome GA Total Labor Labor//3rd Weight Sex Type Anes PTL Joselin A1 A5 Name Clin 02/2002 Term 40w 0d 3345 g (118 oz) M Vag-S pont None N Livin g Delivery Location:[facility] 02/2005 Term 38w 0d 3600 g (127 oz) F Vag-S pont None N Livin g Complications:None Delivery Location:[facility] 03/2008 Term 40w 0d 3175 g (112 oz) F Vag-S pont None N Livin g Complications:None Delivery Location:[facility] 012 Term 39w 0d 3289 g (116 oz) M Vag-S pont Epidur al N Livin g Complications:None Delivery Location:[facility] Last Filed Vital Signs Vital Sign Reading Time Taken Comments Blood Pressure 135/92 05/06/2025 9:42 AM EDT Pulse 91 05/06/2025 9:42 AM EDT Temperature - - Respiratory Rate - - Oxygen Saturation - - Inhaled Oxygen Concentration - - Weight 68.5 kg (151 lb) 05/06/2025 9:42 AM EDT Height 161.3 cm (5' 3.5 ) 05/06/2025 9:42 AM EDT Body Mass Index 26.33 05/06/2025 9:42 AM EDT Plan of Treatment Upcoming Encounters Date Type Department Care Team (Late st Contact Info) Description 06/10/2025 1:30 PM EDT Office Visit Obstetrics & Gynecology - [facility] [address] [place] [address] Carito Kumar CNM [address] [place] [address] Health Maintenance Due Date Last [...] Procedure Name Priority Date/Time Associated Diagnosis Comments HEPATITIS C SCREENING Routine 02/25/2023 HIV SCREENING Routine 02/25/2023 from Last 3 Months or Most Recently Relevant to Health Maintenance Results * HIV Screening (02/25/2023) HIV Screening abstracted Historical Provider MD HEALTH MAINTENANCE Final Result * Hepatitis C Screening (02/25/2023) [facility] Hepatitis C Screening abstracted Historical Provider MD HEALTH MAINTENANCE Final Result from Last 3 Months or Most Recently Relevant to Health Maintenance Insurance [facility] [employer] Care Teams Wastewater Analyst Relationship Specialty Start Date End Date Kika Lucas MD [address] [place] [id number] PCP - General Internal Medicine 06/12/21
[2025-05-14 07:32] LABS: Appearance Urine Clear; Color Urine Yellow; Glucose Urine UA Negative (Negative); Leukocyte Esterase Urine Negative (Negative); Nitrite Urine Negative (Negative); Specific Gravity - Urine 1.015 (1.005-1.025); Urine Blood Negative (Negative); Urine Ketones Negative (Negative); Urine Protein Negative (Neg-Trace)
== END 2025-05-14 06:32 | disposition home or self-care (01) ==
LOC: HO.LAB 06:31
PROVIDERS: PCP Internal Medicine; Visit Provider Internal Medicine
DX: R30.0 Dysuria (principal)
CPT/HCPCS: 81003

== ENCOUNTER 2025-06-19 07:12 | Outpatient (REF) | payer OTHER, SELFPAY ==
--- OUTSIDE RECORDS SUMMARY | 2025-06-19 07:33 | XMS_ITS | Encounter Summary ---
Author Organization [facility] Address [address] [facility] [facility] [address] [place] [phone] Phone Care Team Providers Care Blood Typer Name Role Phone Mer Dunn MD Primary Care Provid er Encounter Details Date Type Department Care Team (Late st Contact Info) Description 04/25/2024 Procedure Pass [facility] Ct Scan - [address] [address] Social History Tobacco Use Types Packs/Day Years Used Date Smoking Tobacco: Never Smokeless Tobacco: Never Alcohol Use Standard Drinks/Week Comments Not Currently 0 (1 standard drink = 0.6 oz pur e alcohol) Education Answer Date Recorded Are you interested in more education? Not on nancy e 03/25/2023 Are you concerned about learning? Not on file 03/25/2023 No 03/25/2023 No 03/25/2023 Digital Access Answer Date Recorded No 04/20/2023 No 04/20/2023 Reliable internet access at home? Not on file 04/20/2023 Device with a working camera? Not on file Comments Unknown Sex and Gender Information Value Date Recorded Sex Assigned at Female 04/11/2023 7:33 PM EDT Legal Sex Female 9:12 PM EDT Gender Identity Female 04/11/2023 7:33 PM EDT Sexual Orientation Don't know 04/25/2024 6: 12 PM EDT documented as of this encounter Functional Status * Calculated C-SSRS Risk Score (Lifetime/Recent) Answer Date of Assessment Author No Risk Indicated 04/25/2024 4:42 PM EDT James Riddle RN * [place] Suicide Severity Rating Scale (Screener/Recent Self-Report) Question Answer Date of Assessment Author 1. Wish to be (Past 1 Month) No 024 4:42 PM EDT James Riddle, RN 2. Non-Specific Active Suici muna Thoughts (Past 1 Month) No 04/25/2024 4:42 PM EDT Daryl Riddle RN 6. Suicidal Behavior (Lifetime) No 4:42 PM EDT James Riddle, RN documented as of this encounter Plan of Treatment Not on file documented as of this encounter Visit Diagnoses Not on filedocumented in this encounter Additional Health Concerns Infection Onset Date Last Indicated Resolved Time CoV-Risk 06/26/2024 06/26/2024 07/07/2024 1:26 AM EDT documented as of this encounter Care Teams Blood Typer Relationship Specialty Start Date End Date Mer Dunn MD [address] [place] [address] PCP - General Internal Medicine 04/11/23 documented as of this encounter Additional Source Comments The information contained in this document represents components of the legal health record. It is not the complete legal health record.[facility]
--- OUTSIDE RECORDS SUMMARY | 2025-06-19 07:33 | XMS_ITS | Clinical Summary ---
Author Organization [facility] Address [address] [place] [address] Phone Care Team Providers Care Plate Filler Name Role Phone Kika Lucas MD Primary Care Provider [phone] Allergies Active Allergy Reactions Criticality Noted Date Comments Lula Anaphylaxis,Hives High 02/09/2019 Divalproex Nausea And Vomiting [...] 1 Tablet by mouth daily. 3 Active valACYclovir (VALTREX) 500 mg tablet Take 1 Tablet by mouth daily. 3 Active loratadine (CLARITIN) 10 mg tablet TAKE 1 TABLET BY MOUTH EVERY DAY FOR ALLERGIES 3 Active ibuprofen (ADVIL,MOTRIN) 400 mg tablet TAKE 1 TAB BY MOUTH EVERY 4 HOURS NEEDED FEVER DONT TAKE WITH NAPROXEN BUT ALTERNATE WITH TYLENOL 3 Active albuterol HFA (PROAIR HFA ; PROVENTIL [...] 30 each 5 5 07/31/20 25 Active cyclobenzaprine (FLEXERIL) 5 mg tablet TAKE 1 TABLET (5 MG TOTAL) BY MOUTH NIGHTLY AT BEDTIME FOR 5 DOSES. 5 Active cetirizine (ZyrTEC) 10 mg tablet Take 1 tablet (10 mg total) by mouth 1 (one) time each day in the evening. 5 Active Active Problems Problem Noted Date Diagnosed Date Breast implant rupture 05/09/2025 Asthma 11/30/2024 Nephrolithiasis 11/30/2024 Overview (11/30/2024): [place] 06/2016 [facility] Recurrent HSV (herpes simplex virus) 11/30/2024 [...] EDT Consult Plastic & Reconstructive Surgery - [address] [address] [place], Josh Nilo, DO Breast implant rupture, initial encounter (Primary Dx) from Last 3 Months Immunizations Name Administration Dates Next Due Hepatitis B (Ynvmcnw-O-Zsheu , Recombivax HB-Adult) 19yo and older 11/22/2014,05/17/2014,04/19/2014 [...] (BILATERAL OCCLUSION FALLOPIAN TUBES-PERMA) ESOPHAGOGASTRODUODENOSCOPY 09/29/2018 PROCEDURE: [place] ESOPHAGOGASTRODUODENOSCOPY TRANSORAL DIAGNOSTIC; COMMENT: normal Medical History Medical History Date Comments History of migraine DX:History o f migraine Asthma DX:Asthma Anemia DX:Anemia; COMME NT: Alpha-thalessemia trait Recurrent HSV (herpes simplex virus) DX:Recurrent HSV (herpes simplex virus) Rosacea 11/24/2017 DX:Rosacea Depression 11/24/2017 DX:Depression Nephrolithiasis DX:Nephrolithias is; COMMENT: US 06/2016 [facility] Allergic rhinitis 03/10/2018 DX:Allergic rh initis [...] for your loved ones. For example, children's literature professor or elderly care for an older adult? [...] Vag-S pont None N Livin g Delivery Location:[facility] 02/2005 Term 38w 0d 3600 g (127 oz) F Vag-S pont None N Livin g Complications:None Delivery Location:[facility] 03/2008 Term 40w 0d 3175 g (112 oz) F Vag-S pont None N Livin g Complications:None Delivery Location:[place] 012 Term 39w 0d 3289 g (116 oz) M Vag-S pont Epidur al N Livin g Complications:None Delivery Location:[facility] Last Filed Vital Signs Vital Sign Reading [...] 05/06/2025 9:42 AM EDT Plan of Treatment Health Maintenance Due Date Last Done Comments Pneumococcal Vaccine: Pediatrics (0 to 5 Years) and At-Risk Patients (6 to 49 Years) (2 of 2 - PPSV23) 05/05/2018 03/10/2018 COVID-19 Vaccine ( season) 2024 12/01/2022, 10/08/2022, 01/05/2022, Additional history exists Influenza Vaccine (#1) 2025 , 09/29/2023, 10/08/2022, Additional history exists Social Influencers of Health Screening 02/01/2026 02/01/2025 DTaP,Tdap,and Td Vaccines (3 - Td or Tdap) 05/21/2030 05/21/2020, 03/10/2018 Hepatitis B Vaccines Completed 11/22/2014, 05/17/2014, 04/19/2014 HIV Screening Completed 02/25/2023 Hepatitis C Screening Completed 02/25/2023 MMR Vaccines Aged Out 04/11/2023, 02/21/2023 No lo nger eligible based on patient's age to complete this topic Depression Screening Completed 02/01/2025 HIB Vaccines Aged Out No longer eligi [...] Screening (02/25/2023) HIV Screening abstracted Historical Provider HEALTH MAINTENANCE Final Result * Hepatitis C Screening (02/25/2023) Hepatitis C Screening abstracted us Historical Provider HEALTH MAINTENANCE Final Result from Last 3 Months or Most Recently Relevant to Health Maintenance Insurance [facility] Care Teams Plate Filler Relationship Specialty Start Date End Date Kika Lucas MD [address] [place] [address] PCP - General Internal Medicine 06/12/21
[2025-06-19 11:09] LABS: Syphilis Screen Nonreactive (Nonreactive)
[2025-06-19 11:11] LABS: HBsAGNum1 0.34 S/CO (0.00-0.99); HIV Num 1 0.06 S/CO (0.00-0.99); Hepatitis B Surface Antigen Negative (Negative); ~HepC Num1 0.20 S/CO (0.00-0.79); ~Hepatitis C Antibody Nonreactive (Nonreactive)
[2025-06-19 12:23] LABS: Bacterial Vaginosis PCR NEGATIVE (Negative); Candida Group PCR DETECTED (Not Detect); Candida glab krusei PCR NOT DETECTED (Not Detect); Trichomonas vaginalis PCR NOT DETECTED (Not Detect)
== END 2025-06-19 07:13 | disposition home or self-care (01) ==
LOC: HO.LAB 07:12
PROVIDERS: PCP Internal Medicine; Visit Provider Physician Assistant
DX: R10.2 Pelvic and perineal pain (principal); N89.8 Other specified noninflammatory disorders of vagina; N39.0 Urinary tract infection, site not specified; Z20.2 Contact with and (suspected) exposure to infections with a predominantly sexual mode of transmission
CPT/HCPCS: 36415; 81003; 81515; 86780; 86803; 87086; 87340; 87389; 99212

== ENCOUNTER 2025-06-19 07:12 | Outpatient (AMB) | payer OTHER, SELFPAY ==
[2025-06-19 07:17] VITALS: BP 110/80; PULSE 80; TEMP 36.7; O2SAT 98; BMI 28.4
--- NOTE | 2025-06-19 07:17 | AM.OFFWIN_ITS ---
Intake Vital Signs 06/19/25 07:17 Height 5 ft 1 in Weight 150 lb 6 oz BMI 28.4 BP 110/80 Blood Pressure Location Rt brachial Position Sitting Pulse 80 Pulse Source Pulse Oximeter Temp 98.0 F Temp Source Oral Pulse Oximetry (%) 98 Oxygen Delivery Method Room Air Intake Visit Reasons: EP pelvic pain ? yeast infection Patient Tobacco Use Status: Never used Tobacco Is last menstrual period known: No Post menopausal: No Patient : No Allergies mushroom Allergy (Severe, Verified 06/19/25 07:21) Anaphylaxis peanut Allergy (Severe, Verified 06/19/25 07:21) Anaphylaxis sertraline Allergy (Severe, Verified 06/19/25 07:21) tongue itchiness divalproex sodium (From DEPAKOTE) Allergy (Intermediate, Verified 06/19/25 07:21) URTICARIA topiramate (From TOPAMAX) Allergy (Intermediate, Verified 06/19/25 07:21) FACIAL AND LIP NUMBNESS hydromorphone (From DILAUDID) Allergy (Mild, Verified 06/19/25 07:21) URTICARIA Sulfa (Sulfonamide Antibiotics) Adverse Reaction (Severe, Verified 06/19/25 07:21) Anaphylaxis nuts Allergy (Severe, Uncoded 05/01/25 14:06) Anaphylaxis moderna covid vaccine Allergy (Intermediate, Uncoded 05/01/25 14:06) hives,swelling Do you need a note to return to daycare/school/sports/work: No HPI HPI Comments History of Present Illness Details History - The patient is a 39-year-old female pr esenting with vaginal discharge and pelvic pain. - Reports a light greenish vaginal disch arge for two days, with itching and a fishy odor. - Experiences pelvic pain and pressure, denies back pain, fever, or hematuria. - Urinary symptoms include increased suhas quency and urgency without dysuria. - History of unprotected sexual intercou rse with ex who may have had intercourse with others, concerned about potential STI exposure. Physical Exam General: Cooperative, healthy appearing, comfortable, no acute distress and well developed Orientation: Patient oriented x3 Limitations: No limitations Head: Normal to inspection Ears: Hearing grossly normal bilaterally Face and sinus: Normal facial exam Neck: Normal visual inspection and Yes full ROM Respiratory: Normal respiratory effort and able to speak in complete sentences. Skin: No rashes or lesions noted Neuro: Patient oriented x3 [facility] Medical History (Updated 06/19/25 @ 07:45 by Nevaeh King PA-C) Vaginal discharge De Quervain's tenosynovitis, bilateral Patellofemoral arthralgia of right knee Physical exam Right knee pain Bilateral otitis media Frequent UTI Ingrown toenail Breast pain, right Yeast infection Skin tag Acute tonsillitis Encounter for breast augmentation Overweight (BMI 25.0-29.9) Preoperative clearance Buttocks nodule Screen for STD (sexually transmitted disease) Burning with urination Buttocks nodule Abnormal bruising Lipoma Urinary frequency Concern about STD in female without diagnosis Constipation History of COVID-19 Ethmoid sinusitis URI (upper respiratory infection) HSV (herpes simplex virus) infection Hypovitaminosis D GERD (gastroesophageal reflux disease) Family history of hypertension Asthma Surgical History (Updated 05/01/25 @ 14:16 by Mer Santos MD) H/O breast augmentation Status post excision of lipoma (~08/10/22) History of kidney stones History of hysterectomy History of umbilical hernia repair Family History Mother Hypertension Cervical cancer Father No problems noted. Maternal Aunt Colon cancer Maternal Aunt Lung cancer Social History Housing: House Alcohol intake: current Alcohol intake frequency: holidays/special occasions only Alcohol type: hard liquor Patient Tobacco Use Status: Never used Tobacco e-Cigarette/Vaping Use: Never Used Second Hand Smoke Exposure: No Patient : No service: No Current occupational status: employed Current occupational exposures/hazards: No Cognitive needs: No Hearing needs: No Vision needs: Yes Review of Systems Const All systems reviewed & are unremarkable except as noted in HPI and below Physical Exam Vital Signs: Last Vital Signs Temp 98.0 F 06/19/25 07:17 Pulse 80 06/19/25 07:17 BP 110/80 06/19/25 07:17 Pulse Ox 98 06/19/25 07:17 Oxygen Delivery Method Room Air 06/19/25 07:17 BMI result Body Mass Index 28.4 Assessment & Plan Assessment & Plan (1) Possible exposure to sexually transmitted infection: Code(s): Z20.2 - Contact with and (suspected) exposure to infections with a predominantly sexual mode of transmission Plan: Patient was informed and verbally consented to the use of an ambient scribe for clinic note documentation during this visit. - Await results from the swab test to confirm diagnosis before initiating treatment. - UA 3+ leuks, negative nitrites, negative blood - Initiate treatment with Cefuroxime BID for 5 days. Will send urine culture - Conduct tests for gonorrhea, chlamydia, and other STIs due to potential exposure. - Perform additional blood tests for HIV, syphilis, Hepatitis B, and Hepatitis C. (2) Vaginal discharge: Code(s): N89.8 - Other specified noninflammatory disorders of vagina Plan: as above (3) Pelvic pain: Code(s): R10.2 - Pelvic and perineal pain Plan: as above Orders: Orders Urine Culture Today N39.0 - Urinary tract infection, site not specified Hepatitis C Antibody Today Z20.2 - Contact with and (suspected) exposure to infections with a predominantly sexual mode of transmission Syphilis Screen Today Z20.2 - Contact with and (suspected) exposure to infections with a predominantly sexual mode of transmission HIV Ab/Ag Today Z20.2 - Contact with and (suspected) exposure to infections with a predominantly sexual mode of transmission Bacterial Vaginosis Panel Today R10.2 - Pelvic and perineal pain CT NG by PCR Urine Today R10.2 - Pelvic and perineal pain Hepatitis B Surface Antigen Today Z20.2 - Contact with and (suspected) exposure to infections with a predominantly sexual mode of transmission Medications: New cefuroxime axetil 500 mg PO Q12H 10 tabs 0RF Coding Level of Care Code Est Pt Level 4 (83853) Diagnoses Possible exposure to sexually transmitted infection Z20.2 Vaginal discharge N89.8 Pelvic pain R10.2
== END 2025-06-19 08:25 | disposition home or self-care (01) ==
PROVIDERS: PCP Internal Medicine; Visit Provider Physician Assistant
DX: Z20.2 Contact with and (suspected) exposure to infections with a predominantly sexual mode of transmission (principal); N89.8 Other specified noninflammatory disorders of vagina; R10.2 Pelvic and perineal pain; Z13.9 Encounter for screening, unspecified

== ENCOUNTER 2025-08-13 07:58 | Outpatient (AMB) | payer OTHER, SELFPAY ==
--- NOTE | 2025-08-13 08:00 | MHC.OFFWIV ---
Intake Vital Signs 08/13/25 08:01 Height 5 ft 1 in Weight 151 lb BMI 28.5 BP 116/90 H Blood Pressure Location Rt brachial Position Sitting Respiration 16 Pulse 81 Pulse Source Pulse Oximeter Temp 98.0 F Temp Source Oral Pulse Oximetry (%) 99 Oxygen Delivery Method Room Air Intake Visit Reasons: EP severe pelvic pain, thick discharge Intake Note: Pt is here today c/o severe pelvic pain and thick vaginal discharge [id number] Patient Tobacco Use Status: Never used Tobacco Allergies mushroom Allergy (Severe, Verified 06/19/25 07:21) Anaphylaxis peanut Allergy (Severe, Verified 06/19/25 07:21) Anaphylaxis sertraline Allergy (Severe, Verified 06/19/25 07:21) tongue itchiness divalproex sodium (From DEPAKOTE) Allergy (Intermediate, Verified 06/19/25 07:21) URTICARIA topiramate (From TOPAMAX) Allergy (Intermediate, Verified 06/19/25 07:21) FACIAL AND LIP NUMBNESS hydromorphone (From DILAUDID) Allergy (Mild, Verified 06/19/25 07:21) URTICARIA Sulfa (Sulfonamide Antibiotics) Adverse Reaction (Severe, Verified 06/19/25 07:21) Anaphylaxis nuts Allergy (Severe, Uncoded 05/01/25 14:06) Anaphylaxis moderna covid vaccine Allergy (Intermediate, Uncoded 05/01/25 14:06) hives,swelling HPI HPI Comments History of Present Illness Details History of Present Illness - The patient is a 39-year-old female presenting with pelvic pain and abnormal vaginal discharge. - She had a hysterectomy, retaining her ovaries, and reports some vaginal bleeding. - The discharge is described as green, thick and chunky with an odor, recurring despite treatment with Fluconazole in the past. - She has been using her fingers to remove the discharge and then she bleeds. - Symptoms have persisted for two months, with intermittent relief and recurrence. - Pelvic pain radiates to her back, with no urinary symptoms or new sexual partners. - She has not had recent STD testing and is concerned about a possible infection. - She is frustrated and upset as she has pain and discharge and can't be seen by her OBGYN. - She denies fever, chills, CP, SOB, abd pain, n/v/d, or dysuria. Physical Exam General: Cooperative, healthy appearing, comfortable, no acute distress and well developed Orientation: Patient oriented x3 Respiratory: Normal respiratory effort and able to speak in complete sentences. Clear to auscultation bilaterally. No w/r/r noted. Cardiovascular: Regular rate and rhythm. Normal S1 and S2. No m/r/g noted. GI: Normal to inspection. Soft to palpation and nontender, non-distended. No guarding noted. No rebound tenderness noted. No CVA tenderness noted. Pelvic: No external genitalia swelling or redness noted. White discharge noted on the labia. Thick copious greenish white discharge noted in the vaginal canal. No odor noted. No lesions noted. No cervix noted. Swab obtained. Skin: No rashes or lesions noted. Patient was informed and verbally consented to the use of an ambient scribe for clinic note documentation during this visit. [facility] Medical History (Updated 06/19/25 @ 07:45 by Nevaeh King PA-C) Vaginal discharge De Quervain's tenosynovitis, bilateral Patellofemoral arthralgia of right knee Physical exam Right knee pain Bilateral otitis media Frequent UTI Ingrown toenail Breast pain, right Yeast infection Skin tag Acute tonsillitis Encounter for breast augmentation Overweight (BMI 25.0-29.9) Preoperative clearance Buttocks nodule Screen for STD (sexually transmitted disease) Burning with urination Buttocks nodule Abnormal bruising Lipoma Urinary frequency Concern about STD in female without diagnosis Constipation History of COVID-19 Ethmoid sinusitis URI (upper respiratory infection) HSV (herpes simplex virus) infection Hypovitaminosis D GERD (gastroesophageal reflux disease) Family history of hypertension Asthma Surgical History (Updated 05/01/25 @ 14:16 by Mer Santos MD) H/O breast augmentation Status post excision of lipoma (~08/10/22) History of kidney stones History of hysterectomy History of umbilical hernia repair Family History Mother Hypertension Cervical cancer Father No problems noted. Maternal Aunt Colon cancer Maternal Aunt Lung cancer Social History Housing: House Alcohol intake: current Alcohol intake frequency: holidays/special occasions only Alcohol type: hard liquor Patient Tobacco Use Status: Never used Tobacco e-Cigarette/Vaping Use: Never Used Second Hand Smoke Exposure: No service: No Current occupational status: employed Current occupational exposures/hazards: No Cognitive needs: No Hearing needs: No Vision needs: Yes Review of Systems Const All systems reviewed & are unremarkable except as noted in HPI and below Physical Exam Vital Signs: Last Vital Signs Temp 98.0 F 08/13/25 08:01 Pulse 81 08/13/25 08:01 Resp 16 08/13/25 08:01 BP 116/90 H 08/13/25 08:01 Pulse Ox 99 08/13/25 08:01 Oxygen Delivery Method Room Air 08/13/25 08:01 BMI result Body Mass Index 28.5 Results AMB Urinalysis, Automated UA Leukoctes 125 Karen/uL Last Edit by Acacia Henry MA on 08/13/25 09:03 UA Nitrite Negative Last Edit by Acacia Henry MA on 08/13/25 09:03 UA Urobilinogen 0.2 mg/dL Last Edit by Acacia Henry MA on 08/13/25 09:03 UA Protein 0 mg/dL Last Edit by Acacia Henry MA on 08/13/25 09:03 UA pH 6.5 Last Edit by Acacia Henry MA on 08/13/25 09:03 UA Blood 0 Peter/uL Last Edit by Acacia Henry MA on 08/13/25 09:03 UA Specific [place] 1.005 Last Edit by Acacia Henry MA on 08/13/25 09:03 UA Ketone Negative Last Edit by Acacia Henry MA on 08/13/25 09:03 UA Bilirubin 0 mg/dL Last Edit by Acacia Henry MA on 08/13/25 09:03 UA Glucose 0 mg/dL Last Edit by Acacia Henry MA on 08/13/25 09:03 Results Reviewed Results Reviewed: Laboratory Last Values Urine pH (Auto) 6.5 08/13/25 08:38 Specific [place] (Auto) 1.005 08/13/25 08:38 Urine Protein (Auto) 0 mg/dL 08/13/25 08:38 Glucose (UA)(Auto) 0 mg/dL 08/13/25 08:38 Urine Ketones (Auto) Negative 08/13/25 08:38 Urine Blood (Auto) 0 Peter/uL 08/13/25 08:38 Urine Nitrite (Auto) Negative 08/13/25 08:38 Urine Bilirubin (Auto) 0 mg/dL 08/13/25 08:38 Urine Urobilinogen (Auto) 0.2 mg/dL 08/13/25 08:38 Leukocyte Esterase (Auto) 125 Karen/uL 08/13/25 08:38 Assessment & Plan Assessment & Plan (1) Vaginal discharge: Code(s): N89.8 - Other specified noninflammatory disorders of vagina (2) Pelvic pain: Code(s): R10.2 - Pelvic and perineal pain (3) Screening for STD (sexually transmitted disease): Code(s): Z11.3 - Encounter for screening for infections with a predominantly sexual mode of transmission Plan Most likely BV vs yeast vs STI UA was 2+ leuko plan - Referral to gynecology for further evaluation and management. - Testing for sexually transmitted infections including gonorrhea and chlamydia. - Blood work for HIV and hepatitis to rule out other infections. - will call with results and treat Orders: Orders Bacterial Vaginosis Panel Today N89.8 - Other specified noninflammatory disorders of vagina AMB Urinalysis Automated Today N89.8 - Other specified noninflammatory disorders of vagina Syphilis Screen Today N89.8 - Other specified noninflammatory disorders of vagina CT NG by PCR Vag/Cerv Today N89.8 - Other specified noninflammatory disorders of vagina HIV Ab/Ag Today N89.8 - Other specified noninflammatory disorders of vagina Hepatitis C Antibody Today Z11.3 - Encounter for screening for infections with a predominantly sexual mode of transmission Coding Level of Care Code Est Pt Level 4 (81351) Diagnoses Vaginal discharge N89.8 Pelvic pain R10.2 Screening for STD (sexually transmitted disease) Z11.3
[2025-08-13 08:01] VITALS: BP 116/90; PULSE 81; RESP 16; TEMP 36.7; O2SAT 99; BMI 28.5
--- OUTSIDE RECORDS SUMMARY | 2025-08-13 08:13 | XMS_ITS | Clinical Summary ---
Author Organization [facility] Address [address] [place] [address] Phone Care Team Providers Care Spanish Linguist Name Role Phone Kika Lucas MD Primary Care Provider Allergies Active Allergy Reactions Criticality Noted Date Comments [place]cloud Anaphylaxis,Hives High 02/09/2019 Divalproex Nausea And Vomiting [...] brand is covered by insurance. 9 Active cyclobenzaprine (FLEXERIL) 5 mg tablet TAKE 1 TABLET (5 MG TOTAL) BY MOUTH NIGHTLY AT BEDTIME FOR 5 DOSES. 5 Active cetirizine (ZyrTEC) 10 mg tablet Take 1 tablet (10 mg total) by mouth 1 (one) time each day in the evening. 5 Active valACYclovir (VALTREX) 500 mg tablet Take 1 tablet (500 mg total) by mouth 1 (one) time each day. 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 Generalized anxiety disorder 09/03/2019 Other dysphagia 09/03/2019 Functional abdominal pain syndrome 11/10/2018 Allergic rhinitis 03/10/2018 Depression 11/24/2017 Rosacea 11/24/2017 Immunizations Name Administration Dates Next Due Hepatitis B (Stcsgie-B-Afzog , Recombivax HB-Adult) 19yo and older 11/22/2014,05/17/2014,04/19/2014 [...] (BILATERAL OCCLUSION FALLOPIAN TUBES-PERMA) ESOPHAGOGASTRODUODENOSCOPY 09/29/2018 PROCEDURE: [place] ESOPHAGOGASTRODUODENOSCOPY TRANSORAL DIAGNOSTIC; COMMENT: normal Medical History Medical History Date Comments History of migraine DX:History o f migraine Asthma DX:Asthma Anemia DX:Anemia; COMME NT: Alpha-thalessemia trait Recurrent HSV (herpes simplex virus) DX:Recurrent HSV (herpes simplex virus) Rosacea 11/24/2017 DX:Rosacea Depression 11/24/2017 DX:Depression Nephrolithiasis DX:Nephrolithias is; COMMENT: [place] 06/2016 [facility] Allergic rhinitis 03/10/2018 DX:Allergic rh initis Bacterial [...] your loved ones. For example, child care supervisor or elderly care for an older adult? [...] Vag-S pont None N Livin g Delivery Location:[facility] 02/2005 Term 38w 0d 3600 g (127 oz) F Vag-S pont None N Livin g Complications:None Delivery Location:[facility] 03/2008 Term 40w 0d 3175 g (112 oz) F Vag-S pont None N Livin g Complications:None Delivery Location:[place] 012 Term 39w 0d 3289 g (116 oz) M Vag-S pont Epidur al N Livin g Complications:None Delivery Location:[facility] Last Filed Vital Signs Vital Sign Reading [...] PPSV23) 05/05/2018 03/10/2018 COVID-19 Vaccine ( season) 2025 12/01/2022, 10/08/2022, 01/05/2022, Additional history exists Influenza [...] Health Maintenance Results * HIV Screening (02/25/2023) Pathologist [facility] HIV Screening abstracted [facility] Provider HEALTH MAINTENANCE Final Result * Hepatitis C Screening (02/25/2023) Pathologist [facility] Hepatitis C Screening abstracted [facility] Provider HEALTH MAINTENANCE Final Result from Last 3 Months or Most Recently Relevant to Health Maintenance Insurance [facility] [employer] Care Teams Spanish Linguist Relationship Specialty Start Date End Date Kika Lucas MD [address] [place] [address] PCP - General Internal Medicine 06/12/21
--- OUTSIDE RECORDS SUMMARY | 2025-08-13 08:14 | XMS_ITS | Encounter Summary ---
Author Organization [facility] Address [address] [place] [address] Phone Care Team Providers Care Children'S Service Supervisor Name Role Phone Mer Dunn MD Primary Care Provid er Encounter Details Date Type Department Care Team (Late st Contact Info) Description 04/11/2023 Procedure Pass [facility], Ct Scan - [address] [address] Social History Tobacco Use Types Packs/Day Years Used Date Smoking Tobacco: Never Smokeless Tobacco: Never Alcohol Use Standard Drinks/Week Comments Not Currently 0 (1 standard drink = 0.6 oz pur e alcohol) Education Answer Date Recorded Are you interested in more education? Not on nancy e 03/25/2023 Are you concerned about learning? Not on file 03/25/2023 No 03/25/2023 No 03/25/2023 Comments Unknown Sex and Gender Information Value Date Recorded Sex Assigned at Female 04/11/2023 7:33 PM EDT Legal Sex Female 9:12 PM EDT Gender Identity Female 04/11/2023 7:33 PM EDT Sexual Orientation Don't know 04/25/2024 6: 12 PM EDT documented as of this encounter Functional Status * Calculated C-SSRS Risk Score (Lifetime/Recent) Answer Date of Assessment Author No Risk Indicated 04/11/2023 7:33 PM EDT Nella Bliss RN * [place] Suicide Severity Rating Scale (Screener/Recent Self-Report) Question Answer Date of Assessment Author 1. Wish to be (Past 1 Month) No 04/11/2023 7:33 PM EDT Nella Bliss RN 2. Non-Specific Active Suicidal Thoughts (Past 1 Month) No 04/11/2023 7:33 PM EDT Nella Bliss RN 6. Suicidal Behavior (Lifetime) No 04/11/2023 7:33 PM EDT Nella Bliss RN documented as of this encounter Plan of Treatment Not on file documented as of this encounter Visit Diagnoses Not on filedocumented in this encounter Additional Health Concerns Infection Onset Date Last Indicated Resolved Time CoV-Risk 06/26/2024 06/26/2024 07/07/2024 1:26 AM EDT documented as of this encounter Care Teams Children'S Service Supervisor Relationship Specialty Start Date End Date Mer Dunn MD [address] [place] [address] PCP - General Internal Medicine 04/11/23 documented as of this encounter Additional Source Comments The information contained in this document represents components of the legal health record. It is not the complete legal health record.[facility]
--- OUTSIDE RECORDS SUMMARY | 2025-08-13 08:14 | XMS_ITS | Encounter Summary ---
Author Organization [facility] Address [address] [place] [address] Phone Care Team Providers Care Family Manager Name Role Phone Unknown, Unknown Primary Care Provider [facility] Primary Care Provider Unavailable Mer Dunn MD Primary Care Provid er Encounter Details Date Type Department Care Team (Latest Contact Info) Description 02/16/2021 Transcribe Orders Virtual Department [address] [place] [address] Dean Carr MD [address] [place] [phone] [email or web address] Cough (Primary Dx); Sore throat; Stuffy and runny nose Social History Tobacco Use Types Packs/Day Years Used Date Smoking Tobacco: Never Assessed Comments Unknown Sex and Gender Information Value Date Recorded Sex Assigned at Female 04/11/2023 7:33 PM EDT Legal Sex Female 9:12 PM EDT Gender Identity Female 04/11/2023 7:33 PM EDT Sexual Orientation Don't know 04/25/2024 6: 12 PM EDT documented as of this encounter Plan of Treatment Not on file documented as of this encounter Results * COVID-19 PCR Order (02/16/2021 10:58 AM EDT) COVID Testing Status In-house testing being performed [facility] Symptomatic? YES [facility] 02/16/2021 10:5 8 AM EDT 02/16/2021 3:30 PM EDT Dean Carr MD BODY FLUIDS AND STOOLS ORD ERABLES Final Result [facility] [address] [place] [address] documented in this encounter Visit Diagnoses Diagnosis Cough- Primary Sore throat Acute pharyngitis Stuffy and runny nose Other diseases of nasal cavity and sinuses documented in this encounter Additional Health Concerns Infection Onset Date Last Indicated Resolved Time CoV-Risk 02/16/2021 02/16/2021 02/26/2021 1:24 AM EDT COVID-19 02/03/2023 02/03/2023 02/24/2023 1:21 AM EDT CoV-Risk 06/26/2024 06/26/2024 07/07/2024 1:26 AM EDT documented as of this encounter Care Teams Family Manager Relationship Specialty Start Date End Date Unknown, Unknown, MD PCP - General 02/16[facility]21 [facility] - [facility]03[facility]23 04/10/23 Mer Dunn MD [address] [place] [address] PCP - General Internal Medicine 04/11/23 documented as of this encounter Additional Source Comments The information contained in this document represents components of the legal health record. It is not the complete legal health record.[facility]
--- OUTSIDE RECORDS SUMMARY | 2025-08-13 08:14 | XMS_ITS | Encounter Summary ---
Author Organization [facility] Address [address] [address] [place] [phone] Phone Care Team Providers Care Etl Architect Name Role Phone Mer Dunn MD Primary Care Provid er Encounter Details Date Type Department Care Team (Late st Contact Info) Description 04/25/2024 Procedure Pass [facility], Ct Scan - [address] [address] Social History Tobacco Use Types Packs/Day Years [...] 4:42 PM EDT James Riddle RN * [place] Suicide Severity Rating Scale (Screener/Recent Self-Report) Question [...] documented as of this encounter Care Teams Etl Architect Relationship Specialty Start Date End Date Mer Dunn MD [address] [place] [address] PCP - General Internal Medicine 04/11/23 documented as of this encounter Additional Source Comments The information contained in this document represents components of the legal health record. It is not the complete legal health record.[facility]
--- OUTSIDE RECORDS SUMMARY | 2025-08-13 08:14 | XMS_ITS | Clinical Summary ---
Author Organization [facility] Address [address] [facility] [address] [place] [address] Phone Care Team Providers Care Medical Consultant Name Role Phone Mer Dunn MD Primary Care Provid er Allergies Active Allergy Reactions Criticality Noted Date Comments [place] Anaphylaxis,Hives High 02/09/2019 Divalproex Nausea And Vomiting 11/24/2017 Peanut Anaphylaxis,Hives High 02/09/2019 Sulfa (Sulfonamide Antibiotics) 04/25/2024 Sumatriptan Diarrhea 11/24/2017 w/ abdominal pain Topiramate Itching,Swelling 11/11/2017 Facial numbness Medications oxyCODONE 5 MG immediate release tablet Take 1 tablet (5 mg total) by mouth every 6 (six) hours as needed. Partial fill ok 12 tablet 04/12/20 23 Active Additional Information Patient not taking.Reported on 03/15/2025 ondansetron (ZOFRAN-ODT) 4 MG disintegrating tablet Take 1 tablet (4 mg total) by mouth every 8 (eight) hours as needed. 20 tablet 04/26/20 24 Active Additional Information Patient not taking.Reported on 03/15/2025 EPINEPHRINE BITARTRATE MISC Inject 0.3 mg into the muscle. 07/20/20 23 Active fluticasone propionate (FLONASE) 50 mcg/actuation nasal spray SPRAY 2 SPRAYS INTO EACH NOSTRIL IN THE EVENING 03/11/20 25 Active loratadine (CLARITIN) 10 mg tablet TAKE 1 TABLET IN THE MORNING NEEDED FOR HIVES 03/11/20 25 Active pantoprazole (PROTONIX) 40 MG tablet Take 1 tablet (40 mg total) by mouth daily. 30 tablet 08/07/20 25 025 Active sucralfate (CARAFATE) 1 gram tablet Take 1 tablet (1 g total) by mouth 4 (four) times a day for 15 days. 60 tablet 08/07/20 25 025 Active aluminum-magnesium hydroxide-simethic one (MAALOX) 200-200-20 mg/5 mL Susp Take 30 mL by mouth 2 (two) times a day as needed (indigestion). 769 mL 08/07/20 25 025 Active Encounters Date Type Department Care Team Description 08/07/2025 8:12 AM EDT - 08/07/2025 1:20 PM EDT Emergency [facility] [address] [place] [address] Discharge Disposition: Home or Self Care from Last 3 Months Immunizations Immunization Administration Dates Next Due COVID-19 (Pre) Moderna Vaccine, Bivalent 6mo+ 12/01/2022 COVID-19 (Pre) Moderna Vaccine, mRNA, PF 10/08/2022,01/05/2022 Hepatitis B Adult 11/22/2014,05/17/2014,04/19/20 14 Influenza, Unspecified Formulation 09/29/2023, MMR 04/11/2023,02/21/2023 Tdap 05/21/2020 Social History Tobacco Use Types Packs/Day Years Used Date Smoking Tobacco: Never Smokeless Tobacco: Never Tobacco Cessation:Counseling Given: Not Answered Alcohol Use Standard Drinks/Week Comments Not Currently 0 (1 standard drink = 0.6 oz pur e alcohol) Education Answer Date Recorded Are you interested in more education? Not on nancy e 03/25/2023 Are you concerned about learning? Not on file 03/25/2023 No 03/25/2023 No 03/25/2023 Food Answer Date Recorded Within the past 6 months we worried whether our food would run out before we got money to buy more. Never True 08/07/2025 Within the past 6 months the food we bought just didn't last and we didn't have enough money to get more. Never True Residential Stability Answer Date Recor ded What is your housing situation today? I have ras busch 08/07/2025 How many times have you move d in the past 12 months? Zero (I did not move) 08/07/2025 Paying for Meds Answer Date Recorded Do you have trouble paying for medicines? No 08/07/2025 Paying Utility Bills Answer Date Record ed Do you have trouble paying your heating or elect ricity bill? No 08/07/2025 Transportation Answer Date Recorded Has the lack of transportati on kept you from medical appointments or from getting medications? No 08/07/2025 Digital Access Answer Date Recorded No 08/07/2025 Yes 08/07/2025 Do you have reliable internet access at home? Ye s 08/07/2025 Do you have a device (e.g., phone, tablet, computer) with a working camera? Yes 08/07/2025 Intimate Partner Violence Answer Date R ecorded Are you denied basic needs s uch as food, clothing, or medical care? No 08/07/2025 In the past 12 months have y ou been in a relationship with a person who hurts, threatens, or tries to control you? No 08/07/2025 Are you denied basic needs s uch as food, clothing, or medical care? No 08/07/2025 In the past 12 months have y ou been in a relationship with a person who hurts, threatens, or tries to control you? No 08/07/2025 Comments No Sex and Gender Information Value Date Recorded Sex Assigned at Female 04/11/2023 7:33 PM EDT Legal Sex Female 9:12 PM EDT Gender Identity Female 04/11/2023 7:33 PM EDT Sexual Orientation Don't know 04/25/2024 6: 12 PM EDT Last Filed Vital Signs Vital Sign Reading Time Taken Comments Blood Pressure 120/79 08/07/2025 12:39 PM EDT Pulse 72 08/07/2025 12:39 PM EDT Temperature 36.9 C (98.5 F) 08/07/2025 1:04 PM EDT Respiratory Rate 16 08/07/2025 12:39 PM EDT Oxygen Saturation 100% 08/07/2025 12:39 PM EDT Inhaled Oxygen Concentration - - Weight 65.8 kg (145 lb) 08/07/2025 8:09 AM EDT Height 154.9 cm (5' 1 ) 08/07/2025 8:09 AM EDT Body Mass Index 27.4 08/07/2025 8:09 AM EDT Plan of Treatment Health Maintenance Due Date Last Done Comments DEPRESSION SCREENING 1998 HEPATITIS C SCREENING 2004 HIV ONE-TIME SCREENING (18-65 YEARS) 2004 PAP SMEAR 08/18/2021 08/18/2018 INFLUENZA VACCINE (#1) 2025 , 09/29/2023, 10/08/2022, Additional history exists COVID-19 VACCINE (2024- season) 2025 12/01/2022, 10/08/2022, 01/05/2022, Additional history exists SCREENING FOR DIABETES 08/07/2028 08/07/2025 Adult Td,Tdap Booster 05/21/2030 05/21/2020, 018 PNEUMOCOCCAL VACCINES (0-49 years) Aged Out 03/10/2018 No longer eligible based on patient's age to complete this topic SMOKING STATUS SCREENING (Once After 26 Yrs) Completed 04/10/2025 HEPATITIS A VACCINES Aged Out No long er eligible based on patient's age to complete this topic HIB VACCINES Aged Out No longer eligi ble based on patient's age to complete this topic MENINGOCOCCAL VACCINES (ACWY) Aged Out No longer eligible based on patient's age to complete this topic MENINGOCOCCAL VACCINES (B) Aged Out N o longer eligible based on patient's age to complete this topic Medical Devices Not on file Procedures Procedure Name Priority Date/Time Associated Diagnosis Comments US ABDOMEN LIMITED RIGHT UPPER QUADRANT Routine 08/07/2025 8:54 AM EDT URINE SEDIMENT STAT 08/07/2025 8:46 AM EDT URINALYSIS W/REFLEX URINE CULTURE STAT 08/07/2025 8:46 AM EDT URINE CULTURE Routine 08/07/2025 8:46 AM EDT LIPASE STAT 08/07/2025 8:15 AM EDT LFTS (HEPATIC PANEL) STAT 08/07/2025 8:15 AM EDT HCG, SERUM QUALITATIVE STAT 08/07/2025 8:15 AM EDT BASIC METABOLIC PANEL STAT 08/07/2025 8:15 AM EDT CBC AND DIFFERENTIAL STAT 08/07/2025 8:15 AM EDT from Last 3 Months Results * US ABDOMEN LIMITED RIGHT UPPER QUADRANT (08/07/2025 8:54 AM EDT) Anatomical Region Laterality Modality Abdomen Ultrasound 08/07/2025 9:18 AM EDT Impressions 08/07/2025 9:29 AM EDT No gallstones or sonographic findings of acute cholecystitis. ATTESTATION: I, Nataliia Crooks as teaching physician, have reviewed the images for this case and if necessary edited the report originally created by Damion Chambers. Narrative 08/07/2025 9:29 AM EDT US ABDOMEN LIMITED RIGHT UPPER QUADRANT Referring clinician's provided indication for this examination in Epic: Nausea/vomiting; Pain TECHNIQUE: US Abdominal limited right upper quadrant. COMPARISON: CT CHEST WITH CONTRAST FINDINGS: Liver: No focal lesions. Main Portal Vein: Patent with normal direction of flow. Gallbladder: No gallstones or gallbladder wall thickening. Jones's Sign: Negative. Biliary: Normal. No intrahepatic or extrahepatic biliary ductal dilatation. The common bile duct measures 2 mm. Right Kidney: 11.6 x 4.1 cm. No stones or hydronephrosis. Extrarenal pelvis measuring up to 1.3 cm in diameter. Procedure Note Nataliia Crooks MD - 08/07/2025 US ABDOMEN LIMITED RIGHT UPPER QUADRANT Referring clinician's provided indication for this examination in Epic:Nausea/vomiting; Pain TECHNIQUE: US Abdominal limited right upper quadrant. COMPARISON: CT CHEST WITH CONTRAST FINDINGS: Liver: No focal lesions. Main Portal Vein: Patent with normal direction of flow. Gallbladder: No gallstones or gallbladder wall thickening. Jones's Sign: Negative. Biliary: Normal. No intrahepatic or extrahepatic biliary ductaldilatation. The common bile duct measures 2 mm. Right Kidney: 11.6 x 4.1 cm. No stones or hydronephrosis. Extrarenalpelvis measuring up to 1.3 cm in diameter. IMPRESSION: No gallstones or sonographic findings of acute cholecystitis. ATTESTATION: I, Nataliia Crooks as teaching physician, have reviewed theimages for this case and if necessary edited the report originally createdby Damion Chambers. us Sumanth Perez PA-C IMG US ABDOMEN Final Result * (ABNORMAL) Urinalysis w/reflex Urine Culture (08/07/2025 8:46 AM EDT) COLOR Yellow Yellow [facility] CLARITY Clear [facility] GLUCOSE Negative Negative [facility] BILI Negative Negative [facility] KETONES Negative Negative [facility] SPECIFIC GRAVITY <1.005 1.005 - 1.030 [facility] BLOOD Negative Negative [facility] PH 6.0 5.0 - 8.0 [facility] Protein-UA Negative Negative [facility] NITRITE Negative Negative [facility] Leukocyte esterase, ur 1+(A) Negative [facility] Urine (Urine) 08/07/2025 8:4 6 AM EDT 08/07/2025 9:20 AM EDT us Ramin Quinn MD URINE ORDERABLES Final Result [facility] [address] [place] [address] * (ABNORMAL) Urine Culture (08/07/2025 8:46 AM EDT) Special Requests None Reflexed from [id number] 08/07/2025 9:54 AM EDT [facility] Urine Culture >100,000 colony forming units per mL MIXED GABE (3 OR MORE COLONY TYPES) Culture indicates contamination . Please resubmit if necessary.(A) 08/08/2025 9:31 AM EDT [facility] Urine 08/07/2025 8:46 AM EDT 08/07/2025 9:20 AM EDT us Ramin Quinn MD MICROBIOLOGY - GENERAL ORDERABL ES Final Result Performing Organization Address [facility] Co de Phone Number [address] [address] * (ABNORMAL) Urine sediment (08/07/2025 8:46 AM EDT) WBC 11-20(A) NONE SEEN /hpf [facility] RBC 0-2(A) NONE SEEN /hpf [facility] URINE EPITHELIAL 21-49(A) NONE SEEN [facility] MUCUS NONE SEEN NONE SEEN /hpf [facility] BACTERIA Trace(A) NONE SEEN /hpf [facility] 08/07/2025 8:46 AM EDT 08/07/2025 9:20 AM EDT us Ramin Quinn MD URINE ORDERABLES Final Result Performing Organization Address [facility] de Phone Number [address] [address] * HCG, serum qualitative (08/07/2025 8:15 AM EDT) HCG, QUALITATIVE Negative Negative IU/L [facility] Blood 08/07/2025 8:15 AM EDT 08/07/2025 8:19 AM EDT us Ramin Quinn MD LAB BLOOD ORDERABLES Final Resu lt Performing Organization Address [facility] Co de Phone Number [address] [address] * LFTs (hepatic panel) (08/07/2025 8:15 AM EDT) ALKALINE PHOSPHATASE 64 39 - 117 U/L [facility] TOTAL BILIRUBIN 1.0 0.0 - 1.2 mg/dL [facility] DIRECT BILIRUBIN 0.2 0.0 - 0.2 mg/dL [facility] Bilirubin (Indirect) 0.8 0 - 1.5 mg/dL [facility] AST 16 0 - 37 U/L [facility] ALT 8 0 - 40 U/L [facility] TOTAL PROTEIN 7.8 6.5 - 8.0 g/dL [facility] ALBUMIN 4.3 3.9 - 4.8 g/dL [facility] GLOBULIN 3.5 1 - 4.8 g/dL [facility] A/G Ratio 1.23 1.00 - 4.80 RATIO [facility] Blood 08/07/2025 8:15 AM EDT 08/07/2025 8:19 AM EDT us Ramin Quinn MD LAB BLOOD ORDERABLES Final Resu lt Performing Organization Address City/State/[facility] Co de Phone Number [address] [address] * (ABNORMAL) CBC and differential (08/07/2025 8:15 AM EDT) WBC 6.82 4.00 - 11.00 K/uL [facility] RBC 6.00(H) 4.00 - 5.20 M/uL [facility] HGB 12.2 12.0 - 16.0 g/dL [facility] HCT 40.1 36.0 - 46.0 % [facility] PLT 206 150 - 450 K/uL [facility] MCV 66.8(L) 80.0 - 100.0 fL [facility] MCH 20.3(L) 27.0 - 31.0 pg [facility] MCHC 30.4(L) 32.0 - 36.0 g/dL [facility] RDW 15.0(H) 11.5 - 14.5 % [facility] MPV Not measured 8.4 - 12.0 fL [facility] NRBC 0.00 0.00 /100 WBCs [facility] ABSOLUTE NRBC 0.00 0.00 K/uL [facility] DIFF METHOD Auto [facility] NEUTS 57.8 48.0 - 76.0 % [facility] LYMPHS 29.0 18.0 - 41.0 % [facility] MONOS 7.9 4.0 - 11.0 % [facility] EOS 4.4 0.0 - 5.0 % [facility] BASOS 0.6 0.0 - 1.5 % [facility] Granulocytes, immature (%) 0.3 0.0 - 0.9 % [facility] ABSOLUTE NEUTS 3.94 1.92 - 7.60 K/uL [facility] ABSOLUTE LYMPHS 1.98 0.72 - 4.10 K/uL [facility] ABSOLUTE MONOS 0.54 0.16 - 1.10 K/uL [facility] ABSOLUTE EOS 0.30 0.00 - 0.50 K/uL [facility] ABSOLUTE BASOS 0.04 0.00 - 0.15 K/uL [facility] Granulocytes, immature 0.02 0.00 - 0.09 K/uL [facility] Blood 08/07/2025 8:15 AM EDT 08/07/2025 8:19 AM EDT Ramin Quinn MD LAB BLOOD ORDERABLES Final Resu lt [address] [address] * Lipase (08/07/2025 8:15 AM EDT) LIPASE 22 16 - 63 U/L [facility] Blood 08/07/2025 8:15 AM EDT 08/07/2025 8:19 AM EDT Ramin Quinn MD LAB BLOOD ORDERABLES Final Resu lt [address] [address] * Basic metabolic panel (08/07/2025 8:15 AM EDT) SODIUM 138 133 - 146 mmol/L [facility] CHLORIDE 104 96 - 108 mmol/L [facility] POTASSIUM 4.2 3.3 - 5.1 mmol/L [facility] CO2 21 21 - 35 mmol/L [facility] BUN 9 6 - 19 mg/dL [facility] CREATININE 0.70 0.5 - 1.5 mg/dL [facility] GLUCOSE 97 70 - 99 mg/dL [facility] CALCIUM 9.4 8.4 - 10.3 mg/dL [facility] EGFR 113 >59 mL/min/1.7 3m2 [facility] Comment:Estimated glomerular filtration rate calculated using the CKD-EPI refit equation. ANION GAP 17 10 - 20 mmol/L [facility] Blood 08/07/2025 8:15 AM EDT 08/07/2025 8:19 AM EDT us Ramin Quinn MD LAB BLOOD ORDERABLES Final Resu lt Performing Organization Address City/State/[facility] Co de Phone Number [facility] [address] [place] [address] from Last 3 Months Insurance [employer]CO [place] [place] [address] [address] [place] [address] [employer] Care Teams Medical Consultant Relationship Specialty Start Date End Date Mer Dunn MD [address] [place] [address] PCP - General Internal Medicine 04/11/23 Additional Source Comments The information contained in this document represents components of the legal health record. It is not the complete legal health record.[facility]
--- OUTSIDE RECORDS SUMMARY | 2025-08-13 08:14 | XMS_ITS | Encounter Summary ---
Author Organization [facility] Address [address] [place] [phone] Phone Care Team Providers Care Behavior Clinician Name Role Phone Mer Dunn MD Primary Care Provid er Encounter Details Date Type Department Care Team (Late st Contact Info) Description 04/02/2025 Procedure Pass [facility], Ct Scan - [address] [address] Social History Tobacco Use Types Packs/Day Years [...] got money to buy more. Never True 04/02/2025 Within the past 6 months the food we bought just didn't last and we didn't have enough money to get more. Never True Residential Stability Answer Date Recor ded What is your housing situation today? I have ras sing 04/02/2025 How many times have you move d in the past 12 months? Zero (I did not move) 04/02/2025 Paying for Meds Answer Date Recorded Do you have trouble paying for medicines? No 04/02/2025 Paying Utility Bills Answer Date Record ed Do you have trouble paying your heating or elect ricity bill? No 04/02/2025 Transportation Answer Date Recorded Has the lack of transportati on kept you from medical appointments or from getting medications? No 04/02/2025 Digital Access Answer Date Recorded No 04/02/2025 Yes 04/02/2025 Do you have reliable internet access at home? Ye s 04/02/2025 Do you have a device (e.g., phone, tablet, computer) with a working camera? Yes 04/02/2025 Intimate Partner Violence Answer Date R ecorded Are you denied basic needs s uch as food, clothing, or medical care? No 04/02/2025 In the past 12 months have y ou been in a relationship with a person who hurts, threatens, or tries to control you? No 04/02/2025 Are you denied basic needs s uch as food, clothing, or medical care? No 04/02/2025 In the past 12 months have y ou been in a relationship with a person who hurts, threatens, or tries to control you? No 04/02/2025 Comments No Sex and Gender Information Value Date Recorded Sex Assigned at Female 04/11/2023 7:33 PM EDT Legal Sex Female 9:12 PM EDT Gender Identity Female 04/11/2023 7:33 PM EDT Sexual Orientation Don't know 04/25/2024 6: 12 PM EDT documented as of this encounter Functional Status * Calculated C-SSRS Risk Score (Lifetime/Recent) Answer Date of Assessment Author No Risk Indicated 04/02/2025 2:19 PM EDT Sreekanth Samuel RN * [place] Suicide Severity Rating Scale (Screener/Recent Self-Report) Question Answer Date of Assessment Author 1. Wish to be (Past 1 Month) No 025 2:19 PM EDT Sreekanth Samuel, MANSOOR 2. Non-Specific Active Suici muna Thoughts (Past 1 Month) No 04/02/2025 2:19 PM EDT Sreekanth Samuel, MANSOOR 6. Suicidal Behavior (Lifetime) No 2:19 PM EDT Sreekanth Samuel, RN documented as of this encounter Plan of Treatment Not on file documented as of this encounter Visit Diagnoses Not on filedocumented in this encounter Care Teams Behavior Clinician Relationship Specialty Start Date End Date Mer Dunn MD [address] [place] [address] PCP - General Internal Medicine 04/11/23 documented as of this encounter Additional Source Comments The information contained in this document represents components of the legal health record. It is not the complete legal health record.[facility]
== END 2025-08-13 09:17 | disposition home or self-care (01) ==
PROVIDERS: PCP Internal Medicine; Visit Provider Physician Assistant Medical
DX: N89.8 Other specified noninflammatory disorders of vagina (principal); R10.2 Pelvic and perineal pain; Z11.3 Encounter for screening for infections with a predominantly sexual mode of transmission

== ENCOUNTER 2025-08-13 07:58 | Outpatient (REF) | payer OTHER, SELFPAY ==
[2025-08-13 11:53] LABS: HIV Num 1 0.08 S/CO (0.00-0.99); ~HepC Num1 0.17 S/CO (0.00-0.79); ~Hepatitis C Antibody Nonreactive (Nonreactive)
[2025-08-13 12:04] LABS: Syphilis Screen Nonreactive (Nonreactive)
== END 2025-08-13 07:59 | disposition home or self-care (01) ==
LOC: HO.HMGCLDS 07:58
PROVIDERS: PCP Internal Medicine; Visit Provider Physician Assistant Medical
DX: Z11.3 Encounter for screening for infections with a predominantly sexual mode of transmission (principal); N89.8 Other specified noninflammatory disorders of vagina; R10.2 Pelvic and perineal pain; Z01.84 Encounter for antibody response examination
CPT/HCPCS: 36415; 81003; 86780; 86803; 87389; 99212

== ENCOUNTER 2025-08-13 08:53 | Outpatient (REF) | payer OTHER, SELFPAY ==
[2025-08-13 15:58] LABS: Bacterial Vaginosis PCR NEGATIVE (Negative); Candida Group PCR DETECTED (Not Detect); Candida glab krusei PCR NOT DETECTED (Not Detect); Trichomonas vaginalis PCR NOT DETECTED (Not Detect)
== END 2025-08-13 08:54 | disposition home or self-care (01) ==
LOC: HO.LAB 08:53
PROVIDERS: Visit Provider Physician Assistant Medical
DX: Z11.3 Encounter for screening for infections with a predominantly sexual mode of transmission (principal); N89.8 Other specified noninflammatory disorders of vagina
CPT/HCPCS: 81515

== ENCOUNTER 2025-08-14 09:58 | Outpatient (REF) | payer OTHER, SELFPAY ==
--- OUTSIDE RECORDS SUMMARY | 2025-08-14 11:56 | XMS_ITS | Encounter Summary ---
Author Organization [facility] Address [address] [facility] [address] [place] [address] Phone Care Team Providers Care Peanut Cleaner Name Role Phone Mer Dunn MD Primary Care Provid er Encounter Details Date Type Department Care Team (Late st Contact Info) Description 04/11/2023 Procedure Pass [facility], Ct Scan - [address] [address] Social History Tobacco Use Types Packs/Day Years [...] 7:33 PM EDT Nella Bliss RN * [place] Suicide Severity Rating Scale (Screener/Recent Self-Report) Question [...] documented as of this encounter Care Teams Peanut Cleaner Relationship Specialty Start Date End Date Mer Dunn MD [address] [place] [address] PCP - General Internal Medicine 04/11/23 documented as of this encounter Additional Source Comments The information contained in this document represents components of the legal health record. It is not the complete legal health record.[facility]
--- OUTSIDE RECORDS SUMMARY | 2025-08-14 11:56 | XMS_ITS | Encounter Summary ---
Author Organization [facility] Address [address] [facility] [address] [place] [address] Phone Care Team Providers Care Validation Software Facilitator Name Role Phone Mer Dunn MD Primary Care Provid er Encounter Details Date Type Department Care Team (Late st Contact Info) Description 04/25/2024 Procedure Pass [facility], Ct Scan - [address] [address] Social History Tobacco Use Types Packs/Day Years [...] 4:42 PM EDT James Riddle RN * [facility] Suicide Severity Rating Scale (Screener/Recent Self-Report) Question [...] documented as of this encounter Care Teams Validation Software Facilitator Relationship Specialty Start Date End Date Mer Dunn MD [address] [place] [address] PCP - General Internal Medicine 04/11/23 documented as of this encounter Additional Source Comments The information contained in this document represents components of the legal health record. It is not the complete legal health record.[facility]
--- OUTSIDE RECORDS SUMMARY | 2025-08-14 11:56 | XMS_ITS | Clinical Summary ---
Author Organization [facility] Address [address] [place] [address] Phone Care Team Providers Care Body Recall Instructor Name Role Phone Kika Lucas MD Primary Care Provider [phone] Allergies Active Allergy Reactions Criticality Noted Date Comments [place] Anaphylaxis,Hives High 02/09/2019 Divalproex Nausea And Vomiting [...] 11/30/2024 Nephrolithiasis 11/30/2024 Overview (11/30/2024): US 06/2016 [facility] Recurrent HSV (herpes simplex virus) 11/30/2024 Alpha thalassemia trait 10/17/2024 Overview (10/17/2024): Alpha-thalessemia trait Migraine 10/17/2024 Gastroesophageal reflux disease without esophagi tis 12/05/2020 Adverse food reaction 09/03/2019 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 Generalized anxiety disorder 09/03/2019 Other dysphagia 09/03/2019 Functional abdominal pain syndrome 11/10/2018 Allergic rhinitis 03/10/2018 Depression 11/24/2017 Rosacea 11/24/2017 Immunizations Name Administration Dates Next Due Hepatitis B (Xthbjiz-Q-Xelwr , Recombivax HB-Adult) 19yo and older 11/22/2014,05/17/2014,04/19/2014 [...] (BILATERAL OCCLUSION FALLOPIAN TUBES-PERMA) ESOPHAGOGASTRODUODENOSCOPY 09/29/2018 PROCEDURE: [place] ESOPHAGOGASTRODUODENOSCOPY TRANSORAL DIAGNOSTIC; COMMENT: normal Medical History Medical History Date Comments History of migraine DX:History o f migraine Asthma DX:Asthma Anemia DX:Anemia; COMME NT: Alpha-thalessemia trait Recurrent HSV (herpes simplex virus) DX:Recurrent HSV (herpes simplex virus) Rosacea 11/24/2017 DX:Rosacea Depression 11/24/2017 DX:Depression Nephrolithiasis DX:Nephrolithias is; COMMENT: [place] 06/2016 [facility] Allergic rhinitis 03/10/2018 DX:Allergic rh initis [...] for your loved ones. For example, child watch attendant or elderly care for an older [...] Vag-S pont None N Livin g Delivery Location:[facility] 02/2005 Term 38w 0d 3600 g (127 oz) F Vag-S pont None N Livin g Complications:None Delivery Location:[facility] 03/2008 Term 40w 0d 3175 g (112 oz) F Vag-S pont None N Livin g Complications:None Delivery Location:[place] 012 Term 39w 0d 3289 g (116 oz) M Vag-S pont Epidur al N Livin g Complications:None Delivery Location:[facility] Last Filed Vital Signs Vital Sign [...] Maintenance Results * HIV Screening (02/25/2023) Pathologist [facility] HIV Screening abstracted [facility] Provider HEALTH MAINTENANCE Final Result * Hepatitis C Screening (02/25/2023) Pathologist [facility] Hepatitis C Screening abstracted [facility] Provider HEALTH MAINTENANCE Final Result from Last 3 Months or Most Recently Relevant to Health Maintenance Insurance [facility] Care Teams Body Recall Instructor Relationship Specialty Start Date End Date Kika Lucas MD [address] [place] [address] PCP - General Internal Medicine 06/12/21
--- OUTSIDE RECORDS SUMMARY | 2025-08-14 11:57 | XMS_ITS | Encounter Summary ---
Author Organization [facility] Address [address] [place] [address] Phone Care Team Providers Care Last Repairer Name Role Phone Unknown, Unknown Primary Care Provider [facility] Primary Care Provider Unavailable Mer Dunn MD Primary Care Provid er Encounter Details Date Type Department Care Team (Latest Contact Info) Description 02/16/2021 Transcribe Orders Virtual Department [address] [place] [address] Dean Carr MD [address] [place] [id number] [email or web address] Cough (Primary Dx); Sore throat; Stuffy and [...] COVID Testing Status In-house testing being performed [facility] Symptomatic? YES [facility] 02/16/2021 10:5 8 AM EDT 02/16/2021 3:30 PM EDT Dean Carr MD BODY FLUIDS AND STOOLS ORD ERABLES Final Result [facility] [address] [place] [address] documented in this encounter Visit Diagnoses Diagnosis [...] documented as of this encounter Care Teams Last Repairer Relationship Specialty Start Date End Date Unknown, Unknown, MD PCP - General 02/16/21 [facility] 03/03/23 04/10/23 Mer Dunn MD [address] [place] [address] PCP - General Internal Medicine 04/11/23 documented as of this encounter Additional Source Comments The information contained in this document represents components of the legal health record. It is not the complete legal health record.[facility]
--- OUTSIDE RECORDS SUMMARY | 2025-08-14 11:57 | XMS_ITS | Encounter Summary ---
Author Organization [facility] Address [address] [place] [address] Phone Care Team Providers Care Key Holder Name Role Phone Mer Dunn MD Primary Care Provid er Encounter Details Date Type Department Care Team (Late st Contact Info) Description 04/02/2025 Procedure Pass [facility], Ct Scan - [address] [address] Social History Tobacco Use Types Packs/Day Years [...] Risk Indicated 04/02/2025 2:19 PM EDT Sreekanth aSmuel RN * Alger Suicide Severity Rating Scale (Screener/Recent Self-Report) Question [...] on filedocumented in this encounter Care Teams Key Holder Relationship Specialty Start Date End Date Mer Dunn MD [address] [place] [address] PCP - General Internal Medicine 04/11/23 documented as of this encounter Additional Source Comments The information contained in this document represents components of the legal health record. It is not the complete legal health record.[facility]
--- OUTSIDE RECORDS SUMMARY | 2025-08-14 11:57 | XMS_ITS | Clinical Summary ---
Author Organization [facility] Address [address] [facility] [address] [place] [address] Phone Care Team Providers Care Tar Boiler Name Role Phone Mer Dunn MD Primary Care Provid er Allergies Active Allergy Reactions Criticality Noted Date Comments Prospect Anaphylaxis,Hives High 02/09/2019 Divalproex Nausea And Vomiting [...] 1:20 PM EDT Emergency [facility] [address] [place] [address] Discharge Disposition: Home or Self Care from [...] (08/07/2025 8:46 AM EDT) COLOR Yellow Yellow [facility] CLARITY Clear [facility] GLUCOSE Negative Negative [facility] BILI Negative Negative [facility] KETONES Negative Negative [facility] SPECIFIC GRAVITY <1.005 1.005 - 1.030 [facility] BLOOD Negative Negative [facility] PH 6.0 5.0 - 8.0 [facility] Protein-UA Negative Negative [facility] NITRITE Negative Negative [facility] Leukocyte esterase, ur 1+(A) Negative [facility] Urine (Urine) 08/07/2025 8:4 6 AM EDT 08/07/2025 9:20 AM EDT us Ramin Quinn MD URINE ORDERABLES Final Result [facility] [address] [place] [address] * (ABNORMAL) Urine Culture (08/07/2025 8:46 AM EDT) Special Requests None Reflexed from [id number] 08/07/2025 9:54 AM EDT [facility] Urine Culture >100,000 colony forming units per mL MIXED GABE (3 OR MORE COLONY TYPES) Culture indicates contamination . Please resubmit if necessary.(A) 08/08/2025 9:31 AM EDT [facility] Urine 08/07/2025 8:46 AM EDT 08/07/2025 9:20 AM EDT us Ramin Quinn MD MICROBIOLOGY - GENERAL ORDERABL ES Final Result Performing Organization Address [facility] Co de Phone Number [address] [address] * (ABNORMAL) Urine sediment (08/07/2025 8:46 AM EDT) WBC 11-20(A) NONE SEEN /hpf [facility] RBC 0-2(A) NONE SEEN /hpf [facility] URINE EPITHELIAL 21-49(A) NONE SEEN [facility] MUCUS NONE SEEN NONE SEEN /hpf [facility] BACTERIA Trace(A) NONE SEEN /hpf [facility] 08/07/2025 8:46 AM EDT 08/07/2025 9:20 AM EDT us Ramin Quinn MD URINE ORDERABLES Final Result Performing Organization Address [facility] de Phone Number [address] [address] * HCG, serum qualitative (08/07/2025 8:15 AM EDT) HCG, QUALITATIVE Negative Negative IU/L [facility] Blood 08/07/2025 8:15 AM EDT 08/07/2025 8:19 AM EDT us Ramin Quinn MD LAB BLOOD ORDERABLES Final Resu lt Performing Organization Address [facility] Co de Phone Number [address] [address] * LFTs (hepatic panel) (08/07/2025 8:15 AM EDT) ALKALINE PHOSPHATASE 64 39 - 117 U/L [facility] TOTAL BILIRUBIN 1.0 0.0 - 1.2 mg/dL [facility] DIRECT BILIRUBIN 0.2 0.0 - 0.2 mg/dL [facility] Bilirubin (Indirect) 0.8 0 - 1.5 mg/dL [facility] AST 16 0 - 37 U/L [facility] ALT 8 0 - 40 U/L [facility] TOTAL PROTEIN 7.8 6.5 - 8.0 g/dL [facility] ALBUMIN 4.3 3.9 - 4.8 g/dL [facility] GLOBULIN 3.5 1 - 4.8 g/dL [facility] A/G Ratio 1.23 1.00 - 4.80 RATIO [facility] Blood 08/07/2025 8:15 AM EDT 08/07/2025 8:19 AM EDT us Ramin Quinn MD LAB BLOOD ORDERABLES Final Resu lt Performing Organization Address City/State/[facility] Co de Phone Number [address] [address] * (ABNORMAL) CBC and differential (08/07/2025 8:15 AM EDT) WBC 6.82 4.00 - 11.00 K/uL [facility] RBC 6.00(H) 4.00 - 5.20 M/uL [facility] HGB 12.2 12.0 - 16.0 g/dL [facility] HCT 40.1 36.0 - 46.0 % [facility] PLT 206 150 - 450 K/uL [facility] MCV 66.8(L) 80.0 - 100.0 fL [facility] MCH 20.3(L) 27.0 - 31.0 pg [facility] MCHC 30.4(L) 32.0 - 36.0 g/dL [facility] RDW 15.0(H) 11.5 - 14.5 % [facility] MPV Not measured 8.4 - 12.0 fL [facility] NRBC 0.00 0.00 /100 WBCs [facility] ABSOLUTE NRBC 0.00 0.00 K/uL [facility] DIFF METHOD Auto [facility] NEUTS 57.8 48.0 - 76.0 % [facility] LYMPHS 29.0 18.0 - 41.0 % [facility] MONOS 7.9 4.0 - 11.0 % [facility] EOS 4.4 0.0 - 5.0 % [facility] BASOS 0.6 0.0 - 1.5 % [facility] Granulocytes, immature (%) 0.3 0.0 - 0.9 % [facility] ABSOLUTE NEUTS 3.94 1.92 - 7.60 K/uL [facility] ABSOLUTE LYMPHS 1.98 0.72 - 4.10 K/uL [facility] ABSOLUTE MONOS 0.54 0.16 - 1.10 K/uL [facility] ABSOLUTE EOS 0.30 0.00 - 0.50 K/uL [facility] ABSOLUTE BASOS 0.04 0.00 - 0.15 K/uL [facility] Granulocytes, immature 0.02 0.00 - 0.09 K/uL [facility] Blood 08/07/2025 8:15 AM EDT 08/07/2025 8:19 AM EDT Ramin Quinn MD LAB BLOOD ORDERABLES Final Resu lt [address] [address] * Lipase (08/07/2025 8:15 AM EDT) LIPASE 22 16 - 63 U/L [facility] Blood 08/07/2025 8:15 AM EDT 08/07/2025 8:19 AM EDT Ramin Quinn MD LAB BLOOD ORDERABLES Final Resu lt [address] [address] * Basic metabolic panel (08/07/2025 8:15 AM EDT) SODIUM 138 133 - 146 mmol/L [facility] CHLORIDE 104 96 - 108 mmol/L [facility] POTASSIUM 4.2 3.3 - 5.1 mmol/L [facility] CO2 21 21 - 35 mmol/L [facility] BUN 9 6 - 19 mg/dL [facility] CREATININE 0.70 0.5 - 1.5 mg/dL [facility] GLUCOSE 97 70 - 99 mg/dL [facility] CALCIUM 9.4 8.4 - 10.3 mg/dL [facility] EGFR 113 >59 mL/min/1.7 3m2 [facility] Comment:Estimated glomerular filtration rate calculated using the CKD-EPI refit equation. ANION GAP 17 10 - 20 mmol/L [facility] Blood 08/07/2025 8:15 AM EDT 08/07/2025 8:19 AM EDT us Ramin Quinn MD LAB BLOOD ORDERABLES Final Resu lt Performing Organization Address City/State/[facility] Co de Phone Number [facility] [address] [place] [address] from Last 3 Months Insurance [place]CO [place] [address] [place] [address] ACO [facility] ACO Care Teams Tar Boiler Relationship Specialty Start Date End Date Mer Dunn MD [address] [place] [address] PCP - General Internal Medicine 04/11/23 Additional Source Comments The information contained in this document represents components of the legal health record. It is not the complete legal health record.[facility]
[2025-08-14 12:23] LABS: CT PCR NOT DETECTED (Not Detect.); NG PCR NOT DETECTED (Not Detect.)
== END 2025-08-14 09:59 | disposition home or self-care (01) ==
LOC: HO.LNP 09:58
PROVIDERS: Visit Provider Physician Assistant Medical
DX: Z11.3 Encounter for screening for infections with a predominantly sexual mode of transmission (principal); Z11.8 Encounter for screening for other infectious and parasitic diseases; N89.8 Other specified noninflammatory disorders of vagina
CPT/HCPCS: 87491; 87591

== ENCOUNTER 2025-11-26 16:34 | Outpatient (AMB) | payer OTHER, SELFPAY ==
[2025-11-26 16:50] VITALS: BP 116/80; PULSE 84; O2SAT 98; BMI 29.1
--- NOTE | 2025-11-26 16:50 | MHC.PC.OV ---
Vital Signs 11/26/25 16:50 Height 5 ft 1 in Weight 154 lb 2 oz BMI 29.1 BP 116/80 Blood Pressure Location Lt brachial Position Sitting Pulse 84 Pulse Source Pulse Oximeter Pulse Oximetry (%) 98 Oxygen Delivery Method Room Air Intake Visit Reasons: PE Nutrition Program Instructor Required: No Accompanied by: Self / Same As Patient Allergies mushroom Allergy (Severe, Verified 11/26/25 16:51) Anaphylaxis peanut Allergy (Severe, Verified 11/26/25 16:51) Anaphylaxis sertraline Allergy (Severe, Verified 11/26/25 16:51) tongue itchiness divalproex sodium (From DEPAKOTE) Allergy (Intermediate, Verified 11/26/25 16:51) URTICARIA topiramate (From TOPAMAX) Allergy (Intermediate, Verified 11/26/25 16:51) FACIAL AND LIP NUMBNESS hydromorphone (From DILAUDID) Allergy (Mild, Verified 11/26/25 16:51) URTICARIA Sulfa (Sulfonamide Antibiotics) Adverse Reaction (Severe, Verified 11/26/25 16:51) Anaphylaxis nuts Allergy (Severe, Uncoded 11/26/25 16:51) Anaphylaxis moderna covid vaccine Allergy (Intermediate, Uncoded 11/26/25 16:51) hives,swelling Tobacco use date assessed: 11/26/25 Dental Screening Dental Screen Date: 11/26/25 Did you have a dental visit in the last 12 months?: Yes Did you have a dental problem in the last 6 months where you did not have access to dental care?: No Was dental information given to patient?: Patient has dentist HPI HPI Comments History of Present Illness Details This is a 39-year-old female that comes for her physical exam. No need for Pap smear due to hysterectomy for benign reasons. Tdap vaccine up-to-date. Flu vaccine given this year. She complains of abdominal pain and would like to see Gastroenterology. ON LICENSE OF [facility] Medical History (Updated 11/26/25 @ 17:19 by Mer Santos MD) Vaginal discharge De Quervain's tenosynovitis, bilateral Patellofemoral arthralgia of right knee Physical exam Right knee pain Bilateral otitis media Frequent UTI Ingrown toenail Breast pain, right Yeast infection Skin tag Acute tonsillitis Encounter for breast augmentation Overweight (BMI 25.0-29.9) Preoperative clearance Buttocks nodule Screen for STD (sexually transmitted disease) Burning with urination Buttocks nodule Abnormal bruising Lipoma Urinary frequency Concern about STD in female without diagnosis Constipation History of COVID-19 Ethmoid sinusitis URI (upper respiratory infection) HSV (herpes simplex virus) infection Hypovitaminosis D GERD (gastroesophageal reflux disease) Family history of hypertension Asthma Surgical History H/O breast augmentation Status post excision of lipoma (~08/10/22) History of kidney stones History of hysterectomy History of umbilical hernia repair Family History Mother Hypertension Cervical cancer Father No problems noted. Maternal Aunt Colon cancer Maternal Aunt Lung cancer Social History Housing: House Alcohol intake: current Alcohol intake frequency: holidays/special occasions only Alcohol type: hard liquor Patient Tobacco Use Status: Never used Tobacco e-Cigarette/Vaping Use: Never Used Second Hand Smoke Exposure: No service: No Current occupational status: employed Current occupational exposures/hazards: No Cognitive needs: No Hearing needs: No Vision needs: Yes Questionnaire PHQ-9 Over the last 2 weeks, how often have you been bothered by any of the following problems? 1. Little interest or pleasure in doing things: not at all 2. Feeling down, depressed, or hopeless: not at all 3. Trouble falling or staying asleep, or sleeping too much: not at all 4. Feeling tired or having little energy: not at all 5. Poor appetite or overeating: not at all 6. Feeling bad about yourself - or that you are a failure or have let yourself or your family down: not at all 7. Trouble concentrating on things, such as reading the newspaper or watching television: not at all 8. Moving or speaking so slowly that other people could have noticed. Or the opposite - being so fidgety or restless that you have been moving around a lot more than usual: not at all 9. Thoughts that you would be better off or of hurting yourself in some way: not at all Total score: 0 Source: Developed by Drs. Tang L. Dahiana Horowitz, Vernon Javier and colleagues, with an educational donald from [employer]. Thrive Questionnaire Date Thrive assessed: 11/26/25 I am a: Patient What is your living situation today?: I have a steady place to live Within the past 12 months, did the food you bought not last and you didn't have the money to get more?: Never true Within the past 12 months, did you worry whether your food would run out before you got money to buy more?: Never true Do you have trouble paying for medicines?: No Do you have trouble getting transportation to medical appointments?: No Do you have trouble paying your heating and electricity bill?: No Do you have trouble taking care of your child, family member or friend?: No Do you have trouble with day-to-day activities such as bathing, preparing meals, shopping, managing finances, etc.?: No Are you currently unemployed and looking for a job?: No Are you interested in more education?: No Currently or been in a relationship where the following occur: No concerns reported THRIVE Score: 0 AUDIT C Alcohol Use Questionnaire (AUDIT-C) 1. How often do you have a drink containing alcohol?: Never 3. How often do you have six or more drinks on one occasion?: Never Total Score: 0 MARCO-7 AMB Questionnaire MARCO-7 Date MARCO - 7 assessed: 11/26/25 Feeling nervous, anxious, or on edge: 0 = Not at all Not being able to stop or control worryin = Not at all Worrying too much about different things: 0 = Not at all Trouble relaxin = Not at all Being so restless that it is hard to sit still: 0 = Not at all Becoming easily annoyed or irritable: 0 = Not at all Feeling afraid as if something awful might happen: 0 = Not at all Total MARCO-7 score (0-4 normal; 5-9 mild; 10-14 moderate; 15-21 severe): 0 Source: Developed by Drs. Tang Horowitz, Vernon Hernández and colleagues, with an educational donald from [employer]. MARCO-7 Assessment Billing MARCO-7 Assessment Tool: MARCO-7 Assessment 02828 Review of Systems Const All systems reviewed & are unremarkable except as noted in HPI and below Card Denies chest pain at rest, Denies chest pain with activity, Denies edema, Denies irregular heart rhythm, Denies claudication, Denies dyspnea, Denies dyspnea on exertion, Denies orthopnea, Denies paroxysmal nocturnal dyspnea and Denies slow heart rate Resp Denies cough, Denies dyspnea and Denies dyspnea on exertion Physical exam (Primary Care) Vital Signs: Last Vital Signs Pulse 84 11/26/25 16:50 BP 116/80 11/26/25 16:50 Pulse Ox 98 11/26/25 16:50 Oxygen Delivery Method Room Air 11/26/25 16:50 BMI result Body Mass Index 29.1 Tobacco/Smoking Status: Tobacco use Status Tobacco use date assessed 11/26/25 11/26/25 16:54 Patient Tobacco Use Status Never used Tobacco 11/26/25 16:54 e-Cigarette/Vaping Use Never Used 11/26/25 16:54 PHQ-9: PHQ-9 Score PHQ-9: Total score 0 11/26/25 17:13 Thrive Assessment: Date of Thrive Assessment Date Thrive assessed 11/26/25 11/26/25 16:54 Currently or been in a relationship where the following occur: No concerns reported HENIA Head: Yes normal to inspection, Yes normocephalic and Yes atraumatic Ears: external ears normal Eyes General: appearance normal, both eyes and all related structures Eyelids: Yes eyelids normal Conjunctivae: conjunctivae normal Neck Neck: Yes normal visual inspection and Yes supple Resp Effort & Inspection: normal respiratory effort Auscultation: clear to auscultation bilaterally Cardio Jugular venous distension: no JVD Rate: regular rate Rhythm: regular rhythm Heart sounds: S1 normal heart sound present and S2 normal heart sound present GI Inspection: Yes normal to inspection Palpation (GI): Soft to palpation and nontender Auscultation: normal bowel sounds Skin General skin exam: no rashes or lesions noted Neuro General: no focal motor deficits Extrem General: Yes full ROM Psych Appearance: grossly normal Results AMB Urinalysis, Automated UA Leukoctes 0 Karen/uL Last Edit by Shauna Hernandez MA on 11/26/25 17:08 UA Nitrite Negative Last Edit by Shauna Hernandez MA on 11/26/25 17:08 UA Urobilinogen 0.2 mg/dL Last Edit by Shauna Hernandez MA on 11/26/25 17:08 UA Protein 0 mg/dL Last Edit by Shauna Hernandez MA on 11/26/25 17:08 UA pH 6.0 Last Edit by Shauna Hernandez MA on 11/26/25 17:08 UA Blood 0 Peter/uL Last Edit by Shauna Hernandez MA on 11/26/25 17:08 UA Specific [place] 0 Last Edit by Shauna Hernandez MA on 11/26/25 17:08 UA Ketone Negative Last Edit by Shauna Hernandez MA on 11/26/25 17:08 UA Bilirubin 0 mg/dL Last Edit by Shauna Hernandez MA on 11/26/25 17:08 UA Glucose 0 mg/dL Last Edit by Shauna Hernandez MA on 11/26/25 17:08 Results Reviewed Results Reviewed: Laboratory Last Values Urine pH (Auto) 6.0 11/26/25 16:56 Specific [place] (Auto) 0 11/26/25 16:56 Urine Protein (Auto) 0 mg/dL 11/26/25 16:56 Glucose (UA)(Auto) 0 mg/dL 11/26/25 16:56 Urine Ketones (Auto) Negative 11/26/25 16:56 Urine Blood (Auto) 0 Peter/uL 11/26/25 16:56 Urine Nitrite (Auto) Negative 11/26/25 16:56 Urine Bilirubin (Auto) 0 mg/dL 11/26/25 16:56 Urine Urobilinogen (Auto) 0.2 mg/dL 11/26/25 16:56 Leukocyte Esterase (Auto) 0 Karen/uL 11/26/25 16:56 Coding Level of Care Code Est Pt Level 3 (29540) New Pt Prev Care 18-39yr(08800 Diagnoses Physical exam Z00.00 Abdominal pain R10.9 Additional Codes MARCO-7 Assessment Billing - MARCO-7 Assessment Tool: MARCO-7 Assessment 94767 ([id number]) Time Spent (min) 31 Assessment & Plan Assessment & Plan (1) Physical exam: Code(s): Z00.00 - Encounter for general adult medical examination without abnormal findings Category: Medical (2) Abdominal pain: Code(s): R10.9 - Unspecified abdominal pain Category: Medical Plan Repeat physical exam in a year. Referred to Gastroenterology for abdominal pain. Orders: Orders Complete Blood Count Auto Diff 11/26/25 D64.9 - Anemia, unspecified Lipid Panel 11/26/25 E78.5 - Hyperlipidemia, unspecified Vitamin B12 and Folate 11/26/25 E53.8 - Deficiency of other specified B group vitamins IRON PROFILE 11/26/25 D64.9 - Anemia, unspecified Comprehensive [place]. Panel Fast 11/26/25 Z00.00 - Encounter for general adult medical examination without abnormal findings AMB Urinalysis Automated 11/26/25 Z13.9 - Encounter for screening, unspecified Vitamin D 25-OH Total 11/26/25 E55.9 - Vitamin D deficiency, unspecified HIV Ab/Ag 11/26/25 Z11.4 - Encounter for screening for human immunodeficiency virus [HIV] Referrals Gastroenterology Referral R10.9 - Unspecified abdominal pain
--- OUTSIDE RECORDS SUMMARY | 2025-11-26 19:08 | XMS_ITS | Encounter Summary ---
Author Organization [facility] Address [address] [place] [address] Phone Care Team Providers Care Grain Shipper Name Role Phone Mer Dunn MD Primary Care Provid er Encounter Details Date Type Department Care Team (Late st Contact Info) Description 04/02/2025 Procedure Pass [facility], Ct Scan - [address] [address] Social History Tobacco Use Types Packs/Day Years [...] as of this encounter Plan of Treatment Upcoming Encounters Date Type Department Care Team (Late st Contact Info) Description 12/26/2025 11:40 AM EST Office Visit [facility] [address] [place] [address] Nita Melgar MD [address] [place] [address], [address] [place] [address] [email or web address] documented as of this encounter Visit Diagnoses Not on filedocumented in this encounter Care Teams Grain Shipper Relationship Specialty Start Date End Date Mer Dunn MD [address] [place] [address] PCP - General Internal Medicine 04/11/23 documented as of this encounter Additional Source Comments The information contained in this document represents components of the legal health record. It is not the complete legal health record.[facility]
--- OUTSIDE RECORDS SUMMARY | 2025-11-26 19:08 | XMS_ITS | Encounter Summary ---
Author Organization [facility] Address [address] [facility] [address] [place] [address] Phone Care Team Providers Care Laboratory Helper Name Role Phone Mer Dunn MD Primary Care Provid er Encounter Details Date Type Department Care Team (Late st Contact Info) Description 04/25/2024 Procedure Pass [facility], Ct Scan - [address] [address] Social History Tobacco Use Types Packs/Day Years [...] Description 12/26/2025 11:40 AM EST Office Visit [facility] [address] [place] [address] Nita Melgar MD [address] [place] [address], [address] [place] [address] [email or web address] documented as of this encounter Visit Diagnoses Not on filedocumented in this encounter Additional Health Concerns Infection Onset Date Last Indicated Resolved Time CoV-Risk 06/26/2024 06/26/2024 07/07/2024 1:26 AM EDT documented as of this encounter Care Teams Laboratory Helper Relationship Specialty Start Date End Date Mer Dunn MD [address] [place] [address] PCP - General Internal Medicine 04/11/23 documented as of this encounter Additional Source Comments The information contained in this document represents components of the legal health record. It is not the complete legal health record.[facility]
--- OUTSIDE RECORDS SUMMARY | 2025-11-26 19:08 | XMS_ITS | Encounter Summary ---
Author Organization [facility] Address [address] [place] [address] Phone Care Team Providers Care Client Support Representative Name Role Phone Unknown, Unknown Primary Care Provider [facility] Primary Care Provider Unavailable Mer Dunn MD Primary Care Provid er Encounter Details Date Type Department Care Team (Latest Contact Info) Description 02/16/2021 Transcribe Orders Virtual Department [address] [place] [address] Dean Carr MD [address] [place] [phone] [email or web address] Cough (Primary Dx); Sore throat; Stuffy and [...] Description 12/26/2025 11:40 AM EST Office Visit [facility] [address] [place] [address] Nita Melgar MD [address] [facility] [facility] [address], [address] [place] [address] [email or web address] documented as of this encounter Results * COVID-19 PCR Order (02/16/2021 10:58 AM EDT) COVID Testing Status In-house testing being performed [facility] Symptomatic? YES [facility] 02/16/2021 10:5 8 AM EDT 02/16/2021 3:30 PM EDT us Dean Carr MD LAB GENERAL ORDERABLES Fin al Result [facility] [address] [place] [address] documented in this encounter Visit Diagnoses Diagnosis [...] documented as of this encounter Care Teams Client Support Representative Relationship Specialty Start Date End Date Unknown, Unknown, MD PCP - General 02[facility]16[facility] 04/10/23 Mer Dunn MD [address] [place] [address] PCP - General Internal Medicine 04/11/23 documented as of this encounter Additional Source Comments The information contained in this document represents components of the legal health record. It is not the complete legal health record.[facility]
--- OUTSIDE RECORDS SUMMARY | 2025-11-26 19:08 | XMS_ITS | Encounter Summary ---
Author Organization [facility] Address [address] [address] [place] [phone] Phone Care Team Providers Care Quality Cloth Tester Name Role Phone Mer Dunn MD Primary Care Provid er Encounter Details Date Type Department Care Team (Late st Contact Info) Description 04/11/2023 Procedure Pass [facility], Ct Scan - [address] [address] Social History Tobacco Use Types Packs/Day Years [...] Description 12/26/2025 11:40 AM EST Office Visit [facility] [address] [place] [address] Nita Melgar MD [address] [facility], [address] [place] [phone] [email or web address] documented as of this encounter Visit Diagnoses Not on filedocumented in this encounter Additional Health Concerns Infection Onset Date Last Indicated Resolved Time CoV-Risk 06/26/2024 06/26/2024 07/07/2024 1:26 AM EDT documented as of this encounter Care Teams Quality Cloth Tester Relationship Specialty Start Date End Date Mer Dunn MD [address] [place] [address] PCP - General Internal Medicine 04/11/23 documented as of this encounter Additional Source Comments The information contained in this document represents components of the legal health record. It is not the complete legal health record.[facility]
--- OUTSIDE RECORDS SUMMARY | 2025-11-26 19:08 | XMS_ITS | Clinical Summary ---
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 20 tablet 04/26/20 24 Active EPINEPHRINE BITARTRATE MISC Inject 0.3 mg into the muscle. 07/20/20 23 Active fluticasone propionate (FLONASE) 50 mcg/actuation nasal spray SPRAY 2 SPRAYS INTO EACH NOSTRIL IN THE EVENING 03/11/20 25 Active loratadine (CLARITIN) 10 mg tablet TAKE 1 TABLET IN THE MORNING NEEDED FOR HIVES 03/11/20 25 Active valACYclovir (VALTREX) 500 MG tablet Take 1 tablet by mouth every morning. 08/25/20 25 Active montelukast (SINGULAIR) 10 mg tablet take 1 tablet by mouth everyday at bedtime 08/28/20 25 Active MICONAZOLE-7 2 % vaginal cream Place 1 applicator vaginally nightly at bedtime. 08/13/20 25 Active cholecalciferol (VITAMIN D3) 2,000 unit capsule Take 1 capsule by mouth every morning. 08/25/20 25 Active fluconazole (DIFLUCAN) 150 MG tabletIndications: Vaginal discharge Take one dose now and repeat in 3 days 2 tablet 1 09/17/20 25 Active fluconazole (DIFLUCAN) 150 MG tabletIndications: Vaginal itching Take 1 tablet (150 mg total) by mouth every 3 (three) days for 2 doses. Q 72 hours x 2 doses 2 tablet 11/15/20 25 025 Active Problems No known active problems Encounters Date Type Department Care Team Description 11/15/2025 Telephone [facility] [address] [place] [address] [address] [place] [address] Maria A Maier RN yeast infection 09/17/2025 8:43 PM EDT - 09/17/2025 11:59 PM EDT Hospital Encounter [facility] Specimen Processing [address] [place] [address] Orlando Grey MD Discharge Disposition: Home or Self Care 09/17/2025 2:10 PM EDT Office Visit [facility] [address] [place] [address] Orlando Grey MD Vaginal discharge (Primary Dx) 09/17/2025 Transcribe Orders [facility] Phleb Main [address] [place] [address] Orlando Grey MD Vaginal discharge (Primary Dx) 09/17/2025 Orders Only [facility] [address] [place] [address] [place] [address] Shandra Jean [place] Vaginal discharge 09/03/2025 Transcribe Orders [facility] [address] [place] [address] Mer Dunn MD from Last 3 Months Immunizations Immunization Administration Dates Next Due COVID-19 (Pre-09/19) Moderna Vaccine, Bivalent 6mo+ 12/01/2022 COVID-19 (Pre-09/19) Moderna Vaccine, mRNA, PF 10/08/2022,01/05/2022 Hepatitis B Adult 11/22/2014,05/17/2014,04/19/20 14 INFLUENZA, SPLIT VIRUS, TRIVALENT PF 08/29/2025 Influenza, Unspecified Formulation 09/29/2023, MMR 04/11/2023,02/21/2023 Tdap 05/21/2020 Family History Medical History Relation Comments Cervical cancer Mother Relation Status Comments Father Alive Mother Alive Social History Tobacco Use Types Packs/Day Years [...] housing situation today? I have ras sing 08/07/2025 How many times have you move [...] as food, clothing, or medical care? No 08/16/2025 In the past 12 months have y ou been in a relationship with a person who hurts, threatens, or tries to control you? No 08/16/2025 Are you denied basic needs s uch as food, clothing, or medical care? No 08/16/2025 In the past 12 months have y ou been in a relationship with a person who hurts, threatens, or tries to control you? No 08/16/2025 Comments No Sex and Gender Information Value Date Recorded Sex Assigned at Female 04/11/2023 7:33 PM EDT Legal Sex Female 9:12 PM EDT Gender Identity Female 04/11/2023 7:33 PM EDT Sexual Orientation Don't know 04/25/2024 6: 12 PM EDT Last Filed Vital Signs Vital Sign Reading Time Taken Comments Blood Pressure 131/94 08/16/2025 4:10 PM EDT Pulse 71 08/16/2025 4:10 PM EDT Temperature 36.1 C (97 F) 08/16/2025 4:10 PM EDT Respiratory Rate 13 08/16/2025 4:10 PM EDT Oxygen Saturation 100% 08/16/2025 4:10 PM EDT Inhaled Oxygen Concentration - - Weight 67.1 kg (148 lb) 08/16/2025 11:51 AM EDT Height 154.9 cm (5' 1 ) 08/16/2025 11:51 AM EDT Body Mass Index 27.96 08/16/2025 11:51 AM EDT Plan of Treatment Upcoming Encounters Date Type Department Care Team (Late st Contact Info) Description 12/26/2025 11:40 AM EST Office Visit [facility] [address] [place] [address] Nita Melgar MD [address] [place] [address], [address] [place] [address] [email or web address] Health Maintenance Due Date Last Done Comments DEPRESSION SCREENING 1998 HEPATITIS C SCREENING 2004 HIV ONE-TIME SCREENING (18-65 YEARS) 2004 COVID-19 VACCINE ( season) 2025 12/01/2022, 10/08/2022, 01/05/2022, Additional history exists SCREENING FOR DIABETES 08/07/2028 08/07/2025 Adult Td,Tdap Booster 05/21/2030 05/21/2020, 018 PNEUMOCOCCAL VACCINES (0-49 years) Aged Out 03/10/2018 No longer eligible based on patient's age to complete this topic INFLUENZA VACCINE Completed 08/29/2025, , 09/29/2023, Additional history exists SMOKING STATUS SCREENING (Once After 26 Yrs) Completed 09/17/2025 HEPATITIS A VACCINES Aged Out No long [...] Procedure Name Priority Date/Time Associated Diagnosis Comments URINE SEDIMENT Routine 09/17/2025 8:45 PM EDT URINALYSIS WITH REFLEX TO URINE CULTURE Routine 09/17/2025 8:45 PM EDT Vaginal discharge HC NFCT DS BCT VAGINOSIS&VAGINITIS MULT AMP PROBE Routine 09/17/2025 3:07 PM EDT Vaginal discharge from Last 3 Months Results * (ABNORMAL) Urinalysis w/reflex Urine Culture (09/17/2025 8:45 PM EDT) COLOR Yellow Yellow [facility] CLARITY Clear [facility] GLUCOSE Negative Negative [facility] BILI Negative Negative [facility] KETONES Negative Negative [facility] SPECIFIC GRAVITY <1.005 1.005 - 1.030 [facility] BLOOD Trace(A) Negative [facility] PH 6.0 5.0 - 8.0 [facility] Protein-UA Negative Negative [facility] NITRITE Negative Negative [facility] Leukocyte esterase, ur 1+(A) Negative [facility] Urine (Urine) 09/17/2025 8:4 5 PM EDT 09/17/2025 8:48 PM EDT Orlando Grey MD LAB URINE ORDERABLES Final Re sult Performing Organization Address City/[facility]/ZIP Co de Phone Number [address] [address] * (ABNORMAL) Urine sediment (09/17/2025 8:45 PM EDT) WBC 5-10(A) NONE SEEN /hpf [facility] RBC NONE SEEN NONE SEEN /hpf [facility] URINE EPITHELIAL 5-10(A) NONE SEEN [facility] MUCUS NONE SEEN NONE SEEN /hpf [facility] BACTERIA Trace(A) NONE SEEN /hpf [facility] 09/17/2025 8:45 PM EDT 09/17/2025 8:48 PM EDT Orlando Grey MD LAB URINE ORDERABLES Final Re sult Performing Organization Address [facility] Co de Phone Number [address] [address] * (ABNORMAL) Vaginitis Panel (09/17/2025 3:07 PM EDT) Bacterial Vaginosis Negative Negative [facility] Kirstin Species Detected(A) Not Detected [facility] Kirstin glabrata Not Detected Not Detected [facility] Trichomonas Vaginalis Not Detected Not Detected [facility] Other (Vaginal) 09/17/2025 3 :07 PM EDT 09/17/2025 8:37 PM EDT Orlando Grey MD LAB GENERAL ORDERABLES Final Result Performing Organization Address City/[facility]/ZIP Co de Phone Number [address] [phone] from Last 3 Months Care Teams Ironing Pleater Relationship Specialty Start Date End Date Mer Dunn MD [address] [place] [id number] PCP - General Internal Medicine 04/11/23 Additional Source Comments The information contained in this document represents components of the legal health record. It is not the complete legal health record.[facility]
== END 2025-11-26 17:21 | disposition home or self-care (01) ==
LOC: HO.HMCH 16:35
PROVIDERS: PCP Internal Medicine; Visit Provider Internal Medicine
DX: Z13.9 Encounter for screening, unspecified (principal)

== ENCOUNTER → 2025-11-26 16:34 | Outpatient (BNVA) | payer OTHER, SELFPAY | PROVIDERS: PCP Internal Medicine; Visit Provider Internal Medicine | DX: Z00.01 Encounter for general adult medical examination with abnormal findings (principal); R10.9 Unspecified abdominal pain; Z90.710 Acquired absence of both cervix and uterus; Z13.39 Encounter for screening examination for other mental health and behavioral disorders | CPT/HCPCS: 81003; 96127; 99212; 99395 ==